=== PATIENT | male | born 1955 | race Caucasian/White ===

== ENCOUNTER 2017-10-28 21:23 | Emergency (ER) | payer MEDICARE ==
[~2017-10-28] VITALS: Ht 175.3 cm; Wt 90.7 kg
--- OUTSIDE RECORDS SUMMARY | ~2017-10-28 | XMS | Clinical Summary ---
Demographics + + + | Address | [address] | | | [place] [address] | + + + | Home Phone | | + + + | Preferred Language | Unknown | + + + | Marital Status | | + + + | Mormonism Affiliation | Unknown | + + + | Race | Unknown | + + + | Ethnic Group | Other Race | + + + Author + + + | Author | [facility] | + + + | Organization | [facility] | + + + | Address | Unknown | + + + | Phone | Unavailable | + + + Care Team Providers + +------+ + | Care Loop Cutter Name | Role | Phone | + +------+ + | No Pcp Per Patient | PP | Unavailable | + +------+ + Source Comments FLYNN is fully live on both Epic[facility] Ambulatory and EpicCare InPatient.[facility] Allergies + + + + + + [...] | + + + +---------+------+------+-------+ | [place] Fruit | Take by mouth. | | [...] | | | | (FLU SHOT) | 7 | | | + + + + + Results Not on filefrom Last 3 Months
[~2017-10-28 21:23] MED LIST: ASPIRIN EC325 MG PO; CARVEDILOL25 MG PO; GEMFIBROZIL600 MG PO; GLIMEPIRIDE4 MG PO; HYDROMORPHONE PO; LANTUS100 UNITS/ SUB-Q; LIPITOR40 MG PO; LISINOPRIL10 MG PO; MELOXICAM15 MG PO; MEN'S ONE DAIL1 EACH PO; METFORMIN HCL500 MG PO; NIACIN500 MG PO; NOVOLOG FL100 UNIT/1 SUB-Q; PANTOPRAZOLE SO40 MG PO; PROAIR HFA8.5 GM INH; QUETIAPINE FUM300 MG PO; RANITIDINE HCL150 MG PO; SAW PALMETTO450 MG PO; SEROQUEL300 MG PO; SYMBICORT 80-10.2 GM INH; TAMSULOSIN HCL0.4 MG PO; TEMAZEPAM30 MG PO; TESSALON PERLE100 MG PO; VANCOMYCIN1 GM/150 M IV; VENLAFAXINE HCL75 MG; VITAMIN D2000 UNIT PO
[2017-10-28] MEDS ORDERED: SPIRIVA18 MCG INH (22:01)
[2017-10-28] MEDS ORDERED: HUMALOG100 UNIT/2 SUB-Q (22:02)
[2017-10-28] MEDS ORDERED: ALDACTONE25 MG PO (22:05)
--- NOTE | 2017-10-31 23:45 | EKG ---
[facility] [address] [facility] [place] [address] Signed Sinus rhythm with occasional premature ventricular complexes Left atrial enlargement Nonspecific ST abnormality Prolonged QT Abnormal ECG When compared with ECG of 16-APR-2017 22:32, premature ventricular complexes are now present T wave amplitude has decreased in Anterior leads Nonspecific T wave abnormality no longer evident in Lateral leads Confirmed by TERRELL GUERRERO MD ([id number]) on 10/31/2017 11:45:29 PM Electronically Signed By: TERRELL GUERRERO MD 10/31/17 2345 PATIENT NAME: JAIR MEANS Electrocardiogram DATE OF : 59 PHYSICIAN: TERRELL GUERRERO MD REPORT #: [id number] REPORT IS CONFIDENTIAL AND NOT TO BE RELEASED WITHOUT AUTHORIZATION
== END 2017-10-29 06:31 | disposition home or self-care (01) ==
LOC: ED 21:23
DX: A41.9 Sepsis, unspecified organism (principal); R65.21 Severe sepsis with septic shock; J11.00 Influenza due to unidentified influenza virus with unspecified type of pneumonia; I50.9 Heart failure, unspecified; J98.11 Atelectasis; J90 Pleural effusion, not elsewhere classified; I51.7 Cardiomegaly; R59.1 Generalized enlarged lymph nodes; E11.9 Type 2 diabetes mellitus without complications; F17.210 Nicotine dependence, cigarettes, uncomplicated; Z88.5 Allergy status to narcotic agent; Z88.8 Allergy status to other drugs, medicaments and biological substances; Z79.4 Long term (current) use of insulin; Z79.82 Long term (current) use of aspirin; Z79.899 Other long term (current) drug therapy
CPT/HCPCS: 71045; 71260; 74177; 80053; 81001; 83605; 83690; 85025; 85610; 87040; 87077; 87186; 87502; 93005; 93010; 94640; 96361; 96365; 96366; 96375; 99291; 99292; J2543; J3370; J7120; Q9967

== ENCOUNTER 2018-02-25 05:36 | Inpatient (IN) | payer MEDICARE ==
[~2018-02-25] VITALS: Ht 175.3 cm; Wt 71.1 kg
--- OUTSIDE RECORDS SUMMARY | ~2018-02-25 | XMS | Clinical Summary ---
Demographics + + + | Address | [address] | | | [place] [address] | + + + | Home Phone | | + + + | Preferred Language | Unknown | + + + | Marital Status | | + + + | Yazidism Affiliation | Unknown | + + + | Race | Unknown | + + + | Ethnic Group | Unknown | + + + Author + + + | Author | [facility] | + + + | Organization | [facility] | + + + | Address | Unknown | + + + | Phone | Unavailable | + + + Support + + +---------+ + | Name | Relationship | Address | Phone | + + +---------+ + | Domenica Means | ECON | Unknown | | + + +---------+ + Care Team Providers + +------+ + | Care Cascade Operator Name | Role | Phone | + +------+ + | Ty Gomes MD | PP | | + +------+ + Allergies + + + + + + | Active Allergy | Reactions | Severity | Noted | Comments | | | | | Date | | + + + + + + | Zolpidem | Itching | Medium | 01/03/20 | | | | | | 14 | | + + + + + + | Hydrocodone | Rash | Medium | 01/03/20 | | | | | | 14 | | + + + + + + | Morphine | Rash | Medium | 03/12/20 | | | | | | 14 | | + + + + + + | Oxycodone | Rash | Medium | 01/03/20 | | | | | | 14 | | + + + + + + Current Medications + + +---------+---------+------+------+-------+ | Prescription | Sig. | Disp. | Refills | Star | End | Statu | | | | | | t | Date | s | | | | | | Date | | | + + +---------+---------+------+------+-------+ | quetiapine | Take 300 mg by mouth | | | | | Activ | | (SEROQUEL) 300 MG | nightly. | | | | | e | | tablet | | | | | | | + + +---------+---------+------+------+-------+ | temazepam | Take 30 mg by mouth | | | | | Activ | | (RESTORIL) 30 MG | nightly. | | | | | e | | capsule | | | | | | | + + +---------+---------+------+------+-------+ | venlafaxine | Take 300 mg by mouth | | | | | Activ | | (EFFEXOR-XR) 150 MG | nightly. | | | | | e | | 24 hr capsule | | | | | | | + + +---------+---------+------+------+-------+ | atorvastatin | Take 40 mg by mouth | | | | | Activ | | (LIPITOR) 40 MG | nightly. | | | | | e | | tablet | | | | | | | + + +---------+---------+------+------+-------+ | Multiple | Take 1 tablet by | | | | | Activ | | Vitamins-Minerals | mouth every morning. | | | | | e | | (MENS 50+ MULTI | | | | | | | | VITAMIN/MIN PO) | | | | | | | + + +---------+---------+------+------+-------+ | Aydin Block, | Take 450 mg by mouth | | | | | Activ | | Serenoa repens, 450 | 2 (two) times | | | | | e | | MG CAPS | daily. | | | | | | + + +---------+---------+------+------+-------+ | aspirin 325 MG | Take 325 mg by mouth | | | | | Activ | | tablet | daily. | | | | | e | + + +---------+---------+------+------+-------+ | ranitidine | Take 150 mg by mouth | | | | | Activ | | (ZANTAC) 150 MG | as needed. | | | | | e | | capsule | | | | | | | + + +---------+---------+------+------+-------+ | Cholecalciferol | Take 1 tablet by | | | | | Activ | | (VITAMIN D3) 2000 | mouth daily. | | | | | e | | UNITS TABS | | | | | | | + + +---------+---------+------+------+-------+ | niacin 500 MG | Take 500 mg by mouth | | | | | Activ | | tablet | every evening. 2po | | | | | e | | | q hs | | | | | | + + +---------+---------+------+------+-------+ | tamsulosin | Take 0.4 mg by mouth | | | | | Activ | | (FLOMAX) 0.4 MG | After dinner. | | | | | e | | capsule | | | | | | | + + +---------+---------+------+------+-------+ | metFORMIN | Take 1 tablet by | | | 06/2 | | Activ | | (GLUCOPHAGE) 500 MG | mouth 2 (two) times | | | 0/20 | | e | | tablet | daily. | | | 15 | | | + + +---------+---------+------+------+-------+ | tiotropium | Inhale 1 capsule | 30 | 12 | 05/24 | | Activ | | (SPIRIVA) 18 MCG | into the lungs | capsule | | 11/12 | | e | | inhalation capsule | daily. | | | 15 | | | + + +---------+---------+------+------+-------+ | | Take 3 mLs by | | | | | Activ | | ipratropium-albutero | nebulization 4 | | | | | e | | l (DUO-NEB) 0.5-2.5 | (four) times daily. | | | | | | | mg/3mL | | | | | | | + + +---------+---------+------+------+-------+ | pantoprazole | Take 40 mg by mouth | | | | | Activ | | (PROTONIX) 40 MG | every morning before | | | | | e | | tablet | breakfast. | | | | | | + + +---------+---------+------+------+-------+ | lisinopril | TAKE ONE TABLET BY | 90 | 3 | 05/3 | 05/3 | Activ | | (ZESTRIL) 2.5 MG | MOUTH ONCE DAILY | tablet | | 11/12 | 11/12 | e | | tablet | | | | 17 | 18 | | + + +---------+---------+------+------+-------+ | furosemide (LASIX) | TAKE ONE TABLET BY | 180 | 3 | 02/23 | 02/23 | Activ | | 40 MG tablet | MOUTH TWICE DAILY | tablet | | 11/12 | 11/12 | e | | | | | | 17 | 18 | | + + +---------+---------+------+------+-------+ | | Inhale 2 puffs into | | | | | Activ | | budesonide-formotero | the lungs 2 (two) | | | | | e | | l (SYMBICORT) | times daily. | | | | | | | 160-4.5 MCG/ACT | | | | | | | | inhaler | | | | | | | + + +---------+---------+------+------+-------+ | spironolactone | Take 25 mg by mouth | | | | | Activ | | (ALDACTONE) 25 MG | daily. | | | | | e | | tablet | | | | | | | + + +---------+---------+------+------+-------+ | albuterol | Inhale 2 puffs into | 1 | 0 | 01/0 | 01/0 | Activ | | (PROVENTIL | the lungs every 4 | Inhaler | | 9/20 | 9/20 | e | | HFA;VENTOLIN HFA) | (four) hours as | | | 18 | 19 | | | 108 (90 Base) | needed for Wheezing. | | | | | | | MCG/ACT inhaler | | | | | | | + + +---------+---------+------+------+-------+ | levofloxacin | Take 1 tablet by | 5 | 0 | 01/1 | | Activ | | (LEVAQUIN) 500 MG | mouth Once a | tablet | | 0/20 | | e | | tabletIndications: | Day-Quinalones. | | | 18 | | | | Community Acquired | | | | | | | | Pneumonia | | | | | | | + + +---------+---------+------+------+-------+ | insulin glargine | 45 units qhs For 5 | 15 mL | 12 | 01/0 | | Activ | | (LANTUS) 100 UNIT/ML | days take 20 units | | | 9/20 | | e | | injection | qam | | | 18 | | | + + +---------+---------+------+------+-------+ | predniSONE | Take one tablet, by | 10 | 0 | 01/0 | | Activ | | (DELTASONE) 20 MG | mouth two times | tablet | | 9/20 | | e | | tablet | daily for 5 days. | | | 18 | | | + + +---------+---------+------+------+-------+ | carvedilol (COREG) | TAKE ONE TABLET BY | 180 | 0 | 01/1 | | Activ | | 6.25 MG tablet | MOUTH TWICE DAILY | tablet | | 9/20 | | e | | | WITH FOOD | | | 18 | | | + + +---------+---------+------+------+-------+ | varenicline | Take 1 mg by mouth 2 | | | | | Activ | | (CHANTIX) 1 MG | (two) times daily. | | | | | e | | tablet | | | | | | | + + +---------+---------+------+------+-------+ | potassium chloride | Take 1 tablet by | 180 | 3 | 01/ | | Activ | | (KLOR-CON M10) 10 | mouth 2 (two) times | tablet | | 02/10 | | e | | MEQ tablet | daily. | | | 18 | | | + + +---------+---------+------+------+-------+ Active Problems + + + | Problem | Noted Date | + + + | Community acquired pneumonia due to influenza A virus | 10/29/2017 | + + + | S/P CABG x 3 | 10/29/2017 | + + + | Bipolar disorder (HCC) | 10/29/2017 | + + + | Chronic systolic congestive heart failure (HCC) | 10/29/2017 | + + + | Hypotension | 10/29/2017 | + + + | Septic shock (HCC) | 10/29/2017 | + + + | Cardiac defibrillator in place | 03/10/2016 | + + + + + | Overview: [facility] | + + + + + | COPD (chronic obstructive pulmonary disease) | 05/16/2015 | + + + | Mitral regurgitation | 05/16/2015 | + + + | Coronary atherosclerosis of [place] coronary artery | 09/10/2014 | + + + Encounters +--------+ + + + + | Date | Type | Specialty | Care Team | Description | +--------+ + + + + | 02/08/ | Office | | Tani Pop, | Cardiomyopathy, | | 2018 | Visit | | MD | unspecified type | | | | | | (HCC) (Primary Dx) | +--------+ + + + + | 01/31/ | Documentati | | | Automatic | | 2018 | on Only | | | Implantable | | | | | | Cardioverter | | | | | | Defibrillator (5 wk) | +--------+ + + + + | 01/31/ | Orders Only | | Marina Sultana ARNP | | | 2018 | | | | | +--------+ + + + + | 12/27/ | Documentati | | Anitha Bunn | Cardiac | | 2018 | on Only | | | Resynchronization | | | | | | Therapy - | | | | | | Defibrillator (5 wk | | | | | | HF) | +--------+ + + + + | 12/27/ | Orders Only | | Marina Sultana ARNP | | | 2017 | | | | | +--------+ + + + + from Last 3 Months Family History + + +------+ + | Medical History | Relation | Name | Comments | + + +------+ + | Emphysema | Father | | | + + +------+ + | Stroke | Maternal | | | | | Grandfath | | | | | er | | | + + +------+ + | Cancer | Mother | | brain, br | + + +------+ + | Diabetes type II | Mother | | | + + +------+ + | Heart disease | Mother | | | + + +------+ + + +------+ + + | Relation | Name | Status | Comments | + +------+ + + | Father | | | | + +------+ + + | Maternal Grandfather | | | | + +------+ + + | Mother | | | | + +------+ + + Social History + +-------+ +--------+ + | Tobacco Use | Types | Packs/Day | Years | Date | | | | | Used | | + +-------+ +--------+ + | Former Smoker | | 0 | 56 | Quit: 06/17/2015 | + +-------+ +--------+ + + +---+---+---+ | Smokeless Tobacco: | | | | | Never Used | | | | + +---+---+---+ + + | Tobacco Cessation: Ready to Quit: No | + + + + +---------+ + | Alcohol Use | Drinks/We | oz/Week | Comments | | | ek | | | + + +---------+ + | No | | | | + + +---------+ + + + + | Sex Assigned at | Date Recorded | | | | + + + | Not on file | | + + + Last Filed Vital Signs + + + + | Vital Sign | Reading | Time Taken | + + + + | Blood Pressure | 86/48 | 02/08/2018 3:50 PM PDT | + + + + | Pulse | 93 | 02/08/2018 3:50 PM PDT | + + + + | Temperature | 36.5 C (97.7 F) | 11/01/2017 12:18 PM PST | + + + + | Respiratory Rate | 20 | 02/08/2018 3:50 PM PDT | + + + + | Oxygen Saturation | 97% | 02/08/2018 3:50 PM PDT | + + + + | Inhaled Oxygen | - | - | | Concentration | | | + + + + | Weight | 72.4 kg (159 lb 9.6 | 02/08/2018 3:50 PM PDT | | | oz) | | + + + + | Height | 185.4 cm (6' 1") | 02/08/2018 3:50 PM PDT | + + + + | Body Mass Index | 21.06 | 02/08/2018 3:50 PM PDT | + + + + Plan of Treatment +--------+ + + + + | Date | Type | Specialty | Care Team | Description | +--------+ + + + + | 03/07/ | Documentati | | | | | 2017 | on Only | | | | +--------+ + + + + | 08/16/ | Office | | Tani Pop, | | | 2017 | Visit | | MD [address] | | | | | | [place] [address] | | | | | | [phone] | | | | | | | | +--------+ + + + + + + + + + | Health Maintenance | Due Date | Last Done | Comments | + + + + + | Vaccine: | | | | | Dtap/Tdap/Td (1 - | 6 | | | | Tdap) | | | | + + + + + | Vaccine: | | | | | Pneumococcal 19-64 | 6 | | | | (PPSV23 only) Medium | | | | | Risk (1 of 1 - | | | | | PPSV23) | | | | + + + + + | Colon Cancer | | | | | Screening | 7 | | | | (Colonoscopy) | | | | + + + + + | Vaccine: Influenza | | | | | (Season Ended) | 8 | | | + + + + + Procedures + +--------+ + + + | Procedure Name | Priori | Date/Time | Associated Diagnosis | Comments | | | ty | | | | + +--------+ + + + | PACEART DEVICE CHECK | Routin | 01/31/2018 | | Results for this | | REMOTE | e | 1:55 PM | | procedure are in the | | | | PDT | | results section. | + +--------+ + + + | PACEART DEVICE CHECK | Routin | 12/27/2017 | | Results for this | | REMOTE | e | 9:42 PM | | procedure are in the | | | | PST | | results section. | + +--------+ + + + from Last 3 Months Results PACEART DEVICE CHECK REMOTE (01/31/2018 1:55 PM) + + + + | Component | Value | Ref Range | + + + + | Date Time | [id number] | | | Interrogation | | | | Session | | | + + + + | Implantable Pulse | MDC_IDC_ENUM_MFG_STJ | | | Generator | | | | Medical Education Manager | | | + + + + | Implantable Pulse | [id number] Fortify VR | | | Generator Model | | | + + + + | Implantable Pulse | [id number] | | | Generator Serial | | | | Number | | | + + + + | Type Interrogation | MDC_IDC_ENUM_SESS_TYPE_Remote | | | Session | | | + + + + | Re-programmed During | MDC_IDC_ENUM_SESS_REPROGRAMMED_NO | | | Session | | | + + + + | Clinic Name | Long | | + + + + | Implantable Pulse | [facility]_IDC_ENUM_DEV_TYPE_ICD | | | Generator Type | | | + + + + | Implantable Pulse | [id number] | | | Generator Implant | | | | Date | | | + + + + | Implantable Lead | Medtronic | | | Medical Education Manager | | | + + + + | Implantable Lead | [id number] | | | Model | | | + + + + | Implantable Lead | [id number] | | | Serial Number | | | + + + + | Implantable Lead | [id number] | | | Implant Date | | | + + + + | Implantable Lead | APEX | | | Location Detail 1 | | | + + + + | Implantable Lead | [facility]_IDC_ENUM_LEAD_LOCATION_CHAMBER_RV | | | Location | | | + + + + | Candido Setting Mode | MDC_IDC_ENUM_BRADY_MODE_VVI | | | (NBG Code) | | | + + + + | Candido Setting Lower | 40 | {beats}/min | | Rate Limit | | | + + + + | Candido Setting | 120Comment: [id number]^STAR CALLEJASG CANDIDO | {beats}/min | | Maximum Sensor Rate | POLARITYCONFIGURATION RV SENSING PATHWAY | | | | SUMMARY^MDT - RV-Tip to RV-Ring | | + + + + | Lead Channel Setting | MDC_IDC_ENUM_POLARITY_BI | | | Sensing Polarity | | | + + + + | Lead Channel Setting | MDC_IDC_ENUM_ELECTRODE_LOCATION_RV | | | Sensing Anode | | | | Location | | | + + + + | Lead Channel Setting | MDC_IDC_ENUM_ELECTRODE_NAME_Ring | | | Sensing Anode | | | | Terminal | | | + + + + | Lead Channel Setting | MDC_IDC_ENUM_ELECTRODE_LOCATION_RV | | | Sensing Cathode | | | | Location | | | + + + + | Lead Channel Setting | MDC_IDC_ENUM_ELECTRODE_NAME_Tip | | | Sensing Cathode | | | | Terminal | | | + + + + | Lead Channel Setting | 0.5 | mV | | Sensing Sensitivity | | | + + + + | Lead Channel Setting | M[facility]_IDC_ENUM_SENSING_ADAPTATION_MODE_Adapti | | | Sensing Adaptation | veSensingComment: [id number]^STAR PROG CANDIDO | | | Mode | POLARITYCONFIGURATION RV PACING PATHWAY | | | | SUMMARY^STAR - RV-Tip to RV-Ring | | + + + + | Lead Channel Setting | MDC_IDC_ENUM_POLARITY_BI | | | Pacing Polarity | | | + + + + | Lead Channel Setting | MDC_IDC_ENUM_ELECTRODE_LOCATION_RV | | | Pacing Anode | | | | Location | | | + + + + | Lead Channel Setting | MDC_IDC_ENUM_ELECTRODE_NAME_Ring | | | Pacing Anode | | | | Terminal | | | + + + + | Lead Channel Setting | MDC_IDC_ENUM_ELECTRODE_LOCATION_RV | | | Sensing Cathode | | | | Location | | | + + + + | Lead Channel Setting | MDC_IDC_ENUM_ELECTRODE_NAME_Tip | | | Sensing Cathode | | | | Terminal | | | + + + + | Lead Channel Setting | 0.5 | ms | | Pacing Pulse Width | | | + + + + | Lead Channel Setting | 1.0 | V | | Pacing Amplitude | | | + + + + | Lead Channel Setting | MDC_IDC_ENUM_PACING_CAPTURE_MODE_AdaptiveCa | | | Pacing Capture Mode | pture | | + + + + | Zone Setting Type | MDC_IDC_ENUM_ZONE_TYPE_Zone_VF | | | Category | | | + + + + | Zone Setting Vendor | MDC_IDC_ENUM_ZONE_VENDOR_TYPE_STJ-Zone_VFCo | | | Type Category | mment: [id number]^MDT PROG TACHY ZONE | | | | DETECTIONS STATUS^MDT - ENABLED | | + + + + | Zone Setting | 300 | ms | | Detection Interval | | | + + + + | Zone Setting Type | MDC_IDC_ENUM_ZONE_TYPE_Zone_VT | | | Category | | | + + + + | Zone Setting Vendor | MDC_IDC_ENUM_ZONE_VENDOR_TYPE_STJ-Zone_VT2C | | | Type Category | omment: [id number]^MDT PROG TACHY ZONE | | | | DETECTIONS STATUS^MDT - DISABLED | | + + + + | Zone Setting Type | MDC_IDC_ENUM_ZONE_TYPE_Zone_VT | | | Category | | | + + + + | Zone Setting Vendor | MDC_IDC_ENUM_ZONE_VENDOR_TYPE_STJ-Zone_VT1C | | | Type Category | omment: 137753^MDT PROG TACHY ZONE | | | | DETECTIONS STATUS^MDT - ENABLED | | + + + + | Zone Setting | 350Comment: 109459^MDT PROG TACHY ZONE | ms | | Detection Interval | THERAPIES 1 SEQUENCEID^MDT - | | | | 1 292328^MDT PROG TACHY ZONE THERAPIES 1 | | | | STATUS^MDT - | | | | 014174^[facility]_ENUM_ZONE_STATUS_Active^[facility] | | | | 199191^MDT PROG TACHY ZONE THERAPIES 1 | | | | SHOCKTHERAPY ENERGY^MDT - | | | | 31.7 896623^MDT PROG TACHY ZONE | | | | THERAPIES 1 SHOCKTHERAPY PATHWAY POLE ANODE | | | | LOCATION 1^MDT - | | | | 312615^[facility]_ENUM_ELECTRODE_LOCATION_RV^M | | | | [place] [address]^MDT PROG TACHY ZONE THERAPIES | | | | 1 SHOCKTHERAPY PATHWAY POLE ANODE ELECTRODE | | | | 1^MDT - | | | | 144923^[facility]_ENUM_ELECTRODE_NAME_Coil^[facility] | | | | 861675^MDT PROG TACHY ZONE THERAPIES 1 | | | | SHOCKTHERAPY PATHWAY POLE CATHODE LOCATION | | | | 1^MDT - Other [id number]^MDT PROG TACHY | | | | ZONE THERAPIES 1 SHOCKTHERAPY PATHWAY POLE | | | | CATHODE ELECTRODE 1^MDT - | | | | 214190^[facility]_ENUM_ELECTRODE_NAME_Can^[facility] | | | | 137517^MDT PROG TACHY ZONE THERAPIES 2 | | | | SEQUENCEID^MDT - 2 728763^MDT PROG TACHY | | | | ZONE THERAPIES 2 STATUS^MDT - | | | | 976918^[facility]_ENUM_ZONE_STATUS_Active^[facility] | | | | 045381^MDT PROG TACHY ZONE THERAPIES 2 | | | | SHOCKTHERAPY ENERGY^MDT - | | | | 35.2 256481^MDT PROG TACHY ZONE | | | | THERAPIES 2 SHOCKTHERAPY PATHWAY POLE ANODE | | | | LOCATION 1^MDT - | | | | 727509^[facility]_ENUM_ELECTRODE_LOCATION_RV^M | | | | DC 577760^MDT PROG TACHY ZONE THERAPIES | | | | 2 SHOCKTHERAPY PATHWAY POLE ANODE ELECTRODE | | | | 1^MDT - | | | | 958345^[facility]_IDC_ENUM_ELECTRODE_NAME_Coil^[facility] | | | | 964489^MDT PROG TACHY ZONE THERAPIES 2 | | | | SHOCKTHERAPY PATHWAY POLE CATHODE LOCATION | | | | 1^MDT - Other [id number]^MDT PROG TACHY | | | | ZONE THERAPIES 2 SHOCKTHERAPY PATHWAY POLE | | | | CATHODE ELECTRODE 1^MDT - | | | | 409427^[facility]_ENUM_ELECTRODE_NAME_Can^[facility] | | | | 587709^MDT PROG TACHY ZONE THERAPIES 3 | | | | SEQUENCEID^MDT - 3 299974^MDT PROG TACHY | | | | ZONE THERAPIES 3 STATUS^MDT - | | | | 639194^[facility]_ENUM_ZONE_STATUS_Active^[facility] | | | | 495082^MDT PROG TACHY ZONE THERAPIES 3 | | | | SHOCKTHERAPY ENERGY^MDT - | | | | 35.2 080667^MDT PROG TACHY ZONE | | | | THERAPIES 3 SHOCKTHERAPY PATHWAY POLE ANODE | | | | LOCATION 1^MDT - | | | | 702043^[facility]_ENUM_ELECTRODE_LOCATION_RV^M | | | | [place] 0[address]^MDT PROG TACHY ZONE THERAPIES | | | | 3 SHOCKTHERAPY PATHWAY POLE ANODE ELECTRODE | | | | 1^MDT - | | | | 256011^[facility]_ENUM_ELECTRODE_NAME_Coil^[facility] | | | | 705325^MDT PROG TACHY ZONE THERAPIES 3 | | | | SHOCKTHERAPY PATHWAY POLE CATHODE LOCATION | | | | 1^MDT - Other [id number]^MDT PROG TACHY | | | | ZONE THERAPIES 3 SHOCKTHERAPY PATHWAY POLE | | | | CATHODE ELECTRODE 1^MDT - | | | | 219545^[facility]_ENUM_ELECTRODE_NAME_Can^[facility] | | | | 769779^MDT PROG TACHY ZONE THERAPIES 4 | | | | SEQUENCEID^MDT - 4 484344^MDT PROG TACHY | | | | ZONE THERAPIES 4 STATUS^MDT - | | | | 890371^[facility]_ENUM_ZONE_STATUS_Active^[facility] | | | | 776109^MDT PROG TACHY ZONE THERAPIES 4 | | | | SHOCKTHERAPY ENERGY^MDT - | | | | 35.2 025733^MDT PROG TACHY ZONE | | | | THERAPIES 4 SHOCKTHERAPY PATHWAY POLE ANODE | | | | LOCATION 1^MDT - | | | | 988358^[facility]_ENUM_ELECTRODE_LOCATION_RV^M | | | | DC 883572^MDT PROG TACHY ZONE THERAPIES | | | | 4 SHOCKTHERAPY PATHWAY POLE ANODE ELECTRODE | | | | 1^MDT - | | | | 240534^[facility]_ENUM_ELECTRODE_NAME_Coil^[facility] | | | | 259069^MDT PROG TACHY ZONE THERAPIES 4 | | | | SHOCKTHERAPY PATHWAY POLE CATHODE LOCATION | | | | 1^MDT - Other [id number]^MDT PROG TACHY | | | | ZONE THERAPIES 4 SHOCKTHERAPY PATHWAY POLE | | | | CATHODE ELECTRODE 1^MDT - | | | | 108212^[facility]_ENUM_ELECTRODE_NAME_Can^[facility] | | | | 770416^MDT PROG TACHY ZONE THERAPIES 5 | | | | SEQUENCEID^MDT - 5 092220^MDT PROG TACHY | | | | ZONE THERAPIES 5 STATUS^MDT - | | | | 234662^[facility]_ENUM_ZONE_STATUS_Active^[facility] | | | | 006137^MDT PROG TACHY ZONE THERAPIES 5 | | | | SHOCKTHERAPY ENERGY^MDT - | | | | 35.2 752083^MDT PROG TACHY ZONE | | | | THERAPIES 5 SHOCKTHERAPY PATHWAY POLE ANODE | | | | LOCATION 1^MDT - | | | | 221231^[facility] [place]_[facility]_ENUM_ELECTRODE_LOCATION_RV^M | | | | [place] 184130^MDT PROG TACHY ZONE THERAPIES | | | | 5 SHOCKTHERAPY PATHWAY POLE ANODE ELECTRODE | | | | 1^MDT - | | | | 077493^[facility] [place]_[facility]_ENUM_ELECTRODE_NAME_Coil^[facility] | | | | 870842^MDT PROG TACHY ZONE THERAPIES 5 | | | | SHOCKTHERAPY PATHWAY POLE CATHODE LOCATION | | | | 1^MDT - Other [id number]^MDT PROG TACHY | | | | ZONE THERAPIES 5 SHOCKTHERAPY PATHWAY POLE | | | | CATHODE ELECTRODE 1^MDT - | | | | 745055^[facility] [place]_[facility]_ENUM_ELECTRODE_NAME_Can^[facility] | | | | 047895^MDT PROG TACHY ZONE THERAPIES 6 | | | | SEQUENCEID^MDT - 6 514251^MDT PROG TACHY | | | | ZONE THERAPIES 6 STATUS^MDT - | | | | 920220^[facility] [place]_[facility]_ENUM_ZONE_STATUS_Active^[facility] [place] | | | | 555170^MDT PROG TACHY ZONE THERAPIES 6 | | | | SHOCKTHERAPY ENERGY^MDT - | | | | 35.2 460341^MDT PROG TACHY ZONE | | | | THERAPIES 6 SHOCKTHERAPY PATHWAY POLE ANODE | | | | LOCATION 1^MDT - | | | | 236520^[facility] [place]_[facility]_ENUM_ELECTRODE_LOCATION_RV^M | | | | [place] 649567^MDT PROG TACHY ZONE THERAPIES | | | | 6 SHOCKTHERAPY PATHWAY POLE ANODE ELECTRODE | | | | 1^MDT - | | | | 077553^[facility] [place]_[facility]_ENUM_ELECTRODE_NAME_Coil^[facility] | | | | 822185^MDT PROG TACHY ZONE THERAPIES 6 | | | | SHOCKTHERAPY PATHWAY POLE CATHODE LOCATION | | | | 1^MDT - Other [id number]^MDT PROG TACHY | | | | ZONE THERAPIES 6 SHOCKTHERAPY PATHWAY POLE | | | | CATHODE ELECTRODE 1^MDT - | | | | 865430^[facility] [place]_[facility]_ENUM_ELECTRODE_NAME_Can^[facility] | | | | 1388484^MDT PROG TACHY ZONE THERAPIES | | | | SUMMARY^MDT - 31.7J, 35.2J X | | | | 5 [id number]^MDT PROG TACHY ZONE THERAPIES | | | | SUMMARY^MDT - Disabled [id number]^MDT PROG | | | | TACHY ZONE THERAPIES SUMMARY^MDT - | | | | Monitored | | + + + + | Lead Channel Status | [facility]_ENUM_CHANNEL_STATUS_Null | | + + + + | Lead Channel | 380Comment: [id number]^MDT STAT LEADS | ohm | | Impedance Value | LOWPOWERCHANNEL RV IMPEDANCE STARTDATE^MDT | | | | - +[phone]^MDT STAT | | | | LEADS LOWPOWERCHANNEL RV IMPEDANCE | | | | ENDDATE^MDT - | | | | +[phone]^MDT STAT | | | | LEADS LOWPOWERCHANNEL RV IMPEDANCE | | | | POLARITY^MDT - | | | | 724847^[facility] [place]_IDC_ENUM_POLARITY_BI^MDC | | + + + + | Lead Channel Sensing | 11.9Comment: [id number]^MDT STAT LEADS | mV | | Intrinsic Amplitude | LOWPOWERCHANNEL RV SENSITIVITIES | | | | STARTDATE^MDT - | | | | +0000 [id number]^MDT STAT | | | | LEADS LOWPOWERCHANNEL RV SENSITIVITIES | | | | ENDDATE^MDT - | | | | +0000 1669414^MDT STAT | | | | LEADS LOWPOWERCHANNEL RV SENSITIVITIES | | | | POLARITY^MDT - | | | | 548622^[facility] [place]_IDC_ENUM_POLARITY_BI^MDC | | + + + + | Lead Channel Pacing | 0.75 | V | | Threshold Amplitude | | | + + + + | Lead Channel Pacing | 0.5Comment: 1556488^MDT STAT LEADS | ms | | Threshold Pulse | LOWPOWERCHANNEL RV CAPTURES STARTDATE^MDT - | | | Width | +0000 9830779^MDT STAT | | | | LEADS LOWPOWERCHANNEL RV CAPTURES | | | | ENDDATE^MDT - | | | | +0000 6111809^MDT STAT | | | | LEADS LOWPOWERCHANNEL RV CAPTURES | | | | METHOD^MDT - | | | | INSTRUMENT_INITIATED 7872923^MDT STAT | | | | LEADS LOWPOWERCHANNEL RV CAPTURES | | | | POLARITY^MDT - | | | | 032805^MDC_IDC_ENUM_POLARITY_BI^MDC 1001 | | | | 264^MDT STAT LEADS HIGHPOWERCHANNEL | | | | IMPEDANCES MEASURED VALUE^MDT - | | | | 57 1353019^MDT STAT LEADS | | | | HIGHPOWERCHANNEL IMPEDANCES STARTDATE^MDT - | | | | +0000 4022611^MDT STAT | | | | LEADS HIGHPOWERCHANNEL IMPEDANCES MEASURED | | | | VALUE^MDT - 57 4926762^MDT STAT LEADS | | | | HIGHPOWERCHANNEL IMPEDANCES STARTDATE^MDT - | | | | +0000 1315872^MDT STAT | | | | LEADS HIGHPOWERCHANNEL IMPEDANCES | | | | STATUS^MDT - | | | | 946525^MDC_IDC_ENUM_CHANNEL_STATUS_Null^MDC | | | | 6447769^MDT STAT LEADS HIGHPOWERCHANNEL | | | | IMPEDANCES STATUS^MDT - | | | | 876298^MDC_IDC_ENUM_CHANNEL_STATUS_Null^MDC | | | | | | + + + + | Battery Date Time of | [id number]+0000 | | | Measurements | | | + + + + | Battery Status | MDC_IDC_ENUM_BATTERY_STATUS_MOS | | + + + + | Battery VENDOR ANALYST Trigger | When current voltage < 2.59 volts | | + + + + | Battery Remaining | 43 | mo | | Longevity | | | + + + + | Battery Remaining | 36.0 | % | | Percentage | | | + + + + | Battery Voltage | 2.89 | V | + + + + | Capacitor Charge | MDC_IDC_ENUM_CHARGE_TYPE_Reformation | | | Type | | | + + + + | Capacitor Last | [id number]+0000 | | | Charge Date Time | | | + + + + | Capacitor Charge | 9.0 | s | | Time | | | + + + + | Capacitor Charge | 40 | J | | Energy | | | + + + + | Statistic Heart Rate | [id number]+0000 | | | Date Time Start | | | + + + + | Statistic Heart Rate | [id number]+0000 | | | Date Time End | | | + + + + | Statistic | 40 | {beats}/min | | Ventricular Heart | | | | Rate Min | | | + + + + | Statistic | 95 | {beats}/min | | Ventricular Heart | | | | Rate Mean | | | + + + + | Statistic | 250 | {beats}/min | | Ventricular Heart | | | | Rate Max | | | + + + + | Candido Statistic Date | [id number]+0000 | | | Time Start | | | + + + + | Candido Statistic Date | [id number]+0000 | | | Time End | | | + + + + | Candido Statistic RV | 1.0 | % | | Percent Paced | | | + + + + | DOWEL SETTING MACHINE OPERATOR Statistic Date | +0000 | | | Time Start | | | + + + + | DOWEL SETTING MACHINE OPERATOR Statistic Date | +0000 | | | Time End | | | + + + + | Atrial Tachy | +0000 | | | Statistic Date Time | | | | Start | | | + + + + | Atrial Tachy | [phone]+0000 | | | Statistic Date Time | | | | End | | | + + + + | Therapy Statistic | 0 | | | Recent Shocks | | | | Delivered | | | + + + + | Therapy Statistic | 0 | | | Recent Shocks | | | | Aborted | | | + + + + | Therapy Statistic | 0 | | | Recent ATP Delivered | | | + + + + | Therapy Statistic | [id number]+0000 | | | Recent Date Time | | | | Start | | | + + + + | Therapy Statistic | [id number]+0000Comment: [id number]^MDT | | | Recent Date Time End | EVALUATION DEPENDENCY^MDT - | | | | NO 7185779^MDT EVALUATION RHYTHM^MDT - | | | | presenting Vs PVCS/somewhat | | | | irregular 1864881^MDT EVALUATION | | | | MISCELLANEOUSCOMMENT^MDT - REMOTE | | | | CHECK: 5 wk HF Battery | | | | Longevity/Status: 3yr 7 mocharge time: | | | | Lead Impedance:Thresholds: last | | | | measuredMeasured P wave: / R Wave:RVp: <1% | | | | Events: no events recorded, Current mode | | | | VVIR - single lead device. Anti-coagulated: | | | | NoASA: 325 mg EF: Overall left ventricular | | | | systolic function is severely impaired | | | | with, an EF between 20 - 25 %. presenting | | | | EGM appears somewhat irregular but | | | | controlled. 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 | | | | N | | | | [place], | | | | MDAtherosclerosis of [place] coronary | | | | artery of [place] heart without angina | | | | pectorisEP Tech: Filemon Rosado | | | | [facility] | | + + + + + + + | Specimen | Performing Laboratory | + + + | | PACEART | + + + PACEART DEVICE CHECK REMOTE (12/27/2017 9:42 PM) + + + + | Component | Value | Ref Range | + + + + | Date Time | [id number]+0000 | | | Interrogation | | | | Session | | | + + + + | Implantable Pulse | MDC_IDC_ENUM_MFG_STJ | | | Generator | | | | Medical Education Manager | | | + + + + | Implantable Pulse | [id number] Fortify VR | | | Generator Model | | | + + + + | Implantable Pulse | [id number] | | | Generator Serial | | | | Number | | | + + + + | Type Interrogation | MDC_IDC_ENUM_SESS_TYPE_Remote | | | Session | | | + + + + | Re-programmed During | MDC_IDC_ENUM_SESS_REPROGRAMMED_NO | | | Session | | | + + + + | Clinic Name | Long | | + + + + | Implantable Pulse | M[facility]_IDC_ENUM_DEV_TYPE_ICD | | | Generator Type | | | + + + + | Implantable Pulse | [id number] | | | Generator Implant | | | | Date | | | + + + + | Implantable Lead | Medtronic | | | Medical Education Manager | | | + + + + | Implantable Lead | [id number] | | | Model | | | + + + + | Implantable Lead | [id number] | | | Serial Number | | | + + + + | Implantable Lead | [id number] | | | Implant Date | | | + + + + | Implantable Lead | APEX | | | Location Detail 1 | | | + + + + | Implantable Lead | MDC_IDC_ENUM_LEAD_LOCATION_CHAMBER_RV | | | Location | | | + + + + | Candido Setting Mode | MDC_IDC_ENUM_BRADY_MODE_VVI | | | (NBG Code) | | | + + + + | Candido Setting Lower | 40 | {beats}/min | | Rate Limit | | | + + + + | Candido Setting | 120Comment: [id number]^STAR CALLEJASG CANDIDO | {beats}/min | | Maximum Sensor Rate | POLARITYCONFIGURATION RV SENSING PATHWAY | | | | SUMMARY^MDT - RV-Tip to RV-Ring | | + + + + | Lead Channel Setting | MDC_IDC_ENUM_POLARITY_BI | | | Sensing Polarity | | | + + + + | Lead Channel Setting | MDC_IDC_ENUM_ELECTRODE_LOCATION_RV | | | Sensing Anode | | | | Location | | | + + + + | Lead Channel Setting | MDC_IDC_ENUM_ELECTRODE_NAME_Ring | | | Sensing Anode | | | | Terminal | | | + + + + | Lead Channel Setting | MDC_IDC_ENUM_ELECTRODE_LOCATION_RV | | | Sensing Cathode | | | | Location | | | + + + + | Lead Channel Setting | M[facility]_IDC_ENUM_ELECTRODE_NAME_Tip | | | Sensing Cathode | | | | Terminal | | | + + + + | Lead Channel Setting | 0.5 | mV | | Sensing Sensitivity | | | + + + + | Lead Channel Setting | M[facility]_IDC_ENUM_SENSING_ADAPTATION_MODE_Adapti | | | Sensing Adaptation | veSensingComment: [id number]^STAR PROG CANDIDO | | | Mode | POLARITYCONFIGURATION RV PACING PATHWAY | | | | SUMMARY^MDT - RV-Tip to RV-Ring | | + + + + | Lead Channel Setting | MDC_IDC_ENUM_POLARITY_BI | | | Pacing Polarity | | | + + + + | Lead Channel Setting | MDC_IDC_ENUM_ELECTRODE_LOCATION_RV | | | Pacing Anode | | | | Location | | | + + + + | Lead Channel Setting | MDC_IDC_ENUM_ELECTRODE_NAME_Ring | | | Pacing Anode | | | | Terminal | | | + + + + | Lead Channel Setting | MDC_IDC_ENUM_ELECTRODE_LOCATION_RV | | | Sensing Cathode | | | | Location | | | + + + + | Lead Channel Setting | MDC_IDC_ENUM_ELECTRODE_NAME_Tip | | | Sensing Cathode | | | | Terminal | | | + + + + | Lead Channel Setting | 0.5 | ms | | Pacing Pulse Width | | | + + + + | Lead Channel Setting | 1.0 | V | | Pacing Amplitude | | | + + + + | Lead Channel Setting | MDC_IDC_ENUM_PACING_CAPTURE_MODE_AdaptiveCa | | | Pacing Capture Mode | pture | | + + + + | Zone Setting Type | MDC_IDC_ENUM_ZONE_TYPE_Zone_VF | | | Category | | | + + + + | Zone Setting Vendor | MDC_IDC_ENUM_ZONE_VENDOR_TYPE_STJ-Zone_VFCo | | | Type Category | mment: 108198^MDT PROG TACHY ZONE | | | | DETECTIONS STATUS^MDT - ENABLED | | + + + + | Zone Setting | 300 | ms | | Detection Interval | | | + + + + | Zone Setting Type | MDC_IDC_ENUM_ZONE_TYPE_Zone_VT | | | Category | | | + + + + | Zone Setting Vendor | MDC_IDC_ENUM_ZONE_VENDOR_TYPE_STJ-Zone_VT2C | | | Type Category | omment: 718390^MDT PROG TACHY ZONE | | | | DETECTIONS STATUS^MDT - DISABLED | | + + + + | Zone Setting Type | MDC_IDC_ENUM_ZONE_TYPE_Zone_VT | | | Category | | | + + + + | Zone Setting Vendor | MDC_IDC_ENUM_ZONE_VENDOR_TYPE_STJ-Zone_VT1C | | | Type Category | omment: 779328^MDT PROG TACHY ZONE | | | | DETECTIONS STATUS^MDT - ENABLED | | + + + + | Zone Setting | 350Comment: 574459^MDT PROG TACHY ZONE | ms | | Detection Interval | THERAPIES 1 SEQUENCEID^MDT - | | | | 1 620919^MDT PROG TACHY ZONE THERAPIES 1 | | | | STATUS^MDT - | | | | 258485^[facility] [place]_IDC_ENUM_ZONE_STATUS_Active^[facility] [place] | | | | 097765^MDT PROG TACHY ZONE THERAPIES 1 | | | | SHOCKTHERAPY ENERGY^MDT - | | | | 31.2 136850^MDT PROG TACHY ZONE | | | | THERAPIES 1 SHOCKTHERAPY PATHWAY POLE ANODE | | | | LOCATION 1^MDT - | | | | 864654^[facility] [place]_IDC_ENUM_ELECTRODE_LOCATION_RV^M | | | | [place] 0[address]^MDT PROG TACHY ZONE THERAPIES | | | | 1 SHOCKTHERAPY PATHWAY POLE ANODE ELECTRODE | | | | 1^MDT - | | | | 573961^[facility] [place]_IDC_ENUM_ELECTRODE_NAME_Coil^[facility] | | | | 102908^MDT PROG TACHY ZONE THERAPIES 1 | | | | SHOCKTHERAPY PATHWAY POLE CATHODE LOCATION | | | | 1^MDT - Other [id number]^MDT PROG TACHY | | | | ZONE THERAPIES 1 SHOCKTHERAPY PATHWAY POLE | | | | CATHODE ELECTRODE 1^MDT - | | | | 347335^[facility] [place]_IDC_ENUM_ELECTRODE_NAME_Can^MDC | | | | 697117^MDT PROG TACHY ZONE THERAPIES 2 | | | | SEQUENCEID^MDT - 2 908810^MDT PROG TACHY | | | | ZONE THERAPIES 2 STATUS^MDT - | | | | 141598^[facility] [place]_IDC_ENUM_ZONE_STATUS_Active^[facility] | | | | 571784^MDT PROG TACHY ZONE THERAPIES 2 | | | | SHOCKTHERAPY ENERGY^MDT - | | | | 34.6 363097^MDT PROG TACHY ZONE | | | | THERAPIES 2 SHOCKTHERAPY PATHWAY POLE ANODE | | | | LOCATION 1^MDT - | | | | 698563^[facility] [place]_ENUM_ELECTRODE_LOCATION_RV^M | | | | DC 842692^MDT PROG TACHY ZONE THERAPIES | | | | 2 SHOCKTHERAPY PATHWAY POLE ANODE ELECTRODE | | | | 1^MDT - | | | | 978186^[facility] [place]_ENUM_ELECTRODE_NAME_Coil^[facility] | | | | 927114^MDT PROG TACHY ZONE THERAPIES 2 | | | | SHOCKTHERAPY PATHWAY POLE CATHODE LOCATION | | | | 1^MDT - Other J864441^MDT PROG TACHY | | | | ZONE THERAPIES 2 SHOCKTHERAPY PATHWAY POLE | | | | CATHODE ELECTRODE 1^MDT - | | | | 235352^[facility] [place]_ENUM_ELECTRODE_NAME_Can^[facility] | | | | 986835^MDT PROG TACHY ZONE THERAPIES 3 | | | | SEQUENCEID^MDT - 3 528211^MDT PROG TACHY | | | | ZONE THERAPIES 3 STATUS^MDT - | | | | 780882^[facility] [place]_ENUM_ZONE_STATUS_Active^[facility] | | | | 754252^MDT PROG TACHY ZONE THERAPIES 3 | | | | SHOCKTHERAPY ENERGY^MDT - | | | | 34.6 253419^MDT PROG TACHY ZONE | | | | THERAPIES 3 SHOCKTHERAPY PATHWAY POLE ANODE | | | | LOCATION 1^MDT - | | | | 005899^[facility] [place]_ENUM_ELECTRODE_LOCATION_RV^M | | | | DC 158620^MDT PROG TACHY ZONE THERAPIES | | | | 3 SHOCKTHERAPY PATHWAY POLE ANODE ELECTRODE | | | | 1^MDT - | | | | 243876^[facility] [place]_ENUM_ELECTRODE_NAME_Coil^[facility] | | | | 763165^MDT PROG TACHY ZONE THERAPIES 3 | | | | SHOCKTHERAPY PATHWAY POLE CATHODE LOCATION | | | | 1^MDT - Other [id number]^MDT PROG TACHY | | | | ZONE THERAPIES 3 SHOCKTHERAPY PATHWAY POLE | | | | CATHODE ELECTRODE 1^MDT - | | | | 473857^[facility] [place]_ENUM_ELECTRODE_NAME_Can^[facility] | | | | 085257^MDT PROG TACHY ZONE THERAPIES 4 | | | | SEQUENCEID^MDT - 4 525729^MDT PROG TACHY | | | | ZONE THERAPIES 4 STATUS^MDT - | | | | 746874^[facility] [place]_ENUM_ZONE_STATUS_Active^[facility] | | | | 189563^MDT PROG TACHY ZONE THERAPIES 4 | | | | SHOCKTHERAPY ENERGY^MDT - | | | | 34.6 660399^MDT PROG TACHY ZONE | | | | THERAPIES 4 SHOCKTHERAPY PATHWAY POLE ANODE | | | | LOCATION 1^MDT - | | | | 195231^[facility] [place]_ENUM_ELECTRODE_LOCATION_RV^M | | | | DC 753096^MDT PROG TACHY ZONE THERAPIES | | | | 4 SHOCKTHERAPY PATHWAY POLE ANODE ELECTRODE | | | | 1^MDT - | | | | 735752^[facility] [place]_ENUM_ELECTRODE_NAME_Coil^[facility] | | | | 479451^MDT PROG TACHY ZONE THERAPIES 4 | | | | SHOCKTHERAPY PATHWAY POLE CATHODE LOCATION | | | | 1^MDT - Other [id number]^MDT PROG TACHY | | | | ZONE THERAPIES 4 SHOCKTHERAPY PATHWAY POLE | | | | CATHODE ELECTRODE 1^MDT - | | | | 056374^[facility] [place]_ENUM_ELECTRODE_NAME_Can^[facility] | | | | 364449^MDT PROG TACHY ZONE THERAPIES 5 | | | | SEQUENCEID^MDT - 5 369059^MDT PROG TACHY | | | | ZONE THERAPIES 5 STATUS^MDT - | | | | 285923^[facility] [place]_ENUM_ZONE_STATUS_Active^[facility] [place] | | | | 540672^MDT PROG TACHY ZONE THERAPIES 5 | | | | SHOCKTHERAPY ENERGY^MDT - | | | | 34.6 697632^MDT PROG TACHY ZONE | | | | THERAPIES 5 SHOCKTHERAPY PATHWAY POLE ANODE | | | | LOCATION 1^MDT - | | | | 610639^[facility] [place]_ENUM_ELECTRODE_LOCATION_RV^M | | | | [place] 713808^MDT PROG TACHY ZONE THERAPIES | | | | 5 SHOCKTHERAPY PATHWAY POLE ANODE ELECTRODE | | | | 1^MDT - | | | | 390932^[facility] [place]_ENUM_ELECTRODE_NAME_Coil^[facility] [place] | | | | 307954^MDT PROG TACHY ZONE THERAPIES 5 | | | | SHOCKTHERAPY PATHWAY POLE CATHODE LOCATION | | | | 1^MDT - Other [id number]^MDT PROG TACHY | | | | ZONE THERAPIES 5 SHOCKTHERAPY PATHWAY POLE | | | | CATHODE ELECTRODE 1^MDT - | | | | 327112^[facility] [place]_ENUM_ELECTRODE_NAME_Can^[facility] | | | | 076631^MDT PROG TACHY ZONE THERAPIES 6 | | | | SEQUENCEID^MDT - 6 668332^MDT PROG TACHY | | | | ZONE THERAPIES 6 STATUS^MDT - | | | | 079047^[facility] [place]_[facility]_ENUM_ZONE_STATUS_Active^[facility] [place] | | | | 130969^MDT PROG TACHY ZONE THERAPIES 6 | | | | SHOCKTHERAPY ENERGY^MDT - | | | | 34.6 740507^MDT PROG TACHY ZONE | | | | THERAPIES 6 SHOCKTHERAPY PATHWAY POLE ANODE | | | | LOCATION 1^MDT - | | | | 299161^[facility] [place]_ENUM_ELECTRODE_LOCATION_RV^M | | | | DC 137279^MDT PROG TACHY ZONE THERAPIES | | | | 6 SHOCKTHERAPY PATHWAY POLE ANODE ELECTRODE | | | | 1^MDT - | | | | 205114^[facility] [place]_ENUM_ELECTRODE_NAME_Coil^[facility] [place] | | | | 384892^MDT PROG TACHY ZONE THERAPIES 6 | | | | SHOCKTHERAPY PATHWAY POLE CATHODE LOCATION | | | | 1^MDT - Other I244749^MDT PROG TACHY | | | | ZONE THERAPIES 6 SHOCKTHERAPY PATHWAY POLE | | | | CATHODE ELECTRODE 1^MDT - | | | | 178488^[facility] [place]_ENUM_ELECTRODE_NAME_Can^[facility] | | | | 6269743^MDT PROG TACHY ZONE THERAPIES | | | | SUMMARY^MDT - 31.2J, 34.6J X | | | | 5 0897317^MDT PROG TACHY ZONE THERAPIES | | | | SUMMARY^MDT - Disabled 2702320^MDT PROG | | | | TACHY ZONE THERAPIES SUMMARY^MDT - | | | | Monitored | | + + + + | Lead Channel Status | MDC_IDC_ENUM_CHANNEL_STATUS_Null | | + + + + | Lead Channel | 400Comment: 5006616^MDT STAT LEADS | ohm | | Impedance Value | LOWPOWERCHANNEL RV IMPEDANCE STARTDATE^MDT | | | | - [id number]+0000 6992560^MDT STAT | | | | LEADS LOWPOWERCHANNEL RV IMPEDANCE | | | | ENDDATE^MDT - | | | | 05597938006789+0000 7089486^MDT STAT | | | | LEADS LOWPOWERCHANNEL RV IMPEDANCE | | | | POLARITY^MDT - | | | | 175112^MDC_IDC_ENUM_POLARITY_BI^MDC | | + + + + | Lead Channel Sensing | 12.0Comment: 9030764^MDT STAT LEADS | mV | | Intrinsic Amplitude | LOWPOWERCHANNEL RV SENSITIVITIES | | | | STARTDATE^MDT - | | | | +0000 4503479^MDT STAT | | | | LEADS LOWPOWERCHANNEL RV SENSITIVITIES | | | | ENDDATE^MDT - | | | | +0000 4114002^MDT STAT | | | | LEADS LOWPOWERCHANNEL RV SENSITIVITIES | | | | POLARITY^MDT - | | | | 046069^MDC_IDC_ENUM_POLARITY_BI^MDC | | + + + + | Lead Channel Pacing | 0.75 | V | | Threshold Amplitude | | | + + + + | Lead Channel Pacing | 0.5Comment: 5281642^MDT STAT LEADS | ms | | Threshold Pulse | LOWPOWERCHANNEL RV CAPTURES STARTDATE^MDT - | | | Width | +0000 5144258^MDT STAT | | | | LEADS LOWPOWERCHANNEL RV CAPTURES | | | | ENDDATE^MDT - | | | | +0000 1338848^MDT STAT | | | | LEADS LOWPOWERCHANNEL RV CAPTURES | | | | METHOD^MDT - | | | | INSTRUMENT_INITIATED 4360595^MDT STAT | | | | LEADS LOWPOWERCHANNEL RV CAPTURES | | | | POLARITY^MDT - | | | | 575621^MDC_IDC_ENUM_POLARITY_BI^MDC 1001 | | | | 264^MDT STAT LEADS HIGHPOWERCHANNEL | | | | IMPEDANCES MEASURED VALUE^MDT - | | | | 61 4445273^MDT STAT LEADS | | | | HIGHPOWERCHANNEL IMPEDANCES STARTDATE^MDT - | | | | +0000 9751390^MDT STAT | | | | LEADS HIGHPOWERCHANNEL IMPEDANCES MEASURED | | | | VALUE^MDT - 61 0765453^MDT STAT LEADS | | | | HIGHPOWERCHANNEL IMPEDANCES STARTDATE^MDT - | | | | +0000 7447677^MDT STAT | | | | LEADS HIGHPOWERCHANNEL IMPEDANCES | | | | STATUS^MDT - | | | | 760758^MDC_IDC_ENUM_CHANNEL_STATUS_Null^MDC | | | | 5773672^MDT STAT LEADS HIGHPOWERCHANNEL | | | | IMPEDANCES STATUS^MDT - | | | | 136473^MDC_IDC_ENUM_CHANNEL_STATUS_Null^MDC | | | | | | + + + + | Battery Date Time of | [id number]+0000 | | | Measurements | | | + + + + | Battery Status | MDC_IDC_ENUM_BATTERY_STATUS_MOS | | + + + + | Battery VENDOR ANALYST Trigger | When current voltage < 2.59 volts | | + + + + | Battery Remaining | 43 | mo | | Longevity | | | + + + + | Battery Remaining | 36.0 | % | | Percentage | | | + + + + | Battery Voltage | 2.89 | V | + + + + | Capacitor Charge | MDC_IDC_ENUM_CHARGE_TYPE_Reformation | | | Type | | | + + + + | Capacitor Last | [id number] | | | Charge Date Time | | | + + + + | Capacitor Charge | 9.0 | s | | Time | | | + + + + | Capacitor Charge | 40 | J | | Energy | | | + + + + | Statistic Heart Rate | [id number] | | | Date Time Start | | | + + + + | Statistic Heart Rate | [id number] | | | Date Time End | | | + + + + | Statistic | 40 | {beats}/min | | Ventricular Heart | | | | Rate Min | | | + + + + | Statistic | 94 | {beats}/min | | Ventricular Heart | | | | Rate Mean | | | + + + + | Statistic | 330 | {beats}/min | | Ventricular Heart | | | | Rate Max | | | + + + + | Candido Statistic Date | [id number] | | | Time Start | | | + + + + | Candido Statistic Date | [id number] | | | Time End | | | + + + + | Candido Statistic RV | 1.0 | % | | Percent Paced | | | + + + + | DOWEL SETTING MACHINE OPERATOR Statistic Date | +0000 | | | Time Start | | | + + + + | DOWEL SETTING MACHINE OPERATOR Statistic Date | +0000 | | | Time End | | | + + + + | Atrial Tachy | +0000 | | | Statistic Date Time | | | | Start | | | + + + + | Atrial Tachy | +0000 | | | Statistic Date Time | | | | End | | | + + + + | Therapy Statistic | 0 | | | Recent Shocks | | | | Delivered | | | + + + + | Therapy Statistic | 0 | | | Recent Shocks | | | | Aborted | | | + + + + | Therapy Statistic | 0 | | | Recent ATP Delivered | | | + + + + | Therapy Statistic | [id number] | | | Recent Date Time | | | | Start | | | + + + + | Therapy Statistic | [id number]+0000Comment: [id number]^MDT | | | Recent Date Time End | EVALUATION RHYTHM^MDT - presenting VS 88 | | | | bpm [id number]^MDT EVALUATION | | | | MISCELLANEOUSCOMMENT^MDT - REMOTE CHECK: | | | | 5wk Battery Longevity/Status: 3yr 7 moLead | | | | Impedance: WNLThresholds: last measured | | | | 11/16/17 WNLMeasured R Wave: >12.0 RVp: | | | | 1.0% Events: No events. Anti-coagulated: | | | | noASA: 325mg EF: Severe cardiomyopathy, | | | | ejection fraction measured at 20% to 25%. | | | | 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 | | | | N | | | | [place], | | | | MDCardiomyopathy ([facility])08/10/2016[facility] | | | | N | | | | [place], | | | | MDAtherosclerosis of [place] coronary | | | | artery of [place] heart without angina | | | | pectorisEP Tech: Filemon Rosado | | | | [facility] | | + + + + + + + | Specimen | Performing Laboratory | + + + | | PACEART | + + + from Last 3 Months Insurance + +--------+ +------+-------+ + | Payer | Benefi | Subscriber | Type | Phone | Address | | | t Plan | ID | | | | | | / | | | | | | | Group | | | | | + +--------+ +------+-------+ + | MEDICARE | MEDICA | xxxxxxxxxx | | | [address] | | | RE | | | | [place] [id number] | | | IP-OP | | | | | + +--------+ +------+-------+ + + +--------+ +--------+ + + | Guarantor Name | Accoun | Relation to | Date | Phone | Billing Address | | | t Type | Patient | of | | | | | | | | | | + +--------+ +--------+ + + | THEE MEANS | Person | Self [birth year] Home: | [address] | | | al/Fam | | [phone] | [place] | | | michael | | | [phone] | [phone] | + +--------+ +--------+ + +
--- OUTSIDE RECORDS SUMMARY | ~2018-02-25 | XMS | Clinical Summary ---
Demographics + + + | Address | [address] | | | [place] [address] | + + + | Home Phone | | + + + | Preferred Language | Unknown | + + + | Marital Status | | + + + | Amish Affiliation | Unknown | + + + | Race | Unknown | + + + | Ethnic Group | Unknown | + + + Author + + + | Author | [facility] | + + + | Organization | [facility] | + + + | Address | Unknown | + + + | Phone | Unavailable | + + + Support + + +---------+ + | Name | Relationship | Address | Phone | + + +---------+ + | Domenica Means | ECON | Unknown | | + + +---------+ + Care Team Providers + +------+ + | Care Curber Name | Role | Phone | + [...] + + + | Overview: [facility] | + + + + + | COPD (chronic obstructive pulmonary disease) | 05/16/2015 | + + + | Mitral regurgitation | 05/16/2015 | + + + | Coronary atherosclerosis of tulalip coronary artery | 09/10/2014 | + + [...] Dr | | | | | | [place] [address] | | | | | | [phone] | | | | | | | [...] + + + | Date Time | [id number]+0000 | | | Interrogation | | | | Session | | | + + + + | Implantable Pulse | MDC_IDC_ENUM_MFG_STJ | | | Generator | | | | It Sales Representative | | | + + + + | Implantable Pulse | 1231-40Q Fortify VR | | | Generator Model | | | + + + + | Implantable Pulse | [id number] | | | Generator Serial | | | | Number | | | + + + + | Type Interrogation | MDC_IDC_ENUM_SESS_TYPE_Remote | | | Session | | | + + + + | Re-programmed During | MDC_IDC_ENUM_SESS_REPROGRAMMED_NO | | | Session | | | + + + + | Clinic Name | [facility] | | + + + + | Implantable Pulse | MDC_IDC_ENUM_DEV_TYPE_ICD | | | Generator Type | | | + + + + | Implantable Pulse | [id number] | | | Generator Implant | | | | Date | | | + + + + | Implantable Lead | Medtronic | | | It Sales Representative | | | + + + + | Implantable Lead | 6935-65 | | | Model | | | + + + + | Implantable Lead | [id number] | | | Serial Number | | | + + + + | Implantable Lead | [id number] | | | Implant Date | | [...] + + | Candido Setting | 120Comment: [id number]^STAR CALLEJASG CANDIDO | {beats}/min | | Maximum [...] | | | Sensing Adaptation | veSensingComment: [id number]^STAR PROG CANDIDO | | | Mode | [...] | | | Type Category | mment: [id number]^MDT PROG TACHY ZONE | | | | [...] | | | Type Category | omment: [id number]^MDT PROG TACHY ZONE | | | | DETECTIONS STATUS^MDT - DISABLED | | + + + + | Zone Setting Type | MDC_IDC_ENUM_ZONE_TYPE_Zone_VT | | | Category | | | + + + + | Zone Setting Vendor | MDC_IDC_ENUM_ZONE_VENDOR_TYPE_STJ-Zone_VT1C | | | Type Category | omment: [id number]^MDT PROG TACHY ZONE | | | | DETECTIONS STATUS^MDT - ENABLED | | + + + + | Zone Setting | 350Comment: 112912^MDT PROG TACHY ZONE | ms | | Detection Interval | THERAPIES 1 SEQUENCEID^MDT - | | | | 1 117843^MDT PROG TACHY ZONE THERAPIES 1 | | | | STATUS^MDT - | | | | 843099^[facility]_ENUM_ZONE_STATUS_Active^[facility] | | | | 126490^MDT PROG TACHY ZONE THERAPIES 1 | | | | SHOCKTHERAPY ENERGY^MDT - | | | | 31.7 064469^MDT PROG TACHY ZONE | | | | THERAPIES 1 SHOCKTHERAPY PATHWAY POLE ANODE | | | | LOCATION 1^MDT - | | | | 325226^[facility]_ENUM_ELECTRODE_LOCATION_RV^M | | | | [place] 056263^MDT PROG TACHY ZONE THERAPIES | | | | 1 SHOCKTHERAPY PATHWAY POLE ANODE ELECTRODE | | | | 1^MDT - | | | | 288151^[facility]_ENUM_ELECTRODE_NAME_Coil^[facility] | | | | 701839^MDT PROG TACHY ZONE THERAPIES 1 | | | | SHOCKTHERAPY PATHWAY POLE CATHODE LOCATION | | | | 1^MDT - Other [id number]^MDT PROG TACHY | | | | ZONE THERAPIES 1 SHOCKTHERAPY PATHWAY POLE | | | | CATHODE ELECTRODE 1^MDT - | | | | 335416^[facility]_ENUM_ELECTRODE_NAME_Can^[facility] | | | | 862740^MDT PROG TACHY ZONE THERAPIES 2 | | | | SEQUENCEID^MDT - 2 126989^MDT PROG TACHY | | | | ZONE THERAPIES 2 STATUS^MDT - | | | | 129680^[facility]_ENUM_ZONE_STATUS_Active^[facility] | | | | 931027^MDT PROG TACHY ZONE THERAPIES 2 | | | | SHOCKTHERAPY ENERGY^MDT - | | | | 35.2 657438^MDT PROG TACHY ZONE | | | | THERAPIES 2 SHOCKTHERAPY PATHWAY POLE ANODE | | | | LOCATION 1^MDT - | | | | 682314^[facility]_ENUM_ELECTRODE_LOCATION_RV^M | | | | [place] 703339^MDT PROG TACHY ZONE THERAPIES | | | | 2 SHOCKTHERAPY PATHWAY POLE ANODE ELECTRODE | | | | 1^MDT - | | | | 954856^[facility]_IDC_ENUM_ELECTRODE_NAME_Coil^[facility] | | | | 812744^MDT PROG TACHY ZONE THERAPIES 2 | | | | SHOCKTHERAPY PATHWAY POLE CATHODE LOCATION | | | | 1^MDT - Other S256272^MDT PROG TACHY | | | | ZONE THERAPIES 2 SHOCKTHERAPY PATHWAY POLE | | | | CATHODE ELECTRODE 1^MDT - | | | | 337438^[facility]_ENUM_ELECTRODE_NAME_Can^[facility] | | | | 769357^MDT PROG TACHY ZONE THERAPIES 3 | | | | SEQUENCEID^MDT - 3 526987^MDT PROG TACHY | | | | ZONE THERAPIES 3 STATUS^MDT - | | | | 038773^[facility]_ENUM_ZONE_STATUS_Active^[facility] | | | | 301187^MDT PROG TACHY ZONE THERAPIES 3 | | | | SHOCKTHERAPY ENERGY^MDT - | | | | 35.2 468619^MDT PROG TACHY ZONE | | | | THERAPIES 3 SHOCKTHERAPY PATHWAY POLE ANODE | | | | LOCATION 1^MDT - | | | | 265818^[facility]_ENUM_ELECTRODE_LOCATION_RV^M | | | | [place] 922512^MDT PROG TACHY ZONE THERAPIES | | | | 3 SHOCKTHERAPY PATHWAY POLE ANODE ELECTRODE | | | | 1^MDT - | | | | 386224^[facility]_ENUM_ELECTRODE_NAME_Coil^[facility] | | | | 212505^MDT PROG TACHY ZONE THERAPIES 3 | | | | SHOCKTHERAPY PATHWAY POLE CATHODE LOCATION | | | | 1^MDT - Other [id number]^MDT PROG TACHY | | | | ZONE THERAPIES 3 SHOCKTHERAPY PATHWAY POLE | | | | CATHODE ELECTRODE 1^MDT - | | | | 916510^[facility]_ENUM_ELECTRODE_NAME_Can^[facility] | | | | 255435^MDT PROG TACHY ZONE THERAPIES 4 | | | | SEQUENCEID^MDT - 4 230720^MDT PROG TACHY | | | | ZONE THERAPIES 4 STATUS^MDT - | | | | 631394^[facility]_ENUM_ZONE_STATUS_Active^[facility] | | | | 170849^MDT PROG TACHY ZONE THERAPIES 4 | | | | SHOCKTHERAPY ENERGY^MDT - | | | | 35.2 361306^MDT PROG TACHY ZONE | | | | THERAPIES 4 SHOCKTHERAPY PATHWAY POLE ANODE | | | | LOCATION 1^MDT - | | | | 613021^[facility]_ENUM_ELECTRODE_LOCATION_RV^M | | | | [place] 27[address]^MDT PROG TACHY ZONE THERAPIES | | | | 4 SHOCKTHERAPY PATHWAY POLE ANODE ELECTRODE | | | | 1^MDT - | | | | 895620^[facility]_ENUM_ELECTRODE_NAME_Coil^[facility] | | | | 581373^MDT PROG TACHY ZONE THERAPIES 4 | | | | SHOCKTHERAPY PATHWAY POLE CATHODE LOCATION | | | | 1^MDT - Other [id number]^MDT PROG TACHY | | | | ZONE THERAPIES 4 SHOCKTHERAPY PATHWAY POLE | | | | CATHODE ELECTRODE 1^MDT - | | | | 300962^[facility]_ENUM_ELECTRODE_NAME_Can^[facility] | | | | 147808^MDT PROG TACHY ZONE THERAPIES 5 | | | | SEQUENCEID^MDT - 5 444138^MDT PROG TACHY | | | | ZONE THERAPIES 5 STATUS^MDT - | | | | 567448^[facility]_ENUM_ZONE_STATUS_Active^[facility] | | | | 057235^MDT PROG TACHY ZONE THERAPIES 5 | | | | SHOCKTHERAPY ENERGY^MDT - | | | | 35.2 616971^MDT PROG TACHY ZONE | | | | THERAPIES 5 SHOCKTHERAPY PATHWAY POLE ANODE | | | | LOCATION 1^MDT - | | | | 622783^[facility]_ENUM_ELECTRODE_LOCATION_RV^M | | | | [place] 574836^MDT PROG TACHY ZONE THERAPIES | | | | 5 SHOCKTHERAPY PATHWAY POLE ANODE ELECTRODE | | | | 1^MDT - | | | | 786869^[facility]_ENUM_ELECTRODE_NAME_Coil^[facility] | | | | 149427^MDT PROG TACHY ZONE THERAPIES 5 | | | | SHOCKTHERAPY PATHWAY POLE CATHODE LOCATION | | | | 1^MDT - Other [id number]^MDT PROG TACHY | | | | ZONE THERAPIES 5 SHOCKTHERAPY PATHWAY POLE | | | | CATHODE ELECTRODE 1^MDT - | | | | 123292^[facility]_ENUM_ELECTRODE_NAME_Can^[facility] | | | | 386579^MDT PROG TACHY ZONE THERAPIES 6 | | | | SEQUENCEID^MDT - 6 860995^MDT PROG TACHY | | | | ZONE THERAPIES 6 STATUS^MDT - | | | | 972214^[facility]_ENUM_ZONE_STATUS_Active^[facility] | | | | 919355^MDT PROG TACHY ZONE THERAPIES 6 | | | | SHOCKTHERAPY ENERGY^MDT - | | | | 35.2 481210^MDT PROG TACHY ZONE | | | | THERAPIES 6 SHOCKTHERAPY PATHWAY POLE ANODE | | | | LOCATION 1^MDT - | | | | 540366^[facility]_ENUM_ELECTRODE_LOCATION_RV^M | | | | [place] 311079^MDT PROG TACHY ZONE THERAPIES | | | | 6 SHOCKTHERAPY PATHWAY POLE ANODE ELECTRODE | | | | 1^MDT - | | | | 808566^[facility]_ENUM_ELECTRODE_NAME_Coil^[facility] | | | | 304493^MDT PROG TACHY ZONE THERAPIES 6 | | | | SHOCKTHERAPY PATHWAY POLE CATHODE LOCATION | | | | 1^MDT - Other [id number]^MDT PROG TACHY | | | | ZONE THERAPIES 6 SHOCKTHERAPY PATHWAY POLE | | | | CATHODE ELECTRODE 1^MDT - | | | | 012590^[facility]_ENUM_ELECTRODE_NAME_Can^[facility] | | | | 7594405^MDT PROG TACHY ZONE THERAPIES | | | | SUMMARY^MDT - 31.7J, 35.2J X | | | | 5 1431330^MDT PROG TACHY ZONE THERAPIES | | | | SUMMARY^MDT - Disabled 9992194^MDT PROG | | | | TACHY ZONE THERAPIES SUMMARY^MDT - | | | | Monitored | | + + + + | Lead Channel Status | MDC_IDC_ENUM_CHANNEL_STATUS_Null | | + + + + | Lead Channel | 380Comment: 2426533^MDT STAT LEADS | ohm | | Impedance Value | LOWPOWERCHANNEL RV IMPEDANCE STARTDATE^MDT | | | | - +0000 3130085^MDT STAT | | | | LEADS LOWPOWERCHANNEL RV IMPEDANCE | | | | ENDDATE^MDT - | | | | +0000 9243830^MDT STAT | | | | LEADS LOWPOWERCHANNEL RV IMPEDANCE | | | | POLARITY^MDT - | | | | 412641^[facility]_IDC_ENUM_POLARITY_BI^MDC | | + + + + | Lead Channel Sensing | 11.9Comment: 1106126^MDT STAT LEADS | mV | | Intrinsic Amplitude | LOWPOWERCHANNEL RV SENSITIVITIES | | | | STARTDATE^MDT - | | | | +0000 4163110^MDT STAT | | | | LEADS LOWPOWERCHANNEL RV SENSITIVITIES | | | | ENDDATE^MDT - | | | | +0000 0570759^MDT STAT | | | | LEADS LOWPOWERCHANNEL RV SENSITIVITIES | | | | POLARITY^MDT - | | | | 829408^[facility]_IDC_ENUM_POLARITY_BI^MDC | | + + + + | Lead Channel Pacing | 0.75 | V | | Threshold Amplitude | | | + + + + | Lead Channel Pacing | 0.5Comment: 7777186^MDT STAT LEADS | ms | | Threshold Pulse | LOWPOWERCHANNEL RV CAPTURES STARTDATE^MDT - | | | Width | +0000 3804313^MDT STAT | | | | LEADS LOWPOWERCHANNEL RV CAPTURES | | | | ENDDATE^MDT - | | | | +0000 8213527^MDT STAT | | | | LEADS LOWPOWERCHANNEL RV CAPTURES | | | | METHOD^MDT - | | | | INSTRUMENT_INITIATED 6975549^MDT STAT | | | | LEADS LOWPOWERCHANNEL RV CAPTURES | | | | POLARITY^MDT - | | | | 502845^MDC_IDC_ENUM_POLARITY_BI^MDC 1001 | | | | 264^MDT STAT LEADS HIGHPOWERCHANNEL | | | | IMPEDANCES MEASURED VALUE^MDT - | | | | 57 6017973^MDT STAT LEADS | | | | HIGHPOWERCHANNEL IMPEDANCES STARTDATE^MDT - | | | | +0000 8927109^MDT STAT | | | | LEADS HIGHPOWERCHANNEL IMPEDANCES MEASURED | | | | VALUE^MDT - 57 5604191^MDT STAT LEADS | | | | HIGHPOWERCHANNEL IMPEDANCES STARTDATE^MDT - | | | | +0000 1708174^MDT STAT | | | | LEADS HIGHPOWERCHANNEL IMPEDANCES | | | | STATUS^MDT - | | | | 744060^[facility]C_IDC_ENUM_CHANNEL_STATUS_Null^MDC | | | | 0335553^MDT STAT LEADS HIGHPOWERCHANNEL | | | | IMPEDANCES STATUS^MDT - | | | | 818627^MDC_IDC_ENUM_CHANNEL_STATUS_Null^MDC | | | | | | + + + + | Battery Date Time of | [id number]+0000 | | | Measurements | | | + + + + | Battery Status | MDC_IDC_ENUM_BATTERY_STATUS_MOS | | + + + + | Battery BUSINESS CONTROL MANAGER Trigger | When current voltage < 2.59 [...] + + + | Capacitor Last | [id number]+0000 | | | Charge Date Time | | | + + + + | Capacitor Charge | 9.0 | s | | Time | | | + + + + | Capacitor Charge | 40 | J | | Energy | | | + + + + | Statistic Heart Rate | [id number]+0000 | | | Date Time Start | | | + + + + | Statistic Heart Rate | 93670833933597+0000 | | | Date Time End | [...] + + | Candido Statistic Date | [id number]+0000 | | | Time Start | | | + + + + | Candido Statistic Date | [id number]+0000 | | | Time End | | | + + + + | Candido Statistic RV | 1.0 | % | | Percent Paced | | | + + + + | OFFICE MACHINE REPAIR SHOP SUPERVISOR Statistic Date | +0000 | | | Time Start | | | + + + + | OFFICE MACHINE REPAIR SHOP SUPERVISOR Statistic Date | +0000 | | | Time End | | | + + + + | Atrial Tachy | +0000 | | | Statistic Date Time | | | | Start | | | + + + + | Atrial Tachy | [phone]+0000 | | | Statistic Date Time | [...] + + + | Therapy Statistic | [phone]+0000 | | | Recent Date Time | | | | Start | | | + + + + | Therapy Statistic | [id number]+0000Comment: [id number]^MDT | | | Recent Date Time End | EVALUATION DEPENDENCY^MDT - | | | | NO 9118973^MDT EVALUATION RHYTHM^MDT - | | | | presenting Vs PVCS/somewhat | | | | irregular 4756060^MDT EVALUATION | | | | MISCELLANEOUSCOMMENT^MDT - [...] in office | | | | with payment rep:11/16/2017[place] | | | | N | | | | [place], | | | | MDCardiomyopathy, unspecified type | | | | ([facility])05/11/2017[facility] | | | | N | | | | [place], | | | | MDCardiomyopathy ([facility] | | | | N | | | | [place], | | | | MDAtherosclerosis of tulalip coronary | | | | artery of tulalip heart without angina | | | | pectorisEP Tech: Filemon Rosado | | | | [facility] | | + + + + + + + | Specimen | Performing Laboratory | + + + | | PACEART | + + + PACEART DEVICE CHECK REMOTE (12/27/2017 9:42 PM) + + + + | Component | Value | Ref Range | + + + + | Date Time | [id number]+0000 | | | Interrogation | | | | Session | | | + + + + | Implantable Pulse | MDC_IDC_ENUM_MFG_STJ | | | Generator | | | | It Sales Representative | | | + + + + | Implantable Pulse | 1231-40Q Fortify VR | | | Generator Model | | | + + + + | Implantable Pulse | [id number] | | | Generator Serial | | | | Number | | | + + + + | Type Interrogation | MDC_IDC_ENUM_SESS_TYPE_Remote | | | Session | | | + + + + | Re-programmed During | MDC_IDC_ENUM_SESS_REPROGRAMMED_NO | | | Session | | | + + + + | Clinic Name | [facility] | | + + + + | Implantable Pulse | MDC_IDC_ENUM_DEV_TYPE_ICD | | | Generator Type | | | + + + + | Implantable Pulse | [id number] | | | Generator Implant | | | | Date | | | + + + + | Implantable Lead | Medtronic | | | It Sales Representative | | | + + + + | Implantable Lead | 6935-65 | | | Model | | | + + + + | Implantable Lead | [id number] | | | Serial Number | | | + + + + | Implantable Lead | [id number] | | | Implant Date | | [...] + + | Candido Setting | 120Comment: 3271074^STAR CALLEJASG CANDIDO | {beats}/min | | Maximum [...] | | | Sensing Adaptation | veSensingComment: 1974467^STAR PROG CANDIDO | | | Mode | [...] | | | Type Category | mment: 846446^MDT PROG TACHY ZONE | | | | [...] | | | Type Category | omment: 476488^MDT PROG TACHY ZONE | | | | DETECTIONS STATUS^MDT - DISABLED | | + + + + | Zone Setting Type | MDC_IDC_ENUM_ZONE_TYPE_Zone_VT | | | Category | | | + + + + | Zone Setting Vendor | MDC_IDC_ENUM_ZONE_VENDOR_TYPE_STJ-Zone_VT1C | | | Type Category | omment: 065211^MDT PROG TACHY ZONE | | | | DETECTIONS STATUS^MDT - ENABLED | | + + + + | Zone Setting | 350Comment: 778056^MDT PROG TACHY ZONE | ms | | Detection Interval | THERAPIES 1 SEQUENCEID^MDT - | | | | 1 978025^MDT PROG TACHY ZONE THERAPIES 1 | | | | STATUS^MDT - | | | | 372003^[facility]_IDC_ENUM_ZONE_STATUS_Active^[facility] | | | | 003573^MDT PROG TACHY ZONE THERAPIES 1 | | | | SHOCKTHERAPY ENERGY^MDT - | | | | 31.2 983667^MDT PROG TACHY ZONE | | | | THERAPIES 1 SHOCKTHERAPY PATHWAY POLE ANODE | | | | LOCATION 1^MDT - | | | | 122960^[facility]_IDC_ENUM_ELECTRODE_LOCATION_RV^M | | | | DC 003162^MDT PROG TACHY ZONE THERAPIES | | | | 1 SHOCKTHERAPY PATHWAY POLE ANODE ELECTRODE | | | | 1^MDT - | | | | 982710^[facility]_IDC_ENUM_ELECTRODE_NAME_Coil^[facility] | | | | 252054^MDT PROG TACHY ZONE THERAPIES 1 | | | | SHOCKTHERAPY PATHWAY POLE CATHODE LOCATION | | | | 1^MDT - Other [id number]^MDT PROG TACHY | | | | ZONE THERAPIES 1 SHOCKTHERAPY PATHWAY POLE | | | | CATHODE ELECTRODE 1^MDT - | | | | 345054^[facility]_IDC_ENUM_ELECTRODE_NAME_Can^MDC | | | | 607987^MDT PROG TACHY ZONE THERAPIES 2 | | | | SEQUENCEID^MDT - 2 279695^MDT PROG TACHY | | | | ZONE THERAPIES 2 STATUS^MDT - | | | | 342702^[facility]_IDC_ENUM_ZONE_STATUS_Active^[facility] | | | | 447818^MDT PROG TACHY ZONE THERAPIES 2 | | | | SHOCKTHERAPY ENERGY^MDT - | | | | 34.6 229149^MDT PROG TACHY ZONE | | | | THERAPIES 2 SHOCKTHERAPY PATHWAY POLE ANODE | | | | LOCATION 1^MDT - | | | | 099346^[facility]_ENUM_ELECTRODE_LOCATION_RV^M | | | | DC 614547^MDT PROG TACHY ZONE THERAPIES | | | | 2 SHOCKTHERAPY PATHWAY POLE ANODE ELECTRODE | | | | 1^MDT - | | | | 528620^[facility]_ENUM_ELECTRODE_NAME_Coil^[facility] | | | | 376756^MDT PROG TACHY ZONE THERAPIES 2 | | | | SHOCKTHERAPY PATHWAY POLE CATHODE LOCATION | | | | 1^MDT - Other [id number]^MDT PROG TACHY | | | | ZONE THERAPIES 2 SHOCKTHERAPY PATHWAY POLE | | | | CATHODE ELECTRODE 1^MDT - | | | | 333047^[facility]_ENUM_ELECTRODE_NAME_Can^[facility] | | | | 708300^MDT PROG TACHY ZONE THERAPIES 3 | | | | SEQUENCEID^MDT - 3 902908^MDT PROG TACHY | | | | ZONE THERAPIES 3 STATUS^MDT - | | | | 638490^[facility]_ENUM_ZONE_STATUS_Active^[facility] | | | | 650966^MDT PROG TACHY ZONE THERAPIES 3 | | | | SHOCKTHERAPY ENERGY^MDT - | | | | 34.6 007458^MDT PROG TACHY ZONE | | | | THERAPIES 3 SHOCKTHERAPY PATHWAY POLE ANODE | | | | LOCATION 1^MDT - | | | | 739600^[facility]_ENUM_ELECTRODE_LOCATION_RV^M | | | | DC 488437^MDT PROG TACHY ZONE THERAPIES | | | | 3 SHOCKTHERAPY PATHWAY POLE ANODE ELECTRODE | | | | 1^MDT - | | | | 757321^[facility]_ENUM_ELECTRODE_NAME_Coil^[facility] | | | | 985971^MDT PROG TACHY ZONE THERAPIES 3 | | | | SHOCKTHERAPY PATHWAY POLE CATHODE LOCATION | | | | 1^MDT - Other [id number]^MDT PROG TACHY | | | | ZONE THERAPIES 3 SHOCKTHERAPY PATHWAY POLE | | | | CATHODE ELECTRODE 1^MDT - | | | | [id number]^[facility] [place]_ENUM_ELECTRODE_NAME_Can^[facility] [place] | | | | 597978^MDT PROG TACHY ZONE THERAPIES 4 | | | | SEQUENCEID^MDT - 4 242405^MDT PROG TACHY | | | | ZONE THERAPIES 4 STATUS^MDT - | | | | 223977^[facility] [place]_ENUM_ZONE_STATUS_Active^[facility] [place] | | | | [id number]^MDT PROG TACHY ZONE THERAPIES 4 | | | | SHOCKTHERAPY ENERGY^MDT - | | | | 34.6 320933^MDT PROG TACHY ZONE | | | | THERAPIES 4 SHOCKTHERAPY PATHWAY POLE ANODE | | | | LOCATION 1^MDT - | | | | [id number]^[facility] [place]_ENUM_ELECTRODE_LOCATION_RV^M | | | | [place] 114089^MDT PROG TACHY ZONE THERAPIES | | | | 4 SHOCKTHERAPY PATHWAY POLE ANODE ELECTRODE | | | | 1^MDT - | | | | 626129^[facility] [place]_ENUM_ELECTRODE_NAME_Coil^[facility] [place] | | | | 540732^MDT PROG TACHY ZONE THERAPIES 4 | | | | SHOCKTHERAPY PATHWAY POLE CATHODE LOCATION | | | | 1^MDT - Other [id number]^MDT PROG TACHY | | | | ZONE THERAPIES 4 SHOCKTHERAPY PATHWAY POLE | | | | CATHODE ELECTRODE 1^MDT - | | | | 227823^[facility] [place]_ENUM_ELECTRODE_NAME_Can^[facility] [place] | | | | 437485^MDT PROG TACHY ZONE THERAPIES 5 | | | | SEQUENCEID^MDT - 5 113766^MDT PROG TACHY | | | | ZONE THERAPIES 5 STATUS^MDT - | | | | 210620^[facility] [place]_ENUM_ZONE_STATUS_Active^[facility] [place] | | | | 876760^MDT PROG TACHY ZONE THERAPIES 5 | | | | SHOCKTHERAPY ENERGY^MDT - | | | | 34.6 080299^MDT PROG TACHY ZONE | | | | THERAPIES 5 SHOCKTHERAPY PATHWAY POLE ANODE | | | | LOCATION 1^MDT - | | | | 534404^[facility] [place]_ENUM_ELECTRODE_LOCATION_RV^M | | | | [place] 368019^MDT PROG TACHY ZONE THERAPIES | | | | 5 SHOCKTHERAPY PATHWAY POLE ANODE ELECTRODE | | | | 1^MDT - | | | | 096976^[facility] [place]_ENUM_ELECTRODE_NAME_Coil^[facility] [place] | | | | 784381^MDT PROG TACHY ZONE THERAPIES 5 | | | | SHOCKTHERAPY PATHWAY POLE CATHODE LOCATION | | | | 1^MDT - Other [id number]^MDT PROG TACHY | | | | ZONE THERAPIES 5 SHOCKTHERAPY PATHWAY POLE | | | | CATHODE ELECTRODE 1^MDT - | | | | 493023^[facility] [place]_ENUM_ELECTRODE_NAME_Can^[facility] [place] | | | | 507399^MDT PROG TACHY ZONE THERAPIES 6 | | | | SEQUENCEID^MDT - 6 132105^MDT PROG TACHY | | | | ZONE THERAPIES 6 STATUS^MDT - | | | | 917269^[facility] [place]_ENUM_ZONE_STATUS_Active^[facility] [place] | | | | 506674^MDT PROG TACHY ZONE THERAPIES 6 | | | | SHOCKTHERAPY ENERGY^MDT - | | | | 34.6 352541^MDT PROG TACHY ZONE | | | | THERAPIES 6 SHOCKTHERAPY PATHWAY POLE ANODE | | | | LOCATION 1^MDT - | | | | 293608^[facility] [place]_ENUM_ELECTRODE_LOCATION_RV^M | | | | [place] 656441^MDT PROG TACHY ZONE THERAPIES | | | | 6 SHOCKTHERAPY PATHWAY POLE ANODE ELECTRODE | | | | 1^MDT - | | | | 027082^[facility] [place]_ENUM_ELECTRODE_NAME_Coil^[facility] [place] | | | | 899150^MDT PROG TACHY ZONE THERAPIES 6 | | | | SHOCKTHERAPY PATHWAY POLE CATHODE LOCATION | | | | 1^MDT - Other [id number]^MDT PROG TACHY | | | | ZONE THERAPIES 6 SHOCKTHERAPY PATHWAY POLE | | | | CATHODE ELECTRODE 1^MDT - | | | | 474194^[facility] [place]_ENUM_ELECTRODE_NAME_Can^[facility] [place] | | | | [phone]^MDT PROG TACHY ZONE THERAPIES | | | | SUMMARY^MDT - 31.2J, 34.6J X | | | | 5 [id number]^MDT PROG TACHY ZONE THERAPIES | | | | SUMMARY^MDT - Disabled [id number]^MDT PROG | | | | TACHY ZONE THERAPIES SUMMARY^MDT - | | | | Monitored | | + + + + | Lead Channel Status | [facility]_ENUM_CHANNEL_STATUS_Null | | + + + + | Lead Channel | 400Comment: [id number]^MDT STAT LEADS | ohm | | Impedance Value | LOWPOWERCHANNEL RV IMPEDANCE STARTDATE^MDT | | | | - [id number] [id number]^MDT STAT | | | | LEADS LOWPOWERCHANNEL RV IMPEDANCE | | | | ENDDATE^MDT - | | | | [id number]+0000 [id number]^MDT STAT | | | | LEADS LOWPOWERCHANNEL RV IMPEDANCE | | | | POLARITY^MDT - | | | | [id number]^MDC_IDC_ENUM_POLARITY_BI^MDC | | + + + + | Lead Channel Sensing | 12.0Comment: [id number]^MDT STAT LEADS | mV | | Intrinsic Amplitude | LOWPOWERCHANNEL RV SENSITIVITIES | | | | STARTDATE^MDT - | | | | +0000 [id number]^MDT STAT | | | | LEADS LOWPOWERCHANNEL RV SENSITIVITIES | | | | ENDDATE^MDT - | | | | +0000 [id number]^MDT STAT | | | | LEADS LOWPOWERCHANNEL RV SENSITIVITIES | | | | POLARITY^MDT - | | | | [id number]^MDC_IDC_ENUM_POLARITY_BI^MDC | | + + + + | Lead Channel Pacing | 0.75 | V | | Threshold Amplitude | | | + + + + | Lead Channel Pacing | 0.5Comment: [id number]^MDT STAT LEADS | ms | | Threshold Pulse | LOWPOWERCHANNEL RV CAPTURES STARTDATE^MDT - | | | Width | +0000 [id number]^MDT STAT | | | | LEADS LOWPOWERCHANNEL RV CAPTURES | | | | ENDDATE^MDT - | | | | +0000 [id number]^MDT STAT | | | | LEADS LOWPOWERCHANNEL RV CAPTURES | | | | METHOD^MDT - | | | | INSTRUMENT_INITIATED [id number]^MDT STAT | | | | LEADS LOWPOWERCHANNEL RV CAPTURES | | | | POLARITY^MDT - | | | | [id number]^MDC_IDC_ENUM_POLARITY_BI^MDC 1001 | | | | 264^MDT STAT LEADS HIGHPOWERCHANNEL | | | | IMPEDANCES MEASURED VALUE^MDT - | | | | 61 [id number]^MDT STAT LEADS | | | | HIGHPOWERCHANNEL IMPEDANCES STARTDATE^MDT - | | | | +0000 [id number]^MDT STAT | | | | LEADS HIGHPOWERCHANNEL IMPEDANCES MEASURED | | | | VALUE^MDT - 61 [id number]^MDT STAT LEADS | | | | HIGHPOWERCHANNEL IMPEDANCES STARTDATE^MDT - | | | | +0000 [id number]^MDT STAT | | | | LEADS HIGHPOWERCHANNEL IMPEDANCES | | | | STATUS^MDT - | | | | [id number]^MDC_IDC_ENUM_CHANNEL_STATUS_Null^MDC | | | | [id number]^MDT STAT LEADS HIGHPOWERCHANNEL | | | | IMPEDANCES STATUS^MDT - | | | | [id number]^MDC_IDC_ENUM_CHANNEL_STATUS_Null^MDC | | | | | | + + + + | Battery Date Time of | [id number] | | | Measurements | | | + + + + | Battery Status | MDC_IDC_ENUM_BATTERY_STATUS_MOS | | + + + + | Battery BUSINESS CONTROL MANAGER Trigger | When current voltage < 2.59 [...] + + + | Capacitor Last | [id number]+0000 | | | Charge Date Time | | | + + + + | Capacitor Charge | 9.0 | s | | Time | | | + + + + | Capacitor Charge | 40 | J | | Energy | | | + + + + | Statistic Heart Rate | [id number]+0000 | | | Date Time Start | | | + + + + | Statistic Heart Rate | [id number]+0000 | | | Date Time End | [...] + + | Candido Statistic Date | [id number] | | | Time Start | | | + + + + | Candido Statistic Date | [id number]+0000 | | | Time End | | | + + + + | Candido Statistic RV | 1.0 | % | | Percent Paced | | | + + + + | OFFICE MACHINE REPAIR SHOP SUPERVISOR Statistic Date | +0000 | | | Time Start | | | + + + + | OFFICE MACHINE REPAIR SHOP SUPERVISOR Statistic Date | +0000 | | | [...] + + + | Therapy Statistic | [id number] | | | Recent Date Time | | | | Start | | | + + + + | Therapy Statistic | [id number]: [id number]^MDT | | | Recent Date Time End | EVALUATION RHYTHM^MDT - presenting VS 88 | | | | bpm [id number]^MDT EVALUATION | | | | MISCELLANEOUSCOMMENT^MDT - [...] in office with | | | | payment rep:11/16/2017Tani | | | | N | | | | [place], | | | | MDCardiomyopathy, unspecified type | | | | ([facility] | | | N | | | | [place], | | | | MDCardiomyopathy ([facility])08/10/2016[facility] | | | | N | | | | [place], | | | | MDAtherosclerosis of [place] coronary | | | | artery of [place] heart without angina | | | | pectorisEP Tech: Filemon Rosado | | | | [facility] | | + + + + [...] | [phone] | | | [address] | | | RE | | | | [place] [address] | | | IP-OP | | | [...] Self | [birth year] | Home: | [address] | | | al/Fam | | [phone] | [place] | | | michael | | | [phone] | [phone] | + +--------+ +--------+ + +
--- OUTSIDE RECORDS SUMMARY | ~2018-02-25 | XMS | Clinical Summary ---
Demographics + + + | Address | [address] | | | [place] [address] | + + + | Home Phone | | + + + | Preferred Language | Unknown | + + + | Marital Status | | + + + | Faith Affiliation | Unknown | + + + | Race | Unknown | + + + | Ethnic Group | Unknown | + + + Author + + + | Author | [facility] | | | and [place] | + + + | Organization | [facility] | | | and [place] | + + + | Address | Unknown | + + + | Phone | Unavailable | + + + Support + + + + + | Name | Relationship | Address | Phone | + + + + + | Domenica Means | ECON | [address] | | | | | [place] [address] | | + + + + + Care Team Providers + +------+ + | Care Sales And Leasing Consultant Name | Role | Phone | + +------+ + | Ty Gomes MD | PP | | + +------+ + Allergies + + + + + + | Active Allergy | Reactions | Severity | Noted | Comments | | | | | Date | | + + + + + + | Zolpidem | Other (See Comments) | Medium | 11/03/19 | | | | | | 16 | | + + + + + + Current Medications + + +---------+---------+------+------+-------+ | Prescription | Sig. | Disp. | Refills | Star | End | Statu | | | | | | t | Date | s | | | | | | Date | | | + + +---------+---------+------+------+-------+ | QUEtiapine | Take 300 mg by mouth | | | | | Activ | | (SEROQUEL) 300 mg | nightly. | | | | | e | | tablet | | | | | | | + + +---------+---------+------+------+-------+ | temazepam | Take 30 mg by mouth | | | | | Activ | | (RESTORIL) 30 MG | nightly as needed | | | | | e | | capsule | for Sleep. | | | | | | + + +---------+---------+------+------+-------+ | venlafaxine | Take 300 mg by mouth | | | | | Activ | | (EFFEXOR XR) 150 mg | nightly. | | | | | e | | 24 hr tablet | | | | | | | + + +---------+---------+------+------+-------+ | potassium chloride | Take 10 mEq by mouth | | | | | Activ | | (KLOR-CON) 10 mEq | Daily. | | | | | e | | CR tablet | | | | | | | + + +---------+---------+------+------+-------+ | metFORMIN | Take 1,000 mg by | | | | | Activ | | (GLUCOPHAGE) 500 mg | mouth 2 times daily | | | | | e | | tablet | (with breakfast & | | | | | | | | dinner). | | | | | | + + +---------+---------+------+------+-------+ | atorvaSTATin | Take 40 mg by mouth | | | | | Activ | | (LIPITOR) 40 mg | nightly. | | | | | e | | tablet | | | | | | | + + +---------+---------+------+------+-------+ | furosemide (LASIX) | Take 40 mg by mouth | | | | | Activ | | 40 mg tablet | Daily. | | | | | e | + + +---------+---------+------+------+-------+ | insulin glargine | Inject under the | | | | | Activ | | (LANTUS) 100 | skin 2 times daily. | | | | | e | | units/mL injection | 30 units in the | | | | | | | (vial) | morning, 70 units in | | | | | | | | the evening | | | | | | + + +---------+---------+------+------+-------+ | tamsulosin | Take 0.4 mg by mouth | | | | | Activ | | (FLOMAX) 0.4 mg CAPS | nightly. | | | | | e | + + +---------+---------+------+------+-------+ | Multiple | Take by mouth | | | | | Activ | | Vitamins-Minerals | Daily. | | | | | e | | (MENS MULTIVITAMIN | | | | | | | | PLUS PO) | | | | | | | + + +---------+---------+------+------+-------+ | Saw [place] 450 | Take 405 mg by mouth | | | | | Activ | | MG CAPS | 2 times daily. | | | | | e | + + +---------+---------+------+------+-------+ | aspirin 325 mg | Take 325 mg by mouth | | | | | Activ | | tablet | Daily. | | | | | e | + + +---------+---------+------+------+-------+ | ranitidine | Take 150 mg by mouth | | | | | Activ | | (ZANTAC) 150 mg | as needed for | | | | | e | | tablet | Heartburn. | | | | | | + + +---------+---------+------+------+-------+ | cholecalciferol | Take 2,000 Units by | | | | | Activ | | (VITAMIN D-3) 2000 | mouth Daily. | | | | | e | | UNITS TABS | | | | | | | + + +---------+---------+------+------+-------+ | niacin | Take 1,000 mg by | | | | | Activ | | (SLO-NIACIN) 500 mg | mouth nightly. | | | | | e | | CR tablet | | | | | | | + + +---------+---------+------+------+-------+ | tiotropium | Inhale 18 mcg into | | | | | Activ | | (SPIRIVA) 18 mcg | the lungs Daily. | | | | | e | | inhalation capsule | | | | | | | + + +---------+---------+------+------+-------+ | insulin aspart | Inject under the | | | | | Activ | | (NOVOLOG) 100 | skin as needed for | | | | | e | | units/mL injection | High Blood Sugar. | | | | | | + + +---------+---------+------+------+-------+ | lisinopril | Take 1 tablet by | 30 | 1 | 01/1 | | Activ | | (PRINIVIL,ZESTRIL) | mouth Daily. | tablet | | 7/20 | | e | | 2.5 MG tablet | | | | 16 | | | + + +---------+---------+------+------+-------+ | | Take 1 tablet by | 75 | 0 | 01/1 | | Activ | | HYDROcodone-acetamin | mouth every 4 hours | tablet | | 7/20 | | e | | ophen (NORCO) 5-325 | as needed for Pain. | | | 16 | | | | mg per tablet | | | | | | | + + +---------+---------+------+------+-------+ | carvedilol (COREG) | Take 1 tablet by | 60 | 0 | 01/1 | | Activ | | 6.25 mg tablet | mouth 2 times daily | tablet | | 7/20 | | e | | | (with breakfast & | | | 16 | | | | | dinner). | | | | | | + + +---------+---------+------+------+-------+ | docusate sodium | Take 100 mg by mouth | 60 | 0 | 10/24 | | Activ | | (COLACE) 100 MG | Twice daily as | capsule | | 05/12 | | e | | capsule | needed for | | | 16 | | | | | Constipation. | | | | | | + + +---------+---------+------+------+-------+ Active Problems + + + | Problem | Noted Date | + + + | Acute on chronic systolic (congestive) heart failure | 11/06/2015 | + + + + + | Overview: The left ventricle is moderately dilated. There is | | no thrombus. Leftventricular systolic function is severely | | reduced. The visually estimatedLV ejection fraction is 20%. There | | is severe global hypokinesis of theleft ventricle. There is | | severe inferolateral wall hypokinesis. Last Assessment & Plan: | | Diuresis per surgery team.Reports improving shortness of breath. | | Ambulating in hallway. | + + + + + | Coronary artery disease involving [place] coronary artery of | 11/05/2015 | | [place] heart | | + + + + + | Overview: 11/04/2104 | | Procedure(s): CABG x 2, RSVG - OM RSVG - RCA | | Mitral valve repair 30 mm Vaughn Band | | IABP placement | | EVH Right greater saphenous vein | | Last Assessment & Plan: CABG x2, RSVG-OM RSVG-RCA. | | Mitral valve repair 30 mm Vaughn Band. | | POD #4. | + + + + + | Cardiomyopathy, ischemic | 11/05/2015 | + + + + + | Overview: CHIN intraop;The left ventricle is moderately | | dilated. There is no thrombus. Leftventricular systolic function | | is severely reduced. The visually estimatedLV ejection fraction | | is 20%. There is severe global hypokinesis of theleft ventricle. | | There is severe inferolateral wall hypokinesis.S/P prior ICD | | Last Assessment & Plan: Diuresis per surgery-lasix 40 mg IVP | | twice daily.Weight up 3 KG from day of surgery.Patient states SOB | | improving. Pre-op EF less than 15%, improved to 20% post-op.S/P | | ICD. | |Pre-op EF less than 15%, improved to 20% post-op. | |S/P ICD. | | | | | + + + + + | Severe mitral regurgitation | 11/05/2015 | + + + + + | Overview: Procedure(s): CABG x 2, RSVG - OM RSVG - RCA | | Mitral valve repair 30 mm Vaughn Band | | | | | | Last Assessment & Plan: POD #3, S/P mitral valve repair. | + + + + + | Insulin dependent type 2 diabetes mellitus, uncontrolled (HCC) | 11/05/2015 | + + + | Overweight (BMI 25.0-29.9) | 11/05/2015 | + + + | Dyslipidemia | | + + + + + | Last Assessment & Plan: Atorvastatin 40 mg. | | Lipid panel ordered for 11/09/15. | + + + +---+ | Diabetes (HCC) | | + +---+ | Tobacco abuse | | + +---+ | COPD (chronic obstructive pulmonary disease) (HCC) | | + +---+ + + | Last Assessment & Plan: Moderate wheezes on physical | | examination.Continue respiratory therapy. | + + Family History + + +------+ + | Medical History | Relation | Name | Comments | + + +------+ + | Emphysema | Father | | | + + +------+ + | Stroke | Maternal | | | | | Grandmoth | | | | | er | | | + + +------+ + | Cancer | Mother | | Brain cancer | + + +------+ + | Diabetes | Mother | | | + + +------+ + | Heart disease | Mother | | | + + +------+ + + +------+--------+ + | Relation | Name | Status | Comments | + +------+--------+ + | Father | | | | + +------+--------+ + | Maternal Grandmother | | | | + +------+--------+ + | Mother | | | | + +------+--------+ + Social History + + + +--------+ + | Tobacco Use | Types | Packs/Day | Years | Date | | | | | Used | | + + + +--------+ + | Current Every Day | Cigarettes | 3 | 51 | Quit: 06/17/2015 | | Smoker | | | | | + + + +--------+ + + + | Comments: Currently smoking 0.5ppd | + + + + + | Sex Assigned at | Date Recorded | | | | + + + | Not on file | | + + + Last Filed Vital Signs + + + + | Vital Sign | Reading | Time Taken | + + + + | Blood Pressure | 134/74 | 11/09/2015725 PST | + + + + | Pulse | 79 | 11/09/2015725 PST | + + + + | Temperature | 36.4 C (97.5 F) | 11/09/2015725 PST | + + + + | Respiratory Rate | 20 | 11/09/2015725 PST | + + + + | Oxygen Saturation | 95% | 11/09/2015 1000 PST | + + + + | Inhaled Oxygen | - | - | | Concentration | | | + + + + | Weight | 95.4 kg (210 lb 5.1 | 11/08/20154 PST | | | oz) | | + + + + | Height | 185.4 cm (6' 1") | 11/04/2015520 PST | + + + + | Body Mass Index | 27.75 | 11/08/20151523 PST | + + + + Plan of Treatment + + + + + | Health Maintenance | Due Date | Last Done | Comments | + + + + + | Hepatitis C | | | | | Screening | 7 | | | + + + + + | Diabetic Eye Exam | | | | | (Bi-Annually) | 5 | | | + + + + + | Diabetic Foot Exam | | | | | | 5 | | | + + + + [...] | + + + + + | COLON CANCER | | | | | SCREENING | 7 | | | | (COLONOSCOPY EVERY | | | | | 10 YEARS 50-75) | | | | + + + + + | Hemoglobin A1c Q3 | | 11/03/2015 | | | Months | 6 | | | + + + + + | Vaccine: Influenza | | | | | (Season Ended) | 8 | | | + + + + + Implants + +------+-------+ +--------+--------+--------+ | Implanted | Type | Area | Manufacture | Device | Expira | Model | | | | | r | | tion | / | | | | | | Identi | Date | Serial | | | | | | fier | | / Lot | + +------+-------+ +--------+--------+--------+ | Membrane Pericardial | | N/A: | WL LISA - | | 02/17/ | [id number] | | [id number] - | | Heart | WLGO | | 2019 | 0 / | | [id number]: Qty: 1 on | | | | | | /[id number] | | 11/04/2015 by Rishi | | | | | | 815 | | MD Toney | | | | | | | + +------+-------+ +--------+--------+--------+ | Annuloplast Band | | N/A: | MENESES | | | 4600/3 | | 30mmImplanted: Qty: 1 on | | Heart | LIFESCIENCE | | | 0MM | | 11/04/2015 by Rishi, | | | [employer] - | | | /[id number] | | MD Toney | | | EDLS | | | 25 / | + +------+-------+ +--------+--------+--------+ Results Not on filefrom Last 3 Months Insurance + +--------+ +--------+ +---------+ | Payer | Benefi | Subscriber | Type | Phone | Address | | | t Plan | ID | | | | | | / | | | | | | | Group | | | | | + +--------+ +--------+ +---------+ | MEDICARE | MEDICA | xxxxxxxxxx | Medica | [phone] | | | | RE | | re | [phone] | | | | PART A | | | | | | | AND B | | | | | + +--------+ +--------+ +---------+ + +--------+ +--------+ + + | Guarantor Name | Accoun | Relation to | Date | Phone | Billing Address | | | t Type | Patient | of | | | | | | | | | | + +--------+ +--------+ + + | THEE MEANS | Person | Self [birth year] Home: | [address] | | [place] | al/Fam | | [phone] [place] [address] | | | michael | | | [phone] | | + +--------+ +--------+ + +
--- OUTSIDE RECORDS SUMMARY | ~2018-02-25 | XMS | Encounter Summary ---
Demographics + + + | Address | [address] | | | [place] [address] | + + + | Home Phone | | + + + | Preferred Language | Unknown | + + + | Marital Status | | + + + | Holiness Affiliation | Unknown | + + + | Race | Unknown | + + + | Ethnic Group | Unknown | + + + Author + + + | Author | [facility] | + + + | Organization | [facility] | + + + | Address | Unknown | + + + | Phone | Unavailable | + + + Support + + +---------+ + | Name | Relationship | Address | Phone | + + +---------+ + | Domenica Morataya | ECON | Unknown | | + + +---------+ + Care Team Providers + +------+ + | Care Family Medicine Resident Name | Role | Phone | + +------+ + | Ty Gomes MD | PCP | | + +------+ + Reason for Visit + + + | Reason | Comments | + + + | Cardiac | 5 wk HF | | Resynchronization | | | Therapy - | | | Defibrillator | | + + + Encounter Details +--------+ + + + + | Date | Type | Department | Care Team | Description | +--------+ + + + + | 03/06/ | Documentati | [facility] | Anitha Bunn | Cardiac | | 2018 | on Only | Cardiology [place] | | Resynchronization | | | | [address] | | Therapy - | | | | [place] | | Defibrillator (5 wk | | | | [phone] | | HF) | | | | [phone] | | | +--------+ + + + + Social History + +-------+ +--------+ [...] | | | + +---+---+---+ + + +---------+ + | Alcohol Use | Drinks/We | oz/Week | Comments | | | ek | | | + + +---------+ + | No | | | | + + +---------+ + + + + | Sex Assigned at | Date Recorded | | | | + + + | Not on file | | + + + as of this encounter Progress Notes Anitha Bunn - 12/27/2017 8:00 AM PSTREMOTE CHECK: 5wk Battery Longevity/Status: 3yr 7 mo Lead Impedance: WNL Thresholds: last measured 11/16/17 WNL Measured R Wave: >12.0 RVp: 1.0% Events: No events. Anti-coagulated: no ASA: 325mg EF: Severe cardiomyopathy, ejection fraction measured at 20% to 25%. [place] HF: [place] Thoracic Impedance - WNL Plan: Continue at home monitoring. 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: Anitha Bunn [facility] Associated attestation - Marina Sultana ARNP - 01/09/2018 3:42 PM PDTAgree with interpretat ion CAROLINE Canchola in this encounter Plan of Treatment +--------+ + + + + | Date | Type | Specialty | Care Team | Description | +--------+ + + + + | 03/07/ | Documentati | Cardiology | | | | 2017 | on Only | | | | +--------+ + + + + | 08/16/ | Office | Cardiology | Tani Pop, | | | 2017 | Visit | | MD [address] | | | | | | [facility] [address] | | | | | | [phone] | | | | | | | | +--------+ + + + + as of this encounter Visit Diagnoses + + | Diagnosis | + + | Cardiomyopathy, unspecified type (HCC) - Primary | + + | SOB (shortness of breath) | + + | Shortness of breath | + +"
--- OUTSIDE RECORDS SUMMARY | ~2018-02-25 | XMS | Clinical Summary ---
Demographics + + + | Address | [address] | | | [place] [address] | + + + | Home Phone | | + + + | Preferred Language | Unknown | + + + | Marital Status | | + + + | Lutheran Affiliation | Unknown | + + + | Race | Unknown | + + + | Ethnic Group | Other Race | + + + Author + + + | Author | [facility] | + + + | Organization | [facility] | + + + | Address | Unknown | + + + | Phone | Unavailable | + + + Care Team Providers + +------+ + | Care Bioinformatics Computer Scientist Name | Role | Phone | + +------+ + | No Pcp Per Patient | PP | Unavailable | + +------+ + Source Comments FLYNN is fully live on both EpicCare Ambulatory and EpicCare InPatient.[facility] Allergies + + + + + + | Active Allergy | Reactions | Severity | Noted | Comments | | | | | Date | | + + + + + + | Zolpidem Tartrate | Unknown | | 08/24/20 | | | | | | 13 | | + + + + + + | Morphine | Unknown | | 08/24/20 | | | | | | 13 | | + + + + + + | Oxycodone | Unknown | | 08/24/20 | | | | | | 13 | | + + + + + + Current Medications + + + +---------+------+------+-------+ | Prescription | Sig. | Disp. | Refills | Star | End | Statu | | | | | | t | Date | s | | | | | | Date | | | + + + +---------+------+------+-------+ | Alginate Dressing | Apply 1 dressing to | 30 each | 3 | 11/0 | | Activ | | 3 X 3 " topical | wound every other | | | 1/20 | | e | | Bandage | day. | | | 13 | | | + + + +---------+------+------+-------+ | QUEtiapine 300 mg | Take 300 mg by | | | | | Activ | | oral tablet | mouth. | | | | | e | + + + +---------+------+------+-------+ | venlafaxine XR 150 | Take 150 mg by mouth | | | | | Activ | | mg oral | once daily. | | | | | e | | capsule,extended | | | | | | | | release 24hr | | | | | | | + + + +---------+------+------+-------+ | gemfibrozil 600 mg | Take 600 mg by mouth | | | | | Activ | | oral tablet | two times daily. | | | | | e | + + + +---------+------+------+-------+ | potassium chloride | Take 10 mEq by mouth | | | | | Activ | | SR (DARÍOOR-JARAD M10) | once daily. | | | | | e | | 10 mEq oral | | | | | | | | tablet,ER | | | | | | | | particles/crystals | | | | | | | + + + +---------+------+------+-------+ | metFORMIN 500 mg | Take 500 mg by mouth | | | | | Activ | | oral tablet | two times daily. | | | | | e | + + + +---------+------+------+-------+ | carvedilol 25 mg | Take 25 mg by mouth | | | | | Activ | | oral tablet | two times daily. | | | | | e | | | Administer with | | | | | | | | food. | | | | | | + + + +---------+------+------+-------+ | atorvastatin 40 mg | Take 40 mg by mouth | | | | | Activ | | oral tablet | once daily. | | | | | e | + + + +---------+------+------+-------+ | lisinopril 10 mg | Take 10 mg by mouth | | | | | Activ | | oral tablet | once daily. | | | | | e | + + + +---------+------+------+-------+ | furosemide 40 mg | Take 40 mg by mouth | | | | | Activ | | oral tablet | once daily. | | | | | e | + + + +---------+------+------+-------+ | | Inhale 2 puffs two | | | | | Activ | | budesonide-formotero | times daily. | | | | | e | | l 160-4.5 | | | | | | | | mcg/actuation | | | | | | | | inhalation HFA | | | | | | | | Aerosol Inhaler | | | | | | | + + + +---------+------+------+-------+ | | Take by mouth. | | | | | Activ | | MULTIVITS-MINERALS/F | | | | | | e | | A/LYCOPENE (MEN'S | | | | | | | | DAILY ORAL) | | | | | | | + + + +---------+------+------+-------+ | Saw [place] Fruit | Take by mouth. | | | | | Activ | | 450 mg oral capsule | | | | | | e | + + + +---------+------+------+-------+ | aspirin 325 mg | Take 325 mg by mouth | | | | | Activ | | oral tablet | once daily. | | | | | e | + + + +---------+------+------+-------+ | ranitidine 150 mg | Take 150 mg by mouth | | | | | Activ | | oral tablet | as needed. | | | | | e | + + + +---------+------+------+-------+ | cholecalciferol, | Take 2,000 Units by | | | | | Activ | | Vitamin D3, 1,000 | mouth once daily. 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 | + + + Social History + +-------+ +--------+------+ | Tobacco Use | Types | Packs/Day | Years | Date | | | | | Used | | + +-------+ +--------+------+ | Current Every Day | | | | | | Smoker | | | | | + +-------+ +--------+------+ + + + | Sex Assigned at | Date Recorded | | | | + + + | Not on file | | + + + Last Filed Vital Signs + +---------+ + | Vital Sign | Reading | Time Taken | + +---------+ + | Blood Pressure | 134/72 | 08/24/2013 12:57 PM PDT | + +---------+ + | Pulse | 86 | 08/24/2013 12:57 PM PDT | + +---------+ + | Temperature | - | - | + +---------+ + | Respiratory Rate | - | - | + +---------+ + | Oxygen Saturation | - | - | + +---------+ + | Inhaled Oxygen | - | - | | Concentration | | | + +---------+ + | Weight | - | - | + +---------+ + | Height | - | - | + +---------+ + | Body Mass Index | - | - | + +---------+ + Plan of Treatment + + + + + | Health Maintenance | Due Date | Last Done | Comments | + + + + + | INFLUENZA VACCINE | | | | | (FLU SHOT) | 8 | | | + + + + + Results Not on filefrom Last 3 Months
--- OUTSIDE RECORDS SUMMARY | ~2018-02-25 | XMS | Clinical Summary ---
Demographics + + + | Address | [address] | | | [place] [address] | + + + | Home Phone | | + + + | Preferred Language | Unknown | + + + | Marital Status | | + + + | Orthodoxy Affiliation | Unknown | + + + | Race | Unknown | + + + | Ethnic Group | Other Race | + + + Author + + + | Author | [facility] | + + + | Organization | [facility] | + + + | Address | Unknown | + + + | Phone | Unavailable | + + + Care Team Providers + +------+ + | Care Engineering Administrator Name | Role | Phone | + +------+ + | No Pcp Per Patient | PP | Unavailable | + +------+ + Source Comments FLYNN is fully live on both EpicCare Ambulatory and EpicCare InPatient.[facility] Allergies + + + + + + [...] | + + + +---------+------+------+-------+ | Saw [place] Fruit | Take by mouth. | | [...]
--- OUTSIDE RECORDS SUMMARY | ~2018-02-25 | XMS | Encounter Summary ---
Demographics + + + | Address | [address] | | | [place] [address] | + + + | Home Phone | | + + + | Preferred Language | Unknown | + + + | Marital Status | | + + + | Jew Affiliation | Unknown | + + + | Race | Unknown | + + + | Ethnic Group | Unknown | + + + Author + + + | Author | [facility] [employer] [facility] | + + + | Organization | [facility] [employer] [facility] | + + + | Address | Unknown | + + + | Phone | Unavailable | + + + Support + + +---------+ + | Name | Relationship | Address | Phone | + + +---------+ + | Domenica Morataya | ECON | Unknown | | + + +---------+ + Care Team Providers + +------+ + | Care Poultry Killer Name | Role | Phone | + +------+ + | Ty Gomes MD | PCP | | + +------+ + Encounter Details +--------+ + + + + | Date | Type | Department | Care Team | Description | +--------+ + + + + | 12/27/ | Orders Only | [facility] [place] | Marina Sultana ARNP | | | 2018 | | Cardiology [facility] | [address] | | | | | [address] | [facility] [place] [place] | | | | | [place] | [address] | | | | | [address] | | | | | | [phone] | | | +--------+ + + + [...] + + + as of this encounter Plan of Treatment +--------+ + + + + | Date | Type | Specialty | Care Team | Description | +--------+ + + + + | 03/07/ | Documentati | Cardiology | | | | 2017 | on Only | | | | +--------+ + + + + | 08/16/ | Office | Cardiology | Tani Pop, | | | 2018 | Visit | | MD [address] | | | | | | [place] [address] | | | | | | [phone] | | | | | | | | +--------+ + + + + as of this encounter Procedures + +--------+ + + + | [...] section. | + +--------+ + + + in this encounter Results PACEART DEVICE CHECK REMOTE (12/27/2017 9:42 PM) + + + + | Component | Value | Ref Range | + + + + | Date Time | [id number] | | | Interrogation | | | | Session | | | + + + + | Implantable Pulse | MDC_IDC_ENUM_MFG_STJ | | | Generator | | | | Log Deckman | | | + + + + | Implantable Pulse | [id number] Fortify VR | | | Generator Model | | | + + + + | Implantable Pulse | [id number] | | | Generator Serial | | | | Number | | | + + + + | Type Interrogation | MDC_IDC_ENUM_SESS_TYPE_Remote | | | Session | | | + + + + | Re-programmed During | MDC_IDC_ENUM_SESS_REPROGRAMMED_NO | | | Session | | | + + + + | Clinic Name | [facility] | | + + + + | Implantable Pulse | MDC_IDC_ENUM_DEV_TYPE_ICD | | | Generator Type | | | + + + + | Implantable Pulse | [id number] | | | Generator Implant | | | | Date | | | + + + + | Implantable Lead | Medtronic | | | Log Deckman | | | + + + + | Implantable Lead | [id number] | | | Model | | | + + + + | Implantable Lead | [id number] | | | Serial Number | | | + + + + | Implantable Lead | [id number] | | | Implant Date | | [...] + + | Candido Setting | 120Comment: [id number]^STAR PROG CANDIDO | {beats}/min | | Maximum Sensor [...] + + | Lead Channel Setting | [facility]_IDC_ENUM_SENSING_ADAPTATION_MODE_Adapti | | | Sensing Adaptation | veSensingComment: [id number]^STAR PROG CANDIDO | | | Mode | [...] | | | Type Category | mment: 766007^MDT PROG TACHY ZONE | | | | [...] | | | Type Category | omment: [id number]^MDT PROG TACHY ZONE | | | | DETECTIONS STATUS^MDT - DISABLED | | + + + + | Zone Setting Type | MDC_IDC_ENUM_ZONE_TYPE_Zone_VT | | | Category | | | + + + + | Zone Setting Vendor | MDC_IDC_ENUM_ZONE_VENDOR_TYPE_STJ-Zone_VT1C | | | Type Category | omment: 776634^MDT PROG TACHY ZONE | | | | DETECTIONS STATUS^MDT - ENABLED | | + + + + | Zone Setting | 350Comment: 115057^MDT PROG TACHY ZONE | ms | | Detection Interval | THERAPIES 1 SEQUENCEID^MDT - | | | | 1 435491^MDT PROG TACHY ZONE THERAPIES 1 | | | | STATUS^MDT - | | | | 483973^[facility]_IDC_ENUM_ZONE_STATUS_Active^[facility] | | | | 840906^MDT PROG TACHY ZONE THERAPIES 1 | | | | SHOCKTHERAPY ENERGY^MDT - | | | | 31.2 449315^MDT PROG TACHY ZONE | | | | THERAPIES 1 SHOCKTHERAPY PATHWAY POLE ANODE | | | | LOCATION 1^MDT - | | | | 130025^[facility]_ENUM_ELECTRODE_LOCATION_RV^M | | | | [place] [address]^MDT PROG TACHY ZONE THERAPIES | | | | 1 SHOCKTHERAPY PATHWAY POLE ANODE ELECTRODE | | | | 1^MDT - | | | | 860051^[facility] 2001_ENUM_ELECTRODE_NAME_Coil^[facility] | | | | 550046^MDT PROG TACHY ZONE THERAPIES 1 | | | | SHOCKTHERAPY PATHWAY POLE CATHODE LOCATION | | | | 1^MDT - Other [id number]^MDT PROG TACHY | | | | ZONE THERAPIES 1 SHOCKTHERAPY PATHWAY POLE | | | | CATHODE ELECTRODE 1^MDT - | | | | 876368^[facility]_IDC_ENUM_ELECTRODE_NAME_Can^[facility] | | | | 963700^MDT PROG TACHY ZONE THERAPIES 2 | | | | SEQUENCEID^MDT - 2 961333^MDT PROG TACHY | | | | ZONE THERAPIES 2 STATUS^MDT - | | | | 882320^[facility]_IDC_ENUM_ZONE_STATUS_Active^MDC | | | | 339897^MDT PROG TACHY ZONE THERAPIES 2 | | | | SHOCKTHERAPY ENERGY^MDT - | | | | 34.6 132743^MDT PROG TACHY ZONE | | | | THERAPIES 2 SHOCKTHERAPY PATHWAY POLE ANODE | | | | LOCATION 1^MDT - | | | | 466025^[facility] 2001_ENUM_ELECTRODE_LOCATION_RV^M | | | | [place] 308440^MDT PROG TACHY ZONE THERAPIES | | | | 2 SHOCKTHERAPY PATHWAY POLE ANODE ELECTRODE | | | | 1^MDT - | | | | 853498^[facility] 2001_ENUM_ELECTRODE_NAME_Coil^[facility] | | | | 066165^MDT PROG TACHY ZONE THERAPIES 2 | | | | SHOCKTHERAPY PATHWAY POLE CATHODE LOCATION | | | | 1^MDT - Other [id number]^MDT PROG TACHY | | | | ZONE THERAPIES 2 SHOCKTHERAPY PATHWAY POLE | | | | CATHODE ELECTRODE 1^MDT - | | | | 207269^[facility] 2001_ENUM_ELECTRODE_NAME_Can^[facility] | | | | 327769^MDT PROG TACHY ZONE THERAPIES 3 | | | | SEQUENCEID^MDT - 3 618768^MDT PROG TACHY | | | | ZONE THERAPIES 3 STATUS^MDT - | | | | 558585^[facility] 2001_ENUM_ZONE_STATUS_Active^[facility] | | | | 679224^MDT PROG TACHY ZONE THERAPIES 3 | | | | SHOCKTHERAPY ENERGY^MDT - | | | | 34.6 852165^MDT PROG TACHY ZONE | | | | THERAPIES 3 SHOCKTHERAPY PATHWAY POLE ANODE | | | | LOCATION 1^MDT - | | | | 670481^[facility] 2001_ENUM_ELECTRODE_LOCATION_RV^M | | | | [place] 880269^MDT PROG TACHY ZONE THERAPIES | | | | 3 SHOCKTHERAPY PATHWAY POLE ANODE ELECTRODE | | | | 1^MDT - | | | | 623264^[facility] 2001_ENUM_ELECTRODE_NAME_Coil^[facility] | | | | 360498^MDT PROG TACHY ZONE THERAPIES 3 | | | | SHOCKTHERAPY PATHWAY POLE CATHODE LOCATION | | | | 1^MDT - Other [id number]^MDT PROG TACHY | | | | ZONE THERAPIES 3 SHOCKTHERAPY PATHWAY POLE | | | | CATHODE ELECTRODE 1^MDT - | | | | 521737^[facility] 2001_ENUM_ELECTRODE_NAME_Can^[facility] | | | | 302636^MDT PROG TACHY ZONE THERAPIES 4 | | | | SEQUENCEID^MDT - 4 380222^MDT PROG TACHY | | | | ZONE THERAPIES 4 STATUS^MDT - | | | | 778408^[facility] 2001_ENUM_ZONE_STATUS_Active^[facility] | | | | 279880^MDT PROG TACHY ZONE THERAPIES 4 | | | | SHOCKTHERAPY ENERGY^MDT - | | | | 34.6 066318^MDT PROG TACHY ZONE | | | | THERAPIES 4 SHOCKTHERAPY PATHWAY POLE ANODE | | | | LOCATION 1^MDT - | | | | 403257^[facility] 2001_ENUM_ELECTRODE_LOCATION_RV^M | | | | [place] [address]^MDT PROG TACHY ZONE THERAPIES | | | | 4 SHOCKTHERAPY PATHWAY POLE ANODE ELECTRODE | | | | 1^MDT - | | | | 079622^[facility] 2001_ENUM_ELECTRODE_NAME_Coil^[facility] | | | | 256197^MDT PROG TACHY ZONE THERAPIES 4 | | | | SHOCKTHERAPY PATHWAY POLE CATHODE LOCATION | | | | 1^MDT - Other [id number]^MDT PROG TACHY | | | | ZONE THERAPIES 4 SHOCKTHERAPY PATHWAY POLE | | | | CATHODE ELECTRODE 1^MDT - | | | | 220177^[facility] 2001_ENUM_ELECTRODE_NAME_Can^[facility] | | | | 143560^MDT PROG TACHY ZONE THERAPIES 5 | | | | SEQUENCEID^MDT - 5 150913^MDT PROG TACHY | | | | ZONE THERAPIES 5 STATUS^MDT - | | | | 783697^[facility]_IDC_ENUM_ZONE_STATUS_Active^[facility] | | | | 083981^MDT PROG TACHY ZONE THERAPIES 5 | | | | SHOCKTHERAPY ENERGY^MDT - | | | | 34.6 095664^MDT PROG TACHY ZONE | | | | THERAPIES 5 SHOCKTHERAPY PATHWAY POLE ANODE | | | | LOCATION 1^MDT - | | | | 226734^[facility] 2001_ENUM_ELECTRODE_LOCATION_RV^M | | | | [place] 314498^MDT PROG TACHY ZONE THERAPIES | | | | 5 SHOCKTHERAPY PATHWAY POLE ANODE ELECTRODE | | | | 1^MDT - | | | | 030922^[facility] 2001_ENUM_ELECTRODE_NAME_Coil^[facility] | | | | 484995^MDT PROG TACHY ZONE THERAPIES 5 | | | | SHOCKTHERAPY PATHWAY POLE CATHODE LOCATION | | | | 1^MDT - Other [id number]^MDT PROG TACHY | | | | ZONE THERAPIES 5 SHOCKTHERAPY PATHWAY POLE | | | | CATHODE ELECTRODE 1^MDT - | | | | 795624^[facility] 2001_ENUM_ELECTRODE_NAME_Can^[facility] | | | | 370867^MDT PROG TACHY ZONE THERAPIES 6 | | | | SEQUENCEID^MDT - 6 297369^MDT PROG TACHY | | | | ZONE THERAPIES 6 STATUS^MDT - | | | | 060482^[facility] 2001_ENUM_ZONE_STATUS_Active^[facility] | | | | 265101^MDT PROG TACHY ZONE THERAPIES 6 | | | | SHOCKTHERAPY ENERGY^MDT - | | | | 34.6 867520^MDT PROG TACHY ZONE | | | | THERAPIES 6 SHOCKTHERAPY PATHWAY POLE ANODE | | | | LOCATION 1^MDT - | | | | 059835^[facility] 2001_ENUM_ELECTRODE_LOCATION_RV^M | | | | [place] 762532^MDT PROG TACHY ZONE THERAPIES | | | | 6 SHOCKTHERAPY PATHWAY POLE ANODE ELECTRODE | | | | 1^MDT - | | | | 774556^[facility] 2001_ENUM_ELECTRODE_NAME_Coil^[facility] | | | | 002603^MDT PROG TACHY ZONE THERAPIES 6 | | | | SHOCKTHERAPY PATHWAY POLE CATHODE LOCATION | | | | 1^MDT - Other [id number]^MDT PROG TACHY | | | | ZONE THERAPIES 6 SHOCKTHERAPY PATHWAY POLE | | | | CATHODE ELECTRODE 1^MDT - | | | | 318572^[facility] 2001_ENUM_ELECTRODE_NAME_Can^[facility] | | | | 4505626^MDT PROG TACHY ZONE THERAPIES | | | | SUMMARY^MDT - 31.2J, 34.6J X | | | | 5 8387423^MDT PROG TACHY ZONE THERAPIES | | | | SUMMARY^MDT - Disabled 1210487^MDT PROG | | | | TACHY ZONE THERAPIES SUMMARY^MDT - | | | | Monitored | | + + + + | Lead Channel Status | MDC_IDC_ENUM_CHANNEL_STATUS_Null | | + + + + | Lead Channel | 400Comment: 5564516^MDT STAT LEADS | ohm | | Impedance Value | LOWPOWERCHANNEL RV IMPEDANCE STARTDATE^MDT | | | | - +0000 4183576^MDT STAT | | | | LEADS LOWPOWERCHANNEL RV IMPEDANCE | | | | ENDDATE^MDT - | | | | [id number]+0000 4741950^MDT STAT | | | | LEADS LOWPOWERCHANNEL RV IMPEDANCE | | | | POLARITY^MDT - | | | | 433537^MDC_IDC_ENUM_POLARITY_BI^MDC | | + + + + | Lead Channel Sensing | 12.0Comment: 8159876^MDT STAT LEADS | mV | | Intrinsic Amplitude | LOWPOWERCHANNEL RV SENSITIVITIES | | | | STARTDATE^MDT - | | | | +0000 7563988^MDT STAT | | | | LEADS LOWPOWERCHANNEL RV SENSITIVITIES | | | | ENDDATE^MDT - | | | | +0000 5758444^MDT STAT | | | | LEADS LOWPOWERCHANNEL RV SENSITIVITIES | | | | POLARITY^MDT - | | | | 857459^MDC_IDC_ENUM_POLARITY_BI^MDC | | + + + + | Lead Channel Pacing | 0.75 | V | | Threshold Amplitude | | | + + + + | Lead Channel Pacing | 0.5Comment: 3805982^MDT STAT LEADS | ms | | Threshold Pulse | LOWPOWERCHANNEL RV CAPTURES STARTDATE^MDT - | | | Width | +0000 5963684^MDT STAT | | | | LEADS LOWPOWERCHANNEL RV CAPTURES | | | | ENDDATE^MDT - | | | | +0000 9129153^MDT STAT | | | | LEADS LOWPOWERCHANNEL RV CAPTURES | | | | METHOD^MDT - | | | | INSTRUMENT_INITIATED 2538087^MDT STAT | | | | LEADS LOWPOWERCHANNEL RV CAPTURES | | | | POLARITY^MDT - | | | | 454812^MDC_IDC_ENUM_POLARITY_BI^MDC 1001 | | | | 264^MDT STAT LEADS HIGHPOWERCHANNEL | | | | IMPEDANCES MEASURED VALUE^MDT - | | | | 61 0416388^MDT STAT LEADS | | | | HIGHPOWERCHANNEL IMPEDANCES STARTDATE^MDT - | | | | +0000 0304507^MDT STAT | | | | LEADS HIGHPOWERCHANNEL IMPEDANCES MEASURED | | | | VALUE^MDT - 61 9713140^MDT STAT LEADS | | | | HIGHPOWERCHANNEL IMPEDANCES STARTDATE^MDT - | | | | +0000 9325313^MDT STAT | | | | LEADS HIGHPOWERCHANNEL IMPEDANCES | | | | STATUS^MDT - | | | | 119188^MDC_IDC_ENUM_CHANNEL_STATUS_Null^MDC | | | | 9500848^MDT STAT LEADS HIGHPOWERCHANNEL | | | | IMPEDANCES STATUS^MDT - | | | | 386506^MDC_IDC_ENUM_CHANNEL_STATUS_Null^MDC | | | | | | + + + + | Battery Date Time of | [id number] | | | Measurements | | | + + + + | Battery Status | MDC_IDC_ENUM_BATTERY_STATUS_MOS | | + + + + | Battery LEARNING AND DEVELOPMENT ASSISTANT Trigger | When current voltage < 2.59 [...] + + + | Capacitor Last | [id number]+0000 | | | Charge Date Time | | | + + + + | Capacitor Charge | 9.0 | s | | Time | | | + + + + | Capacitor Charge | 40 | J | | Energy | | | + + + + | Statistic Heart Rate | [id number]+0000 | | | Date Time Start | | | + + + + | Statistic Heart Rate | [id number]+0000 | | | Date Time End | [...] + + | Candido Statistic Date | [id number]+0000 | | | Time Start | | | + + + + | Candido Statistic Date | [id number]+0000 | | | Time End | | | + + + + | Candido Statistic RV | 1.0 | % | | Percent Paced | | | + + + + | EVENT DECORATOR AND DESIGNER Statistic Date | +0000 | | | Time Start | | | + + + + | EVENT DECORATOR AND DESIGNER Statistic Date | +0000 | | | [...] + + + | Therapy Statistic | [id number]+0000 | | | Recent Date Time | | | | Start | | | + + + + | Therapy Statistic | [id number]+0000Comment: 5160942^MDT | | | Recent Date Time End | EVALUATION RHYTHM^MDT - presenting VS 88 | | | | bpm 0840419^MDT EVALUATION | | | | MISCELLANEOUSCOMMENT^MDT - [...] in office with | | | | [facility] N | | | | [place], | | | | MDCardiomyopathy, unspecified type | | | | ([facility])05/11/2017Stephen | | | | N | | | | Ewer, | | | | MDCardiomyopathy ([facility])08/10/2016Stephen | | | | N | | | | Ewer, | | | | MDAtherosclerosis of [place] coronary | | | | artery of [place] heart without angina | | | | pectorisEP Tech: Filemon Rosado | | | | [facility] | | + + + + + + + | Specimen | Performing Laboratory | + + + | | [facility] | + + + in this encounter Visit Diagnoses Not on filein this encounter"
--- OUTSIDE RECORDS SUMMARY | ~2018-02-25 | XMS | Encounter Summary ---
Demographics + + + | Address | [address] | | | [place] [address] | + + + | Home Phone | | + + + | Preferred Language | Unknown | + + + | Marital Status | | + + + | Jain Affiliation | Unknown | + + + | Race | Unknown | + + + | Ethnic Group | Unknown | + + + Author + + + | Author | [facility] | + + + | Organization | [facility] | + + + | Address | Unknown | + + + | Phone | Unavailable | + + + Support + + +---------+ + | Name | Relationship | Address | Phone | + + +---------+ + | Domenica Morataya | ECON | Unknown | | + + +---------+ + Care Team Providers + +------+ + | Care Geomatics Professor Name | Role | Phone | + +------+ + | Ty Gomes MD | PCP | | + +------+ + Encounter Details +--------+ + + + + | Date | Type | Department | Care Team | Description | +--------+ + + + + | 12/27/ | Orders Only | [facility] [place] | Marina Sultana ARNP | | | 2018 | | Cardiology [place] | [address] | | | | | [address] | [facility] | | | | | [place] | [address] | | | | | [address] | | | | | | [phone] | | | +--------+ + + + [...] | | | | | [place] [address] | | | | | | [phone] | | | | | | | [...] + + + | Date Time | [id number] | | | Interrogation | | | | Session | | | + + + + | Implantable Pulse | MDC_IDC_ENUM_MFG_STJ | | | Generator | | | | Stable Helper | | | + + + + | Implantable Pulse | [id number] Fortify VR | | | Generator Model | | | + + + + | Implantable Pulse | [id number] | | | Generator Serial | | [...] + + + | Implantable Pulse | [id number] | | | Generator Implant | | | | Date | | | + + + + | Implantable Lead | Medtronic | | | Stable Helper | | | + + + + | Implantable Lead | [id number] | | | Model | | | + + + + | Implantable Lead | [id number] | | | Serial Number | | | + + + + | Implantable Lead | [id number] | | | Implant Date | | [...] + + | Candido Setting | 120Comment: [id number]^STAR PROG CANDIDO | {beats}/min | | Maximum [...] + + | Lead Channel Setting | [facility]_IDC_ENUM_SENSING_ADAPTATION_MODE_Adapti | | | Sensing Adaptation | veSensingComment: [id number]^STAR PROG CANDIDO | | | Mode | [...] | | | Type Category | mment: [id number]^MDT PROG TACHY ZONE | | | | [...] | | | Type Category | omment: [id number]^MDT PROG TACHY ZONE | | | | DETECTIONS STATUS^MDT - DISABLED | | + + + + | Zone Setting Type | MDC_IDC_ENUM_ZONE_TYPE_Zone_VT | | | Category | | | + + + + | Zone Setting Vendor | MDC_IDC_ENUM_ZONE_VENDOR_TYPE_STJ-Zone_VT1C | | | Type Category | omment: [id number]^MDT PROG TACHY ZONE | | | | DETECTIONS STATUS^MDT - ENABLED | | + + + + | Zone Setting | 350Comment: 399952^MDT PROG TACHY ZONE | ms | | Detection Interval | THERAPIES 1 SEQUENCEID^MDT - | | | | 1 033461^MDT PROG TACHY ZONE THERAPIES 1 | | | | STATUS^MDT - | | | | 769847^[facility]_IDC_ENUM_ZONE_STATUS_Active^[facility] | | | | 503044^MDT PROG TACHY ZONE THERAPIES 1 | | | | SHOCKTHERAPY ENERGY^MDT - | | | | 31.2 050556^MDT PROG TACHY ZONE | | | | THERAPIES 1 SHOCKTHERAPY PATHWAY POLE ANODE | | | | LOCATION 1^MDT - | | | | 451154^[facility]_ENUM_ELECTRODE_LOCATION_RV^M | | | | [place] 614347^MDT PROG TACHY ZONE THERAPIES | | | | 1 SHOCKTHERAPY PATHWAY POLE ANODE ELECTRODE | | | | 1^MDT - | | | | 025848^[facility]_ENUM_ELECTRODE_NAME_Coil^[facility] | | | | 814315^MDT PROG TACHY ZONE THERAPIES 1 | | | | SHOCKTHERAPY PATHWAY POLE CATHODE LOCATION | | | | 1^MDT - Other [id number]^MDT PROG TACHY | | | | ZONE THERAPIES 1 SHOCKTHERAPY PATHWAY POLE | | | | CATHODE ELECTRODE 1^MDT - | | | | 203231^[facility]_IDC_ENUM_ELECTRODE_NAME_Can^[facility] | | | | 405025^MDT PROG TACHY ZONE THERAPIES 2 | | | | SEQUENCEID^MDT - 2 949370^MDT PROG TACHY | | | | ZONE THERAPIES 2 STATUS^MDT - | | | | 299870^[facility]_IDC_ENUM_ZONE_STATUS_Active^MDC | | | | 812961^MDT PROG TACHY ZONE THERAPIES 2 | | | | SHOCKTHERAPY ENERGY^MDT - | | | | 34.6 243026^MDT PROG TACHY ZONE | | | | THERAPIES 2 SHOCKTHERAPY PATHWAY POLE ANODE | | | | LOCATION 1^MDT - | | | | 213106^[facility]_ENUM_ELECTRODE_LOCATION_RV^M | | | | [place] 163885^MDT PROG TACHY ZONE THERAPIES | | | | 2 SHOCKTHERAPY PATHWAY POLE ANODE ELECTRODE | | | | 1^MDT - | | | | 660854^[facility]_ENUM_ELECTRODE_NAME_Coil^[facility] | | | | 693774^MDT PROG TACHY ZONE THERAPIES 2 | | | | SHOCKTHERAPY PATHWAY POLE CATHODE LOCATION | | | | 1^MDT - Other [id number]^MDT PROG TACHY | | | | ZONE THERAPIES 2 SHOCKTHERAPY PATHWAY POLE | | | | CATHODE ELECTRODE 1^MDT - | | | | 508679^[facility]_ENUM_ELECTRODE_NAME_Can^[facility] | | | | 197564^MDT PROG TACHY ZONE THERAPIES 3 | | | | SEQUENCEID^MDT - 3 650645^MDT PROG TACHY | | | | ZONE THERAPIES 3 STATUS^MDT - | | | | 276994^[facility]_ENUM_ZONE_STATUS_Active^[facility] | | | | 688430^MDT PROG TACHY ZONE THERAPIES 3 | | | | SHOCKTHERAPY ENERGY^MDT - | | | | 34.6 243804^MDT PROG TACHY ZONE | | | | THERAPIES 3 SHOCKTHERAPY PATHWAY POLE ANODE | | | | LOCATION 1^MDT - | | | | 364734^[facility]_ENUM_ELECTRODE_LOCATION_RV^M | | | | [place] 037136^MDT PROG TACHY ZONE THERAPIES | | | | 3 SHOCKTHERAPY PATHWAY POLE ANODE ELECTRODE | | | | 1^MDT - | | | | 767221^[facility]_ENUM_ELECTRODE_NAME_Coil^[facility] | | | | 523578^MDT PROG TACHY ZONE THERAPIES 3 | | | | SHOCKTHERAPY PATHWAY POLE CATHODE LOCATION | | | | 1^MDT - Other [id number]^MDT PROG TACHY | | | | ZONE THERAPIES 3 SHOCKTHERAPY PATHWAY POLE | | | | CATHODE ELECTRODE 1^MDT - | | | | 732306^[facility]_ENUM_ELECTRODE_NAME_Can^[facility] | | | | 534792^MDT PROG TACHY ZONE THERAPIES 4 | | | | SEQUENCEID^MDT - 4 633622^MDT PROG TACHY | | | | ZONE THERAPIES 4 STATUS^MDT - | | | | 171697^[facility]_ENUM_ZONE_STATUS_Active^[facility] | | | | 946295^MDT PROG TACHY ZONE THERAPIES 4 | | | | SHOCKTHERAPY ENERGY^MDT - | | | | 34.6 663133^MDT PROG TACHY ZONE | | | | THERAPIES 4 SHOCKTHERAPY PATHWAY POLE ANODE | | | | LOCATION 1^MDT - | | | | 402477^[facility]_ENUM_ELECTRODE_LOCATION_RV^M | | | | DC 786603^MDT PROG TACHY ZONE THERAPIES | | | | 4 SHOCKTHERAPY PATHWAY POLE ANODE ELECTRODE | | | | 1^MDT - | | | | 437790^[facility]_ENUM_ELECTRODE_NAME_Coil^[facility] | | | | 233336^MDT PROG TACHY ZONE THERAPIES 4 | | | | SHOCKTHERAPY PATHWAY POLE CATHODE LOCATION | | | | 1^MDT - Other [id number]^MDT PROG TACHY | | | | ZONE THERAPIES 4 SHOCKTHERAPY PATHWAY POLE | | | | CATHODE ELECTRODE 1^MDT - | | | | 566808^[facility]_ENUM_ELECTRODE_NAME_Can^[facility] | | | | 271414^MDT PROG TACHY ZONE THERAPIES 5 | | | | SEQUENCEID^MDT - 5 177861^MDT PROG TACHY | | | | ZONE THERAPIES 5 STATUS^MDT - | | | | 082221^[facility]_IDC_ENUM_ZONE_STATUS_Active^[facility] | | | | 462336^MDT PROG TACHY ZONE THERAPIES 5 | | | | SHOCKTHERAPY ENERGY^MDT - | | | | 34.6 396827^MDT PROG TACHY ZONE | | | | THERAPIES 5 SHOCKTHERAPY PATHWAY POLE ANODE | | | | LOCATION 1^MDT - | | | | 611029^[facility]_ENUM_ELECTRODE_LOCATION_RV^M | | | | DC 062487^MDT PROG TACHY ZONE THERAPIES | | | | 5 SHOCKTHERAPY PATHWAY POLE ANODE ELECTRODE | | | | 1^MDT - | | | | 387622^[facility]_ENUM_ELECTRODE_NAME_Coil^[facility] | | | | 339688^MDT PROG TACHY ZONE THERAPIES 5 | | | | SHOCKTHERAPY PATHWAY POLE CATHODE LOCATION | | | | 1^MDT - Other [id number]^MDT PROG TACHY | | | | ZONE THERAPIES 5 SHOCKTHERAPY PATHWAY POLE | | | | CATHODE ELECTRODE 1^MDT - | | | | 409967^[facility]_ENUM_ELECTRODE_NAME_Can^[facility] | | | | 593351^MDT PROG TACHY ZONE THERAPIES 6 | | | | SEQUENCEID^MDT - 6 268874^MDT PROG TACHY | | | | ZONE THERAPIES 6 STATUS^MDT - | | | | 476892^[facility]_ENUM_ZONE_STATUS_Active^[facility] | | | | 155309^MDT PROG TACHY ZONE THERAPIES 6 | | | | SHOCKTHERAPY ENERGY^MDT - | | | | 34.6 894832^MDT PROG TACHY ZONE | | | | THERAPIES 6 SHOCKTHERAPY PATHWAY POLE ANODE | | | | LOCATION 1^MDT - | | | | 392575^[facility]_ENUM_ELECTRODE_LOCATION_RV^M | | | | [place] 360205^MDT PROG TACHY ZONE THERAPIES | | | | 6 SHOCKTHERAPY PATHWAY POLE ANODE ELECTRODE | | | | 1^MDT - | | | | 431248^[facility]_ENUM_ELECTRODE_NAME_Coil^[facility] | | | | 131749^MDT PROG TACHY ZONE THERAPIES 6 | | | | SHOCKTHERAPY PATHWAY POLE CATHODE LOCATION | | | | 1^MDT - Other [id number]^MDT PROG TACHY | | | | ZONE THERAPIES 6 SHOCKTHERAPY PATHWAY POLE | | | | CATHODE ELECTRODE 1^MDT - | | | | 955647^[facility]_ENUM_ELECTRODE_NAME_Can^[facility] | | | | 5556523^MDT PROG TACHY ZONE THERAPIES | | | | SUMMARY^MDT - 31.2J, 34.6J X | | | | 5 0403057^MDT PROG TACHY ZONE THERAPIES | | | | SUMMARY^MDT - Disabled 5354241^MDT PROG | | | | TACHY ZONE THERAPIES SUMMARY^MDT - | | | | Monitored | | + + + + | Lead Channel Status | MDC_IDC_ENUM_CHANNEL_STATUS_Null | | + + + + | Lead Channel | 400Comment: 1150601^MDT STAT LEADS | ohm | | Impedance Value | LOWPOWERCHANNEL RV IMPEDANCE STARTDATE^MDT | | | | - +0000 0765054^MDT STAT | | | | LEADS LOWPOWERCHANNEL RV IMPEDANCE | | | | ENDDATE^MDT - | | | | [id number]+0000 8336737^MDT STAT | | | | LEADS LOWPOWERCHANNEL RV IMPEDANCE | | | | POLARITY^MDT - | | | | 815776^MDC_IDC_ENUM_POLARITY_BI^MDC | | + + + + | Lead Channel Sensing | 12.0Comment: 0837515^MDT STAT LEADS | mV | | Intrinsic Amplitude | LOWPOWERCHANNEL RV SENSITIVITIES | | | | STARTDATE^MDT - | | | | +0000 4455228^MDT STAT | | | | LEADS LOWPOWERCHANNEL RV SENSITIVITIES | | | | ENDDATE^MDT - | | | | +0000 3357987^MDT STAT | | | | LEADS LOWPOWERCHANNEL RV SENSITIVITIES | | | | POLARITY^MDT - | | | | 179844^MDC_IDC_ENUM_POLARITY_BI^MDC | | + + + + | Lead Channel Pacing | 0.75 | V | | Threshold Amplitude | | | + + + + | Lead Channel Pacing | 0.5Comment: 3457810^MDT STAT LEADS | ms | | Threshold Pulse | LOWPOWERCHANNEL RV CAPTURES STARTDATE^MDT - | | | Width | +0000 8731243^MDT STAT | | | | LEADS LOWPOWERCHANNEL RV CAPTURES | | | | ENDDATE^MDT - | | | | +0000 8480536^MDT STAT | | | | LEADS LOWPOWERCHANNEL RV CAPTURES | | | | METHOD^MDT - | | | | INSTRUMENT_INITIATED 7288625^MDT STAT | | | | LEADS LOWPOWERCHANNEL RV CAPTURES | | | | POLARITY^MDT - | | | | 575725^MDC_IDC_ENUM_POLARITY_BI^MDC 1001 | | | | 264^MDT STAT LEADS HIGHPOWERCHANNEL | | | | IMPEDANCES MEASURED VALUE^MDT - | | | | 61 7912867^MDT STAT LEADS | | | | HIGHPOWERCHANNEL IMPEDANCES STARTDATE^MDT - | | | | +0000 1660840^MDT STAT | | | | LEADS HIGHPOWERCHANNEL IMPEDANCES MEASURED | | | | VALUE^MDT - 61 8441605^MDT STAT LEADS | | | | HIGHPOWERCHANNEL IMPEDANCES STARTDATE^MDT - | | | | +0000 8966321^MDT STAT | | | | LEADS HIGHPOWERCHANNEL IMPEDANCES | | | | STATUS^MDT - | | | | 171836^MDC_IDC_ENUM_CHANNEL_STATUS_Null^MDC | | | | 7670471^MDT STAT LEADS HIGHPOWERCHANNEL | | | | IMPEDANCES STATUS^MDT - | | | | 243698^MDC_IDC_ENUM_CHANNEL_STATUS_Null^MDC | | | | | | + + + + | Battery Date Time of | [id number]+0000 | | | Measurements | | | + + + + | Battery Status | MDC_IDC_ENUM_BATTERY_STATUS_MOS | | + + + + | Battery CLOTHING PATTERNMAKER Trigger | When current voltage < 2.59 [...] + + + | Capacitor Last | [id number]+0000 | | | Charge Date Time | | | + + + + | Capacitor Charge | 9.0 | s | | Time | | | + + + + | Capacitor Charge | 40 | J | | Energy | | | + + + + | Statistic Heart Rate | 36209655637212+0000 | | | Date Time Start | | | + + + + | Statistic Heart Rate | [id number]+0000 | | | Date Time End | [...] + + | Candido Statistic Date | [id number]+0000 | | | Time Start | | | + + + + | Candido Statistic Date | [id number]+0000 | | | Time End | | | + + + + | Candido Statistic RV | 1.0 | % | | Percent Paced | | | + + + + | WANT AD RECEIVER Statistic Date | +0000 | | | Time Start | | | + + + + | WANT AD RECEIVER Statistic Date | +0000 | | | [...] + + + | Therapy Statistic | [id number]+0000 | | | Recent Date Time | | | | Start | | | + + + + | Therapy Statistic | [id number]+0000Comment: 5493360^MDT | | | Recent Date Time End | EVALUATION RHYTHM^MDT - presenting VS 88 | | | | bpm 5804166^MDT EVALUATION | | | | MISCELLANEOUSCOMMENT^MDT - [...] in office with | | | | upholstery handler[facility] N | | | | [place], | | | | MDCardiomyopathy, unspecified type | | | | ([facility])05/11/2017Stephen | | | | N | | | | [place], | | | | MDCardiomyopathy ([facility])08/10/2016Stephen | | | | N | | | | [place], | | | | MDAtherosclerosis of po[place] coronary | | | | artery of [place] heart without angina | | | | pectorisEP Tech: Filemon Rosado | | | | [facility] | | + + + + + + + | Specimen | Performing Laboratory | + + + | | [facility] | + + + in this encounter Visit Diagnoses Not on filein this encounter"
--- OUTSIDE RECORDS SUMMARY | ~2018-02-25 | XMS | Encounter Summary ---
Demographics + + + | Address | [address] | | | [place] [address] | + + + | Home Phone | | + + + | Preferred Language | Unknown | + + + | Marital Status | | + + + | [employer] Affiliation | Unknown | + + + | Race | Unknown | + + + | Ethnic Group | Unknown | + + + Author + + + | Author | [facility] | + + + | Organization | [facility] | + + + | Address | Unknown | + + + | Phone | Unavailable | + + + Support + + +---------+ + | Name | Relationship | Address | Phone | + + +---------+ + | Domenica Morataya | ECON | Unknown | | + + +---------+ + Care Team Providers + +------+ + | Care Machine Adjuster Leader Name | Role | Phone | + +------+ + | Ty Gomes MD | PCP | | + +------+ + Reason for Visit + + + | Reason | Comments | + + + | Automatic | 5 wk | | Implantable | | | Cardioverter | | | Defibrillator | | + + + Encounter Details +--------+ + + + + | Date | Type | Department | Care Team | Description | +--------+ + + + + | 01/31/ | Documentati | [facility] [place] | | Automatic | | 2018 | on Only | [facility] | | Implantable | | | | [address] | | Cardioverter | | | | [place] | | Defibrillator (5 wk) | | | | [address] | | | | | | [phone] | | | +--------+ + + + [...] this encounter Progress Notes Anitha Bunn - 01/31/2018 8:00 AM PDTREMOTE CHECK: 5 wk HF Battery Longevity/Status: 3yr 7 mo charge time: Lead Impedance: Thresholds: last measured Measured P wave: / R Wave: RVp: <1% Events: no events recorded, Current mode VVIR - single lead device. Anti-coagulated: No ASA: 325 mg EF: Overall left ventricular systolic function is severely impaired with, an EF between 20 - 25 %. presenting EGM appears somewhat irregular but controlled. [place] HF: [place] Thoracic Impedance Monitoring: WNL today Plan: Continue at home monitoring. Last in office with process design engineer: 11/16/2017 MD [facility] Cardiomyopathy, unspecified type ([facility]) 05/11/2017 MD Jerome Cardiomyopathy ([facility]) 08/10/2016 MD [facility] Atherosclerosis of [place] coronary artery of [place] heart without angina pectoris grader tender[facility] attestation - Marina Sultana ARNP - 02/09/2018 4:40 PM PDTAgree with interpretat ion CAROLINE Canchola [...] Dr | | | | | | [place] [address] | | | | | | [phone] | | | | | | | | +--------+ + + + + as of this encounter Visit Diagnoses + + | Diagnosis | + + | Cardiomyopathy, unspecified type (HCC) - Primary | + + | Other cardiomyopathy (HCC) | + + | Mitral valve disorder | + + | Mitral valve disorders | + + | SOB (shortness of breath) | + + | Shortness of breath | + +"
--- OUTSIDE RECORDS SUMMARY | ~2018-02-25 | XMS | Encounter Summary ---
Demographics + + + | Address | [address] | | | [place] [address] | + + + | Home Phone | | + + + | Preferred Language | Unknown | + + + | Marital Status | | + + + | Oriental Orthodox Affiliation | Unknown | + + + | Race | Unknown | + + + | Ethnic Group | Unknown | + + + Author + + + | Author | [facility] | + + + | Organization | [facility] | + + + | Address | Unknown | + + + | Phone | Unavailable | + + + Support + + +---------+ + | Name | Relationship | Address | Phone | + + +---------+ + | Domenica Morataya | ECON | Unknown | | + + +---------+ + Care Team Providers + +------+ + | Care Costume Design Teacher Name | Role | Phone | + +------+ + | Ty Underwood MD | PCP | | + +------+ + Reason for Visit + + + | Reason | Comments | + + + | Follow-up | 3 month | + + + Encounter Details +--------+---------+ + + + | Date | Type | Department | Care Team | Description | +--------+---------+ + + + | 02/08/ | Office | [facility] | Tani Pop, | Cardiomyopathy, | | 2018 | Visit | Cardiology Dejuan | MD [address] | unspecified type | | | | [address] | [place] [address] | (HCC) (Primary Dx) | | | | [place], [place] | [phone] | | | | | [address] | | | | | | [phone] | | | +--------+---------+ + + + Social History + +-------+ [...] + + + as of this encounter Last Filed Vital Signs + + + + | Vital Sign | Reading | Time Taken | + + + + | Blood Pressure | 86/48 | 02/08/2018 3:50 PM PDT | + + + + | Pulse | 93 | 02/08/2018 3:50 PM PDT | + + + + | Temperature | - | - | + + + + | Respiratory [...] PM PDT | + + + + in this encounter Progress Notes Tani Pop MD - 02/08/2018 3:45 PM PDTFormatting of this note may be different from the original. FOLLOW UP : 1955 DATE OF SERVICE: 02/08/2018 PROVIDER: TANI POP MD PRIMARY CARE: MOISE UNDERWOOD CHIEF COMPLAINT: Chief Complaint Patient presents with Follow-up 3 month HPI: He is here for followup. He has been very slow to recover from his episode of sepsis. He co ntinues to lose some weight. Appetite is poor. He is back to smoking. He sometimes has troub le remembering to take his medicines. He is not getting much in the way of primary care at t he moment. He has chronic shortness of breath and cough. No angina. PMH, SH, FH, and meds were reviewed in the chart. CURRENT MEDICATIONS: Outpatient Encounter Prescriptions as of 02/08/2018 Medication Sig Dispense Refill albuterol (PROVENTIL HFA;VENTOLIN HFA) 108 (90 Base) MCG/ACT inhaler Inhale 2 puffs int o the lungs every 4 (four) hours as needed for Wheezing. 1 Inhaler 0 aspirin 325 MG tablet Take 325 mg by mouth daily. atorvastatin (LIPITOR) 40 MG tablet Take 40 mg by mouth nightly. budesonide-formoterol (SYMBICORT) 160-4.5 MCG/ACT inhaler Inhale 2 puffs into the lungs 2 (two) times daily. carvedilol (COREG) 6.25 MG tablet TAKE ONE TABLET BY MOUTH TWICE DAILY WITH FOOD 180 ta blet 0 Cholecalciferol (VITAMIN D3) 2000 UNITS TABS Take 1 tablet by mouth daily. furosemide (LASIX) 40 MG tablet TAKE ONE TABLET BY MOUTH TWICE DAILY (Patient taking di fferently: 2 tabs daily) 180 tablet 3 insulin glargine (LANTUS) 100 UNIT/ML injection 45 units qhs For 5 days take 20 units q am 15 mL 12 ipratropium-albuterol (DUO-NEB) 0.5-2.5 mg/3mL Take 3 mLs by nebulization 4 (four) time s daily. levofloxacin (LEVAQUIN) 500 MG tablet Take 1 tablet by mouth Once a Day-Quinalones. 5 t ablet 0 lisinopril (ZESTRIL) 2.5 MG tablet TAKE ONE TABLET BY MOUTH ONCE DAILY 90 tablet 3 metFORMIN (GLUCOPHAGE) 500 MG tablet Take 1 tablet by mouth 2 (two) times daily. (Patie nt taking differently: Take 1,000 mg by mouth 2 (two) times daily.) Multiple Vitamins-Minerals (MENS 50+ MULTI VITAMIN/MIN PO) Take 1 tablet by mouth every morning. niacin 500 MG tablet Take 500 mg by mouth every evening. 2po q hs pantoprazole (PROTONIX) 40 MG tablet Take 40 mg by mouth every morning before breakfast . predniSONE (DELTASONE) 20 MG tablet Take one tablet, by mouth two times daily for 5 day s. 10 tablet 0 quetiapine (SEROQUEL) 300 MG tablet Take 300 mg by mouth nightly. ranitidine (ZANTAC) 150 MG capsule Take 150 mg by mouth as needed. Saw Adriana Block repelisbet, 450 MG CAPS Take 450 mg by mouth 2 (two) times daily. spironolactone (ALDACTONE) 25 MG tablet Take 25 mg by mouth daily. tamsulosin (FLOMAX) 0.4 MG capsule Take 0.4 mg by mouth After dinner. temazepam (RESTORIL) 30 MG capsule Take 30 mg by mouth nightly. varenicline (CHANTIX) 1 MG tablet Take 1 mg by mouth 2 (two) times daily. venlafaxine (EFFEXOR-XR) 150 MG 24 hr capsule Take 300 mg by mouth nightly. potassium chloride (KLOR-CON M10) 10 MEQ tablet Take 1 tablet by mouth 2 (two) times da michael. (Patient not taking: Reported on 02/08/2018) 180 tablet 3 tiotropium (SPIRIVA) 18 MCG inhalation capsule Inhale 1 capsule into the lungs daily. 3 0 capsule 12 No facility-administered encounter medications on file as of 02/08/2018. ALLERGIES: Ambien [zolpidem]; Hydrocodone; Morphine; and Oxycodone REVIEW OF SYSTEMS: Review of Systems Constitutional: Positive for fatigue. Negative for chills, fever and unexpected weight brower ge. HENT: Negative for nosebleeds and trouble swallowing. Eyes: Negative for redness and visual disturbance. Respiratory: Positive for cough and shortness of breath. Negative for chest tightness and w heezing. Cardiovascular: Negative for chest pain, palpitations and leg swelling. Gastrointestinal: Negative for blood in stool, nausea and vomiting. Endocrine: Negative for cold intolerance and heat intolerance. Genitourinary: Negative for dysuria, frequency and hematuria. Musculoskeletal: Negative for gait problem and joint swelling. Skin: Negative for rash and wound. Neurological: Positive for weakness. Negative for dizziness, tremors, syncope, facial asymm etry, speech difficulty, light-headedness, numbness and headaches. Hematological: Does not bruise/bleed easily. Psychiatric/Behavioral: Positive for dysphoric mood. The patient is nervous/anxious. All other systems reviewed and negative. PHYSICAL EXAM: VITAL SIGNS: BP (!) 86/48 (BP Location: Left upper arm, Patient Position: Sitting) | Pulse 93 | Resp 20 | Ht 1.854 m (6' 1") | Wt 72.4 kg (159 lb 9.6 oz) | SpO2 97% | BMI 21.06 kg/m GENERAL - Well developed, well-nourished, appears stated age, in no acute distress. HEENT - Normocephalic, atraumatic. No arcus senillis, no scleral icterus. NECK - Supple. No thyromegaly. CARDIOVASCULAR - No JVD, no carotid bruit, Carotid upstroke normal bilaterally. Regular ra te and rhythm. No rub. No murmur. No gallop. Normal S1 and S2. CHEST - Nontender. LUNGS - Clear to auscultation. No wheezing, no crackles, no rales, no rhonchi and normal re spiratory rate and rhythm. EXTREMITIES - Notr edema, clubbing or cyanosis. No deformities, no tenderness, and no disco loration or ulceration. NEURO/PSYCH - Alert and oriented x3, mood and affect appropriate. No obvious focal motor or sensory deficits. Cranial nerves are grossly intact. MUSCULOSKELETAL - No muscle spasms, no muscle atrophy and no joint deformities. SKIN - pallor, no jaundice, no cyanosis. . IMPRESSION 1. Three-vessel coronary artery disease status post recent bypass of obtuse marginal and ri ght coronary. 2. Severe mitral regurgitation status post mitral valve repair, now with mild-mod mitral re gurgitation. 3. Severe cardiomyopathy, ejection fraction measured at 20% to 25%. 4. Automatic implantable cardioverter defibrillator in situ. 5. Ongoing tobacco abuse. 6. Dyslipidemia. 7. Type 2 diabetes. PLAN Have again emphasized the need for good primary care as well as not smoking. He should cont inue with his current regimen of lisinopril and carvedilol even though in low doses. Will se e again in 6 months or sooner if problems. Cardiac Medications: Continue as prescribed. Tani Pop MD FACC, FACP, [facility] in this encounter Plan of Treatment +--------+ + + + + | Date | Type | Specialty | Care Team | Description | +--------+ + + + + | 03/07/ | Documentati | Cardiology | | | | 2018 | on Only | | | | +--------+ + + + + | 08/16/ | Office | Cardiology | Tani Pop, | | | 2017 | Visit | | MD [address] | | | | | | [facility] [place] [address] | | | | | | [phone] | | | | | | | | +--------+ + + + + as of this encounter Visit Diagnoses + + | Diagnosis | + + | Cardiomyopathy, unspecified type (HCC) - Primary | + +
--- OUTSIDE RECORDS SUMMARY | ~2018-02-25 | XMS | Clinical Summary ---
Demographics + + + | Address | [address] | | | [place] [address] | + + + | Home Phone | | + + + | Preferred Language | Unknown | + + + | Marital Status | | + + + | Hoahaoism Affiliation | Unknown | + + + | Race | Unknown | + + + | Ethnic Group | Unknown | + + + Author + + + | Author | [facility] | + + + | Organization | [facility] | + + + | Address | Unknown | + + + | Phone | Unavailable | + + + Support + + +---------+ + | Name | Relationship | Address | Phone | + + +---------+ + | Domenica Means | ECON | Unknown | | + + +---------+ + Care Team Providers + +------+ + | Care Welfare Worker Name | Role | Phone | + [...] + + + | Overview: 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 | 09/10/2014 | + + [...] Dr | | | | | | [place] [address] | | | | | | [phone] | | | | | | | [...] + + + | Date Time | [id number] | | | Interrogation | | | | Session | | | + + + + | Implantable Pulse | MDC_IDC_ENUM_MFG_STJ | | | Generator | | | | Belt Press Operator | | | + + + + | Implantable Pulse | [id number] Fortify VR | | | Generator Model | | | + + + + | Implantable Pulse | [id number] | | | Generator Serial | | | | Number | | | + + + + | Type Interrogation | MDC_IDC_ENUM_SESS_TYPE_Remote | | | Session | | | + + + + | Re-programmed During | MDC_IDC_ENUM_SESS_REPROGRAMMED_NO | | | Session | | | + + + + | Clinic Name | [facility] | | + + + + | Implantable Pulse | MDC_IDC_ENUM_DEV_TYPE_ICD | | | Generator Type | | | + + + + | Implantable Pulse | [id number] | | | Generator Implant | | | | Date | | | + + + + | Implantable Lead | Medtronic | | | Belt Press Operator | | | + + + + | Implantable Lead | [id number] | | | Model | | | + + + + | Implantable Lead | [id number] | | | Serial Number | | | + + + + | Implantable Lead | [id number] | | | Implant Date | | [...] + + | Candido Setting | 120Comment: [id number]^STAR CALLEJASG CANDIDO | {beats}/min | | Maximum [...] | | | Sensing Adaptation | veSensingComment: [id number]^STAR PROG CANDIDO | | | Mode | [...] | | | Type Category | mment: [id number]^MDT PROG TACHY ZONE | | | | [...] | | | Type Category | omment: [id number]^MDT PROG TACHY ZONE | | | | DETECTIONS STATUS^MDT - DISABLED | | + + + + | Zone Setting Type | MDC_IDC_ENUM_ZONE_TYPE_Zone_VT | | | Category | | | + + + + | Zone Setting Vendor | MDC_IDC_ENUM_ZONE_VENDOR_TYPE_STJ-Zone_VT1C | | | Type Category | omment: [id number]^MDT PROG TACHY ZONE | | | | DETECTIONS STATUS^MDT - ENABLED | | + + + + | Zone Setting | 350Comment: 020126^MDT PROG TACHY ZONE | ms | | Detection Interval | THERAPIES 1 SEQUENCEID^MDT - | | | | 1 541542^MDT PROG TACHY ZONE THERAPIES 1 | | | | STATUS^MDT - | | | | 373158^[facility]_ENUM_ZONE_STATUS_Active^[facility] | | | | 362835^MDT PROG TACHY ZONE THERAPIES 1 | | | | SHOCKTHERAPY ENERGY^MDT - | | | | 31.7 365660^MDT PROG TACHY ZONE | | | | THERAPIES 1 SHOCKTHERAPY PATHWAY POLE ANODE | | | | LOCATION 1^MDT - | | | | 317180^[facility]_ENUM_ELECTRODE_LOCATION_RV^M | | | | [place] 584469^MDT PROG TACHY ZONE THERAPIES | | | | 1 SHOCKTHERAPY PATHWAY POLE ANODE ELECTRODE | | | | 1^MDT - | | | | 137340^[facility]_ENUM_ELECTRODE_NAME_Coil^[facility] | | | | 346960^MDT PROG TACHY ZONE THERAPIES 1 | | | | SHOCKTHERAPY PATHWAY POLE CATHODE LOCATION | | | | 1^MDT - Other [id number]^MDT PROG TACHY | | | | ZONE THERAPIES 1 SHOCKTHERAPY PATHWAY POLE | | | | CATHODE ELECTRODE 1^MDT - | | | | 140375^[facility]_ENUM_ELECTRODE_NAME_Can^[facility] | | | | 052414^MDT PROG TACHY ZONE THERAPIES 2 | | | | SEQUENCEID^MDT - 2 988360^MDT PROG TACHY | | | | ZONE THERAPIES 2 STATUS^MDT - | | | | 054508^[facility]_ENUM_ZONE_STATUS_Active^[facility] | | | | 454767^MDT PROG TACHY ZONE THERAPIES 2 | | | | SHOCKTHERAPY ENERGY^MDT - | | | | 35.2 479102^MDT PROG TACHY ZONE | | | | THERAPIES 2 SHOCKTHERAPY PATHWAY POLE ANODE | | | | LOCATION 1^MDT - | | | | 606485^[facility]_ENUM_ELECTRODE_LOCATION_RV^M | | | | [place] 175183^MDT PROG TACHY ZONE THERAPIES | | | | 2 SHOCKTHERAPY PATHWAY POLE ANODE ELECTRODE | | | | 1^MDT - | | | | 749950^[facility]_IDC_ENUM_ELECTRODE_NAME_Coil^[facility] | | | | 645666^MDT PROG TACHY ZONE THERAPIES 2 | | | | SHOCKTHERAPY PATHWAY POLE CATHODE LOCATION | | | | 1^MDT - Other [id number]^MDT PROG TACHY | | | | ZONE THERAPIES 2 SHOCKTHERAPY PATHWAY POLE | | | | CATHODE ELECTRODE 1^MDT - | | | | 487952^[facility]_ENUM_ELECTRODE_NAME_Can^[facility] | | | | 556834^MDT PROG TACHY ZONE THERAPIES 3 | | | | SEQUENCEID^MDT - 3 773083^MDT PROG TACHY | | | | ZONE THERAPIES 3 STATUS^MDT - | | | | 915919^[facility]_ENUM_ZONE_STATUS_Active^[facility] | | | | 729400^MDT PROG TACHY ZONE THERAPIES 3 | | | | SHOCKTHERAPY ENERGY^MDT - | | | | 35.2 227531^MDT PROG TACHY ZONE | | | | THERAPIES 3 SHOCKTHERAPY PATHWAY POLE ANODE | | | | LOCATION 1^MDT - | | | | 538259^[facility]_ENUM_ELECTRODE_LOCATION_RV^M | | | | [place] 524740^MDT PROG TACHY ZONE THERAPIES | | | | 3 SHOCKTHERAPY PATHWAY POLE ANODE ELECTRODE | | | | 1^MDT - | | | | 872149^[facility]_ENUM_ELECTRODE_NAME_Coil^[facility] | | | | 496972^MDT PROG TACHY ZONE THERAPIES 3 | | | | SHOCKTHERAPY PATHWAY POLE CATHODE LOCATION | | | | 1^MDT - Other [id number]^MDT PROG TACHY | | | | ZONE THERAPIES 3 SHOCKTHERAPY PATHWAY POLE | | | | CATHODE ELECTRODE 1^MDT - | | | | 755793^[facility]_ENUM_ELECTRODE_NAME_Can^[facility] | | | | 142480^MDT PROG TACHY ZONE THERAPIES 4 | | | | SEQUENCEID^MDT - 4 975463^MDT PROG TACHY | | | | ZONE THERAPIES 4 STATUS^MDT - | | | | 146881^[facility]_ENUM_ZONE_STATUS_Active^[facility] | | | | 890579^MDT PROG TACHY ZONE THERAPIES 4 | | | | SHOCKTHERAPY ENERGY^MDT - | | | | 35.2 803387^MDT PROG TACHY ZONE | | | | THERAPIES 4 SHOCKTHERAPY PATHWAY POLE ANODE | | | | LOCATION 1^MDT - | | | | 567624^[facility]_ENUM_ELECTRODE_LOCATION_RV^M | | | | [place] 312282^MDT PROG TACHY ZONE THERAPIES | | | | 4 SHOCKTHERAPY PATHWAY POLE ANODE ELECTRODE | | | | 1^MDT - | | | | 237878^[facility]_ENUM_ELECTRODE_NAME_Coil^[facility] | | | | 280668^MDT PROG TACHY ZONE THERAPIES 4 | | | | SHOCKTHERAPY PATHWAY POLE CATHODE LOCATION | | | | 1^MDT - Other [id number]^MDT PROG TACHY | | | | ZONE THERAPIES 4 SHOCKTHERAPY PATHWAY POLE | | | | CATHODE ELECTRODE 1^MDT - | | | | 090357^[facility]_ENUM_ELECTRODE_NAME_Can^[facility] | | | | 136561^MDT PROG TACHY ZONE THERAPIES 5 | | | | SEQUENCEID^MDT - 5 158762^MDT PROG TACHY | | | | ZONE THERAPIES 5 STATUS^MDT - | | | | 079172^[facility]_ENUM_ZONE_STATUS_Active^[facility] | | | | 585867^MDT PROG TACHY ZONE THERAPIES 5 | | | | SHOCKTHERAPY ENERGY^MDT - | | | | 35.2 585131^MDT PROG TACHY ZONE | | | | THERAPIES 5 SHOCKTHERAPY PATHWAY POLE ANODE | | | | LOCATION 1^MDT - | | | | 244624^[facility]_ENUM_ELECTRODE_LOCATION_RV^M | | | | [place] 655429^MDT PROG TACHY ZONE THERAPIES | | | | 5 SHOCKTHERAPY PATHWAY POLE ANODE ELECTRODE | | | | 1^MDT - | | | | 352643^[facility]_ENUM_ELECTRODE_NAME_Coil^[facility] | | | | 589339^MDT PROG TACHY ZONE THERAPIES 5 | | | | SHOCKTHERAPY PATHWAY POLE CATHODE LOCATION | | | | 1^MDT - Other [id number]^MDT PROG TACHY | | | | ZONE THERAPIES 5 SHOCKTHERAPY PATHWAY POLE | | | | CATHODE ELECTRODE 1^MDT - | | | | 554525^[facility]_ENUM_ELECTRODE_NAME_Can^[facility] | | | | 105697^MDT PROG TACHY ZONE THERAPIES 6 | | | | SEQUENCEID^MDT - 6 290030^MDT PROG TACHY | | | | ZONE THERAPIES 6 STATUS^MDT - | | | | 383197^[facility]_ENUM_ZONE_STATUS_Active^[facility] | | | | 870856^MDT PROG TACHY ZONE THERAPIES 6 | | | | SHOCKTHERAPY ENERGY^MDT - | | | | 35.2 310009^MDT PROG TACHY ZONE | | | | THERAPIES 6 SHOCKTHERAPY PATHWAY POLE ANODE | | | | LOCATION 1^MDT - | | | | 718785^[facility]_ENUM_ELECTRODE_LOCATION_RV^M | | | | [place] 228808^MDT PROG TACHY ZONE THERAPIES | | | | 6 SHOCKTHERAPY PATHWAY POLE ANODE ELECTRODE | | | | 1^MDT - | | | | 363599^[facility]_ENUM_ELECTRODE_NAME_Coil^[facility] | | | | 302779^MDT PROG TACHY ZONE THERAPIES 6 | | | | SHOCKTHERAPY PATHWAY POLE CATHODE LOCATION | | | | 1^MDT - Other [id number]^MDT PROG TACHY | | | | ZONE THERAPIES 6 SHOCKTHERAPY PATHWAY POLE | | | | CATHODE ELECTRODE 1^MDT - | | | | 888398^[facility]_ENUM_ELECTRODE_NAME_Can^[facility] | | | | 0931500^MDT PROG TACHY ZONE THERAPIES | | | | SUMMARY^MDT - 31.7J, 35.2J X | | | | 5 2714421^MDT PROG TACHY ZONE THERAPIES | | | | SUMMARY^MDT - Disabled 9942299^MDT PROG | | | | TACHY ZONE THERAPIES SUMMARY^MDT - | | | | Monitored | | + + + + | Lead Channel Status | MDC_IDC_ENUM_CHANNEL_STATUS_Null | | + + + + | Lead Channel | 380Comment: 2582479^MDT STAT LEADS | ohm | | Impedance Value | LOWPOWERCHANNEL RV IMPEDANCE STARTDATE^MDT | | | | - +0000 8968302^MDT STAT | | | | LEADS LOWPOWERCHANNEL RV IMPEDANCE | | | | ENDDATE^MDT - | | | | +0000 1980160^MDT STAT | | | | LEADS LOWPOWERCHANNEL RV IMPEDANCE | | | | POLARITY^MDT - | | | | 656697^[facility]_IDC_ENUM_POLARITY_BI^MDC | | + + + + | Lead Channel Sensing | 11.9Comment: 7200001^MDT STAT LEADS | mV | | Intrinsic Amplitude | LOWPOWERCHANNEL RV SENSITIVITIES | | | | STARTDATE^MDT - | | | | +0000 0512908^MDT STAT | | | | LEADS LOWPOWERCHANNEL RV SENSITIVITIES | | | | ENDDATE^MDT - | | | | +0000 8776945^MDT STAT | | | | LEADS LOWPOWERCHANNEL RV SENSITIVITIES | | | | POLARITY^MDT - | | | | 609405^[facility]_IDC_ENUM_POLARITY_BI^MDC | | + + + + | Lead Channel Pacing | 0.75 | V | | Threshold Amplitude | | | + + + + | Lead Channel Pacing | 0.5Comment: 8770048^MDT STAT LEADS | ms | | Threshold Pulse | LOWPOWERCHANNEL RV CAPTURES STARTDATE^MDT - | | | Width | +0000 0861213^MDT STAT | | | | LEADS LOWPOWERCHANNEL RV CAPTURES | | | | ENDDATE^MDT - | | | | +0000 5050650^MDT STAT | | | | LEADS LOWPOWERCHANNEL RV CAPTURES | | | | METHOD^MDT - | | | | INSTRUMENT_INITIATED 8148652^MDT STAT | | | | LEADS LOWPOWERCHANNEL RV CAPTURES | | | | POLARITY^MDT - | | | | 049309^MDC_IDC_ENUM_POLARITY_BI^MDC 1001 | | | | 264^MDT STAT LEADS HIGHPOWERCHANNEL | | | | IMPEDANCES MEASURED VALUE^MDT - | | | | 57 8196016^MDT STAT LEADS | | | | HIGHPOWERCHANNEL IMPEDANCES STARTDATE^MDT - | | | | +0000 5970876^MDT STAT | | | | LEADS HIGHPOWERCHANNEL IMPEDANCES MEASURED | | | | VALUE^MDT - 57 0180882^MDT STAT LEADS | | | | HIGHPOWERCHANNEL IMPEDANCES STARTDATE^MDT - | | | | +0000 4246647^MDT STAT | | | | LEADS HIGHPOWERCHANNEL IMPEDANCES | | | | STATUS^MDT - | | | | 617859^MDC_IDC_ENUM_CHANNEL_STATUS_Null^MDC | | | | 8693172^MDT STAT LEADS HIGHPOWERCHANNEL | | | | IMPEDANCES STATUS^MDT - | | | | 889224^MDC_IDC_ENUM_CHANNEL_STATUS_Null^MDC | | | | | | + + + + | Battery Date Time of | [id number]+0000 | | | Measurements | | | + + + + | Battery Status | MDC_IDC_ENUM_BATTERY_STATUS_MOS | | + + + + | Battery ATHLETIC SCOUT Trigger | When current voltage < 2.59 [...] + + + | Capacitor Last | [id number]+0000 | | | Charge Date Time | | | + + + + | Capacitor Charge | 9.0 | s | | Time | | | + + + + | Capacitor Charge | 40 | J | | Energy | | | + + + + | Statistic Heart Rate | 45839362489964+0000 | | | Date Time Start | | | + + + + | Statistic Heart Rate | 51955683864423+0000 | | | Date Time End | [...] + + | Candido Statistic Date | [id number]+0000 | | | Time Start | | | + + + + | Candido Statistic Date | [phone]+0000 | | | Time End | | | + + + + | Candido Statistic RV | 1.0 | % | | Percent Paced | | | + + + + | ASSOCIATE SALES MANAGER Statistic Date | +0000 | | | Time Start | | | + + + + | ASSOCIATE SALES MANAGER Statistic Date | +0000 | | | Time End | | | + + + + | Atrial Tachy | +0000 | | | Statistic Date Time | | | | Start | | | + + + + | Atrial Tachy | [id number]+0000 | | | Statistic Date Time | [...] + + + | Therapy Statistic | [id number]+0000 | | | Recent Date Time | | | | Start | | | + + + + | Therapy Statistic | [id number]+0000Comment: 0283543^MDT | | | Recent Date Time End | EVALUATION DEPENDENCY^MDT - | | | | NO 7649785^MDT EVALUATION RHYTHM^MDT - | | | | presenting Vs PVCS/somewhat | | | | irregular 6246500^MDT EVALUATION | | | | MISCELLANEOUSCOMMENT^MDT - [...] in office | | | | with system software developer:11/16/2017[facility] | | | | N | | | | Ewer, | | | | MDCardiomyopathy, unspecified type | | | | ([facility]05/11/2017[facility] | | | | N | | | | Ewer, | | | | MDCardiomyopathy ([facility]2016[facility] | | | | N | | | | Ewer, | | | | MDAtherosclerosis of red cliff coronary | | | | artery of red cliff heart without angina | | | | pectorisEP Tech: Filemon Rosado | | | | [facility] | | + + + + + + + | Specimen | Performing Laboratory | + + + | | PACEART | + + + PACEART DEVICE CHECK REMOTE (12/27/2017 9:42 PM) + + + + | Component | Value | Ref Range | + + + + | Date Time | [id number]+0000 | | | Interrogation | | | | Session | | | + + + + | Implantable Pulse | MDC_IDC_ENUM_MFG_STJ | | | Generator | | | | Belt Press Operator | | | + + + + | Implantable Pulse | 1231-40Q Fortify VR | | | Generator Model | | | + + + + | Implantable Pulse | [id number] | | | Generator Serial | | | | Number | | | + + + + | Type Interrogation | MDC_IDC_ENUM_SESS_TYPE_Remote | | | Session | | | + + + + | Re-programmed During | MDC_IDC_ENUM_SESS_REPROGRAMMED_NO | | | Session | | | + + + + | Clinic Name | [facility] | | + + + + | Implantable Pulse | MDC_IDC_ENUM_DEV_TYPE_ICD | | | Generator Type | | | + + + + | Implantable Pulse | [id number] | | | Generator Implant | | | | Date | | | + + + + | Implantable Lead | Medtronic | | | Belt Press Operator | | | + + + + | Implantable Lead | 6935-65 | | | Model | | | + + + + | Implantable Lead | [id number] | | | Serial Number | | | + + + + | Implantable Lead | [id number] | | | Implant Date | | [...] + + | Candido Setting | 120Comment: [id number]^STAR CALLEJASG CANDIDO | {beats}/min | | Maximum [...] | | | Sensing Adaptation | veSensingComment: 9475041^STAR PROG CANDIDO | | | Mode | [...] | | | Type Category | mment: 252237^MDT PROG TACHY ZONE | | | | [...] | | | Type Category | omment: 031626^MDT PROG TACHY ZONE | | | | DETECTIONS STATUS^MDT - DISABLED | | + + + + | Zone Setting Type | MDC_IDC_ENUM_ZONE_TYPE_Zone_VT | | | Category | | | + + + + | Zone Setting Vendor | MDC_IDC_ENUM_ZONE_VENDOR_TYPE_STJ-Zone_VT1C | | | Type Category | omment: 641062^MDT PROG TACHY ZONE | | | | DETECTIONS STATUS^MDT - ENABLED | | + + + + | Zone Setting | 350Comment: 019851^MDT PROG TACHY ZONE | ms | | Detection Interval | THERAPIES 1 SEQUENCEID^MDT - | | | | 1 215915^MDT PROG TACHY ZONE THERAPIES 1 | | | | STATUS^MDT - | | | | 625974^[facility]_IDC_ENUM_ZONE_STATUS_Active^[facility] | | | | 810060^MDT PROG TACHY ZONE THERAPIES 1 | | | | SHOCKTHERAPY ENERGY^MDT - | | | | 31.2 784760^MDT PROG TACHY ZONE | | | | THERAPIES 1 SHOCKTHERAPY PATHWAY POLE ANODE | | | | LOCATION 1^MDT - | | | | 745504^[facility]_IDC_ENUM_ELECTRODE_LOCATION_RV^M | | | | [place] 573677^MDT PROG TACHY ZONE THERAPIES | | | | 1 SHOCKTHERAPY PATHWAY POLE ANODE ELECTRODE | | | | 1^MDT - | | | | 135767^[facility]_IDC_ENUM_ELECTRODE_NAME_Coil^[facility] | | | | 323553^MDT PROG TACHY ZONE THERAPIES 1 | | | | SHOCKTHERAPY PATHWAY POLE CATHODE LOCATION | | | | 1^MDT - Other [id number]^MDT PROG TACHY | | | | ZONE THERAPIES 1 SHOCKTHERAPY PATHWAY POLE | | | | CATHODE ELECTRODE 1^MDT - | | | | 908553^[facility]_IDC_ENUM_ELECTRODE_NAME_Can^MDC | | | | 070559^MDT PROG TACHY ZONE THERAPIES 2 | | | | SEQUENCEID^MDT - 2 582747^MDT PROG TACHY | | | | ZONE THERAPIES 2 STATUS^MDT - | | | | 073735^[facility]_IDC_ENUM_ZONE_STATUS_Active^[facility] | | | | 097732^MDT PROG TACHY ZONE THERAPIES 2 | | | | SHOCKTHERAPY ENERGY^MDT - | | | | 34.6 089179^MDT PROG TACHY ZONE | | | | THERAPIES 2 SHOCKTHERAPY PATHWAY POLE ANODE | | | | LOCATION 1^MDT - | | | | 391311^[facility]_ENUM_ELECTRODE_LOCATION_RV^M | | | | [place] 257681^MDT PROG TACHY ZONE THERAPIES | | | | 2 SHOCKTHERAPY PATHWAY POLE ANODE ELECTRODE | | | | 1^MDT - | | | | 274217^[facility]_ENUM_ELECTRODE_NAME_Coil^[facility] | | | | 888006^MDT PROG TACHY ZONE THERAPIES 2 | | | | SHOCKTHERAPY PATHWAY POLE CATHODE LOCATION | | | | 1^MDT - Other [id number]^MDT PROG TACHY | | | | ZONE THERAPIES 2 SHOCKTHERAPY PATHWAY POLE | | | | CATHODE ELECTRODE 1^MDT - | | | | 842138^[facility]_ENUM_ELECTRODE_NAME_Can^[facility] | | | | 507185^MDT PROG TACHY ZONE THERAPIES 3 | | | | SEQUENCEID^MDT - 3 950781^MDT PROG TACHY | | | | ZONE THERAPIES 3 STATUS^MDT - | | | | 680165^[facility]_ENUM_ZONE_STATUS_Active^[facility] | | | | 646047^MDT PROG TACHY ZONE THERAPIES 3 | | | | SHOCKTHERAPY ENERGY^MDT - | | | | 34.6 047411^MDT PROG TACHY ZONE | | | | THERAPIES 3 SHOCKTHERAPY PATHWAY POLE ANODE | | | | LOCATION 1^MDT - | | | | 328321^[facility]_ENUM_ELECTRODE_LOCATION_RV^M | | | | [place] 305969^MDT PROG TACHY ZONE THERAPIES | | | | 3 SHOCKTHERAPY PATHWAY POLE ANODE ELECTRODE | | | | 1^MDT - | | | | 962184^[facility]_ENUM_ELECTRODE_NAME_Coil^[facility] | | | | 858332^MDT PROG TACHY ZONE THERAPIES 3 | | | | SHOCKTHERAPY PATHWAY POLE CATHODE LOCATION | | | | 1^MDT - Other [id number]^MDT PROG TACHY | | | | ZONE THERAPIES 3 SHOCKTHERAPY PATHWAY POLE | | | | CATHODE ELECTRODE 1^MDT - | | | | [id number]^[facility]_ENUM_ELECTRODE_NAME_Can^[facility] | | | | [id number]^MDT PROG TACHY ZONE THERAPIES 4 | | | | SEQUENCEID^MDT - 4 [id number]^MDT PROG TACHY | | | | ZONE THERAPIES 4 STATUS^MDT - | | | | 258167^[facility]_ENUM_ZONE_STATUS_Active^[facility] | | | | 257531^MDT PROG TACHY ZONE THERAPIES 4 | | | | SHOCKTHERAPY ENERGY^MDT - | | | | 34.6 [id number]^MDT PROG TACHY ZONE | | | | THERAPIES 4 SHOCKTHERAPY PATHWAY POLE ANODE | | | | LOCATION 1^MDT - | | | | 436300^[facility] [place]_ENUM_ELECTRODE_LOCATION_RV^M | | | | [place] 468086^MDT PROG TACHY ZONE THERAPIES | | | | 4 SHOCKTHERAPY PATHWAY POLE ANODE ELECTRODE | | | | 1^MDT - | | | | 339034^[facility] [place]_ENUM_ELECTRODE_NAME_Coil^[facility] | | | | 784488^MDT PROG TACHY ZONE THERAPIES 4 | | | | SHOCKTHERAPY PATHWAY POLE CATHODE LOCATION | | | | 1^MDT - Other [id number]^MDT PROG TACHY | | | | ZONE THERAPIES 4 SHOCKTHERAPY PATHWAY POLE | | | | CATHODE ELECTRODE 1^MDT - | | | | [id number]^[facility] [place]_ENUM_ELECTRODE_NAME_Can^[facility] | | | | 872094^MDT PROG TACHY ZONE THERAPIES 5 | | | | SEQUENCEID^MDT - 5 [id number]^MDT PROG TACHY | | | | ZONE THERAPIES 5 STATUS^MDT - | | | | 152361^[facility] [place]_ENUM_ZONE_STATUS_Active^[facility] | | | | 297981^MDT PROG TACHY ZONE THERAPIES 5 | | | | SHOCKTHERAPY ENERGY^MDT - | | | | 34.6 425482^MDT PROG TACHY ZONE | | | | THERAPIES 5 SHOCKTHERAPY PATHWAY POLE ANODE | | | | LOCATION 1^MDT - | | | | 198883^[facility] [place] [facility]_ENUM_ELECTRODE_LOCATION_RV^M | | | | [place] 577925^MDT PROG TACHY ZONE THERAPIES | | | | 5 SHOCKTHERAPY PATHWAY POLE ANODE ELECTRODE | | | | 1^MDT - | | | | 904953^[facility] [place] [facility]_ENUM_ELECTRODE_NAME_Coil^[facility] | | | | 322541^MDT PROG TACHY ZONE THERAPIES 5 | | | | SHOCKTHERAPY PATHWAY POLE CATHODE LOCATION | | | | 1^MDT - Other [id number]^MDT PROG TACHY | | | | ZONE THERAPIES 5 SHOCKTHERAPY PATHWAY POLE | | | | CATHODE ELECTRODE 1^MDT - | | | | 053548^[facility] [place]_ENUM_ELECTRODE_NAME_Can^[facility] | | | | 131192^MDT PROG TACHY ZONE THERAPIES 6 | | | | SEQUENCEID^MDT - 6 487298^MDT PROG TACHY | | | | ZONE THERAPIES 6 STATUS^MDT - | | | | 038489^[facility] [place]_[facility]_ENUM_ZONE_STATUS_Active^[facility] | | | | [phone]^MDT PROG TACHY ZONE THERAPIES 6 | | | | SHOCKTHERAPY ENERGY^MDT - | | | | 34.6 015962^MDT PROG TACHY ZONE | | | | THERAPIES 6 SHOCKTHERAPY PATHWAY POLE ANODE | | | | LOCATION 1^MDT - | | | | 548851^[facility] [place]_ENUM_ELECTRODE_LOCATION_RV^M | | | | [place] 168029^MDT PROG TACHY ZONE THERAPIES | | | | 6 SHOCKTHERAPY PATHWAY POLE ANODE ELECTRODE | | | | 1^MDT - | | | | 426167^[facility] [place]_[facility]_ENUM_ELECTRODE_NAME_Coil^[facility] | | | | 132138^MDT PROG TACHY ZONE THERAPIES 6 | | | | SHOCKTHERAPY PATHWAY POLE CATHODE LOCATION | | | | 1^MDT - Other [id number]^MDT PROG TACHY | | | | ZONE THERAPIES 6 SHOCKTHERAPY PATHWAY POLE | | | | CATHODE ELECTRODE 1^MDT - | | | | 084305^[facility] [place] [facility]_ENUM_ELECTRODE_NAME_Can^[facility] | | | | [phone]^MDT PROG TACHY ZONE THERAPIES | | | | SUMMARY^MDT - 31.2J, 34.6J X | | | | 5 [phone]^MDT PROG TACHY ZONE THERAPIES | | | | SUMMARY^MDT - Disabled [id number]^MDT PROG | | | | TACHY ZONE THERAPIES SUMMARY^MDT - | | | | Monitored | | + + + + | Lead Channel Status | MDC_IDC_ENUM_CHANNEL_STATUS_Null | | + + + + | Lead Channel | 400Comment: [id number]^MDT STAT LEADS | ohm | | Impedance Value | LOWPOWERCHANNEL RV IMPEDANCE STARTDATE^MDT | | | | - [id number]+0000 1915612^MDT STAT | | | | LEADS LOWPOWERCHANNEL RV IMPEDANCE | | | | ENDDATE^MDT - | | | | [id number]+0000 5725844^MDT STAT | | | | LEADS LOWPOWERCHANNEL RV IMPEDANCE | | | | POLARITY^MDT - | | | | 153596^MDC_IDC_ENUM_POLARITY_BI^MDC | | + + + + | Lead Channel Sensing | 12.0Comment: 2280753^MDT STAT LEADS | mV | | Intrinsic Amplitude | LOWPOWERCHANNEL RV SENSITIVITIES | | | | STARTDATE^MDT - | | | | +0000 9620162^MDT STAT | | | | LEADS LOWPOWERCHANNEL RV SENSITIVITIES | | | | ENDDATE^MDT - | | | | +0000 3972501^MDT STAT | | | | LEADS LOWPOWERCHANNEL RV SENSITIVITIES | | | | POLARITY^MDT - | | | | 726417^MDC_IDC_ENUM_POLARITY_BI^MDC | | + + + + | Lead Channel Pacing | 0.75 | V | | Threshold Amplitude | | | + + + + | Lead Channel Pacing | 0.5Comment: 1551565^MDT STAT LEADS | ms | | Threshold Pulse | LOWPOWERCHANNEL RV CAPTURES STARTDATE^MDT - | | | Width | +0000 5195996^MDT STAT | | | | LEADS LOWPOWERCHANNEL RV CAPTURES | | | | ENDDATE^MDT - | | | | +0000 5885849^MDT STAT | | | | LEADS LOWPOWERCHANNEL RV CAPTURES | | | | METHOD^MDT - | | | | INSTRUMENT_INITIATED 5720824^MDT STAT | | | | LEADS LOWPOWERCHANNEL RV CAPTURES | | | | POLARITY^MDT - | | | | 155571^MDC_IDC_ENUM_POLARITY_BI^MDC 1001 | | | | 264^MDT STAT LEADS HIGHPOWERCHANNEL | | | | IMPEDANCES MEASURED VALUE^MDT - | | | | 61 0654570^MDT STAT LEADS | | | | HIGHPOWERCHANNEL IMPEDANCES STARTDATE^MDT - | | | | +0000 8669632^MDT STAT | | | | LEADS HIGHPOWERCHANNEL IMPEDANCES MEASURED | | | | VALUE^MDT - 61 1594929^MDT STAT LEADS | | | | HIGHPOWERCHANNEL IMPEDANCES STARTDATE^MDT - | | | | +0000 9341738^MDT STAT | | | | LEADS HIGHPOWERCHANNEL IMPEDANCES | | | | STATUS^MDT - | | | | 984069^MDC_IDC_ENUM_CHANNEL_STATUS_Null^MDC | | | | 5473521^MDT STAT LEADS HIGHPOWERCHANNEL | | | | IMPEDANCES STATUS^MDT - | | | | 108465^MDC_IDC_ENUM_CHANNEL_STATUS_Null^MDC | | | | | | + + + + | Battery Date Time of | [id number]+0000 | | | Measurements | | | + + + + | Battery Status | MDC_IDC_ENUM_BATTERY_STATUS_MOS | | + + + + | Battery ATHLETIC SCOUT Trigger | When current voltage < 2.59 [...] + + + | Capacitor Last | 88469426860335+0000 | | | Charge Date Time | | | + + + + | Capacitor Charge | 9.0 | s | | Time | | | + + + + | Capacitor Charge | 40 | J | | Energy | | | + + + + | Statistic Heart Rate | 96703458823500+0000 | | | Date Time Start | | | + + + + | Statistic Heart Rate | 23488255562536+0000 | | | Date Time End | [...] + + | Candido Statistic Date | [id number] | | | Time Start | | | + + + + | Candido Statistic Date | [id number]+0000 | | | Time End | | | + + + + | Candido Statistic RV | 1.0 | % | | Percent Paced | | | + + + + | ASSOCIATE SALES MANAGER Statistic Date | +0000 | | | Time Start | | | + + + + | ASSOCIATE SALES MANAGER Statistic Date | +0000 | | | [...] + + + | Therapy Statistic | [id number]+0000 | | | Recent Date Time | | | | Start | | | + + + + | Therapy Statistic | [id number]+0000Comment: [id number]^MDT | | | Recent Date Time End | EVALUATION RHYTHM^MDT - presenting VS 88 | | | | bpm 6878799^MDT EVALUATION | | | | MISCELLANEOUSCOMMENT^MDT - [...] in office with | | | | system software developer:11/16/2017Tani | | | | N | | | | Ewer, | | | | MDCardiomyopathy, unspecified type | | | | [facility]05/11/2017[facility] | | | | N | | | | Ewer, | | | | MDCardiomyopathy ([facility])08/10/2016[facility] | | | | N | | | | Ewer, | | | | MDAtherosclerosis of [place] coronary | | | | artery of [place] heart without angina | | | | pectorisEP Tech: Filemon Rosado | | | | [facility] | | + + + + [...] | [phone] | | | [address] | | | RE | | | | [place] [address] | | | IP-OP | | | [...] Self | [birth year] | Home: | [address] | | | al/Fam | | [phone] | [place] | | | michael | | | [phone] | [phone] | + +--------+ +--------+ + +
--- OUTSIDE RECORDS SUMMARY | ~2018-02-25 | XMS | Encounter Summary ---
Demographics + + + | Address | [address] | | | [place] [address] | + + + | Home Phone | | + + + | Preferred Language | Unknown | + + + | Marital Status | | + + + | Uatsdin Affiliation | Unknown | + + + | Race | Unknown | + + + | Ethnic Group | Unknown | + + + Author + + + | Author | [facility] | + + + | Organization | [facility] | + + + | Address | Unknown | + + + | Phone | Unavailable | + + + Support + + +---------+ + | Name | Relationship | Address | Phone | + + +---------+ + | Domenica Morataya | ECON | Unknown | | + + +---------+ + Care Team Providers + +------+ + | Care Railroad Car Letterer Name | Role | Phone | + +------+ + | Ty Gomes MD | PCP | | + +------+ + Encounter Details +--------+ + + + + | Date | Type | Department | Care Team | Description | +--------+ + + + + | 01/31/ | Orders Only | JU[facility] Kat[facility] | Marina Sultana ARNP | | | 2018 | | Cardiology Dejuan | [address] | | | | | [address] | [facility] | | | | | [place] | [address] | | | | | [address] | | | | | | [phone] | | | +--------+ + + + [...] | | | | | [place] [address] | | | | | | [phone] | | | | | | | [...] this encounter Results PACEART DEVICE CHECK REMOTE (01/31/2018 1:55 PM) + + + + | Component | Value | Ref Range | + + + + | Date Time | [id number]+0000 | | | Interrogation | | | | Session | | | + + + + | Implantable Pulse | MDC_IDC_ENUM_MFG_STJ | | | Generator | | | | Software Engineer Web Services | | | + + + + | Implantable Pulse | [id number] Fortify VR | | | Generator Model | | | + + + + | Implantable Pulse | [id number] | | | Generator Serial | | [...] + + + | Implantable Pulse | [id number] | | | Generator Implant | | | | Date | | | + + + + | Implantable Lead | Medtronic | | | Software Engineer Web Services | | | + + + + | Implantable Lead | 6935-65 | | | Model | | | + + + + | Implantable Lead | [id number] | | | Serial Number | | | + + + + | Implantable Lead | [id number] | | | Implant Date | | [...] + + | Candido Setting | 120Comment: [id number]^STAR PROG CANDIDO | {beats}/min | | Maximum [...] + + | Lead Channel Setting | [facility]_ENUM_SENSING_ADAPTATION_MODE_Adapti | | | Sensing Adaptation | veSensingComment: 0948722^STAR PROG CANDIDO | | | Mode | [...] | | | Type Category | mment: 954005^MDT PROG TACHY ZONE | | | | [...] | | | Type Category | omment: 688826^MDT PROG TACHY ZONE | | | | DETECTIONS STATUS^MDT - DISABLED | | + + + + | Zone Setting Type | MDC_IDC_ENUM_ZONE_TYPE_Zone_VT | | | Category | | | + + + + | Zone Setting Vendor | MDC_IDC_ENUM_ZONE_VENDOR_TYPE_STJ-Zone_VT1C | | | Type Category | omment: 889514^MDT PROG TACHY ZONE | | | | DETECTIONS STATUS^MDT - ENABLED | | + + + + | Zone Setting | 350Comment: 711326^MDT PROG TACHY ZONE | ms | | Detection Interval | THERAPIES 1 SEQUENCEID^MDT - | | | | 1 710639^MDT PROG TACHY ZONE THERAPIES 1 | | | | STATUS^MDT - | | | | 664672^[facility]_ENUM_ZONE_STATUS_Active^[facility] | | | | 712433^MDT PROG TACHY ZONE THERAPIES 1 | | | | SHOCKTHERAPY ENERGY^MDT - | | | | 31.7 638481^MDT PROG TACHY ZONE | | | | THERAPIES 1 SHOCKTHERAPY PATHWAY POLE ANODE | | | | LOCATION 1^MDT - | | | | 487826^[facility]UM_[place]LECTRODE_LOCATION_RV^M | | | | [place] 240[address]^MDT PROG TACHY ZONE THERAPIES | | | | 1 SHOCKTHERAPY PATHWAY POLE ANODE ELECTRODE | | | | 1^MDT - | | | | 984265^[facility]ENUM_ELECTRODE_NAME_Coil^[facility] | | | | 268903^MDT PROG TACHY ZONE THERAPIES 1 | | | | SHOCKTHERAPY PATHWAY POLE CATHODE LOCATION | | | | 1^MDT - Other [id number]^MDT PROG TACHY | | | | ZONE THERAPIES 1 SHOCKTHERAPY PATHWAY POLE | | | | CATHODE ELECTRODE 1^MDT - | | | | 446821^[facility]_ID[facility]_ENUM_ELECTRODE_NAME_Can^[facility] | | | | 258752^MDT PROG TACHY ZONE THERAPIES 2 | | | | SEQUENCEID^MDT - 2 986625^MDT PROG TACHY | | | | ZONE THERAPIES 2 STATUS^MDT - | | | | 631962^[facility]ID[facility]_ENUM_ZONE_STATUS_Active^MDC | | | | 573499^MDT PROG TACHY ZONE THERAPIES 2 | | | | SHOCKTHERAPY ENERGY^MDT - | | | | 35.2 847525^MDT PROG TACHY ZONE | | | | THERAPIES 2 SHOCKTHERAPY PATHWAY POLE ANODE | | | | LOCATION 1^MDT - | | | | 340615^[facility] [place]ENUM_ELECTRODE_LOCATION_RV^M | | | | [place] 822748^MDT PROG TACHY ZONE THERAPIES | | | | 2 SHOCKTHERAPY PATHWAY POLE ANODE ELECTRODE | | | | 1^MDT - | | | | 609350^[facility] [place] [facility]ENUM_ELECTRODE_NAME_Coil^[facility] | | | | 520850^MDT PROG TACHY ZONE THERAPIES 2 | | | | SHOCKTHERAPY PATHWAY POLE CATHODE LOCATION | | | | 1^MDT - Other [id number]^MDT PROG TACHY | | | | ZONE THERAPIES 2 SHOCKTHERAPY PATHWAY POLE | | | | CATHODE ELECTRODE 1^MDT - | | | | 183082^[facility] [place] [facility]ENUM_ELECTRODE_NAME_Can^[facility] | | | | 386627^MDT PROG TACHY ZONE THERAPIES 3 | | | | SEQUENCEID^MDT - 3 725273^MDT PROG TACHY | | | | ZONE THERAPIES 3 STATUS^MDT - | | | | 843477^[facility]ENUM_ZONE_STATUS_Active^[facility] | | | | 105923^MDT PROG TACHY ZONE THERAPIES 3 | | | | SHOCKTHERAPY ENERGY^MDT - | | | | 35.2 220087^MDT PROG TACHY ZONE | | | | THERAPIES 3 SHOCKTHERAPY PATHWAY POLE ANODE | | | | LOCATION 1^MDT - | | | | 561087^[facility] [place] [facility]ENUM_ELECTRODE_LOCATION_RV^M | | | | [place] 983643^MDT PROG TACHY ZONE THERAPIES | | | | 3 SHOCKTHERAPY PATHWAY POLE ANODE ELECTRODE | | | | 1^MDT - | | | | 100590^[facility] [place] [facility]ENUM_ELECTRODE_NAME_Coil^[facility] | | | | 887616^MDT PROG TACHY ZONE THERAPIES 3 | | | | SHOCKTHERAPY PATHWAY POLE CATHODE LOCATION | | | | 1^MDT - Other [id number]^MDT PROG TACHY | | | | ZONE THERAPIES 3 SHOCKTHERAPY PATHWAY POLE | | | | CATHODE ELECTRODE 1^MDT - | | | | 000374^[facility] [place] [facility]ENUM_ELECTRODE_NAME_Can^[facility] | | | | 596471^MDT PROG TACHY ZONE THERAPIES 4 | | | | SEQUENCEID^MDT - 4 435810^MDT PROG TACHY | | | | ZONE THERAPIES 4 STATUS^MDT - | | | | 958889^[facility]UM_ZONE_STATUS_Active^[facility] | | | | 813194^MDT PROG TACHY ZONE THERAPIES 4 | | | | SHOCKTHERAPY ENERGY^MDT - | | | | 35.2 244284^MDT PROG TACHY ZONE | | | | THERAPIES 4 SHOCKTHERAPY PATHWAY POLE ANODE | | | | LOCATION 1^MDT - | | | | 455430^[facility] [place] [facility]ENUM_ELECTRODE_LOCATION_RV^M | | | | [place] 903476^MDT PROG TACHY ZONE THERAPIES | | | | 4 SHOCKTHERAPY PATHWAY POLE ANODE ELECTRODE | | | | 1^MDT - | | | | 012573^[facility]ENUM_ELECTRODE_NAME_Coil^[facility] | | | | 353330^MDT PROG TACHY ZONE THERAPIES 4 | | | | SHOCKTHERAPY PATHWAY POLE CATHODE LOCATION | | | | 1^MDT - Other [id number]^MDT PROG TACHY | | | | ZONE THERAPIES 4 SHOCKTHERAPY PATHWAY POLE | | | | CATHODE ELECTRODE 1^MDT - | | | | 028906^[facility] [place] [facility]ENUM_ELECTRODE_NAME_Can^[facility] | | | | 686578^MDT PROG TACHY ZONE THERAPIES 5 | | | | SEQUENCEID^MDT - 5 194301^MDT PROG TACHY | | | | ZONE THERAPIES 5 STATUS^MDT - | | | | 838743^[facility]_IDC_ENUM_ZONE_STATUS_Active^[facility] | | | | 498211^MDT PROG TACHY ZONE THERAPIES 5 | | | | SHOCKTHERAPY ENERGY^MDT - | | | | 35.2 453424^MDT PROG TACHY ZONE | | | | THERAPIES 5 SHOCKTHERAPY PATHWAY POLE ANODE | | | | LOCATION 1^MDT - | | | | 408749^[facility]ENUM_ELECTRODE_LOCATION_RV^M | | | | [place] 336366^MDT PROG TACHY ZONE THERAPIES | | | | 5 SHOCKTHERAPY PATHWAY POLE ANODE ELECTRODE | | | | 1^MDT - | | | | 581230^[facility]ENUM_ELECTRODE_NAME_Coil^[facility] | | | | 314305^MDT PROG TACHY ZONE THERAPIES 5 | | | | SHOCKTHERAPY PATHWAY POLE CATHODE LOCATION | | | | 1^MDT - Other [id number]^MDT PROG TACHY | | | | ZONE THERAPIES 5 SHOCKTHERAPY PATHWAY POLE | | | | CATHODE ELECTRODE 1^MDT - | | | | 158517^[facility]ENUM_ELECTRODE_NAME_Can^[facility] | | | | 794887^MDT PROG TACHY ZONE THERAPIES 6 | | | | SEQUENCEID^MDT - 6 882172^MDT PROG TACHY | | | | ZONE THERAPIES 6 STATUS^MDT - | | | | 357932^[facility]ENUM_ZONE_STATUS_Active^[facility] | | | | 926988^MDT PROG TACHY ZONE THERAPIES 6 | | | | SHOCKTHERAPY ENERGY^MDT - | | | | 35.2 775790^MDT PROG TACHY ZONE | | | | THERAPIES 6 SHOCKTHERAPY PATHWAY POLE ANODE | | | | LOCATION 1^MDT - | | | | 940207^[facility]ENUM_ELECTRODE_LOCATION_RV^M | | | | [place] 162390^MDT PROG TACHY ZONE THERAPIES | | | | 6 SHOCKTHERAPY PATHWAY POLE ANODE ELECTRODE | | | | 1^MDT - | | | | 178728^[facility]ENUM_ELECTRODE_NAME_Coil^[facility] | | | | 606476^MDT PROG TACHY ZONE THERAPIES 6 | | | | SHOCKTHERAPY PATHWAY POLE CATHODE LOCATION | | | | 1^MDT - Other [id number]^MDT PROG TACHY | | | | ZONE THERAPIES 6 SHOCKTHERAPY PATHWAY POLE | | | | CATHODE ELECTRODE 1^MDT - | | | | 878468^[facility]ENUM_ELECTRODE_NAME_Can^[facility] | | | | 4492184^MDT PROG TACHY ZONE THERAPIES | | | | SUMMARY^MDT - 31.7J, 35.2J X | | | | 5 1938012^MDT PROG TACHY ZONE THERAPIES | | | | SUMMARY^MDT - Disabled 9761388^MDT PROG | | | | TACHY ZONE THERAPIES SUMMARY^MDT - | | | | Monitored | | + + + + | Lead Channel Status | MDC_IDC_ENUM_CHANNEL_STATUS_Null | | + + + + | Lead Channel | 380Comment: 0136344^MDT STAT LEADS | ohm | | Impedance Value | LOWPOWERCHANNEL RV IMPEDANCE STARTDATE^MDT | | | | - +0000 8489564^MDT STAT | | | | LEADS LOWPOWERCHANNEL RV IMPEDANCE | | | | ENDDATE^MDT - | | | | 33569152987138+0000 2394770^MDT STAT | | | | LEADS LOWPOWERCHANNEL RV IMPEDANCE | | | | POLARITY^MDT - | | | | 722281^MDC_IDC_ENUM_POLARITY_BI^MDC | | + + + + | Lead Channel Sensing | 11.9Comment: 2354562^MDT STAT LEADS | mV | | Intrinsic Amplitude | LOWPOWERCHANNEL RV SENSITIVITIES | | | | STARTDATE^MDT - | | | | +0000 8246958^MDT STAT | | | | LEADS LOWPOWERCHANNEL RV SENSITIVITIES | | | | ENDDATE^MDT - | | | | +0000 9699948^MDT STAT | | | | LEADS LOWPOWERCHANNEL RV SENSITIVITIES | | | | POLARITY^MDT - | | | | 576774^MDC_IDC_ENUM_POLARITY_BI^MDC | | + + + + | Lead Channel Pacing | 0.75 | V | | Threshold Amplitude | | | + + + + | Lead Channel Pacing | 0.5Comment: 3350926^MDT STAT LEADS | ms | | Threshold Pulse | LOWPOWERCHANNEL RV CAPTURES STARTDATE^MDT - | | | Width | 37545632248064+0000 2491020^MDT STAT | | | | LEADS LOWPOWERCHANNEL RV CAPTURES | | | | ENDDATE^MDT - | | | | 14858670342967+0000 6867471^MDT STAT | | | | LEADS LOWPOWERCHANNEL RV CAPTURES | | | | METHOD^MDT - | | | | INSTRUMENT_INITIATED 5972991^MDT STAT | | | | LEADS LOWPOWERCHANNEL RV CAPTURES | | | | POLARITY^MDT - | | | | 065439^MDC_IDC_ENUM_POLARITY_BI^MDC 1001 | | | | 264^MDT STAT LEADS HIGHPOWERCHANNEL | | | | IMPEDANCES MEASURED VALUE^MDT - | | | | 57 6549091^MDT STAT LEADS | | | | HIGHPOWERCHANNEL IMPEDANCES STARTDATE^MDT - | | | | 47314841184732+0000 6409860^MDT STAT | | | | LEADS HIGHPOWERCHANNEL IMPEDANCES MEASURED | | | | VALUE^MDT - 57 8470283^MDT STAT LEADS | | | | HIGHPOWERCHANNEL IMPEDANCES STARTDATE^MDT - | | | | [id number]+0000 5803973^MDT STAT | | | | LEADS HIGHPOWERCHANNEL IMPEDANCES | | | | STATUS^MDT - | | | | 072167^MDC_IDC_ENUM_CHANNEL_STATUS_Null^MDC | | | | 7710204^MDT STAT LEADS HIGHPOWERCHANNEL | | | | IMPEDANCES STATUS^MDT - | | | | 003234^MDC_IDC_ENUM_CHANNEL_STATUS_Null^MDC | | | | | | + + + + | Battery Date Time of | 37385383359339+0000 | | | Measurements | | | + + + + | Battery Status | MDC_IDC_ENUM_BATTERY_STATUS_MOS | | + + + + | Battery RHIT Trigger | When current voltage < 2.59 [...] + + + | Capacitor Last | 60947538055422+0000 | | | Charge Date Time | | | + + + + | Capacitor Charge | 9.0 | s | | Time | | | + + + + | Capacitor Charge | 40 | J | | Energy | | | + + + + | Statistic Heart Rate | 14957947349468+0000 | | | Date Time Start | | | + + + + | Statistic Heart Rate | 79805032516274+0000 | | | Date Time End | [...] + + | Candido Statistic Date | 48306315147308+0000 | | | Time Start | | | + + + + | Candido Statistic Date | [id number]+0000 | | | Time End | | | + + + + | Candido Statistic RV | 1.0 | % | | Percent Paced | | | + + + + | AUTOMATION TECHNICIAN Statistic Date | +0000 | | | Time Start | | | + + + + | AUTOMATION TECHNICIAN Statistic Date | +0000 | | | [...] + + + | Therapy Statistic | 52378320154159+0000 | | | Recent Date Time | | | | Start | | | + + + + | Therapy Statistic | [id number]+0000Comment: 9040374^MDT | | | Recent Date Time End | EVALUATION DEPENDENCY^MDT - | | | | NO 9327153^MDT EVALUATION RHYTHM^MDT - | | | | presenting Vs PVCS/somewhat | | | | irregular 1463413^MDT EVALUATION | | | | MISCELLANEOUSCOMMENT^MDT - [...] in office | | | | with special assets officer:11/16/2017Stephen | | | | N | | | | Ewer, | | | | MDCardiomyopathy, unspecified type | | | | ([facility])05/11/2017Stephen | | | | N | | | | Ewer, | | | | MDCardiomyopathy ([facility])08/10/2016Stephen | | | | N | | | | Ewer, | | | | MDAtherosclerosis of [place] coronary | | | | artery of [place] heart without angina | | | | pectorisEP Tech: Filemon Rosado | | | | [facility] | | + + + + + + + | Specimen | Performing Laboratory | + + + | | [facility] | + + + in this encounter Visit Diagnoses Not on filein this encounter"
--- OUTSIDE RECORDS SUMMARY | ~2018-02-25 | XMS | Clinical Summary ---
Demographics + + + | Address | [address] | | | [place] [address] | + + + | Home Phone | | + + + | Preferred Language | Unknown | + + + | Marital Status | | + + + | Anglican Affiliation | Unknown | + + + | Race | Unknown | + + + | Ethnic Group | Other Race | + + + Author + + + | Author | [facility] | + + + | Organization | [facility] | + + + | Address | Unknown | + + + | Phone | Unavailable | + + + Care Team Providers + +------+ + | Care Accounts Receivable Bookkeeper Name | Role | Phone | + +------+ + | No Pcp Per Patient | PP | Unavailable | + +------+ + Source Comments FLYNN is fully live on both EpicCare Ambulatory and EpicCare InPatient.[facility] Allergies + + + + + + [...] | + + + +---------+------+------+-------+ | Saw [place] Fruit | Take by mouth. | | [...]
--- OUTSIDE RECORDS SUMMARY | ~2018-02-25 | XMS | Encounter Summary ---
Demographics + + + | Address | [address] | | | [place] [address] | + + + | Home Phone | | + + + | Preferred Language | Unknown | + + + | Marital Status | | + + + | Hinduism Affiliation | Unknown | + + + | Race | Unknown | + + + | Ethnic Group | Unknown | + + + Author + + + | Author | [facility] | + + + | Organization | [facility] | + + + | Address | Unknown | + + + | Phone | Unavailable | + + + Support + + +---------+ + | Name | Relationship | Address | Phone | + + +---------+ + | Domenica Morataya | ECON | Unknown | | + + +---------+ + Care Team Providers + +------+ + | Care Marine Cargo Surveyor Name | Role | Phone | + +------+ + | Ty Gomes MD | PCP | | + +------+ + Encounter Details +--------+ + + + + | Date | Type | Department | Care Team | Description | +--------+ + + + + | 12/27/ | Orders Only | [facility] | Marina Sultana ARNP | | | 2018 | | Cardiology [facility] | [address] | | | | | [address] | [facility] | | | | | [place] | [address] | | | | | [address] | | | | | | [phone] | | | +--------+ + + + [...] | | | | | [place] [address] | | | | | | [phone] | | | | | | | [...] + + + | Date Time | [id number] | | | Interrogation | | | | Session | | | + + + + | Implantable Pulse | MDC_IDC_ENUM_MFG_STJ | | | Generator | | | | Pharmacy Stock Clerk | | | + + + + | Implantable Pulse | [id number] VR | | | Generator Model | | | + + + + | Implantable Pulse | [id number] | | | Generator Serial | | [...] + + + | Implantable Pulse | [id number] | | | Generator Implant | | | | Date | | | + + + + | Implantable Lead | Medtronic | | | Pharmacy Stock Clerk | | | + + + + | Implantable Lead | [id number] | | | Model | | | + + + + | Implantable Lead | [id number] | | | Serial Number | | | + + + + | Implantable Lead | [id number] | | | Implant Date | | [...] + + | Candido Setting | 120Comment: [id number]^STAR PROG CANDIDO | {beats}/min | | Maximum [...] + + | Lead Channel Setting | [facility]_IDC_ENUM_SENSING_ADAPTATION_MODE_Adapti | | | Sensing Adaptation | veSensingComment: [id number]^STAR PROG CANDIDO | | | Mode | [...] | | | Type Category | mment: [id number]^MDT PROG TACHY ZONE | | | | [...] | | | Type Category | omment: [id number]^MDT PROG TACHY ZONE | | | | DETECTIONS STATUS^MDT - DISABLED | | + + + + | Zone Setting Type | MDC_IDC_ENUM_ZONE_TYPE_Zone_VT | | | Category | | | + + + + | Zone Setting Vendor | MDC_IDC_ENUM_ZONE_VENDOR_TYPE_STJ-Zone_VT1C | | | Type Category | omment: [id number]^MDT PROG TACHY ZONE | | | | DETECTIONS STATUS^MDT - ENABLED | | + + + + | Zone Setting | 350Comment: 163022^MDT PROG TACHY ZONE | ms | | Detection Interval | THERAPIES 1 SEQUENCEID^MDT - | | | | 1 274602^MDT PROG TACHY ZONE THERAPIES 1 | | | | STATUS^MDT - | | | | 146716^[facility]_IDC_ENUM_ZONE_STATUS_Active^[facility] | | | | 523483^MDT PROG TACHY ZONE THERAPIES 1 | | | | SHOCKTHERAPY ENERGY^MDT - | | | | 31.2 093533^MDT PROG TACHY ZONE | | | | THERAPIES 1 SHOCKTHERAPY PATHWAY POLE ANODE | | | | LOCATION 1^MDT - | | | | 420736^[facility]_ENUM_ELECTRODE_LOCATION_RV^M | | | | [place] 883885^MDT PROG TACHY ZONE THERAPIES | | | | 1 SHOCKTHERAPY PATHWAY POLE ANODE ELECTRODE | | | | 1^MDT - | | | | 699091^[facility]_ENUM_ELECTRODE_NAME_Coil^[facility] | | | | 801297^MDT PROG TACHY ZONE THERAPIES 1 | | | | SHOCKTHERAPY PATHWAY POLE CATHODE LOCATION | | | | 1^MDT - Other [id number]^MDT PROG TACHY | | | | ZONE THERAPIES 1 SHOCKTHERAPY PATHWAY POLE | | | | CATHODE ELECTRODE 1^MDT - | | | | 627376^[facility]_IDC_ENUM_ELECTRODE_NAME_Can^[facility] | | | | 543421^MDT PROG TACHY ZONE THERAPIES 2 | | | | SEQUENCEID^MDT - 2 757688^MDT PROG TACHY | | | | ZONE THERAPIES 2 STATUS^MDT - | | | | 080417^[facility]_IDC_ENUM_ZONE_STATUS_Active^MDC | | | | 362858^MDT PROG TACHY ZONE THERAPIES 2 | | | | SHOCKTHERAPY ENERGY^MDT - | | | | 34.6 656247^MDT PROG TACHY ZONE | | | | THERAPIES 2 SHOCKTHERAPY PATHWAY POLE ANODE | | | | LOCATION 1^MDT - | | | | 901201^[facility]_ENUM_ELECTRODE_LOCATION_RV^M | | | | [place] 536106^MDT PROG TACHY ZONE THERAPIES | | | | 2 SHOCKTHERAPY PATHWAY POLE ANODE ELECTRODE | | | | 1^MDT - | | | | 848219^[facility]_ENUM_ELECTRODE_NAME_Coil^[facility] | | | | 987094^MDT PROG TACHY ZONE THERAPIES 2 | | | | SHOCKTHERAPY PATHWAY POLE CATHODE LOCATION | | | | 1^MDT - Other [id number]^MDT PROG TACHY | | | | ZONE THERAPIES 2 SHOCKTHERAPY PATHWAY POLE | | | | CATHODE ELECTRODE 1^MDT - | | | | 269892^[facility]_ENUM_ELECTRODE_NAME_Can^[facility] | | | | 724690^MDT PROG TACHY ZONE THERAPIES 3 | | | | SEQUENCEID^MDT - 3 035695^MDT PROG TACHY | | | | ZONE THERAPIES 3 STATUS^MDT - | | | | 346358^[facility]_ENUM_ZONE_STATUS_Active^[facility] | | | | 209566^MDT PROG TACHY ZONE THERAPIES 3 | | | | SHOCKTHERAPY ENERGY^MDT - | | | | 34.6 826957^MDT PROG TACHY ZONE | | | | THERAPIES 3 SHOCKTHERAPY PATHWAY POLE ANODE | | | | LOCATION 1^MDT - | | | | 800120^[facility]_ENUM_ELECTRODE_LOCATION_RV^M | | | | [place] 0[address]^MDT PROG TACHY ZONE THERAPIES | | | | 3 SHOCKTHERAPY PATHWAY POLE ANODE ELECTRODE | | | | 1^MDT - | | | | 760155^[facility]_ENUM_ELECTRODE_NAME_Coil^[facility] | | | | 144916^MDT PROG TACHY ZONE THERAPIES 3 | | | | SHOCKTHERAPY PATHWAY POLE CATHODE LOCATION | | | | 1^MDT - Other [id number]^MDT PROG TACHY | | | | ZONE THERAPIES 3 SHOCKTHERAPY PATHWAY POLE | | | | CATHODE ELECTRODE 1^MDT - | | | | 396759^[facility]_ENUM_ELECTRODE_NAME_Can^[facility] | | | | 895743^MDT PROG TACHY ZONE THERAPIES 4 | | | | SEQUENCEID^MDT - 4 808375^MDT PROG TACHY | | | | ZONE THERAPIES 4 STATUS^MDT - | | | | 239297^[facility]_ENUM_ZONE_STATUS_Active^[facility] | | | | 252939^MDT PROG TACHY ZONE THERAPIES 4 | | | | SHOCKTHERAPY ENERGY^MDT - | | | | 34.6 230246^MDT PROG TACHY ZONE | | | | THERAPIES 4 SHOCKTHERAPY PATHWAY POLE ANODE | | | | LOCATION 1^MDT - | | | | 386424^[facility]_ENUM_ELECTRODE_LOCATION_RV^M | | | | [place] 284214^MDT PROG TACHY ZONE THERAPIES | | | | 4 SHOCKTHERAPY PATHWAY POLE ANODE ELECTRODE | | | | 1^MDT - | | | | 660579^[facility]_ENUM_ELECTRODE_NAME_Coil^[facility] | | | | 981305^MDT PROG TACHY ZONE THERAPIES 4 | | | | SHOCKTHERAPY PATHWAY POLE CATHODE LOCATION | | | | 1^MDT - Other [id number]^MDT PROG TACHY | | | | ZONE THERAPIES 4 SHOCKTHERAPY PATHWAY POLE | | | | CATHODE ELECTRODE 1^MDT - | | | | 202555^[facility]_ENUM_ELECTRODE_NAME_Can^[facility] | | | | 491625^MDT PROG TACHY ZONE THERAPIES 5 | | | | SEQUENCEID^MDT - 5 006002^MDT PROG TACHY | | | | ZONE THERAPIES 5 STATUS^MDT - | | | | 209405^[facility]_IDC_ENUM_ZONE_STATUS_Active^[facility] | | | | 760759^MDT PROG TACHY ZONE THERAPIES 5 | | | | SHOCKTHERAPY ENERGY^MDT - | | | | 34.6 862401^MDT PROG TACHY ZONE | | | | THERAPIES 5 SHOCKTHERAPY PATHWAY POLE ANODE | | | | LOCATION 1^MDT - | | | | 226834^[facility]_ENUM_ELECTRODE_LOCATION_RV^M | | | | [place] 043129^MDT PROG TACHY ZONE THERAPIES | | | | 5 SHOCKTHERAPY PATHWAY POLE ANODE ELECTRODE | | | | 1^MDT - | | | | 412130^[facility]_ENUM_ELECTRODE_NAME_Coil^[facility] | | | | 883803^MDT PROG TACHY ZONE THERAPIES 5 | | | | SHOCKTHERAPY PATHWAY POLE CATHODE LOCATION | | | | 1^MDT - Other [id number]^MDT PROG TACHY | | | | ZONE THERAPIES 5 SHOCKTHERAPY PATHWAY POLE | | | | CATHODE ELECTRODE 1^MDT - | | | | 522709^[facility]_ENUM_ELECTRODE_NAME_Can^[facility] | | | | 882988^MDT PROG TACHY ZONE THERAPIES 6 | | | | SEQUENCEID^MDT - 6 126547^MDT PROG TACHY | | | | ZONE THERAPIES 6 STATUS^MDT - | | | | 958203^[facility]_ENUM_ZONE_STATUS_Active^[facility] | | | | 598955^MDT PROG TACHY ZONE THERAPIES 6 | | | | SHOCKTHERAPY ENERGY^MDT - | | | | 34.6 566134^MDT PROG TACHY ZONE | | | | THERAPIES 6 SHOCKTHERAPY PATHWAY POLE ANODE | | | | LOCATION 1^MDT - | | | | 295470^[facility]_ENUM_ELECTRODE_LOCATION_RV^M | | | | DC 123098^MDT PROG TACHY ZONE THERAPIES | | | | 6 SHOCKTHERAPY PATHWAY POLE ANODE ELECTRODE | | | | 1^MDT - | | | | 603446^[facility]_ENUM_ELECTRODE_NAME_Coil^[facility] | | | | 765347^MDT PROG TACHY ZONE THERAPIES 6 | | | | SHOCKTHERAPY PATHWAY POLE CATHODE LOCATION | | | | 1^MDT - Other [id number]^MDT PROG TACHY | | | | ZONE THERAPIES 6 SHOCKTHERAPY PATHWAY POLE | | | | CATHODE ELECTRODE 1^MDT - | | | | 383028^[facility]_ENUM_ELECTRODE_NAME_Can^[facility] | | | | 4959144^MDT PROG TACHY ZONE THERAPIES | | | | SUMMARY^MDT - 31.2J, 34.6J X | | | | 5 1981729^MDT PROG TACHY ZONE THERAPIES | | | | SUMMARY^MDT - Disabled 9915840^MDT PROG | | | | TACHY ZONE THERAPIES SUMMARY^MDT - | | | | Monitored | | + + + + | Lead Channel Status | MDC_IDC_ENUM_CHANNEL_STATUS_Null | | + + + + | Lead Channel | 400Comment: 3703933^MDT STAT LEADS | ohm | | Impedance Value | LOWPOWERCHANNEL RV IMPEDANCE STARTDATE^MDT | | | | - +0000 7416298^MDT STAT | | | | LEADS LOWPOWERCHANNEL RV IMPEDANCE | | | | ENDDATE^MDT - | | | | [id number]+0000 4039514^MDT STAT | | | | LEADS LOWPOWERCHANNEL RV IMPEDANCE | | | | POLARITY^MDT - | | | | 150019^MDC_IDC_ENUM_POLARITY_BI^MDC | | + + + + | Lead Channel Sensing | 12.0Comment: 6996650^MDT STAT LEADS | mV | | Intrinsic Amplitude | LOWPOWERCHANNEL RV SENSITIVITIES | | | | STARTDATE^MDT - | | | | +0000 8626216^MDT STAT | | | | LEADS LOWPOWERCHANNEL RV SENSITIVITIES | | | | ENDDATE^MDT - | | | | +0000 7986292^MDT STAT | | | | LEADS LOWPOWERCHANNEL RV SENSITIVITIES | | | | POLARITY^MDT - | | | | 620693^MDC_IDC_ENUM_POLARITY_BI^MDC | | + + + + | Lead Channel Pacing | 0.75 | V | | Threshold Amplitude | | | + + + + | Lead Channel Pacing | 0.5Comment: 6385750^MDT STAT LEADS | ms | | Threshold Pulse | LOWPOWERCHANNEL RV CAPTURES STARTDATE^MDT - | | | Width | +0000 6817287^MDT STAT | | | | LEADS LOWPOWERCHANNEL RV CAPTURES | | | | ENDDATE^MDT - | | | | +0000 4757189^MDT STAT | | | | LEADS LOWPOWERCHANNEL RV CAPTURES | | | | METHOD^MDT - | | | | INSTRUMENT_INITIATED 2520508^MDT STAT | | | | LEADS LOWPOWERCHANNEL RV CAPTURES | | | | POLARITY^MDT - | | | | 448289^MDC_IDC_ENUM_POLARITY_BI^MDC 1001 | | | | 264^MDT STAT LEADS HIGHPOWERCHANNEL | | | | IMPEDANCES MEASURED VALUE^MDT - | | | | 61 4421036^MDT STAT LEADS | | | | HIGHPOWERCHANNEL IMPEDANCES STARTDATE^MDT - | | | | +0000 5468505^MDT STAT | | | | LEADS HIGHPOWERCHANNEL IMPEDANCES MEASURED | | | | VALUE^MDT - 61 2104131^MDT STAT LEADS | | | | HIGHPOWERCHANNEL IMPEDANCES STARTDATE^MDT - | | | | +0000 3005190^MDT STAT | | | | LEADS HIGHPOWERCHANNEL IMPEDANCES | | | | STATUS^MDT - | | | | 863892^MDC_IDC_ENUM_CHANNEL_STATUS_Null^MDC | | | | 4560277^MDT STAT LEADS HIGHPOWERCHANNEL | | | | IMPEDANCES STATUS^MDT - | | | | 221063^MDC_IDC_ENUM_CHANNEL_STATUS_Null^MDC | | | | | | + + + + | Battery Date Time of | [id number]+0000 | | | Measurements | | | + + + + | Battery Status | MDC_IDC_ENUM_BATTERY_STATUS_MOS | | + + + + | Battery LIFE SCIENCE RESEARCH ASSISTANT Trigger | When current voltage < [...] + + + | Capacitor Last | [id number]+0000 | | | Charge Date Time | | | + + + + | Capacitor Charge | 9.0 | s | | Time | | | + + + + | Capacitor Charge | 40 | J | | Energy | | | + + + + | Statistic Heart Rate | [id number]+0000 | | | Date Time Start | | | + + + + | Statistic Heart Rate | 40223209129867+0000 | | | Date Time End | [...] + + | Candido Statistic Date | [id number]+0000 | | | Time Start | | | + + + + | Candido Statistic Date | [id number]+0000 | | | Time End | | | + + + + | Candiod Statistic RV | 1.0 | % | | Percent Paced | | | + + + + | PACK WORKER Statistic Date | +0000 | | | Time Start | | | + + + + | PACK WORKER Statistic Date | +0000 | | | [...] + + + | Therapy Statistic | [id number]+0000 | | | Recent Date Time | | | | Start | | | + + + + | Therapy Statistic | [id number]+0000Comment: 8613913^MDT | | | Recent Date Time End | EVALUATION RHYTHM^MDT - presenting VS 88 | | | | bpm 2109723^MDT EVALUATION | | | | MISCELLANEOUSCOMMENT^MDT - [...] in office with | | | | risk modeler:[facility] | | | | N | | | | [place], | | | | MDCardiomyopathy, unspecified type | | | | ([facility])05/11/2017Stephen | | | | N | | | | [place], | | | | MDCardiomyopathy ([facility])08/10/2016Stephen | | | | N | | | | [place], | | | | MDAtherosclerosis of rosebud coronary | | | | artery of rosebud heart without angina | | | | pectorisEP Tech: Filemon Rosado | | | | [facility] | | + + + + + + + | Specimen | Performing Laboratory | + + + | | [facility] | + + + in this encounter Visit Diagnoses Not on filein this encounter"
--- OUTSIDE RECORDS SUMMARY | ~2018-02-25 | XMS | Encounter Summary ---
Demographics + + + | Address | [address] | | | [place] [address] | + + + | Home Phone | | + + + | Preferred Language | Unknown | + + + | Marital Status | | + + + | Adventist Affiliation | Unknown | + + + | Race | Unknown | + + + | Ethnic Group | Unknown | + + + Author + + + | Author | [facility] | + + + | Organization | [facility] | + + + | Address | Unknown | + + + | Phone | Unavailable | + + + Support + + +---------+ + | Name | Relationship | Address | Phone | + + +---------+ + | Domenica Morataya | ECON | Unknown | | + + +---------+ + Care Team Providers + +------+ + | Care Leather Production Worker Name | Role | Phone | [...] + | 01/31/ | Documentati | [facility] | | Automatic | | 2018 | on Only | [facility] | | Implantable | | | | [address] | | Cardioverter | | | | [place] | | Defibrillator (5 wk) | | | | [address] | | | | | | [phone] | | | +--------+ + + + [...] at home monitoring. 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
--- OUTSIDE RECORDS SUMMARY | ~2018-02-25 | XMS | Encounter Summary ---
Demographics + + + | Address | [address] | | | [place] [address] | + + + | Home Phone | | + + + | Preferred Language | Unknown | + + + | Marital Status | | + + + | Druze Affiliation | Unknown | + + + | Race | Unknown | + + + | Ethnic Group | Unknown | + + + Author + + + | Author | [facility] | + + + | Organization | [facility] [facility] | + + + | Address | Unknown | + + + | Phone | Unavailable | + + + Support + + +---------+ + | Name | Relationship | Address | Phone | + + +---------+ + | Domenica Morataya | ECON | Unknown | | + + +---------+ + Care Team Providers + +------+ + | Care Industrial Aerial Installer Name | Role | Phone | + +------+ + | Ty Gomes MD | PCP | | + +------+ + Encounter Details +--------+ + + + + | Date | Type | Department | Care Team | Description | +--------+ + + + + | 01/31/ | Orders Only | [facility] | Marina Sultana ARNP | | | 2018 | | Cardiology [place] | [address] | | | | | [address] | [facility] [place] | | | | | [place] | [address] | | | | | [address] | | | | | | [phone] | | | +--------+ + + + [...] | | | | | [place] [address] | | | | | | [phone] | | | | | | | [...] + + + | Date Time | [id number]+0000 | | | Interrogation | | | | Session | | | + + + + | Implantable Pulse | MDC_IDC_ENUM_MFG_STJ | | | Generator | | | | Handbag Frames Inspector | | | + + + + | Implantable Pulse | [id number] Fortify VR | | | Generator Model | | | + + + + | Implantable Pulse | [id number] | | | Generator Serial | | [...] + + + | Implantable Pulse | [id number] | | | Generator Implant | | | | Date | | | + + + + | Implantable Lead | Medtronic | | | Handbag Frames Inspector | | | + + + + | Implantable Lead | 6935-65 | | | Model | | | + + + + | Implantable Lead | [id number] | | | Serial Number | | | + + + + | Implantable Lead | [id number] | | | Implant Date | | [...] + + | Candido Setting | 120Comment: [id number]^STAR PROG CANDIDO | {beats}/min | | Maximum [...] + + | Lead Channel Setting | [facility]_IDC_ENUM_SENSING_ADAPTATION_MODE_Adapti | | | Sensing Adaptation | veSensingComment: 1618818^STAR PROG CANDIDO | | | Mode | [...] | | | Type Category | mment: 440119^MDT PROG TACHY ZONE | | | | [...] | | | Type Category | omment: 787374^MDT PROG TACHY ZONE | | | | DETECTIONS STATUS^MDT - DISABLED | | + + + + | Zone Setting Type | MDC_IDC_ENUM_ZONE_TYPE_Zone_VT | | | Category | | | + + + + | Zone Setting Vendor | MDC_IDC_ENUM_ZONE_VENDOR_TYPE_STJ-Zone_VT1C | | | Type Category | omment: 904129^MDT PROG TACHY ZONE | | | | DETECTIONS STATUS^MDT - ENABLED | | + + + + | Zone Setting | 350Comment: 132792^MDT PROG TACHY ZONE | ms | | Detection Interval | THERAPIES 1 SEQUENCEID^MDT - | | | | 1 087506^MDT PROG TACHY ZONE THERAPIES 1 | | | | STATUS^MDT - | | | | 857340^[facility]_IDC_ENUM_ZONE_STATUS_Active^[facility] | | | | 762888^MDT PROG TACHY ZONE THERAPIES 1 | | | | SHOCKTHERAPY ENERGY^MDT - | | | | 31.7 391167^MDT PROG TACHY ZONE | | | | THERAPIES 1 SHOCKTHERAPY PATHWAY POLE ANODE | | | | LOCATION 1^MDT - | | | | 791964^[facility]_ENUM_ELECTRODE_LOCATION_RV^M | | | | [place] 6[address]^MDT PROG TACHY ZONE THERAPIES | | | | 1 SHOCKTHERAPY PATHWAY POLE ANODE ELECTRODE | | | | 1^MDT - | | | | 127606^[facility]_ENUM_ELECTRODE_NAME_Coil^[facility] | | | | 228908^MDT PROG TACHY ZONE THERAPIES 1 | | | | SHOCKTHERAPY PATHWAY POLE CATHODE LOCATION | | | | 1^MDT - Other Y844632^MDT PROG TACHY | | | | ZONE THERAPIES 1 SHOCKTHERAPY PATHWAY POLE | | | | CATHODE ELECTRODE 1^MDT - | | | | 879746^[facility]_IDC_ENUM_ELECTRODE_NAME_Can^[facility] | | | | 213298^MDT PROG TACHY ZONE THERAPIES 2 | | | | SEQUENCEID^MDT - 2 881143^MDT PROG TACHY | | | | ZONE THERAPIES 2 STATUS^MDT - | | | | 318608^[facility]_IDC_ENUM_ZONE_STATUS_Active^MDC | | | | 332351^MDT PROG TACHY ZONE THERAPIES 2 | | | | SHOCKTHERAPY ENERGY^MDT - | | | | 35.2 171769^MDT PROG TACHY ZONE | | | | THERAPIES 2 SHOCKTHERAPY PATHWAY POLE ANODE | | | | LOCATION 1^MDT - | | | | 389791^[facility]_ENUM_ELECTRODE_LOCATION_RV^M | | | | [place] 363191^MDT PROG TACHY ZONE THERAPIES | | | | 2 SHOCKTHERAPY PATHWAY POLE ANODE ELECTRODE | | | | 1^MDT - | | | | 724729^[facility]_ENUM_ELECTRODE_NAME_Coil^[facility] | | | | 152299^MDT PROG TACHY ZONE THERAPIES 2 | | | | SHOCKTHERAPY PATHWAY POLE CATHODE LOCATION | | | | 1^MDT - Other Q814218^MDT PROG TACHY | | | | ZONE THERAPIES 2 SHOCKTHERAPY PATHWAY POLE | | | | CATHODE ELECTRODE 1^MDT - | | | | 763447^[facility]_ENUM_ELECTRODE_NAME_Can^[facility] | | | | 498921^MDT PROG TACHY ZONE THERAPIES 3 | | | | SEQUENCEID^MDT - 3 322889^MDT PROG TACHY | | | | ZONE THERAPIES 3 STATUS^MDT - | | | | 524358^[facility]_ENUM_ZONE_STATUS_Active^[facility] | | | | 602692^MDT PROG TACHY ZONE THERAPIES 3 | | | | SHOCKTHERAPY ENERGY^MDT - | | | | 35.2 281432^MDT PROG TACHY ZONE | | | | THERAPIES 3 SHOCKTHERAPY PATHWAY POLE ANODE | | | | LOCATION 1^MDT - | | | | 469808^[facility]_ENUM_ELECTRODE_LOCATION_RV^M | | | | [place] 562370^MDT PROG TACHY ZONE THERAPIES | | | | 3 SHOCKTHERAPY PATHWAY POLE ANODE ELECTRODE | | | | 1^MDT - | | | | 838613^[facility]_ENUM_ELECTRODE_NAME_Coil^[facility] | | | | 325361^MDT PROG TACHY ZONE THERAPIES 3 | | | | SHOCKTHERAPY PATHWAY POLE CATHODE LOCATION | | | | 1^MDT - Other L195890^MDT PROG TACHY | | | | ZONE THERAPIES 3 SHOCKTHERAPY PATHWAY POLE | | | | CATHODE ELECTRODE 1^MDT - | | | | 170428^[facility]_ENUM_ELECTRODE_NAME_Can^[facility] | | | | 533361^MDT PROG TACHY ZONE THERAPIES 4 | | | | SEQUENCEID^MDT - 4 164522^MDT PROG TACHY | | | | ZONE THERAPIES 4 STATUS^MDT - | | | | 204591^[facility]_ENUM_ZONE_STATUS_Active^[facility] | | | | 573396^MDT PROG TACHY ZONE THERAPIES 4 | | | | SHOCKTHERAPY ENERGY^MDT - | | | | 35.2 300254^MDT PROG TACHY ZONE | | | | THERAPIES 4 SHOCKTHERAPY PATHWAY POLE ANODE | | | | LOCATION 1^MDT - | | | | 614691^[facility]_ENUM_ELECTRODE_LOCATION_RV^M | | | | [place] 876414^MDT PROG TACHY ZONE THERAPIES | | | | 4 SHOCKTHERAPY PATHWAY POLE ANODE ELECTRODE | | | | 1^MDT - | | | | 814952^[facility]_ENUM_ELECTRODE_NAME_Coil^[facility] | | | | 153644^MDT PROG TACHY ZONE THERAPIES 4 | | | | SHOCKTHERAPY PATHWAY POLE CATHODE LOCATION | | | | 1^MDT - Other A461515^MDT PROG TACHY | | | | ZONE THERAPIES 4 SHOCKTHERAPY PATHWAY POLE | | | | CATHODE ELECTRODE 1^MDT - | | | | 515315^[facility]_ENUM_ELECTRODE_NAME_Can^[facility] | | | | 205462^MDT PROG TACHY ZONE THERAPIES 5 | | | | SEQUENCEID^MDT - 5 408899^MDT PROG TACHY | | | | ZONE THERAPIES 5 STATUS^MDT - | | | | 369994^[facility]_IDC_ENUM_ZONE_STATUS_Active^[facility] | | | | 039734^MDT PROG TACHY ZONE THERAPIES 5 | | | | SHOCKTHERAPY ENERGY^MDT - | | | | 35.2 352046^MDT PROG TACHY ZONE | | | | THERAPIES 5 SHOCKTHERAPY PATHWAY POLE ANODE | | | | LOCATION 1^MDT - | | | | 548024^[facility]_ENUM_ELECTRODE_LOCATION_RV^M | | | | [place] 753505^MDT PROG TACHY ZONE THERAPIES | | | | 5 SHOCKTHERAPY PATHWAY POLE ANODE ELECTRODE | | | | 1^MDT - | | | | 505238^[facility]_ENUM_ELECTRODE_NAME_Coil^[facility] | | | | 904514^MDT PROG TACHY ZONE THERAPIES 5 | | | | SHOCKTHERAPY PATHWAY POLE CATHODE LOCATION | | | | 1^MDT - Other Y422531^MDT PROG TACHY | | | | ZONE THERAPIES 5 SHOCKTHERAPY PATHWAY POLE | | | | CATHODE ELECTRODE 1^MDT - | | | | 976815^[facility]_ENUM_ELECTRODE_NAME_Can^[facility] | | | | 034936^MDT PROG TACHY ZONE THERAPIES 6 | | | | SEQUENCEID^MDT - 6 418998^MDT PROG TACHY | | | | ZONE THERAPIES 6 STATUS^MDT - | | | | 385752^[facility]_ENUM_ZONE_STATUS_Active^[facility] | | | | 238136^MDT PROG TACHY ZONE THERAPIES 6 | | | | SHOCKTHERAPY ENERGY^MDT - | | | | 35.2 029243^MDT PROG TACHY ZONE | | | | THERAPIES 6 SHOCKTHERAPY PATHWAY POLE ANODE | | | | LOCATION 1^MDT - | | | | 639154^[facility]_ENUM_ELECTRODE_LOCATION_RV^M | | | | [place] 338071^MDT PROG TACHY ZONE THERAPIES | | | | 6 SHOCKTHERAPY PATHWAY POLE ANODE ELECTRODE | | | | 1^MDT - | | | | 261781^[facility]_ENUM_ELECTRODE_NAME_Coil^[facility] | | | | 403429^MDT PROG TACHY ZONE THERAPIES 6 | | | | SHOCKTHERAPY PATHWAY POLE CATHODE LOCATION | | | | 1^MDT - Other K790992^MDT PROG TACHY | | | | ZONE THERAPIES 6 SHOCKTHERAPY PATHWAY POLE | | | | CATHODE ELECTRODE 1^MDT - | | | | 028538^[facility]_ENUM_ELECTRODE_NAME_Can^[facility] | | | | 7112514^MDT PROG TACHY ZONE THERAPIES | | | | SUMMARY^MDT - 31.7J, 35.2J X | | | | 5 7016862^MDT PROG TACHY ZONE THERAPIES | | | | SUMMARY^MDT - Disabled 5805062^MDT PROG | | | | TACHY ZONE THERAPIES SUMMARY^MDT - | | | | Monitored | | + + + + | Lead Channel Status | MDC_IDC_ENUM_CHANNEL_STATUS_Null | | + + + + | Lead Channel | 380Comment: 0251240^MDT STAT LEADS | ohm | | Impedance Value | LOWPOWERCHANNEL RV IMPEDANCE STARTDATE^MDT | | | | - +0000 4544507^MDT STAT | | | | LEADS LOWPOWERCHANNEL RV IMPEDANCE | | | | ENDDATE^MDT - | | | | 06518637033462+0000 7633683^MDT STAT | | | | LEADS LOWPOWERCHANNEL RV IMPEDANCE | | | | POLARITY^MDT - | | | | 192191^MDC_IDC_ENUM_POLARITY_BI^MDC | | + + + + | Lead Channel Sensing | 11.9Comment: 5726276^MDT STAT LEADS | mV | | Intrinsic Amplitude | LOWPOWERCHANNEL RV SENSITIVITIES | | | | STARTDATE^MDT - | | | | +0000 9119357^MDT STAT | | | | LEADS LOWPOWERCHANNEL RV SENSITIVITIES | | | | ENDDATE^MDT - | | | | +0000 8398520^MDT STAT | | | | LEADS LOWPOWERCHANNEL RV SENSITIVITIES | | | | POLARITY^MDT - | | | | 931055^MDC_IDC_ENUM_POLARITY_BI^MDC | | + + + + | Lead Channel Pacing | 0.75 | V | | Threshold Amplitude | | | + + + + | Lead Channel Pacing | 0.5Comment: 9745001^MDT STAT LEADS | ms | | Threshold Pulse | LOWPOWERCHANNEL RV CAPTURES STARTDATE^MDT - | | | Width | [id number]+0000 2835383^MDT STAT | | | | LEADS LOWPOWERCHANNEL RV CAPTURES | | | | ENDDATE^MDT - | | | | 93499856863812+0000 8085934^MDT STAT | | | | LEADS LOWPOWERCHANNEL RV CAPTURES | | | | METHOD^MDT - | | | | INSTRUMENT_INITIATED 8427308^MDT STAT | | | | LEADS LOWPOWERCHANNEL RV CAPTURES | | | | POLARITY^MDT - | | | | 489438^MDC_IDC_ENUM_POLARITY_BI^MDC 1001 | | | | 264^MDT STAT LEADS HIGHPOWERCHANNEL | | | | IMPEDANCES MEASURED VALUE^MDT - | | | | 57 1743788^MDT STAT LEADS | | | | HIGHPOWERCHANNEL IMPEDANCES STARTDATE^MDT - | | | | 88466192157221+0000 9911969^MDT STAT | | | | LEADS HIGHPOWERCHANNEL IMPEDANCES MEASURED | | | | VALUE^MDT - 57 7806712^MDT STAT LEADS | | | | HIGHPOWERCHANNEL IMPEDANCES STARTDATE^MDT - | | | | [id number]+0000 1558949^MDT STAT | | | | LEADS HIGHPOWERCHANNEL IMPEDANCES | | | | STATUS^MDT - | | | | 844622^MDC_IDC_ENUM_CHANNEL_STATUS_Null^MDC | | | | 9400164^MDT STAT LEADS HIGHPOWERCHANNEL | | | | IMPEDANCES STATUS^MDT - | | | | 191418^MDC_IDC_ENUM_CHANNEL_STATUS_Null^MDC | | | | | | + + + + | Battery Date Time of | [id number]+0000 | | | Measurements | | | + + + + | Battery Status | MDC_IDC_ENUM_BATTERY_STATUS_MOS | | + + + + | Battery HEAD SCORER Trigger | When current voltage < 2.59 [...] + + + | Capacitor Last | 98483020094784+0000 | | | Charge Date Time | | | + + + + | Capacitor Charge | 9.0 | s | | Time | | | + + + + | Capacitor Charge | 40 | J | | Energy | | | + + + + | Statistic Heart Rate | 97016015007856+0000 | | | Date Time Start | | | + + + + | Statistic Heart Rate | 55166803312903+0000 | | | Date Time End | [...] + + | Candido Statistic Date | [id number]+0000 | | | Time Start | | | + + + + | Candido Statistic Date | [id number]+0000 | | | Time End | | | + + + + | Candido Statistic RV | 1.0 | % | | Percent Paced | | | + + + + | SAS ANALYST Statistic Date | +0000 | | | Time Start | | | + + + + | SAS ANALYST Statistic Date | +0000 | | | [...] + + + | Therapy Statistic | [id number]+0000 | | | Recent Date Time | | | | Start | | | + + + + | Therapy Statistic | [id number]+0000Comment: 8232022^MDT | | | Recent Date Time End | EVALUATION DEPENDENCY^MDT - | | | | NO 7886469^MDT EVALUATION RHYTHM^MDT - | | | | presenting Vs PVCS/somewhat | | | | irregular 2184332^MDT EVALUATION | | | | MISCELLANEOUSCOMMENT^MDT - [...] in office | | | | with service center supervisor:11/16/2017Stephen | | | | N | | | | Ewer, | | | | MDCardiomyopathy, unspecified type | | | | ([facility]05/11/2017Stephen | | | | N | | | | Ewer, | | | | MDCardiomyopathy ([facility])08/10/2016Stephen | | | | N | | | | Ewer, | | | | MDAtherosclerosis of [place] coronary | | | | artery of [place] heart without angina | | | | pectorisEP Tech: Filemon Rosado | | | | [facility] | | + + + + + + + | Specimen | Performing Laboratory | + + + | | [facility] | + + + in this encounter Visit Diagnoses Not on filein this encounter"
--- OUTSIDE RECORDS SUMMARY | ~2018-02-25 | XMS | Encounter Summary ---
Demographics + + + | Address | [address] | | | [place] [address] | + + + | Home Phone | | + + + | Preferred Language | Unknown | + + + | Marital Status | | + + + | Yazidism Affiliation | Unknown | + + + | Race | Unknown | + + + | Ethnic Group | Unknown | + + + Author + + + | Author | [facility] [employer] | + + + | Organization | [facility] [employer] | + + + | Address | Unknown | + + + | Phone | Unavailable | + + + Support + + +---------+ + | Name | Relationship | Address | Phone | + + +---------+ + | Domenica Morataya | ECON | Unknown | | + + +---------+ + Care Team Providers + +------+ + | Care Genetic Counsellor Name | Role | Phone | + +------+ + | Ty Gomes MD | PCP | | + +------+ + Encounter Details +--------+ + + + + | Date | Type | Department | Care Team | Description | +--------+ + + + + | 01/31/ | Orders Only | [facility] | Marina Sultana ARNP | | | 2018 | | Cardiology Dejuan | [address] | | | | | [address] | [facility] | | | | | [place] | [address] | | | | | [address] | | | | | | [phone] | | | +--------+ + + + [...] | | | | | [place] [address] | | | | | | [phone] | | | | | | | [...] + + + | Date Time | [id number] | | | Interrogation | | | | Session | | | + + + + | Implantable Pulse | MDC_IDC_ENUM_MFG_STJ | | | Generator | | | | Press And Blow Machine Tender | | | + + + + | Implantable Pulse | [id number] Fortify VR | | | Generator Model | | | + + + + | Implantable Pulse | [id number] | | | Generator Serial | | [...] + + + | Implantable Pulse | [id number] | | | Generator Implant | | | | Date | | | + + + + | Implantable Lead | Medtronic | | | Press And Blow Machine Tender | | | + + + + | Implantable Lead | 6935-65 | | | Model | | | + + + + | Implantable Lead | [id number] | | | Serial Number | | | + + + + | Implantable Lead | [id number] | | | Implant Date | | [...] + + | Candido Setting | 120Comment: [id number]^STAR PROG CANDIDO | {beats}/min | | Maximum [...] + + | Lead Channel Setting | [facility]_IDC_ENUM_SENSING_ADAPTATION_MODE_Adapti | | | Sensing Adaptation | veSensingComment: [id number]^STAR PROG CANDIDO | | | Mode | [...] | | | Type Category | mment: 573073^MDT PROG TACHY ZONE | | | | [...] | | | Type Category | omment: [id number]^MDT PROG TACHY ZONE | | | | DETECTIONS STATUS^MDT - DISABLED | | + + + + | Zone Setting Type | MDC_IDC_ENUM_ZONE_TYPE_Zone_VT | | | Category | | | + + + + | Zone Setting Vendor | MDC_IDC_ENUM_ZONE_VENDOR_TYPE_STJ-Zone_VT1C | | | Type Category | omment: 447186^MDT PROG TACHY ZONE | | | | DETECTIONS STATUS^MDT - ENABLED | | + + + + | Zone Setting | 350Comment: 004333^MDT PROG TACHY ZONE | ms | | Detection Interval | THERAPIES 1 SEQUENCEID^MDT - | | | | 1 109290^MDT PROG TACHY ZONE THERAPIES 1 | | | | STATUS^MDT - | | | | 161939^[facility]_IDC_ENUM_ZONE_STATUS_Active^[facility] | | | | 081799^MDT PROG TACHY ZONE THERAPIES 1 | | | | SHOCKTHERAPY ENERGY^MDT - | | | | 31.7 546258^MDT PROG TACHY ZONE | | | | THERAPIES 1 SHOCKTHERAPY PATHWAY POLE ANODE | | | | LOCATION 1^MDT - | | | | 641743^[facility]_ENUM_ELECTRODE_LOCATION_RV^M | | | | [place] [address]^MDT PROG TACHY ZONE THERAPIES | | | | 1 SHOCKTHERAPY PATHWAY POLE ANODE ELECTRODE | | | | 1^MDT - | | | | 826719^[facility]_ENUM_ELECTRODE_NAME_Coil^[facility] | | | | 870335^MDT PROG TACHY ZONE THERAPIES 1 | | | | SHOCKTHERAPY PATHWAY POLE CATHODE LOCATION | | | | 1^MDT - Other [id number]^MDT PROG TACHY | | | | ZONE THERAPIES 1 SHOCKTHERAPY PATHWAY POLE | | | | CATHODE ELECTRODE 1^MDT - | | | | 854317^[facility]_IDC_ENUM_ELECTRODE_NAME_Can^[facility] | | | | 314545^MDT PROG TACHY ZONE THERAPIES 2 | | | | SEQUENCEID^MDT - 2 114347^MDT PROG TACHY | | | | ZONE THERAPIES 2 STATUS^MDT - | | | | 805994^[facility]_IDC_ENUM_ZONE_STATUS_Active^MDC | | | | 884761^MDT PROG TACHY ZONE THERAPIES 2 | | | | SHOCKTHERAPY ENERGY^MDT - | | | | 35.2 038226^MDT PROG TACHY ZONE | | | | THERAPIES 2 SHOCKTHERAPY PATHWAY POLE ANODE | | | | LOCATION 1^MDT - | | | | 707938^[facility]_ENUM_ELECTRODE_LOCATION_RV^M | | | | [place] 548602^MDT PROG TACHY ZONE THERAPIES | | | | 2 SHOCKTHERAPY PATHWAY POLE ANODE ELECTRODE | | | | 1^MDT - | | | | 027944^[facility]_ENUM_ELECTRODE_NAME_Coil^[facility] | | | | 013624^MDT PROG TACHY ZONE THERAPIES 2 | | | | SHOCKTHERAPY PATHWAY POLE CATHODE LOCATION | | | | 1^MDT - Other [id number]^MDT PROG TACHY | | | | ZONE THERAPIES 2 SHOCKTHERAPY PATHWAY POLE | | | | CATHODE ELECTRODE 1^MDT - | | | | 979575^[facility]_ENUM_ELECTRODE_NAME_Can^[facility] | | | | 015845^MDT PROG TACHY ZONE THERAPIES 3 | | | | SEQUENCEID^MDT - 3 326840^MDT PROG TACHY | | | | ZONE THERAPIES 3 STATUS^MDT - | | | | 289975^[facility]_ENUM_ZONE_STATUS_Active^[facility] | | | | 743971^MDT PROG TACHY ZONE THERAPIES 3 | | | | SHOCKTHERAPY ENERGY^MDT - | | | | 35.2 131217^MDT PROG TACHY ZONE | | | | THERAPIES 3 SHOCKTHERAPY PATHWAY POLE ANODE | | | | LOCATION 1^MDT - | | | | 014273^[facility]_ENUM_ELECTRODE_LOCATION_RV^M | | | | DC 213725^MDT PROG TACHY ZONE THERAPIES | | | | 3 SHOCKTHERAPY PATHWAY POLE ANODE ELECTRODE | | | | 1^MDT - | | | | 969686^[facility]_ENUM_ELECTRODE_NAME_Coil^[facility] | | | | 367404^MDT PROG TACHY ZONE THERAPIES 3 | | | | SHOCKTHERAPY PATHWAY POLE CATHODE LOCATION | | | | 1^MDT - Other [id number]^MDT PROG TACHY | | | | ZONE THERAPIES 3 SHOCKTHERAPY PATHWAY POLE | | | | CATHODE ELECTRODE 1^MDT - | | | | 357778^[facility]_ENUM_ELECTRODE_NAME_Can^[facility] | | | | 062425^MDT PROG TACHY ZONE THERAPIES 4 | | | | SEQUENCEID^MDT - 4 983777^MDT PROG TACHY | | | | ZONE THERAPIES 4 STATUS^MDT - | | | | 550340^[facility]_ENUM_ZONE_STATUS_Active^[facility] | | | | 097347^MDT PROG TACHY ZONE THERAPIES 4 | | | | SHOCKTHERAPY ENERGY^MDT - | | | | 35.2 701347^MDT PROG TACHY ZONE | | | | THERAPIES 4 SHOCKTHERAPY PATHWAY POLE ANODE | | | | LOCATION 1^MDT - | | | | 948852^[facility]_ENUM_ELECTRODE_LOCATION_RV^M | | | | DC 180717^MDT PROG TACHY ZONE THERAPIES | | | | 4 SHOCKTHERAPY PATHWAY POLE ANODE ELECTRODE | | | | 1^MDT - | | | | 456653^[facility]_ENUM_ELECTRODE_NAME_Coil^[facility] | | | | 933275^MDT PROG TACHY ZONE THERAPIES 4 | | | | SHOCKTHERAPY PATHWAY POLE CATHODE LOCATION | | | | 1^MDT - Other Q166159^MDT PROG TACHY | | | | ZONE THERAPIES 4 SHOCKTHERAPY PATHWAY POLE | | | | CATHODE ELECTRODE 1^MDT - | | | | 255232^[facility]_ENUM_ELECTRODE_NAME_Can^[facility] | | | | 452178^MDT PROG TACHY ZONE THERAPIES 5 | | | | SEQUENCEID^MDT - 5 694445^MDT PROG TACHY | | | | ZONE THERAPIES 5 STATUS^MDT - | | | | 983781^[facility]_IDC_ENUM_ZONE_STATUS_Active^[facility] | | | | 172453^MDT PROG TACHY ZONE THERAPIES 5 | | | | SHOCKTHERAPY ENERGY^MDT - | | | | 35.2 463343^MDT PROG TACHY ZONE | | | | THERAPIES 5 SHOCKTHERAPY PATHWAY POLE ANODE | | | | LOCATION 1^MDT - | | | | 396230^[facility]_ENUM_ELECTRODE_LOCATION_RV^M | | | | DC 341475^MDT PROG TACHY ZONE THERAPIES | | | | 5 SHOCKTHERAPY PATHWAY POLE ANODE ELECTRODE | | | | 1^MDT - | | | | 206820^[facility]_ENUM_ELECTRODE_NAME_Coil^[facility] | | | | 541592^MDT PROG TACHY ZONE THERAPIES 5 | | | | SHOCKTHERAPY PATHWAY POLE CATHODE LOCATION | | | | 1^MDT - Other [id number]^MDT PROG TACHY | | | | ZONE THERAPIES 5 SHOCKTHERAPY PATHWAY POLE | | | | CATHODE ELECTRODE 1^MDT - | | | | 996460^[facility]_ENUM_ELECTRODE_NAME_Can^[facility] | | | | 440865^MDT PROG TACHY ZONE THERAPIES 6 | | | | SEQUENCEID^MDT - 6 250204^MDT PROG TACHY | | | | ZONE THERAPIES 6 STATUS^MDT - | | | | 722779^[facility]_ENUM_ZONE_STATUS_Active^[facility] | | | | 173297^MDT PROG TACHY ZONE THERAPIES 6 | | | | SHOCKTHERAPY ENERGY^MDT - | | | | 35.2 089993^MDT PROG TACHY ZONE | | | | THERAPIES 6 SHOCKTHERAPY PATHWAY POLE ANODE | | | | LOCATION 1^MDT - | | | | 174396^[facility]_ENUM_ELECTRODE_LOCATION_RV^M | | | | DC 223984^MDT PROG TACHY ZONE THERAPIES | | | | 6 SHOCKTHERAPY PATHWAY POLE ANODE ELECTRODE | | | | 1^MDT - | | | | 432561^[facility]_ENUM_ELECTRODE_NAME_Coil^[facility] | | | | 762245^MDT PROG TACHY ZONE THERAPIES 6 | | | | SHOCKTHERAPY PATHWAY POLE CATHODE LOCATION | | | | 1^MDT - Other [id number]^MDT PROG TACHY | | | | ZONE THERAPIES 6 SHOCKTHERAPY PATHWAY POLE | | | | CATHODE ELECTRODE 1^MDT - | | | | 973166^[facility]_ENUM_ELECTRODE_NAME_Can^[facility] | | | | 2465571^MDT PROG TACHY ZONE THERAPIES | | | | SUMMARY^MDT - 31.7J, 35.2J X | | | | 5 8267476^MDT PROG TACHY ZONE THERAPIES | | | | SUMMARY^MDT - Disabled 5610503^MDT PROG | | | | TACHY ZONE THERAPIES SUMMARY^MDT - | | | | Monitored | | + + + + | Lead Channel Status | MDC_IDC_ENUM_CHANNEL_STATUS_Null | | + + + + | Lead Channel | 380Comment: 2158662^MDT STAT LEADS | ohm | | Impedance Value | LOWPOWERCHANNEL RV IMPEDANCE STARTDATE^MDT | | | | - +0000 2647787^MDT STAT | | | | LEADS LOWPOWERCHANNEL RV IMPEDANCE | | | | ENDDATE^MDT - | | | | [id number]+0000 5646968^MDT STAT | | | | LEADS LOWPOWERCHANNEL RV IMPEDANCE | | | | POLARITY^MDT - | | | | 625094^MDC_IDC_ENUM_POLARITY_BI^MDC | | + + + + | Lead Channel Sensing | 11.9Comment: 0147670^MDT STAT LEADS | mV | | Intrinsic Amplitude | LOWPOWERCHANNEL RV SENSITIVITIES | | | | STARTDATE^MDT - | | | | +0000 8900967^MDT STAT | | | | LEADS LOWPOWERCHANNEL RV SENSITIVITIES | | | | ENDDATE^MDT - | | | | +0000 4467564^MDT STAT | | | | LEADS LOWPOWERCHANNEL RV SENSITIVITIES | | | | POLARITY^MDT - | | | | 410554^MDC_IDC_ENUM_POLARITY_BI^MDC | | + + + + | Lead Channel Pacing | 0.75 | V | | Threshold Amplitude | | | + + + + | Lead Channel Pacing | 0.5Comment: 7834861^MDT STAT LEADS | ms | | Threshold Pulse | LOWPOWERCHANNEL RV CAPTURES STARTDATE^MDT - | | | Width | [id number]+0000 1343327^MDT STAT | | | | LEADS LOWPOWERCHANNEL RV CAPTURES | | | | ENDDATE^MDT - | | | | [id number]+0000 2935533^MDT STAT | | | | LEADS LOWPOWERCHANNEL RV CAPTURES | | | | METHOD^MDT - | | | | INSTRUMENT_INITIATED 2879680^MDT STAT | | | | LEADS LOWPOWERCHANNEL RV CAPTURES | | | | POLARITY^MDT - | | | | 404929^MDC_IDC_ENUM_POLARITY_BI^MDC 1001 | | | | 264^MDT STAT LEADS HIGHPOWERCHANNEL | | | | IMPEDANCES MEASURED VALUE^MDT - | | | | 57 0307181^MDT STAT LEADS | | | | HIGHPOWERCHANNEL IMPEDANCES STARTDATE^MDT - | | | | [id number]+0000 7337632^MDT STAT | | | | LEADS HIGHPOWERCHANNEL IMPEDANCES MEASURED | | | | VALUE^MDT - 57 1056119^MDT STAT LEADS | | | | HIGHPOWERCHANNEL IMPEDANCES STARTDATE^MDT - | | | | [id number]+0000 4691865^MDT STAT | | | | LEADS HIGHPOWERCHANNEL IMPEDANCES | | | | STATUS^MDT - | | | | 414820^MDC_IDC_ENUM_CHANNEL_STATUS_Null^MDC | | | | 5756365^MDT STAT LEADS HIGHPOWERCHANNEL | | | | IMPEDANCES STATUS^MDT - | | | | 033946^MDC_IDC_ENUM_CHANNEL_STATUS_Null^MDC | | | | | | + + + + | Battery Date Time of | 10736760647615+0000 | | | Measurements | | | + + + + | Battery Status | MDC_IDC_ENUM_BATTERY_STATUS_MOS | | + + + + | Battery CONTRACT SPECIALIST Trigger | When current voltage < 2.59 [...] + + + | Capacitor Last | 93036827369230+0000 | | | Charge Date Time | | | + + + + | Capacitor Charge | 9.0 | s | | Time | | | + + + + | Capacitor Charge | 40 | J | | Energy | | | + + + + | Statistic Heart Rate | 44276831092404+0000 | | | Date Time Start | | | + + + + | Statistic Heart Rate | 63616909150168+0000 | | | Date Time End | [...] + + | Candido Statistic Date | [id number]+0000 | | | Time Start | | | + + + + | Candido Statistic Date | [id number]+0000 | | | Time End | | | + + + + | Candido Statistic RV | 1.0 | % | | Percent Paced | | | + + + + | HYDRAULIC CHAIR ASSEMBLER Statistic Date | +0000 | | | Time Start | | | + + + + | HYDRAULIC CHAIR ASSEMBLER Statistic Date | +0000 | | | [...] + + + | Therapy Statistic | 45854468656112+0000 | | | Recent Date Time | | | | Start | | | + + + + | Therapy Statistic | [id number]+0000Comment: 4465836^MDT | | | Recent Date Time End | EVALUATION DEPENDENCY^MDT - | | | | NO 2623784^MDT EVALUATION RHYTHM^MDT - | | | | presenting Vs PVCS/somewhat | | | | irregular 5738335^MDT EVALUATION | | | | MISCELLANEOUSCOMMENT^MDT - [...] in office | | | | with gum dipper:11/16/2017Stephen | | | | N | | | | Ewer, | | | | MDCardiomyopathy, unspecified type | | | | ([facility])05/11/2017Stephen | | | | N | | | | Ewer, | | | | MDCardiomyopathy ([facility])08/10/2016Stephen | | | | N | | | | Ewer, | | | | MDAtherosclerosis of [place] coronary | | | | artery of [place] heart without angina | | | | pectorisEP Tech: Filemon Rosado | | | | [facility] | | + + + + + + + | Specimen | Performing Laboratory | + + + | | [facility] | + + + in this encounter Visit Diagnoses Not on filein this encounter"
--- OUTSIDE RECORDS SUMMARY | ~2018-02-25 | XMS | Encounter Summary ---
Demographics + + + | Address | [address] | | | [place] [address] | + + + | Home Phone | | + + + | Preferred Language | Unknown | + + + | Marital Status | | + + + | Jewish Affiliation | Unknown | + + + | Race | Unknown | + + + | Ethnic Group | Unknown | + + + Author + + + | Author | [facility] | + + + | Organization | [facility] | + + + | Address | Unknown | + + + | Phone | Unavailable | + + + Support + + +---------+ + | Name | Relationship | Address | Phone | + + +---------+ + | Domenica Morataya | ECON | Unknown | | + + +---------+ + Care Team Providers + +------+ + | Care Lead Operator Name | Role | Phone | [...] | | | [address] | [place] [address] | (HCC) (Primary Dx) | | | | [place], [place] | [phone] | | | | | [address] | | | | | | [phone] | | | +--------+---------+ + + + [...] as prescribed. Tani Pop MD FACC, FACP, [facility] in this encounter Plan of Treatment [...] Dr | | | | | | [facility] [place] [address] | | | | | | [phone] | | | | | | | | +--------+ + + + + as of this encounter Visit Diagnoses + + | Diagnosis | + + | Cardiomyopathy, unspecified type (HCC) - Primary | + +
--- OUTSIDE RECORDS SUMMARY | ~2018-02-25 | XMS | Clinical Summary ---
Demographics + + + | Address | [address] | | | [place] [address] | + + + | Home Phone | | + + + | Preferred Language | Unknown | + + + | Marital Status | | + + + | Muslim Affiliation | Unknown | + + + | Race | Unknown | + + + | Ethnic Group | Unknown | + + + Author + + + | Author | [facility] | | | and [place] | + + + | Organization | [facility] | | | and [place] | + + + | Address | Unknown | + + + | Phone | Unavailable | + + + Support + + + + + | Name | Relationship | Address | Phone | + + + + + | Domenica Means | ECON | [address] | | | | | [place] [address] | | + + + + + Care Team Providers + +------+ + | Care Safety Technician Name | Role | Phone | + [...] | | + + +---------+---------+------+------+-------+ | Saw Angie 450 | Take 405 mg by mouth [...] + + | Coronary artery disease involving [place] coronary artery of | 11/05/2015 | | [place] heart | | + + + + [...] | | 02/17/ | 1PCM10 | | [id number] - | | Heart | [facility] | | 2019 | 0 / | | [id number]: Qty: 1 on | | | | | | /26438 | | 11/04/2015 by Rishi | | [...] | [employer] - | | | /[address] | | MD Toney | | | [...] Self | [birth year] | Home: | [address] | | [place]H | al/Fam | | [phone] | [place] [address] | | | michael | | | [phone] | | + +--------+ +--------+ + +
--- OUTSIDE RECORDS SUMMARY | ~2018-02-25 | XMS | Encounter Summary ---
Demographics + + + | Address | [address] | | | [place] [address] | + + + | Home Phone | | + + + | Preferred Language | Unknown | + + + | Marital Status | | + + + | Episcopalian Affiliation | Unknown | + + + | Race | Unknown | + + + | Ethnic Group | Unknown | + + + Author + + + | Author | [facility] | + + + | Organization | [facility] [employer] | + + + | Address | Unknown | + + + | Phone | Unavailable | + + + Support + + +---------+ + | Name | Relationship | Address | Phone | + + +---------+ + | Domenica Morataya | ECON | Unknown | | + + +---------+ + Care Team Providers + +------+ + | Care Meter Maintenance Person Name | Role | Phone | + [...] Therapy - | | | | DEJUAN MD | | Defibrillator (5 wk | | | | [address] | | HF) | | | | [phone] | | | +--------+ + + + [...] at home monitoring. Last in office with stove cleaner: 11/16/2017 MD Jerome Cardiomyopathy, unspecified type (HCC) 05/11/2017 MD Jerome Cardiomyopathy (HCC) 08/10/2016 MD Jerome Atherosclerosis of [place] coronary artery of [place] heart without angina pectoris insulation extruder operator: Anitha Bunn [facility] Associated attestation - Marina Sultana ARNP [...] Dr | | | | | | [facility] [address] | | | | | | [phone] | | | | | | | | +--------+ + + + + as of this encounter Visit Diagnoses + + | Diagnosis | + + | Cardiomyopathy, unspecified type (HCC) - Primary | + + | SOB (shortness of breath) | + + | Shortness of breath | + +"
--- OUTSIDE RECORDS SUMMARY | ~2018-02-25 | XMS | Encounter Summary ---
Demographics + + + | Address | [address] | | | [place] [address] | + + + | Home Phone | | + + + | Preferred Language | Unknown | + + + | Marital Status | | + + + | Uatsdin Affiliation | Unknown | + + + | Race | Unknown | + + + | Ethnic Group | Unknown | + + + Author + + + | Author | [facility] | + + + | Organization | [facility] | + + + | Address | Unknown | + + + | Phone | Unavailable | + + + Support + + +---------+ + | Name | Relationship | Address | Phone | + + +---------+ + | Domenica Morataya | ECON | Unknown | | + + +---------+ + Care Team Providers + +------+ + | Care Protection Specialist Name | Role | Phone | + [...] + | 01/31/ | Documentati | [employer] | | Automatic | | 2018 | on Only | [facility] | | Implantable | | | | [address] | | Cardioverter | | | | [place] | | Defibrillator (5 wk) | | | | [address] | | | | | | [phone] | | | +--------+ + + + [...] at home monitoring. Last in office with information and data architect analyst: 11/16/2017 MD Jerome Cardiomyopathy, unspecified type ([facility]) 05/11/2017 MD Jerome Cardiomyopathy ([facility]) 08/10/2016 MD Jerome Atherosclerosis of [place] coronary artery of [place] heart without angina pectoris prop drawer: [facility] Associated attestation - Marina Sultana [...] Dr | | | | | | [place] [address] | | | | | | [phone] | | | | | | | [...]
--- OUTSIDE RECORDS SUMMARY | ~2018-02-25 | XMS | Encounter Summary ---
Demographics + + + | Address | [address] | | | [place] [address] | + + + | Home Phone | | + + + | Preferred Language | Unknown | + + + | Marital Status | | + + + | Christianity Affiliation | Unknown | + + + | Race | Unknown | + + + | Ethnic Group | Unknown | + + + Author + + + | Author | [facility] | + + + | Organization | [facility] | + + + | Address | Unknown | + + + | Phone | Unavailable | + + + Support + + +---------+ + | Name | Relationship | Address | Phone | + + +---------+ + | Domenica Morataya | ECON | Unknown | | + + +---------+ + Care Team Providers + +------+ + | Care Paper Sealer Name | Role | Phone | + [...] | | | [address] | [place] [address] | (HCC) (Primary Dx) | | | | [place], [place] | [phone] | | | | | [address] | | | | | | [phone] | | | +--------+---------+ + + + [...] as prescribed. Tani Pop MD FACC, FACP, [facility] in this encounter Plan of [...] Dr | | | | | | [facility] [place] [place] [address] | | | | | | [phone] | | | | | | | | +--------+ + + + + as of this encounter Visit Diagnoses + + | Diagnosis | + + | Cardiomyopathy, unspecified type (HCC) - Primary | + +
--- OUTSIDE RECORDS SUMMARY | ~2018-02-25 | XMS | Encounter Summary ---
Demographics + + + | Address | [address] | | | [place] [address] | + + + | Home Phone | | + + + | Preferred Language | Unknown | + + + | Marital Status | | + + + | Druze Affiliation | Unknown | + + + | Race | Unknown | + + + | Ethnic Group | Unknown | + + + Author + + + | Author | [facility] | + + + | Organization | [facility] | + + + | Address | Unknown | + + + | Phone | Unavailable | + + + Support + + +---------+ + | Name | Relationship | Address | Phone | + + +---------+ + | Domenica Morataya | ECON | Unknown | | + + +---------+ + Care Team Providers + +------+ + | Care Senior Drafter Name | Role | Phone | + [...] Therapy - | | | | [place] | | Defibrillator (5 wk | | | | [phone] | | HF) | | | | [phone] | | | +--------+ + + + [...] at home monitoring. Last in office with drill instructor: 11/16/2017 MD Jerome Cardiomyopathy, unspecified type (HCC) 05/11/2017 MD Jerome Cardiomyopathy (HCC) 08/10/2016 MD Jerome Atherosclerosis of [place] coronary artery of [place] heart without angina pectoris computer tester: Anitha Bunn [facility] Card[facility] Associated attestation - Marina Sultana [...] Dr | | | | | | [facility] [address] | | | | | | [phone] | | | | | | | | +--------+ + + + + as of this encounter Visit Diagnoses + + | Diagnosis | + + | Cardiomyopathy, unspecified type (HCC) - Primary | + + | SOB (shortness of breath) | + + | Shortness of breath | + +"
--- OUTSIDE RECORDS SUMMARY | ~2018-02-25 | XMS | Clinical Summary ---
Demographics + + + | Address | [address] | | | [place] [address] | + + + | Home Phone | | + + + | Preferred Language | Unknown | + + + | Marital Status | | + + + | Faith Affiliation | Unknown | + + + | Race | Unknown | + + + | Ethnic Group | Unknown | + + + Author + + + | Author | [facility] | | | and [place] | + + + | Organization | [facility] | | | and [place] | + + + | Address | Unknown | + + + | Phone | Unavailable | + + + Support + + + + + | Name | Relationship | Address | Phone | + + + + + | Domenica Means | ECON | [address] | | | | | [place] [address] | | + + + + + Care Team Providers + +------+ + | Care Endocrinology Teacher Name | Role | Phone | [...] | | + + +---------+---------+------+------+-------+ | Saw Rutledge 450 | Take 405 mg by mouth [...] + + | Coronary artery disease involving [place] coronary artery of | 11/05/2015 | | [place] heart | | + + + + [...] | | 02/17/ | 1PCM10 | | [id number] - | | Heart | [facility] | | 2019 | 0 / | | [id number]: Qty: 1 on | | | | | | /[id number] | | 11/04/2015 by Rishi | | [...] | [employer] - | | | /[id number] | | MD Toney | | | [...] Self | [birth year] | Home: | [address] | | J[place]EM[place]H | al/Fam | | [phone] | [phone] | [place] [address] | | | michael | | | [phone] | | + +--------+ +--------+ + +
[~2018-02-25 05:36] MED LIST changes: +ALDACTONE25 MG PO; +HUMALOG100 UNIT/2 SUB-Q; +SPIRIVA18 MCG INH
--- NOTE | 2018-02-25 08:50 | NUR ---
PT HERE FROM ER. PT IS AWAKE AND ALERT X4 AT THIS TIME, ABLE TO TRANSFER FROM STRETCHER TO BED WITH STANDBY ASSIST. PT DENIES PAIN, NAUSEA, AND SOB AT THIS TIME. IS AT THE BEDSIDE.
--- NOTE | 2018-02-25 09:20 | NUR ---
PT IV SITES INTACT, NO REDNESS OR SWELLING NOTED, PT DENIES PAIN WITH FLUSH. PT UP AND AMBULATED TO BATHROOM WITH STANDBY ASSIST TO VOID. PT THEN BACK TO BED. PT REMAINS ALERT AND ORIENTED X4, LETICIA ACTIVITY. PT REPORTS LOW ENERGY LEVELS OVERALL FOR THE LAST THREE WEEKS.
--- NOTE | 2018-02-25 10:20 | NUR ---
CBG IS 99 AT THIS TIME. PT DENIES NAUSEA, SOB, AND PAIN.
[2018-02-25] MEDS ORDERED: ASPIRIN81 MG PO (10:30)
[2018-02-25] MEDS ORDERED: EFFEXOR XR150 MG PO (10:31)
--- NOTE | 2018-02-25 11:47 | NUR ---
PT HAVING DIFFICULTY SWALLOWING PILL, NEEDS TO SIT UP AT SIDE OF BED. SEVERAL SIPS OF WATER NEEDED, PT ALSO ATE 1/2 CRACKER TO AID PILL TO GO DOWN. PT STRUGGLED FOR ABOUT 5 MIN TO GET PILL DOWN. PT COOPERATIVE AND POLITE, ALERT AND ORIENTED X4, PT STATES "I JUST THINK THAT MY THROAT WAS DRY, AND THE PILL STUCK".
[2018-02-25] MEDS ORDERED: FUROSEMIDE40 MG PO (12:54)
[2018-02-25] MEDS ORDERED: LISINOPRIL2.5 MG PO (12:54)
[2018-02-25] MEDS ORDERED: CARVEDILOL6.25 MG PO (12:54)
[2018-02-25] MEDS ORDERED: KLOR-CON 1010 MEQ PO (12:55)
[2018-02-25] MEDS ORDERED: [UNRECOGNIZED DRUG - OTHER] PO (13:06)
--- NOTE | 2018-02-25 13:30 | NUR ---
PT VITALS WNL. RESTING IN BED QUIETLY. PT ALERT AND ORIENTED, COOPERATIVE. PT DENIES PAIN, NAUSEA, AND SOB AT THIS TIME. DISCUSSED THE POSSIBILITY OF NEEDING ADDITIONAL O2 THERAPY IF O2 SATS DROP BELOW 90%. PT STATES "I REALLY HATE THAT, BUT IF I NEED IT I GUESS I HAVE TO."
--- NOTE | 2018-02-25 14:40 | NUR ---
PT RESTING QUIETLY IN BED, WAKES EASILY. PT DENIES NAUSEA, PAIN, AND SOB AT THIS TIME. CBG IS 158, VITALS WNL. PT DENIES NEED TO GET UP TO VOID. PT STATES "I'M PRETTY COMFORTABLE".
--- NOTE | 2018-02-25 16:32 | NUR ---
PT SITTING AT THE EDGE OF THE BED, DENIES PAIN, NAUSEA, AND SOB. PT HAS MAINTAINED O2 SATS ON ROOM AIR.
--- NOTE | 2018-02-25 17:30 | NUR ---
UPDATED ON PT ELEVATED HR 100'S AND OTHER VITALS WNL. NO NEW ORDERS AT THIS TIME, WILL CONTINUE TO MONITOR.
--- NOTE | 2018-02-25 19:10 | NUR ---
PT UP AMBULATED TO THE BATHROOM, ABLE TO VOID AND HAVE ONE SMALL BM. PT STOOD UP IN BATHROOM AND FELT AIR HUNGER, PT ALSO REPORTED FEELING WEAK. ASSISTED PT BACK TO BED, GAVE PT OXYMASK TURNED UP TO 9L WHICH HE HELD IN FRONT OF HIS FACE. PT VITALS AND O2 SAT WNL. PT QUICKLY RECOVERED WITHIN 3-5 MIN. PT THEN NO LONGER USED OXYMASK.
--- NOTE | 2018-02-25 19:30 | NUR ---
PT SHIFT REPORT RECEIVED FROM DAY SHIFT RN. PT IS RESTING IN BED AT THIS TIME. PT DENIES ANY NEEDS. WILL CONTINUE TO CLOSELY MONITOR. PT HAS CALL LIGHT.
--- NOTE | 2018-02-25 20:00 | NUR ---
PT ASSESSMENT COMPLETED. PT IS RESTING IN BED. BREATH SOUNDS ARE COARSE THROUGHOUT. SPO2 93% ON RA. PT STATES HE FEELS HE CAN PRODUCE A SPUTUM SAMPLE. GAVE SAMPLE CUP FOR SPUTUM. PT STATES HE DOES NOT WANT HIS NIGHT MEDICATIONS UNTIL ABOUT 2200. PT DENIES ANY PAIN. WILL CONTINUE TO CLOSELY MONITOR AT THIS TIME.
--- NOTE | 2018-02-25 21:40 | NUR ---
CALLED MD GUERRERO TO UPDATE REGUARDING PT RESPIRATORY STATUS. PT RR 29-30. SPO2 93%. PER MD KEEP SPO2 90% OR GREATER. PT REQUESTING COUGH SYRUP. PER MD PT CAN HAVE COUGH DROPS TO HELP THROAT AND COUGH. NO COUGH SYRUP AT THIS TIME. ENCOURAGE PT TO COUGH SPUTUM OUT IF POSSIBLE. SENT SPUTUM SAMPLE TO LAB. WILL CONTINUE TO CLOSELY MONITOR. NO OTHER ISSUES AT THIS TIME.
--- NOTE | 2018-02-25 22:15 | NUR ---
PT UP TO BEDSIDE CAMMODE. PT BECAME SOB WITH MOVEMENT. ONCE BACK TO BED RECOVERED WITHIN A FEW MINUTES, PT SPO2 MAINTAINED AT 92%. WILL CONTINUE TO CLOSELY MONITOR.
--- NOTE | 2018-02-25 23:15 | NUR ---
PT CALLED TO GET IN BED. PT STATES HE FEELS HE IS BREATHING BETTER. PER MD KEEP SPO2 90% OR GREATER. WILL CONTINUE TO CLOSELY MONITOR. SPO2 AT 90-92%. RR IS BETTER WITH RATE OF 18-20. WILL CONTINUE TO CLOSELY MONITOR.
--- NOTE | 2018-02-26 01:15 | NUR ---
CALLED MD TO UPDATE REGUARDING PT ELEVATED BS OF 292. PER MD TURN FLUIDS OF D5LR AT 75ML/HR OFF AT THIS TIME. NO NEW ORDERS. WILL CONTINUE TO CLOSELY MONITOR.
--- NOTE | 2018-02-26 03:50 | NUR ---
CHECKED PT BS. PT IS NOW RESTING IN BED. PT GOT UP TO THE BEDSIDE CAMMODE WITH OTHER RN. PT STATES HE TOLERATED BETTER THAN THE PREVIOUS TIME. RECOMMENED TRANSFERING WITH NASAL CANNULA NEXT TIME TO SEE IF THAT IMRPOVES SOB PT EXPERIENCES WITH ACTIVITY. PT DENIES PAIN. ASSESSMENT UNCHANGED FROM PREVIOUS. WILL CONTINUE TO CLOSELY MONITOR. PT CALLS APPROPRIATELY.
--- NOTE | 2018-02-26 05:50 | NUR ---
REHAB MANAGER IN TO DO MORNING LAB DRAWS. NO ISSUES AT THIS TIME. WILL CONTINUE TO CLOSELY MONITOR.
--- NOTE | 2018-02-26 06:15 | NUR ---
MEDICATIONS GIVEN. PT IS RESTING IN BED AT THIS TIME. PT STATES HE FEELS LIKE SPUTUM IS STARTING TO MOVE AND IS TRYING TO COUGH IT OUT. PT DENIES ANY OTHER ISSUES AT THIS TIME. ORDERED BREAKFAST. WILL CONTINUE TO CLOSELY MONITOR.
--- NOTE | 2018-02-26 08:15 | NUR ---
PT SITTING UP ON THE SIDE OF THE BED, VITALS WNL AT THIS TIME. PT LETICIA 2L O2 VIA NASAL CANULA. PT DENIES PAIN, NAUSEA, AND SOB AT THIS TIME. PT ALERT AND ORIENTED X4. NO SOB OBSERVED. PT IV SITES INTACT, NO REDNESS OR SWELLING NOTED, FLUIDS INFUSING EASILY. BREAKFAST TRAY IN FRONT OF PT.
--- NOTE | 2018-02-26 09:23 | NUR ---
PT ABLE TO SWALLOW PILLS EASILY THIS AM. ASSISTED PT TO LAY BACK IN BED FROM SITTING ON THE SIDE OF THE BED, PT IMMEDIATLY HAD INCREASED WOB, AND O2 SATS WENT TO 84% ON ROOM AIR. O2 PLACED BACK ON PT 2L VIA NASAL CANULA O2 SATS CAME BACK UP TO THE 95% WITHIN ONE MINUTE. PT LEANING VERY FAR FORWARD WITH ARMS STRETCHED TOWARDS ANKLES. PT STATES "THIS IS ACTUALLY COMFORTABLE IN THIS POSITION". PT ABLE TO LEAN BACK TO A HIGH FOWLERS POSITION AFTER ABOUT 10 MIN.
--- NOTE | 2018-02-26 10:10 | NUR ---
PT REPORTS NAUSEA, 4 MG IV ZFRAN GIVEN. PT SITTING UP AT SIDE OF THE BED, REPORTS NAUSEA BEGAN AFTER TAKING NEB TREATMENT.
--- NOTE | 2018-02-26 10:42 | NUR ---
PT REPORTS NAUSEA IS 95% RESOLVED. PT SITTING UP AT THE SIDE OF THE BED. VITALS WNL AT TIS TIME, PT 90% O2 SAT ON ROOM AIR. PT DENIES ANY OTHER NEEDS AT THIS TIME.
--- NOTE | 2018-02-26 10:58 | NUR ---
IN THE ROOM TALKING WITH THE PT AT THIS TIME.
--- NOTE | 2018-02-26 12:10 | NUR ---
IV SITES INTACT, NO REDNESS NO SWELLING NOTED, PT DENIES PAIN WITH FLUSH. PT DENIES PAIN, NAUSEA, AND SOB AT THIS TIME. O2 PLACED BACK ON PT HE DESATS TO 85% AT TIMES ON ROOM AIR.
--- NOTE | 2018-02-26 12:28 | NUR ---
PT BROUGHT IN PT OWN MEDS FROM HOME, TAKEN TO PHARMACY TO VERIFY.
--- NOTE | 2018-02-26 13:30 | EKG ---
[facility] [address] [place] [address] Signed Sinus rhythm with marked sinus arrhythmia Nonspecific T wave abnormality Prolonged QT Abnormal ECG When compared with ECG of 28-OCT-2017 21:37, premature ventricular complexes are no longer present T wave inversion now evident in Lateral leads QT has lengthened Confirmed by TERRELL GUERRERO MD ([id number]) on 02/26/2018 1:30:30 PM Electronically Signed By: TERRELL GUERRERO MD 02/26/18 1330 PATIENT NAME: JAIR MEANS Electrocardiogram DATE OF : 59 PHYSICIAN: TERRELL GUERRERO MD REPORT #: [id number] REPORT IS CONFIDENTIAL AND NOT TO BE RELEASED WITHOUT AUTHORIZATION
--- NOTE | 2018-02-26 14:10 | NUR ---
full report called to Kamryn MOONEY on med/surg.
--- NOTE | 2018-02-26 14:20 | NUR ---
PT UP AMBULATED TO BATHROOM WITH STANDBY ASSIST TO VOID. ABLE TO VOID 625 CLEAR YELLOW URINE. AMBULATED BACK TO BED.
--- NOTE | 2018-02-26 14:30 | NUR ---
pt transported to med/surg room 123 along with all personal belongings.
--- NOTE | 2018-02-26 15:05 | NUR ---
PT SLEEPING WITH IS HOB ELEVATED. CURRENTLY SATING 93 PERCENT ON 2 L PER NC. RR EVEN AND UNLABORED.
--- NOTE | 2018-02-26 16:11 | NUR ---
PATIENT ASSISTED TO THE BR. PATIENT TOLERATED TRANSFER. WOB INCREASED WITH ACTIVITY. PATIENT NEEDING TO SIT TO VOID. DOES NOT HAVE THE TOLERANCE TO STAND FOR LONG. ABLE TO AMBULATE FROM BED TO BR AND BACK. DESATED TO 85 ON RA WHILE AMBULATING. PLACED ON 1 L AND WITH SOME TIMES INCREASED HIS OXYGEN LEVEL TO 92 PERCENT.
--- NOTE | 2018-02-26 17:24 | NUR ---
SET UP FOR DINNER. PATIENT STATING NO PAIN AT THIS TIME. NAUSEA HAS IMPROVED. NO INSULIN AT THIS TIME FOR BS 128. EVENING MEDICATION GIVEN
--- NOTE | 2018-02-26 18:14 | NUR ---
patient tolerated dinner well. eating slow, but finishing sandwich. took evening medication. patinet continues to sat low 90's on 1 l per nc. patient lungs are coarse throughout. clear on l upper lobes. some crackles ascultated on lower lobes.
--- NOTE | 2018-02-26 19:44 | NUR ---
RECIEVED BEDSIDE REOPRT FROM LAOMNT MOONEY. PT IN BED. 1L O2 IN PLACE. PT REPORTS FEELINGS OF NAUSEA. REFUSED NAUSEA MEDICATION. NO PAIN AT THIS TIME. CALL LIGHT WTIHN REACH.
--- NOTE | 2018-02-26 20:08 | NUR ---
VITALS AND I&OS DONE AND CHARTED. STOOD BY HE WENT TO THE BATHROOM AND BACK. BEDSIDE TABLE AND CALL LIGHT WITHIN REACH. PT NEEDS NOTHING ELSE AT THIS TIME.
--- NOTE | 2018-02-27 00:30 | NUR ---
PT OOB WITH SBA TO BATHROOM. BACK TO BED. 1L O2 NC IN PLACE. CALL LIGHT WITHIN REACH.
--- NOTE | 2018-02-27 02:22 | NUR ---
VITALS AND I&OS DONE AND CHARTED. BEDSIDE TABLE AND CALL LIGHT WITHIN REACH. HE NEEDS NOTHING ELSE AT THIS TIME.
--- NOTE | 2018-02-27 03:29 | NUR ---
SL PT. ATIBIOTIC DONE INFUSING. HOB ELEVATED. 1L O2 IN PLACE. SATURATION AT 96%. CALL LIGHT WITHIN REACH.
--- NOTE | 2018-02-27 04:48 | NUR ---
PT'S EYES CLOSED, HR 90, O2 92% ON 2L NC. RESPIRAITONS EQUAL AND NONLABORED. BLOOD SUGAR IS 81. CALL LIGHT WITHIN REACH.
--- NOTE | 2018-02-27 06:04 | NUR ---
PT OOB TO BATHROOM ON ROOM AIR. DESATTED TO 75% HR 106. VOIDED 350. BACK TO BED. 3L TO RECOVER THEN BACK TO 1L NC. MAINTAINING SATURATIONS AT 93%. CALL LIGHT WITHIN REACH.
--- NOTE | 2018-02-27 08:06 | NUR ---
PT AWAKE IN BED. STATED HE WAS TIRED AND WANTED TO TAKE NAP.
--- NOTE | 2018-02-27 08:20 | NUR ---
PT AWAKE IN BED, ALERT AND ORIENTED. REPORTS FEELING TIRED TODAY BUT OTHERWISE "FEEL OK". LUNGS COURSE WITH EXPIRATORY WHEEZES, SATTING 94% ON 1L NC. PT DENIES PAIN, NAUSEA, OR ANY KIND OF DIFFICULTY BREATHING. IV ABX INFUSING AT THIS TIME. CALL LIGHT WITHIN REACH.
--- NOTE | 2018-02-27 10:20 | NUR ---
PT MARYSE ANDERSON WITH LETICIA Noriega.
--- NOTE | 2018-02-27 11:09 | NUR ---
Certified Heart Failure Nurse Notes: Diagnosis: Dilated cardiomyopathy with mild fluid overload. Comorbidities of COPD and pneumonia. Pantograph I [facility] Dr Pop PCP: Dr Gomes Date of echocardiogram -last on [facility] record 12/03/15 EF 20% Admit Wt.: 200 lb Today's Wt.: 161lb Admit BNP: 151 Social support system:spouse Weight monitoring: Scale present in home and is suitable for patient's specific condition. He currently weighs on Saturdays. Encouraged QD weights. Identifies how to weigh daily/ identifies when to notify PCP Mireya. Would like to find a PCP closer to home, discussed contacting clinic, Dr Susan Torre. Symptom management: Specific written recommendations to follow-up for ongoing management, and to address changes in weight or symptoms Transportation: not an issue Diet: Patient does own cooking and shopping. Uses limited salt at home. Dines out times per month. Educated on hidden salt and salt alternatives. Medication routine:Uses 7 day pill box. Spouse has method to assist reminding him of AM meds. Encouraged to discuss option of Cardiopulmonary Rehab with PCP Teaching materials given today: Guide to Understanding HF, Low Sodium Shopping list, Daily weight and symptom monitoring log
--- NOTE | 2018-02-27 13:33 | NUR ---
RN BONNIE SHARED WITH ME PT HAS SOME FRUSTRATION WITH BEING HERE BUT HAD BEEN APPROPRIATE. I STOPPED BY FOR JUST A MOMENT, INTRO MYSELF. PT WELCOMED ME AND SAID HE WAS REALLY TIRED OF BEING SICK. HE EXPRESSED HONEST FEELINGS-I ACKNOW- LEDGED HIS FEELINGS AND TOLD HIM I WILL BE PRAYING FOR SOME RELIEF. HE THANKED ME, AND I TOLD HIM I WILL BE AVAILABLE. WILL FOLLOW NEEDED
--- NOTE | 2018-02-27 13:37 | NUR ---
PT RESTING IN BED, EYES CLOSED, RESP EVEN AND UNLABORED.
--- NOTE | 2018-02-27 16:35 | NUR ---
PT WORKING WITH O.T. NO NEEDS OR CONCERNS AT THIS TIME. CALL LIGHT WITHIN REACH, AT BEDSIDE.
--- NOTE | 2018-02-27 18:12 | NUR ---
PT SITTING UP IN BED WATCHING TV, DINNER ORDERED. CALL LIGHT WITHIN REACH.
--- NOTE | 2018-02-27 18:31 | NUR ---
pt sitting up at side of bed, dinner at bedside table. no complaints no requests.
--- NOTE | 2018-02-27 18:43 | NUR ---
PT IN BED AWAKE VITALS. AND I AND O DONE
--- NOTE | 2018-02-27 19:20 | NUR ---
REPORT RECEIVED FROM DAY SHIRT NURSE. PATIENT RESTING IN BED WATCHING TV. PATIENT DENIES ANY NEEDS AT THIS TIME. CALL LIGHT WITHIN REACH.
--- NOTE | 2018-02-27 20:05 | NUR ---
PATIENT UP TO RESTROOM. STEADY GAIT. SBA TO THE RESTROOM. PATIENTS IV SL. PATIENT GIVEN COFFEE PER REQUEST. ASSESSMENT COMPLETED. FRESH WATER GIVEN. PATIENT DENIES ANY NEEDS. PATIENTS OXYGEN SATURATION 97 ON 1L VIA NC. RR 24. CALL LIGHT WITHIN REACH.
--- NOTE | 2018-02-27 22:00 | NUR ---
PATIENT RESTING IN BED WATCHING TV. PM MEDICATIONS GIVEN PER PATIENT REQUEST. NEW IV STARTED IN RIGHT AC. OXYGEN SATURATION 94 ON 1L VIA NC. HEART RATE 110. PATIENT STATES NO DISCOMFORT. PATIENT DENIES ANY OTHER NEEDS. CALL LIGHT WITHIN REACH.
--- NOTE | 2018-02-27 23:58 | NUR ---
PATIENT CALLED ASK FOR ANOTHER PILLOW, GIVEN.
--- NOTE | 2018-02-28 00:45 | NUR ---
PATIENT RESTING IN BED. PATIENT SBA TO THE RESTROOM, ABLE TO VOID. IV MEDICATIONS INFUSING. RR 24. ASSESSMENT COMPLETED. PATIENT OXYGEN SATURATION 96 ON 1L OF OXYGEN VIA NC. PATIENT DENIES ANY OTHER NEEDS. CALL LIGHT WITHIN REACH.
--- NOTE | 2018-02-28 04:10 | NUR ---
PATIENT RESTING IN BED WITH EYES CLOSED. PATIENTS IV SL. PATIENT OXYGEN 97 ON 1L VIA NC. HEART RATE 88. RR 20. PATIENT DENIES PAIN. BLOOD GLUCOSE CHECKED PER ORDER. PATIENT DENIES ANY OTHER NEEDS AT THIS TIME. CALL LIGHT WITHIN REACH.
--- NOTE | 2018-02-28 04:52 | NUR ---
PATIENT RESTED MOST OF THE NIGHT. PATIENT ON 1L OF OXYGEN VIA NC. PATIENT ON A ADA DIET, 1800 CALORIE. PATIENTS IV SL IN RIGHT AC. CONTINUOUS PULSE OX. NO FLUID RESTRICTION ORDERED. PATIENT SBA WHEN AMBULATING. PATIENT DENIED PAIN. PATIEN OUTPUT QS. PATIENT BLOOD GLUCOSE CHECKED PER ORDER. PATIENT WORKING WITH PT/OT. SOB WITH ACTIVITY. BM X1.
--- NOTE | 2018-02-28 06:00 | NUR ---
PATIENT RESTING IN BED WITH EYES CLOSED. ANTIBIOTIC GIVEN PER ORDER. PATIENT OXYGEN 97 ON 1L OF OXYGEN. PATIENT TITRATED DOWN TO .5L OF OXYGEN, WILL CONTINUE TO MONITOR. PATIENT DENIES ANY NEEDS AT THIS TIME. CALL LIGHT WITHIN REACH.
--- NOTE | 2018-02-28 07:33 | NUR ---
PATIENT SITTING UP AT EDGE OF BED. BEDSIDE REPORT RECEIVED FROM OLEG MOONEY/SINGH MONSALVE. WHITE BOARD UPDATED. 0.5L O2 VIA NC IN PLACE. WILL TITRATE OFF TODAY. EXPECT TO DISCHARGE TODAY IF DOING WELL.
--- NOTE | 2018-02-28 08:26 | NUR ---
PATIENT SITTING UP IN BED. GARBAGE EMPTIED. CALL LIGHT WITHIN REACH. NO OTHER NEEDS AT THIS TIME.
--- NOTE | 2018-02-28 09:56 | NUR ---
PTHERAPY IN ROOM. PATIENT SITTING ON SIDE OF BED.
--- NOTE | 2018-02-28 12:03 | NUR ---
CHFN Notes Visit IP #2: Reinforced yesterdays discussion on daily weight and symptom monitoring and low sodium diet. Admit weight 200lb, today's 157 lb. BP 104/59. Patient has very little recall of it. Reinforced weight gain to call PCP for. Counseled to avoid NSAIDs. He reports he only uses Tylenol PRN. Barriers to self-care include: Reported anxiety and depression. PHQ 9 screening today score of 15 with (10) as "somewhat difficult"- Which isin the moderate severe range. Will send screen to PCP Follow-up plans: Confer with RT concerning smoking cessation. Follow up DC call to patient. Recommend:Documented ambulation oxygen saturations prior to discharge and absence of orthostatic hypotension. Continue to reinforce home self management and diet. Education materials given today: Heart failure Zones Magnet
--- NOTE | 2018-02-28 13:46 | NUR ---
PT SITTING IN BED-ALERT AND ORIENTED. HE STATED RIGHT OFF THAT HE IS TIRED OF BEING SICK. HE HAS TOO MANY THINGS HE NEEDS TO BE DOING. EXPLAINED ABOUT HIS YARD, HOW TALL THE GRASS IS GETTING. HE ALSO MENTIONED THAT HE WAS HERE RECENTLY WITH THE FLU, AND IS NOW HERE WITH PNEUMONIA. PT FEELS HE HAS IMPROVED, HOPES TO BE DC'D TODAY. HAD A GOOD VISIT WITH PT, EXTENDED A BLESSING. WILL FOLLOW NEEDED
--- NOTE | 2018-02-28 14:09 | NUR ---
PATIENT SITTING UP IN BED WATCHING TV. GARBAGE EMPTIED. CALL LIGHT WITHIN REACH. NO OTHER NEEDS AT THIS TIME.
[2018-02-28] MEDS ORDERED: DOXYCYCLINE HY100 MG PO (14:55)
[2018-02-28] MEDS ORDERED: AUGMENTIN 875-1 EACH PO (14:58)
[2018-02-28] MEDS ORDERED: XOPENEX1.25 MG/3 INH (15:04)
--- NOTE | 2018-02-28 15:40 | NUR ---
FAXED CHART NOTES TO [facility] AFTER DISCUSSION WITH THE PT THAT HE WOULD WANT O2 EQUIPMENT FROM [facility] WHEN WE TALKED YESTERDAY. TALKED WITH PT AGAIN TODAY AND HE WANTED A SMALL VERY PORTABLE TANK THAT THE INSURANCE DOES NOT COVER YET AND EXPLAINED THEY DON'T COVER AND ITS VERY EXPENSIVE. PT STATES HE JUST WANT THE NORMAL O2 FROM [facility]. FAXED CHART NOTES INCLUDING FACESHEET, ORDER, RE HOME O2 QUALIFIER, ER NOTES, H AND P, PROG NOTES, AND IMAGING NOTES TO [facility]. RECIEVED FAX CONFIRMATION. ALSO TALKED TO XUAN AND SHE STATED THEY WILL DELIVER O2 TO THE PATIENT AT HOME.
--- NOTE | 2018-03-02 14:32 | NUR ---
CHFN Follow Up Call #1- Patient reports he is doing ok. Short of breath, but it has not worsened. Has antibiotics but did not get nebulizer med filled. His has made call to take care of this. No follow up visit scheduled since he is waiting for [facility] to call him after they recieve records from his current PCP. Appetite remains poor, encouraged to eat frequent small anounts. Have referred patient to Pulmonary Rehab.
== END 2018-02-28 16:15 | disposition home or self-care (01) | DRG 177 ==
LOC: ED 05:36 → CCU 08:14 → MS 02-26 14:30
PROVIDERS: ADMIT Internal Medicine
DX: J69.0 Pneumonitis due to inhalation of food and vomit (principal); J96.01 Acute respiratory failure with hypoxia; I42.0 Dilated cardiomyopathy; E87.6 Hypokalemia; E83.42 Hypomagnesemia; M62.81 Muscle weakness (generalized); F51.04 Psychophysiologic insomnia; E78.5 Hyperlipidemia, unspecified; E11.649 Type 2 diabetes mellitus with hypoglycemia without coma; F17.200 Nicotine dependence, unspecified, uncomplicated; E87.70 Fluid overload, unspecified; N40.0 Benign prostatic hyperplasia without lower urinary tract symptoms; J44.9 Chronic obstructive pulmonary disease, unspecified; F41.8 Other specified anxiety disorders; F40.00 Agoraphobia, unspecified; Z95.810 Presence of automatic (implantable) cardiac defibrillator; Z88.5 Allergy status to narcotic agent; Z88.8 Allergy status to other drugs, medicaments and biological substances; Z79.82 Long term (current) use of aspirin; Z79.4 Long term (current) use of insulin; Z79.51 Long term (current) use of inhaled steroids; Z79.899 Other long term (current) drug therapy
CPT/HCPCS: 36415; 71045; 74230; 80048; 80053; 83036; 83605; 83735; 83880; 84484; 85025; 87040; 87070; 87205; 92610; 93005; 93010; 94640; 94667; 94668; 94761; 94762; 97110; 97116; 97162; 97165; J1650; J2405; J2543; J2930; J3475; J7120

== ENCOUNTER 2018-03-19 15:24 | Emergency (ER) | payer MEDICARE ==
[~2018-03-19] VITALS: Ht 175.3 cm; Wt 71.1 kg
[~2018-03-19 15:24] MED LIST changes: +ASPIRIN81 MG PO; +AUGMENTIN 875-1 EACH PO; +CARVEDILOL6.25 MG PO; +DOXYCYCLINE HY100 MG PO; +EFFEXOR XR150 MG PO; +FUROSEMIDE40 MG PO; +KLOR-CON 1010 MEQ PO; +LISINOPRIL2.5 MG PO; +XOPENEX1.25 MG/3 INH; +[UNRECOGNIZED DRUG - OTHER] PO
[2018-03-19] MEDS ORDERED: AUGMENTIN 875-1 EACH PO (20:59)
--- NOTE | 2018-03-20 14:38 | EKG ---
[facility] [address] [place] [address] Signed Sinus tachycardia with frequent premature ventricular complexes Possible Left atrial enlargement Borderline ECG When compared with ECG of 25-FEB-2018 05:47, premature ventricular complexes are now present Vent. rate has increased BY 37 BPM Questionable change in QRS axis ST no longer depressed in Anterior leads T wave inversion no longer evident in Lateral leads Confirmed by TERRELL GUERRERO MD ([id number]) on 03/20/2018 2:38:38 PM Electronically Signed By: TERRELL GUERRERO MD 03/20/18 1438 PATIENT NAME: JAIR MEANS Electrocardiogram DATE OF : 59 PHYSICIAN: TERRELL GUERRERO MD REPORT #: [id number] REPORT IS CONFIDENTIAL AND NOT TO BE RELEASED WITHOUT AUTHORIZATION
== END 2018-03-19 21:10 | disposition home or self-care (01) ==
LOC: ED 15:24
DX: J44.1 Chronic obstructive pulmonary disease with (acute) exacerbation (principal); J44.0 Chronic obstructive pulmonary disease with (acute) lower respiratory infection; J18.9 Pneumonia, unspecified organism; R10.13 Epigastric pain; E11.9 Type 2 diabetes mellitus without complications; I25.2 Old myocardial infarction; F17.200 Nicotine dependence, unspecified, uncomplicated; Z88.8 Allergy status to other drugs, medicaments and biological substances; Z88.5 Allergy status to narcotic agent; Z79.899 Other long term (current) drug therapy; Z79.82 Long term (current) use of aspirin; Z79.84 Long term (current) use of oral hypoglycemic drugs
CPT/HCPCS: 36415; 71045; 74177; 80053; 83735; 83880; 84484; 85025; 93005; 93010; 94640; 96361; 96374; 96375; 99284; J2930; J3010; J7120; Q9967

== ENCOUNTER 2018-03-21 17:44 | Inpatient (IN) | payer MEDICARE ==
[~2018-03-21] VITALS: Ht 175.3 cm; Wt 60.6 kg
[2018-03-21] MEDS ORDERED: PREDNISONE20 MG PO (17:55)
--- NOTE | 2018-03-21 21:50 | NUR ---
PATIENT ARRIVED TO UNIT FROM ER VIA STRETCHER. BREATHING IS TACHYPNEIC AND LABORED. PATIENT TRANSFERED TO BED WITH MINIMAL ASSIST, HAD INCREASED SHORTNESS OF BREATH AND PATIENT REPORTS FATIGUE. AFTER PATIENT REST IN BED WITH HOB ELEVATED, BREATHING NOW LESS LABORED. O2 SATURATION IS 99% ON 3L O2 VIA NC. ASSESSMENT AND VITALS DONE. PATIENT DENIES NEEDS AT THIS TIME. CALL LIGHT WITHIN REACH.
--- NOTE | 2018-03-21 22:30 | NUR ---
MEDICATIONS GIVEN PER EMAR, PATIENT HAS DIFFICULTY WITH SWALLOWING PILLS AND REPORTS THIS HAS BEEN AN ONGOING PROBLEM AT HOME, TAKES ONE PILL AT AT TIME AND STATES "IT TAKES ME 40 MINUTES TO TAKE ALL OF MY NIGHT MEDICATIONS." PATIENT GIVEN REST OF MEDICATIONS WITH APPLE SAUCE, TOLERATED MEDICATION ADMINISTRATION BETTER WITH APPLE SAUCE. PATIENT DENIES NEEDS AT THIS TIME. CALL LIGHT WITHIN REACH.
--- NOTE | 2018-03-22 00:36 | NUR ---
PATIENT RESTING IN BED, BREATHING IS EVEN AND UNLABORED, O2 SATURATION IS 98% ON 3L O2 VIA NC AFTER BREATHING TREATMENT PER EMAR. ASSESSMENT AND VITALS DONE, PATIENT DENIES NEEDS AT THIS TIME. CALL LIGHT WITHIN REACH.
--- NOTE | 2018-03-22 02:06 | NUR ---
PATIENT RESTING IN BED, BREATHING IS EVEN AND UNLABORED. FLACC SCORE OF 0. VITALS STABLE, CALL LIGHT WITHIN REACH.
--- NOTE | 2018-03-22 04:00 | NUR ---
PATIENT RESTING IN BED COMFORTABLY, BREATHING IS EVEN AND UNLABORED. FLACC SCORE OF 0. CALL LIGHT WITHIN REACH.
--- NOTE | 2018-03-22 05:39 | NUR ---
PATIENT TO BEDSIDE FOR STANDING WEIGHT, 1PA, PATIENT HAS IMPROVEMENT IN MOVEMENT, NO INCREASED SHORTNESS OF BREATH WITH ACTIVITY, VITALS REMAIN STABLE WITH MOVEMENT. PATIENT NOW RESTING COMFORTABLY IN BED AGAIN. PATIENT DENIES NEEDS AT THIS TIME. CALL LIGHT WITHIN REACH.
--- NOTE | 2018-03-22 08:01 | NUR ---
ASSESSMENT COMPLTED, C/O SORE COCCYX AREA. PT REPOSITIONED IN BED AND WILL SIT ON SIDE OF BED FOR BREAKFAST. LUNGS SOUND COARSE AND PT HAS GOOD COUGHT. PT WEAK AND STATES "I'V BEEN GOING DOWN [place] THE LAST MONTH".
--- NOTE | 2018-03-22 08:58 | NUR ---
PT SAT ON EDGE OF BED TO TAKE AM PILLS AND EAT BREAKFAST. PT ATE APPROX 10% OF ADA DIET AND WAS ABLE TO SWALLOW PILLS WITH APPLESAUCE AND CREAM OF WHEAT. PT RETURNED TO BED WITH HOB ELEVATED. REFUSED CHAIR AT THIS TIME, STATES "I USUALLY TAKE A NAP AFTER I EAT".
--- NOTE | 2018-03-22 10:25 | NUR ---
NURSE EVGENY REPORTS PATIENT HAS A POOR APPETITE. ONLY TOOK 1-2 BITES OF APPLESAUCE AND CREAM OF WHEAT THIS MORNING. REFUSED AN ICE CREAM MILKSHAKE MADE WITH ENSURE THIS MORNING WELL. PER CHART REVIEW, PATIENT HAS BEEN DECLINING IN HEALTH THE PAST MONTH. HE APPEARS TO HAVE LOST MORE WEIGHT SINCE THE FEBRUARY 25 ADMISSION. CURRENT DIET: 1800 ADA, 1500 ML FLUID RESTRICTION. BMI IS 21.26. LIVES WITH . WILL TRY TO TALK TO HER IF SHE COMES IN TODAY TO FIND OUT WHY HE HAS SUCH A POOR APPETITE.
--- NOTE | 2018-03-22 11:45 | NUR ---
PT UP TO MERRY CHAIR WITH 2 PERSON ASSIST. PT LETICIA WELL. ASSESSMENT COMPLETED. DR. GUERRERO IN TO ASSESS PT.
--- NOTE | 2018-03-22 12:09 | NUR ---
PT WAS ABLE TO TAKE HIS POTASSIUM PILLS WITH APPLE SAUCE. IN ROOM. PT TAKING A FEW SIPS OF ENSURE WITH ICE CREAM.
--- NOTE | 2018-03-22 13:00 | NUR ---
SPOKE WITH SWETA MOONEYADMISSIONS CONSULTANT WHO STATES THIS PATIENT HAS REQUESTED HELP IN FINDING PCP IN [place]. HE WAS UNABLE TO GET TO PCP OUT OF TOWN.
--- NOTE | 2018-03-22 13:12 | NUR ---
AIDS COUNSELOR HERE. PT RETURNED TO BED AND RESTING ON LEFT SIDE FOR 2D ECHO.
--- NOTE | 2018-03-22 13:30 | NUR ---
REPORT GIVEN TO LAMONT MOONEY ON MED/SURG.
--- NOTE | 2018-03-22 14:07 | NUR ---
PATIENT TRANSFERED FROM CCU. REPORT GIVEN FROM EVGENY MOONEY. VITALS TAKEN ASSESSMENT COMPLETE.
--- NOTE | 2018-03-22 14:25 | NUR ---
PATIENT RESTING IN BED, FAMILY IN ROOM. CALL LIGHT IN REACH. NO OTHER NEEDS AT THIS TIME.
--- NOTE | 2018-03-22 14:38 | NUR ---
CHOCOLATE ENSURE GIVEN TO PATIENT. IN ROOM. FAN IN ROOM. NO OTHER NEEDS AT THIS TIME.
--- NOTE | 2018-03-22 15:12 | NUR ---
PHYSICAL THERAPY IN ROOM TO WORK WITH PATIENT.
--- NOTE | 2018-03-22 15:44 | NUR ---
CHF NURSE LINNETTE IN ROOM TO TALK WITH PATIENT.
--- NOTE | 2018-03-22 15:57 | NUR ---
PATIENT RESTING IN BED, CALL LIGHT IN REACH. NO OTHER NEEDS AT THIS TIME.
--- NOTE | 2018-03-22 16:18 | NUR ---
CHFN Notes- Diagnosis of heart failure with comorbidities including diabetes, COPD. PHQ-9 score last month 15. ECHO performed today results pending. Discussed heart failure daily care with patient. Noted increased recall from our last visit. He has decreased smoking to 1-2 per day. He is motivated. He has poor PO intake and recent weight loss. Home diet recently consisted of BOOST drink, bananas, homemade orange muffin, and noodles from cup of noodles. Reports always having a dry mouth. Declines lemon slices and has tried Biotin but found the taste too disagreeable. Has transportation in town for medical visits. Ophthalmic Surgical Assistant RN is working on PCP for patient prior to DC Patient's goals- To return to grocery shopping/ caring for home and lawn. 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 Plan- Once stable patient would be a candidate for Cardiopulmonary rehabilitation. Prior to DC have follow up visit. Phone call post Discharge.
--- NOTE | 2018-03-22 16:27 | NUR ---
SPOKE WITH DR BALTAZAR REGARDING PATIENT NEEDING PCP IN [place] HE HAS NOT BEEN ABLE TO GET TO OUT OF TOWN PCP. FACE SHEET GIVEN. HE STATES HE WILL TAKE PATIENT IF HE DESIRES TO COME TO THIS CLINIC. UPDATED SWETA MOONEY CASE MANGER WHO WILL UPDATE PATIENT.
--- NOTE | 2018-03-22 16:39 | NUR ---
PATIENT HAS HAD ABOUT 50 PERCENT OF ENSURE MILKSHAKE. REFILL ON COFFEE. PATIENT TAKES SIPS THROUGHOUT THE DAY. ORDERED DINNER. NO OTHER NEEDS AT THIS TIME. CONTINUE TO MAKE GOOD UOP.
--- NOTE | 2018-03-22 16:39 | NUR ---
PATIENT CCU TRANSFER THIS AFTERNOON. PATIENT ON 2L VIA NC. 2 PERSON ASSIST TO CHAIR. FUENTES CATH IN PLACE. GOOD UOP. SL. CHF NURSE IN ROOM THIS AFTERNOON TO TALK WITH PATIENT. PATIENT VERY RECEPTIVE OF INFORMATION. POOR APPETITE. ENCOURAGED ENSURES THROUGHOUT THE DAY. EDUCATED ABOUT THE IMPORTANCE OF SMALL MEALS FREQUENTLY. WILL CONT TO WORK WITH PT/OT. PLAN FOR POSSIBLE TRANSITIONAL CARE PROGRAM WITH DISCHARGE. PATEINT LIVES AT HOME WITH .
--- NOTE | 2018-03-22 17:49 | NUR ---
TOMATO SOUP ORDERED FOR DINNER. TOOK PILLS WITH APPLE SAUCE. PATIENT HAS PRODUCTIVE COUGH. GETTING UP MUCUS WITH COUGH. PATIENT STATING IT FEELS LIKE DRY MUCUS IN BACK OF THROAT. ENCOUARGED IS.
--- NOTE | 2018-03-22 18:15 | NUR ---
PATIENT RESTING IN BED, CALL LIGHT IN REACH. PATIENT STATES HE IS NOT HUNGRY YET BUT WOULD LIKE TO KEEP HIS DINNER BY HIM. NO OTHER NEEDS AT THIS TIME.
--- NOTE | 2018-03-22 19:18 | NUR ---
BEDSIDE REPORT RECEIVED FROM JESICA MIGUEL PT AWAKE, SITTING UP IN BED, REQUESTING BREATHING TREATMENT, RT PHONED, RN TO [facility]. PT HAS NO C/O PAIN, STATES STOMACH DISCOMFORT FROM EATING. CALL LIGHT IN REACH. IV SALINE LOCKED. PT ON 2L OXYGEN BY RYAN.
--- NOTE | 2018-03-22 20:45 | NUR ---
ROUNDED CHARGE. PATIENT ADMINISTERED NEBS RT IS CAUGHT UP IN THE ED. PATIENT DENIES ANY COMMENT, QUESTIONS, OR CONCERNS. NO NEEDS NOTED. CALL LIGHT IN REACH.
--- NOTE | 2018-03-22 21:49 | NUR ---
PT ASSESSMENT COMPLETE. LUNGS CLEAR, COARSENESS NOTED RLL. TRACE EDEMA NOTED BLE, CSM INTACT BUE, BLE. PT ON 2L OXYGEN BY NC, DENIES SOB. FUENTES CATHETER DRAINING YELLOW URINE. PT ABLE TO SWALLOW PO MEDICATIONS WITH APPLE SAUCE. GIVEN COFFEE REQUESTED. PT DENIES PAIN, C/O DISCOMFORT WITH BED. CALL LIGHT IN REACH. NO ADDL REQUESTS.
--- NOTE | 2018-03-22 22:10 | NUR ---
PT TRANSFERRED TO NEW BED FOR COMFORT BED NOT STAYING INFLATED. PT WEAK, ABLE TO TRANSFER SELF. CURTAINS CLOSED, LIGHTS OFF PER PT REQUEST. NO ADDL REQUESTS, ON 2L OXYGEN BY NC. CALL LIGHT IN REACH.
--- NOTE | 2018-03-22 23:58 | NUR ---
PT APPEARS TO BE SLEEPING, EYES CLOSED, RR 18. CALL LIGHT IN LAP. WILL CONTINUE TO MONITOR.
--- NOTE | 2018-03-23 02:30 | NUR ---
PT APPEARS TO BE SLEEPING, EYES CLOSED, BREATHING W ACCESSORY MUSCLE USE, NC OUT OF ONE NARE, PT AWAKENS EASILY. NC BACK IN PLACE. PT PROVIDED WITH DRINK REQUESTED. LUNGS COARSE THROUGHOUT, PT REFUSES PRN BREATHING TREATMENT, ENCOURAGED TO COUGH. TRACE EDEMA BLE, STRONG PEDAL PULSES. PT ASSISTED TO REPOSITION TO LEFT SIDE. FUENTES CATHETER EMPTIED, CONCENTRATED URINE. CALL LIGHT IN REACH. NO ADDL REQUESTS.
--- NOTE | 2018-03-23 03:34 | NUR ---
CALL LIGHT ANSWERED, PT REQUESTING COUGH DROP, GIVEN HASMUKH ESPINO AT THIS TIME. PT HAS NO ADDL REQUESTS, CALL LIGHT, PERSONAL SUPPLIES IN REACH.
--- NOTE | 2018-03-23 04:30 | NUR ---
CHECKED ON PT, APPEARS TO BE SLEEPING, EYES CLOSED, 2L OXYGEN BY NC ON. BREATHING VISIBLE, ACCESSORY MUSCLE USE. CALL LIGHT IN LAP.
--- NOTE | 2018-03-23 05:26 | NUR ---
PT ON 2L OXYGEN BY NC THROUGHOUT SHIFT. FUENTES CATHETER DRAINING. LUNGS COARSE. SCHEDULED NEBS. PT IN BED THROUGHOUT SHIFT, PILLOWS UNDER BONY PROMINENCES. USING CALL LIGHT APPROPRIATELY. IV SALINE LOCKED. TRACE EDEMA IN ANKLES BILATERALLY.
--- NOTE | 2018-03-23 06:02 | NUR ---
CALL LIGHT ANSWERED, PT REQUESTING BREATHING TREATMENT, OXYGEN REPOSITIONED ON NOSE OUT OF NARE. RT PHONED, PEPE TO DELIVER TREATMENT.
--- NOTE | 2018-03-23 06:40 | NUR ---
VITALS AND I&OS DONE AND CHARTED. BEDSIDE TABLE AND CALL LIGHT WITHIN REACH. PT NEEDS NOTHING ELSE AT THIS TIME.
--- NOTE | 2018-03-23 06:42 | NUR ---
PHONE CALL TO DR. GUERRERO, NOTIFIED OF URINE OUTPUT LAST SIX HOURS 60 ML, MINIMAL ORAL INTAKE. ORDER TO HOLD POTASSIUM AND LASIX MORNING DOSES, MD TO ROUND ON PT. ORDERS REPEATED BACK.
--- NOTE | 2018-03-23 08:55 | NUR ---
PATIENT'S HERE AT BEDSIDE AND PATIENT IS ANXIUOS TO GO HOME. PATIENT AWAITING TO BE SEEN BY AND PATIENT DC PLANNING.
--- NOTE | 2018-03-23 09:14 | NUR ---
Patient with PT. Will check blood pressure after PT to see if patient is within parameters to administer antihypertensive meds.
--- NOTE | 2018-03-23 10:09 | NUR ---
IN TO EVALUATE PATIENT IN HIS ROOM. PATIENT HAS HAD ONLY 70MLS URINE OUTPUT FROM [id number]. INFORMED.
--- NOTE | 2018-03-23 10:35 | NUR ---
PER RN MD ANJEL ROUNDED ON PT, RECEIVED VERBAL ORDER TO GIVEN POTASSIUM AND LASIX FROM THIS AM. GIVEN. PT WITH DIFFICULTY SWALLOWING POTASSIUM, DISCUSSED WITH DR. GUERRERO TO SWITCH PT TO POTASSIUM POWDER.
--- NOTE | 2018-03-23 10:58 | NUR ---
Offered to get patient up to chair. Patient refused saying he wants to take a nap. Plans on getting up to chair this afternoon.
--- NOTE | 2018-03-23 11:00 | EKG ---
[facility] [address] [place] [address] Signed Sinus tachycardia with occasional premature ventricular complexes Possible Left atrial enlargement Nonspecific T wave abnormality Abnormal ECG When compared with ECG of 19-MAR-2018 16:05, No significant change was found Confirmed by TERRELL GUERRERO MD ([id number]) on 03/23/2018 11:00:21 AM Electronically Signed By: TERRELL GUERRERO MD 03/23/18 1100 PATIENT NAME: JAIR EMANS Electrocardiogram DATE OF : 59 PHYSICIAN: TERRELL GUERRERO MD REPORT #: [id number] REPORT IS CONFIDENTIAL AND NOT TO BE RELEASED WITHOUT AUTHORIZATION
--- NOTE | 2018-03-23 19:05 | NUR ---
RECIEVED BEDSIDE REPORT FROM DAY SHIFT RN. PT A/O IN BED. 3L NC IN PLACE. SL. REPORTS NO PAIN. CALL LIGHT WITHIN REACH. REPORTS NO OTHER NEEDS AT THIS TIME.
--- NOTE | 2018-03-23 21:20 | NUR ---
PATIENT HAS BEEN 92-96% O2 SATS THROUGHOUT THE DAY ON O2 PER NC OF 2-3 LITERS ALL DAY UNTIL SHIFT CHANGE WHEN HE WAS PLACED ON 3L/OXYMASK AT HIS REQUEST HE USES A MASK FOR HIS 3L CHRONIC O2 TO SLEEP AT NIGHT AT HOME AND WANTED TO NOT WEAR A CANNULA TO SLEEP. PATIENT HAS GOTTEN PO POTASSIUM SUPPLIMENTS AND IV LASIX TWICE ON DAY SHIFT. PATIENT URINARY OUTPUT PER FUENTES WAS DEMINISHED IN THE AM AND WAS INFORMED. URINARY OUTPUT PICKED UP UP BEYOND QUANTITY SUFFICIENT AFTER THE FIRT DOSE OF AM LASIX AND REMAINED GREATER THAN QUANTITY SUFFICIENT THE REST OF THE DAY. PATIENT HAD A BED BATH AND WAS ALSO ABLE TO AMBULATE WITH A WALKER TO THE RESTROOM WITH STAFF ASSISTANCE ONCE TODAY. PATIENT REQUESTED SOMETHING FOR CONSTIPATION AFTER BEING UNABLE TO HAVE A BM WHEN HE WALKED TO THE RESTROOM. THIS WAS DISCUSSED WITH AND DULCOLAX SUPPOSITORY WAS GIVEN AT THE END OF THE SHIFT AND BID SENNA TO START TOMORROW. REPORT GIVEN TO ON COMING PERSONNEL TECHNICIAN NURSE.
--- NOTE | 2018-03-23 22:07 | NUR ---
ASSESSMENT COMPLETED. MEDICATIONS GIVEN. PT UNABLE TO TAKE MORE THAN 1 PILL AT TIME. PILLS GIVEN IN APPLE SAUCE. PT HAS EX AND IN WHEEZES THROUGHOUT. DEFIBRILATOR IN PLACE. PULSE +1 X4. LEFT HAND FAMILY COACH IS WEAK. TRACE EDEMA IN BILAT LE. BOWEL TONES HYPERACTIVE. SUPP GIVEN AT SHIFT CHANGE. LAST BM WAS 03/18.
--- NOTE | 2018-03-23 22:55 | NUR ---
PT 2PA W/ FWW TO BSC. BEARING WEIGHT WELL. PT HAD SMALL AMOUNT OF STOOL. BACK TO BED. OXY MASK 3L IN PLACE. PT IS DROWSY AT THIS TIME. RESTING NOW. CALL LIGHT WITHIN REACH.
--- NOTE | 2018-03-24 | NUR ---
PT APPEARED TO BE SLEEPING. PT FOUND WITH OXYMASK ON FOREHEAD. PLACE BACK OVER MOUTH. O2 LEVELS 86% FROM DESATTING. RECOVERED WELL. RT ADMINISTER BREATHING TREATMENT. PT BACK TO SLEEP. CALL LIGHT WITHIN REACH. REPORTS NO OTHER NEEDS AT THIS TIME.
--- NOTE | 2018-03-24 02:47 | NUR ---
PT APPEARS TO BE SLEEPING. 3L OXYMASK. CALL LIGHT WITHIN REACG. RESPIRAITONS AR EQUAL AND NON LABORED. HOB ELEVATED.
--- NOTE | 2018-03-24 04:09 | NUR ---
ASSITED PT 2P FWW TO BSC. TOLERATED WELL. PT USES ACC MUSCLES. BACK TO BED. RT IN FOR BREATHING TREATMENT. CALL LIGHT WITHIN REACH. NO BM.
--- NOTE | 2018-03-24 05:36 | NUR ---
PT PT SLEPT ON AND OFF, 3L MASK FOR BEDTIME, LUNGS COARSE THROUGHOUT WITH IN AND EX WHEEZING. TRACE EDEMA BILAT LE. SCHEDULED AND PRN NEBS. PILLOW UNDER BOTTOM. NO BM THIS SHIFT. FUENTES IN PLACE. U/O QS.
--- NOTE | 2018-03-24 07:36 | NUR ---
RECIEVED BEDSIDE REPORT FROM JESICA AG WITH SN JESSICA. PT AWAKE IN BED WITH BREATHING TREATMENT IN PLACE. RT IN ROOM.
--- NOTE | 2018-03-24 07:40 | NUR ---
PATIENT IN BED, OXYGEN MASK ON. UPDATED BOARD AND NOTIFIED PATIENT THAT STUDENT JESSICA WILL BE DOING MOST OF HIS CARE THIS AM. STUDENT AND INSTRUCTOR IN ROOM. PATIENT HAS NO OTHER NEEDS. CALL LIGHT IN REACH
--- NOTE | 2018-03-24 09:40 | NUR ---
Focused assessment completed. Patient still has inspiratory and expiratory wheezes throughout. Bowel tones are hyperactive. Patient states last bowel movement was on 03/18. Intake is still poor. Patient states that he is not hungy and can't eat due to difficulty swallowing and dentures that don't fit.
--- NOTE | 2018-03-24 09:51 | NUR ---
SPOKE WITH DR GUERRERO RE: WHITE PATCHES IN MOUTH AND NOT WANTING TO EAT. DR GUERRERO ORDERED NYSTATIN SWISH AND SPIT. ADVISED STUDENT NURSE JESSICA OF NEW MEDICATIONS. SHE WILL ADMINISTER.
--- NOTE | 2018-03-24 11:21 | NUR ---
PT STATES HE WOULD LIKE TO BE LEFT ALONE HE "IS GETTING CRANKY". PT STATED THAT HE DID NOT SLEEP WELL AND "BECOMES A BEAR WITHOUT SLEEP" SPEECH THERAPY IN TO EVAL FOR SWALLOWING ISSUES. PT AGREED TO TAKE MEDICATIONS AND PARTCIPATE IN SPEECH THERAPY LONG HE COULD BE LEFT ALONE IN THE AFTERNOON.
--- NOTE | 2018-03-24 12:32 | NUR ---
PT STATED THAT HE IS NOT A MORNING PERSON. HE IS MUCH MORE COOPERATIVE THIS AFTERNOON.
--- NOTE | 2018-03-24 13:46 | NUR ---
PATIENT UP IN BED, PATIENT STATES HIS LUNCH HAD A GOOD FLAVOR BUT JUST "COULDN'T EAT IT." VITALS AND I/OS CHARTED, GARBAGE AND FUENTES EMPTIED. CALL LIGHT IN REACH, SHOULD BE IN AFTER 2PM
--- NOTE | 2018-03-24 14:52 | NUR ---
PT REPORTED COUHGHING HARD ENOUGH TO CAUSE DRY HEAVING. PT REPORTED COUGHING UP LARGE "LOOGIES" OF SPUTUM. IV ZOFRAN GIVEN FOR CONTINUED NAUSEA. PT RESTING IN BED COMFORTABLY. PT REFUSED PHYSICAL THERAPY, SAYING HE WAS TOO TIRED, DIDN'T SLEEP WELL, AND HAD TOO MANY PEOPLE BOTHERING HIM.
--- NOTE | 2018-03-24 16:11 | NUR ---
TALKED AT GREAT LENGTH WITH THE PT AND HIS ABOUT TRANSITIONAL/SWING BED, THEY WANTED TO TALK IT OVER BUT THOUGHT IT WAS A REALLY GOOD OPTION HE DOES NOT WANT TO GO TO A SNF.
--- NOTE | 2018-03-24 17:21 | NUR ---
PT REFUSED TO GET OUT OF BED TO CHAIR THIS SHIFT. PT TOLERATED CREDENTIALING ASSISTANT. REFUSED PHYSICAL THERAPY, DIDN'T EAT THIS SHIFT. STAYED ON O2 @3L VIA NASAL CANULA AND OXYMASK. PT PERKED UP A LITTLE IN THE AFTERNOON, STATED HE WAS NOT A MORNING PERSON AND DID NOT LIKE BEING AWAKE EARLY. IV LASIX, ORAL NYSTATIN SWISH AND SPIT, METFORMIN. NO ACCU-CHECKS.
--- NOTE | 2018-03-24 20:00 | NUR ---
RECIEVED REPORT FROM DAY SHIFT NURSE. PT IN BED AT THIS TIME. 4L NC IN PLACE. RESPIRATIONS EQUAL, ACCESSORY MUSCLES USED. CALL LIGHT WITHIN REACH, GINA IN [place]CE. REPORTS NO NEEDS AT THIS TIME.
--- NOTE | 2018-03-24 21:00 | NUR ---
ASSSITED PT UP TO CHAIR. REPORTED FEELING UNCOMFOERTABLE IN BED. SUGESTED SITTING UP FOR A WHILE. PT TRANFERED WELL WITH 2PA AND FWW. CALL LIGHT WITHIN REACH. REPORTS NO OTHER NEEDS AT THIS TIME.
--- NOTE | 2018-03-24 22:00 | NUR ---
PT SHOWED IMPROVED MUSCLES STRENGTH WITH 2P TRANFER. ASSISTED THIS TIME WITH 1PA W/ FEE TO [facility] TO ATTEMT TO HAVE A BOWEL MOVEMENT. PT UNSUCCESSFUL. PT BACK TO BED. CALL LIGHT WITHIN REACH. ENEMA ORDERED.
--- NOTE | 2018-03-25 02:50 | NUR ---
REPOSITONED PT IN BED. PLACE PILLOW UNDER RIGHT SIDE. HOB ELEVATED. 3L OS NC IN PLACE. CALL LIGHT WITHIN REACH.
--- NOTE | 2018-03-25 05:47 | NUR ---
PT SLEPT THROUGHOUT THE NIGHT. NO BM THIS SHIFT. ENEMA ADMINISTERED WITH NO RESULTS. CONSIDER SOAPSUDS. [address]. PT NEEDS SOFT FOODS., CALORIE COUNT, ENCOURAGE PO INTAKE. DAILY WEIGHT. D/C FUENTES WHEN INCREASING ACTIVITY. FLUID RESTRICTION. NO BS CHECKS. NYSTATIN SEEMS TO BE WORING FOR MOUTH. ENCOURAGE ACTIVITY.
--- NOTE | 2018-03-25 07:21 | NUR ---
UNABLE TO START NEW IV AT THIS TIME. WILL HAVE NEXT NURSE ATTEMT AND DC AC IV.
--- NOTE | 2018-03-25 07:29 | NUR ---
PATIENT REPORT RECEIVED FROM MARIAELENA MOOENY AND KIMBERLI RN. ALL QUESTIONS ANSWERED. WEIGHT TODAY IS 137.5LBS. NO BM SINCE 03/18. NO SUCCESS AFTER SUPPOSITORY AND ENEMA.
--- NOTE | 2018-03-25 10:11 | NUR ---
LINENS CHANGED WHILE PATIENT TAKEN TO GET CHEST CT. NEW IV STARTED BY MADALYN MOONEY DIAMOND GRINDER. PATIENT SITTING UP IN BED NOW. BELONGINGS IN REACH. LUNCH ORDER TAKEN BY PINMAKER.
--- NOTE | 2018-03-25 13:33 | NUR ---
pt is resting in bed safely with call light in reach. pt did not eat his lunch but did have some apple sauce and drank some sprite. pt did not need anything else at the moment
--- NOTE | 2018-03-25 17:19 | NUR ---
PT HAS HAD 2 LARGE LOOSE BM SINCE STARTING LACTULOSE. NOTIFIED DR GUERRERO. VERBAL TELEPHONE ORDER TO HOLD LACTULOSE, BUT CONTINUE ON SENNAKOT.
--- NOTE | 2018-03-25 17:56 | NUR ---
pt is sitting up in bed resting safely with call light in reach. pt has not eaten his dinner yet but says he will work on it. pt did not need anything at the moment
--- NOTE | 2018-03-25 18:32 | NUR ---
PT HAD SEVERAL LARGE LOOSE BM THIS SHIFT. PT PARTCIPATED IN PHYSICAL THERAPY. PT NOT EATING, HAS HAD 2 SODAS AND WILL EAT APPLESAUCE WITH MEDS. PT OFFERED ENSURE SHAKES, SOUP, JUICE, MEALS OFTEN. PT DECLINES, STATING HE JUST DOES NOT FEEL LIKE EATING. FUENTES DRAINING CLEAR YELLOW URINE. PT STATES HE IS FEELING BETTER AND IS "BORED". ENCOURAGED PT TO PARTCIPATE IN THERAPY TO REGAIN STRENGTH. PT REFUSED CPAP.
--- NOTE | 2018-03-25 19:00 | NUR ---
SHIFT REPORT RECEIVED. PATIENT RESTING IN BED. DENIES ANY NEEDS AT THIS TIME.
--- NOTE | 2018-03-25 20:30 | NUR ---
EVENING MEDS GIVEN PER ORDER. PATIENT ABLE TO SWALLOW 1-2 PILS AT A TIME IN APPLE SAUCE WITH MILD AMOUNT OF DIFFICULTY. DINNER TRY IS STILL ON PATIENT'S BESIDE TABLE, OFFERED TO REMOVE IT AND PATIENT CLAIMED HE MIGHT STILL EAT IT. MOVED IT CLOSER AND POSITIONED HIM FOR EASY EATING. PATIENT IS AAOX3, TALKATIVE AND APPEARS TO BE IN GOOD SPIRITS AT THIS TIME. O2 SAT 96% ON 3L NC, PATIENT REFUSING TO WEAR CPAP DUE TO CLAUSTROPHOBIA. MD AWARE. HE STATES THAT EVEN THE NC CAN MAKE HIM ANXIOUS AT TIMES. RT ENCOURAGED PATIENT TO ATTEMPT USING HIS IS FREQUENTLY WHILE AWAKE AND PATIENT HAS THIS IN HAND USING IT EVERY FEW MINS WITH GOOD EFFORT. LUNG SOUNDS ARE CLEAR IN UPPER LOBES WITH INCREASED COARSNESS TOWARDS THE BASES. UPPER AIRWAY CONGESTION NOTED, WITH MODERATE AMOUNT OF PETERSON SPUTUM. PATIENT'S ABD IS MILDLY DISTENDED AND SLIGHTLY TENDER, HE FEELS "BLOATED" BUT BETTER SINCE HE HAD A FEW BM TODAY. CMS IS INTACT BUT ALL EXTREMITIES ARE COLD WITH WEAK PULSES. FUENTES IN PLACE, URINE IS CLEAR YELLOW. ENCOURAGED PATIENT TO REPOSITION HIMSELF AND WILL REPOSITION HIM Q2H OR PRN. IN IS SL, DIFFICULTY FLUSHING. REMOVED DRESSING AND WAS ABLE TO FLUSH 10ML NS. REDRESSED WITH LIGHT DRESSING AND WILL FLUSH FREQUENTLY. PATIENT SITTING UP IN BED DRINKING COFFEE. NO OTHER NEEDS AT THIS TIME.
--- NOTE | 2018-03-25 22:00 | NUR ---
PATIENT RESTING WITH EYES CLOSED. BREATHING EVEN AND NONLABORED. CALL LIGHT IN REACH. PATIENT APPEARS TO BE IN DIFFERENT POSITION THAN WHEN PREVIOSULY SEEN HIM. WILL ALLOW HIM TO REST AND ASSESS REPOSITIONING IN 2 HOURS.
--- NOTE | 2018-03-26 02:30 | NUR ---
PATIENT SLEEPING SOUNDLY. RR 22, EVEN AND NONLABORED. FUENTES HAS MINIMAL OUTPUT, WILL CONTINUE TO MONITOR.
--- NOTE | 2018-03-26 03:30 | NUR ---
REPOSITIONED PATIENT. FUENTES FLUSHES WELL BUT CATHETER WILL NOT REPOSITION EASILY. GIFT WRAPPER OPHELIA ASSISTED IN REPOSITIONING THE CATHERTER TO ENSURE PATENCY. URINE OUTPUT ONLY 30MLS. MD CONTACTED. NO NEW ORDERS. POSITIONED PATIENT ONTO HIGH LEFT SIDE. HE REPORTS BEING COMFORTABLE AND DENIES ANY NEEDS. CALL LIGHT IN REACH.
--- NOTE | 2018-03-26 04:39 | NUR ---
PATIENT SLEPT WELL THROUGHOUT THE SHIFT. POOR ORAL INTAKE DESPITE FREQUENT ENCOURAGEMENT WHILE AWAKE. URINE OUTPUT INADEQUATE, MD AWARE. PATINET HAS NOT BEEN OUTPUT BED THIS SHIFT. REPOSITIONED Q2H AND PRN. 3L NC, REFUSED CPAP. ENCOURAGED IS FREQUENTLY. SCHEUDLED NEBS. LUNGS ARE COARSE THROUGHOUT. PRODUCTIVE COUGH.
--- NOTE | 2018-03-26 06:30 | NUR ---
PATIENT'S O2 SAT IN LOW 80'S ON 3L NC. CHAIRMAN AND CHIEF EXECUTIVE OFFICER ALERTED STAFF. RT CALLED. SWITCHED PATIENT TO OXIMASK 4L. O2 SAT 91%. DISCUSSED WITH RT. AGREED TO HYPEROXYGENATE PATIENT AT 5L OXIMASK FOR TRANSFER AND THEN ATTEMPT TO TITRATED BACK TO 3L. CHAIRMAN AND CHIEF EXECUTIVE OFFICER IN ROOM TO ASSIST WITH TRANSFER TO STANDING SCALE AND THEN RECLINER. 2PA W/FWW. WILL CONTINUE TO MONITOR. PATIENT DOES NOT WANT TO ORDER BREAKFAST. DISCUSSED NEED FOR CALORIC INTAKE WITH PATIENT AND INSIST HE ORDER SOMETHING. HE STATES HE WILL "THINK ABOUT WHAT MIGHT SOUND GOOD".
--- NOTE | 2018-03-26 06:45 | NUR ---
VITALS AND I&OS DONE AND CHARTED. DID DAILY WEIGHT. KIARA HICKS AND I GOT HIM INTO HIS CHAIR. GARBAGES EMPTIED. BEDSIDE TABLE AND CALL LIGHT WITHIN REACH.
--- NOTE | 2018-03-26 06:45 | NUR ---
PATIENT UP IN RECLINER. O2 SAT RETURNED TO LOW 90'S ON 5L OXYMASK AT REST. STILL NOT READY TO ORDER BREAKFAST. COFFEE GIVEN PER REQUEST.
--- NOTE | 2018-03-26 07:20 | NUR ---
RECIEVED BEDSIDE REPORT FROM JESICA NAVARRO. PT UP IN CHAIR, WITH O2 IN PLACE AT 5L. PT DESATS WITH MOVEMENT, NOC RT TITRATED O2 UP, WILL HAVE DAY RT TITRATE DOWN. PT STILL NOT EATING, DID AGREE TO HAVE AN ENSURE SHAKE THIS AM. DECREASED URINE OUTPUT OVERNIGHT, MD AWARE. CONTINUES TO LOSE WEIGHT.
--- NOTE | 2018-03-26 08:17 | NUR ---
PATIENT SITTING UP IN CHAIR. NO OTHER NEEDS AT THIS TIME.
--- NOTE | 2018-03-26 08:18 | NUR ---
PT PREPPED FOR SURGERY. PRE PROCEDURE CHECKLIST COMPLETE, CONSENT SIGNED, PRE-OP MEDS GIVEN. WIPE DOWN COMPLETE, JEWLERY REMOVED. GLASSES WILL BE REMOVED PRIOR TO SURGERY. SCD IN PLACE. IV REMOVED FROM PUMP.
--- NOTE | 2018-03-26 09:31 | NUR ---
PT UPSET HE DID NOT GET SUGAR ON HIS TRAY. THEREFORE, HE WAS NOT EATING/DRINKING. SUGAR WAS GIVEN WELL A SODA. PT STATED HE WOULD "WORK ON" THEM.
--- NOTE | 2018-03-26 09:39 | NUR ---
VITALS AND I&Os DONE. FUENTES EMPTIED. CALL LIGHT WITHIN REACH. NO OTHER NEEDS AT THIS TIME.
== END 2018-03-26 10:25 | disposition swing bed (61) | DRG 291 ==
LOC: ED 17:44 → CCU 20:49 → MS 20:49
PROVIDERS: ADMIT Internal Medicine
DX: I50.82 Biventricular heart failure (principal); E43 Unspecified severe protein-calorie malnutrition; B37.0 Candidal stomatitis; J96.11 Chronic respiratory failure with hypoxia; I50.43 Acute on chronic combined systolic (congestive) and diastolic (congestive) heart failure; M62.81 Muscle weakness (generalized); I25.10 Atherosclerotic heart disease of native coronary artery without angina pectoris; J44.9 Chronic obstructive pulmonary disease, unspecified; F17.210 Nicotine dependence, cigarettes, uncomplicated; E11.9 Type 2 diabetes mellitus without complications; K21.9 Gastro-esophageal reflux disease without esophagitis; E78.5 Hyperlipidemia, unspecified; F51.04 Psychophysiologic insomnia; F41.8 Other specified anxiety disorders; F40.00 Agoraphobia, unspecified; N40.1 Benign prostatic hyperplasia with lower urinary tract symptoms; R39.14 Feeling of incomplete bladder emptying; Z68.22 Body mass index [BMI] 22.0-22.9, adult; Z88.5 Allergy status to narcotic agent; Z88.8 Allergy status to other drugs, medicaments and biological substances; Z79.84 Long term (current) use of oral hypoglycemic drugs; Z95.1 Presence of aortocoronary bypass graft; Z79.82 Long term (current) use of aspirin; Z79.51 Long term (current) use of inhaled steroids; Z79.899 Other long term (current) drug therapy
CPT/HCPCS: 36415; 51798; 71046; 71250; 80048; 80053; 82728; 83540; 83735; 83880; 84466; 84484; 85025; 92610; 93005; 93010; 93306; 94640; 94660; 94668; 97110; 97116; 97162; 97166; 99407; J1650; J2405; J3475

== ENCOUNTER 2018-03-26 10:25 | Inpatient (IN) | payer MEDICARE ==
[~2018-03-26] VITALS: Ht 175.3 cm; Wt 217.2 kg
[~2018-03-26 10:25] MED LIST changes: +PREDNISONE20 MG PO
--- NOTE | 2018-03-26 13:19 | NUR ---
FUENTES REMOVED AT 1100AM. PT TOLERATED WELL. SMALL AMT OF URINE IN BAG. PT ENCOURAGED TO DRINK FLUIDS, HAS VERY POOR ORAL INTAKE. NO OUTPUT BY 1300. WILL ENCOURAGE PT TO DRINK JUICE, SHAKES, AND WATER.
--- NOTE | 2018-03-26 14:51 | NUR ---
PATIENT SITTING UP IN BED. CALL LIGHT WITHIN REACH. NO OTHER NEEDS AT THIS TIME
--- NOTE | 2018-03-26 15:37 | NUR ---
THIS SHANK MAKER ASSISTED PATIENT FROM THE BED TO THE BEDSIDE COMMODE. 1PA STAND AND PIVOT. PATIENT NOW SITTING UP IN BED. PATIENT STATES THAT HE FEELS SHORT OF BREATH. RN NOTIFIED AND INCREASED O2 FROM 3L TO 4L PER RN. RN IN ROOM. CALL LIGHT WITHIN REACH. NO OTHER NEEDS AT THIS TIME.
--- NOTE | 2018-03-26 17:38 | NUR ---
PT CHANGED TO SWING BED THIS SHIFT. CONTINUES TO HAVE MINIMAL PO INTAKE OF FOOD AND LIQUID. DISCUSSED WITH PT, HE IS PICKY ABOUT FOODS HE WILL EAT- ONLY CERTAIN BRANDS OF CERTAIN FOODS. FUENTES D/C'D. URINE OUTPUT QS, BUT ON THE LOW END. FREQUENT SMALL VOIDS. NO BM THIS SHIFT. SBA TO BSC, OTHERWISE 1-2 PERSON ASSIST. O2 AT 3L VIA NC. RT RECOMMENDS CPAP, PT REFUSES. ENCOURAGE IS USE, UP TO 750 AND HOLD 5 SEC.
--- NOTE | 2018-03-26 18:52 | NUR ---
THIS IRRADIATED FUEL HANDLER ASSISTED PATIENT FROM BED TO BEDSIDE COMMODE. 1PA STAND AND PIVOT. CALL LIGHT WITHIN REACH.
--- NOTE | 2018-03-26 19:00 | NUR ---
BEDSIDE REPORT RECEIVED FROM JESICA SOMERS. PT AWAKE, DROWSY, SITTING UP IN BED, DRINKING PROTEIN SHAKE AT THIS TIME. PT DENIES DIZZINESS, CURRENTLY ON 5L OXYGEN BY PR. IV SALINE LOCKED. PT HAS NO REQUESTS AT THIS TIME. CALL LIGHT IN REACH.
--- NOTE | 2018-03-26 20:22 | NUR ---
PT UNABLE TO VOID, BLADDER SCANNED FOR 999 CC, PT C/O PAIN IN LOWER ABD. MD NOTIFIED, TELEPHONE ORDER TO PLACE FUENTES CATHETER, ORDER REPEATED BACK.
--- NOTE | 2018-03-26 21:20 | NUR ---
PT ASSESSMENT AND CHILD CARE SUPERVISOR COMPLETE WITH APPLESAUCE. PT COUGHING, PRODUCTIVE, YELLOW THICK SPUTUM. LUNGS COARSE IN RUL, PT ENCOURAGED TO DRINK WATER, TAKING DRINKS AT THIS TIME. PT ON 3.5 L OXYGEN AT THIS TIME. BOWEL TONES ACTIVE X 4, PT HAD BM AT START OF SHIFT, SENNA HELD. CSM INTACT BUE, BLE, NO EDEMA NOTED, EXTREMTIES COLD TO TOUCH. FUENTES CATHETER DRAINING. PT ASSISTED TO REPOSITION IN BED, COMMUNITY HEALTH COUNSELOR MADISON ASSIST. CALL LIGHT IN REACH. LIGHTS OFF IN ROOM.
--- NOTE | 2018-03-26 21:35 | NUR ---
FUENTES CATHETER INSERTED WNL, PT TOLERATED WELL. FUENTES EMPTIED 900 ML URINE OUTPUT, YELLOW. HANSARD REPORTER JANUARY AND RT ARCELIA IN ROOM AT THIS TIME. WILL CONTINUE TO MONITOR.
--- NOTE | 2018-03-27 00:10 | NUR ---
PT APPEARS TO BE SLEEPING, EYES CLOSED, BREATHING NON-LABORED AT THIS TIME, RR 18. LIGHTS OFF IN ROOM.
--- NOTE | 2018-03-27 02:51 | NUR ---
CHECKED ON PT, APPEARS TO BE SLEEPING, EYES CLOSED, RR 16, BREATHING NON-LABORED.
--- NOTE | 2018-03-27 06:03 | NUR ---
PT AWAKENS TO VOICE, STANDING WEIGHT 131.4. PT WEAK, SOB WITH STANDING. SPO2 85%, INCREASED TO 5L OXYGEN BY NC, RT ARCELIA PHONED, TO DELIVER BREATHING TREATMENT. PT USING IS AT THIS TIME, 500 ML BEST EFFORT. BREATHING LABORED. COMMERCIAL CRABBER JANUARY IN ROOM TO EMPTY FUENTES.
--- NOTE | 2018-03-27 06:08 | NUR ---
I&OS AND DAILY WEIGHT DONE AND CHARTED. EMPTIED GARBAGES AND CLEANED UP ROOM. WITH THE HELP OF JESICA HARRIS WE ADJUSTED HIM IN BED. BEDSIDE TABLE AND CALL LIGHT WITHIN REACH.
--- NOTE | 2018-03-27 06:14 | NUR ---
FUENTES CATHETER INSERTED THIS SHIFT. PT SATURATING WNL ON 3.5 L OXYGEN, INCREASED TO 4L IN MORNING HOURS AFTER EXERTION FOR STANDING WEIGHT. STANDING WEIGHT 131.4. MINIMAL ORAL INTAKE, INTAKE ENCOURAGED THROUGHOUT SHIFT. INCENTIVE SPIROMETER USE TOLERATED. IV SALINE LOCKED. BM THIS SHIFT.
--- NOTE | 2018-03-27 08:28 | NUR ---
MORNING ASESSMENT AND MEDICATIONS DUE. THIS RN TO BEDSIDE. PT AWAKENS TO VOICE. PT REQUESTS A ROOT BEER, DIETARY CALLED. CHOCOLATE ENSURE WITH ICE CREAM PROVIDED. PT ENCOUARGED TO EAT AND DRINK FLUIDS. ASSESSMENT DONE. COURSE LUNG SOUNDS NOTED. PT REMAINS ON 4L O2, NC. ABRASIONS TO LEFT CAR HEALING. PT REPOSITIONED IN BED. MEDICATION GIVEN (SEE MAR). SENNA HELD R/T LOOSE X2 LAST NIGHT. PT EATING BREAKFAST. BED RAILSUP. CALL LIGTH WITHIN REACH.
--- NOTE | 2018-03-27 08:38 | NUR ---
PT AWAKE IN BED. REPOSIONED. TOOK VITALS FOR NURSE VALDEZ. SET UP FOR BRK. WARM WASH CLOTH FOR FACE. PT HAS CALL LIGHT IN REACH
--- NOTE | 2018-03-27 12:31 | NUR ---
THIS RN TO ROOM TO CHECK ON PT. PT UP IN CHAIR AND REFUSING ALL FOOD, STATES "JUST TAKE IT AWAY, I DONT WANT ANYTHING." PT OFFERED ALTERNATIVES, REFUSES ALL EXCEPT REGULAR ROOT BEER. REGULAR ROOT BEER PROVIDED REQUESTED. PT REPORTING NAUSEA AND STATES "THE ROOT BEER IS WHAT HELPS." PT AGREEABLE TO TAKEING ZOFRAN WELL, GIVEN WITH APPLE SAUCE. PT BACK TO BED. BED RAILS UP. CALL LIGHT WITHIN REACH. PT REMAINS ON 2L O2 BY NC. PT STATES HE HAS NO ADDITIONAL REQUESTS OR COMPLAINTS AT THIS TIME AND WANTS "TO REST."
--- NOTE | 2018-03-27 12:43 | NUR ---
PT SITTING IN CHAIR, WITH LUNCH IN FRONT OF HIM. VERY LITTLE RESPONSE, HE DID ACKNOWLEDGE BY PRESENCE. I ASKED HIM IF HE WAS TIRED, HE SHOOK HIS HEAD "YES". HE HAD NOT YET STARTED EATING, AND LOOK IF HE HAD NEITHER THE ENERGY NOR THE DESIRE TO EAT. PT KNEW WHO I WAS FROM PREVIOUS VISITS, AND SAID P.T. WAS COMING BAACK SOON. WILL FOLLOW NEEDED
--- NOTE | 2018-03-27 12:44 | NUR ---
PUT PT BACK IN BED. PT STATED HE IS NOT WANTING ANYTHING TO EAT. PT STATED HE DON'T LIKE IT. ASKED HIM IF THERE IS ANYTHING I CAN GET HIM THAT HE WOULD LIKE. HE SAID REGULAR ROOTBEER.
--- NOTE | 2018-03-27 14:22 | NUR ---
PHYSICAL THERAPIST AT BEDSIDE WITH PT. CALLS THIS RN TO BEDSIDE FOR PAIN MEDICATION. PT REPORTS 9/ "CRAMPING" PAIN IN RIGHT SIDE. O2 SATURATION REMAINS AT 92% ON 4L NC. PT ENCOURAGED TO STRETCH HIS SIDE AND TRY STANDING UP WITH PT. PT REFUSES TO STAND STATING "IT HURTS SO MUCH." NOTIFIED OF NEW PAIN. TYLENOL GIVEN. PT BACK TO BED. BED RAILS UP. CALL LIGHT WITHIN REACH.
--- NOTE | 2018-03-27 14:23 | NUR ---
vitals and i and o done
--- NOTE | 2018-03-27 14:58 | NUR ---
MD AT BEDSIDE FOR EVALUATION. MD STATES TO GIVE ASPERCREME AT THIS TIME. GIVEN ORDRED (SEE MAR). BAR CODE WILL NOT SCAN. PHARAMCY CALLED. PT ENCOURAGED TO DRINK FLUIDS. BED RAILS UP. CALL LIGHT WITHIN REACH.
--- NOTE | 2018-03-27 15:49 | NUR ---
THIS RN TO ROOM TO CHECK ON PT. PT REPRTS / PAIN THAT IS "BETTER." PT CONTINUES TO DRINK ROOT BEER. PT ENCORUAGED TO DRINK FLUIDS. CUP FILLED WITH ICE (TO INCREASE PTS WATER INTAKE) FOR PTS ROOT BEER. PT STATES HE HAS NO ADDITIONAL REQUESTS OR COMPLAINTS AT THIS TIME. CALL LIGHT WITHIN REACH. BED RAILS UP.
--- NOTE | 2018-03-27 15:50 | NUR ---
PT IS DOING WELL GAVE HIM FULL CUP OF ICE AND A ROOTBEER. PT SAID HIS PAIN IS AT A 4 BUT DOING BETTER. LET NURSE JOSÉ MIGUEL KNOW.
--- NOTE | 2018-03-27 17:32 | NUR ---
MEDICATION DUE. THIS RN TO BEDSIDE. PT FINISHING WITH BREATHING TREATMENT. BREATHING TREATMENT REMOVED. 4L O2 NC REPLACED TO PTS FACE. PT REPORTS THAT THE PAIN IS "MUCH BETTER" NOW AT 12/03. FLUIDS ENCORUAGED. MEDICAITONS GIVEN (SEE MAR). PT WATCHING TV. NO REQUESTS OR COMPLAINTS AT THIS TIME. BED RAILS UP. CALL LIGHT WITHIN REACH.
--- NOTE | 2018-03-27 18:03 | NUR ---
PT HERE, SWING BED, FOR DECONDITIONING R/T HF EXACERBATION. PT RECEIVING SCHEDULED NEBS. PT ON 4L O2 NC, CHRONICALLY ON 3LNC O2. ADA DIET, ENCOURAGE INTAKE, ENSURE AT BEDSIDE, VERY MINIMAL INTAKE TODAY. FUENTES PLACED LAST NIGHT FOR INABILITY TO VOID. STRAINED MUSCLE TODAY IN ABDOMEN, ASPERCREME APPLIED, TYLENOL GIVEN. PT HAS DIFFICULTY SWALLOWING, SPEECH THERAPIST AT BEDSIDE TODAY. MEDICATIONS GIVEN WITH APPLE SAUCE. NYSTATIN FOR ORAL CANDIASIS. DAILY WEIGHT. 1500ML FLUID RESTRICTION. CALORIE COUNT. PHYSICAL THERAPY WORKING WITH PT TODAY. PT USING CALL LIGHT APPROPRIATLY.
--- NOTE | 2018-03-27 19:15 | NUR ---
BEDSIDE REPORT RECEIVED FROM JESICA VALDEZ. PT AWAKE, LYING IN BED, HOB ELEVATED. ENSURE DRINKS AT BEDSIDE. PT ABLE TO DRINK 100% ROOTBEER. ENCOURAGED TO DRINK ENSURES, EDUCATION PROVIDED. PT RATES PAIN 1/10 AT THIS TIME. PT ON 4L OXYGEN BY NC. IV SALINE LOCKED. CALL LIGHT IN REACH.
--- NOTE | 2018-03-27 21:46 | NUR ---
PT ASSESSMENT COMPLETE. LUNGS COARSE BILATERALLY UPPER LOBES. PT ON 4L OXYGEN BY NC. IV SALINE LOCKED. BOWEL TONES ACTIVE X 4, ABD SOFT, SOME TENDERNESS NOTED LOWER ABDOMEN. HR IRREGULAR. NO EDEMA NOTED. FUENTES CATHETER CARE COMPLETED BY RN. 1PA WITH FWW TO BSC FOR BM, CALL LIGHT IN REACH.
--- NOTE | 2018-03-27 22:28 | NUR ---
PT IN BED, HOB ELEVATED, APPEARS TO BE SLEEPING, EYES CLOSED, BREATHING NON-LABORED ON 4L OXYGEN BY NC. LIGHTS OFF IN ROOM.
--- NOTE | 2018-03-28 01:28 | NUR ---
CHECKED ON PT, APPEARS TO BE SLEEPING, EYES CLOSED, RR 18, 4L OXYGEN BY NC ON. LIGHTS OFF IN ROOM.
--- NOTE | 2018-03-28 03:30 | NUR ---
CHECKED ON PT, APPEARS TO BE SLEEPING, BREATHING NON-LABORED, EYES CLOSED, 4L OXYGEN BY NC ON.
--- NOTE | 2018-03-28 05:42 | NUR ---
MINIMAL ORAL INTAKE THIS SHIFT, PT ABLE TO DRINK 100% OF ENSURE FROM DINNER. ON 4L OXYGEN BY NC, SATURATIONS WNL. SCHEDULED NEB TREATMENTS. PAIN CONTROLLED THIS SHIFT WITH REPOSITIONING, NO PRN PAIN MEDICATION ADMINISTERED. IV SALINE LOCKED. 1PA WITH FWW. FUENTES CATHETER DRAINING. PO MEDICATION ADMINISTRATION WITH APPLESAUCE.
--- NOTE | 2018-03-28 08:43 | NUR ---
PT IN BED, HOB ELEVATED. PT HAS CONGESTED COUGH. IS ON 4L O2 VIA NC. PT DENIES PAIN. PERSONAL SUPPLIES AND CALL LIGHT IN REACH. PT REFUSED TO ORDER BREAKFAST. DID AGREE TO TRY TO DRINK A CHOCOLATE GLUCERNA. ENCOURAGED PT TO DRINK FLUIDS, UP TO HIS 1500 ML IN 24 HOUR ALLOWED AMOUNT. PT AGREED TO ATTEMPT TO DRINK FLUIDS. HAS WATER AT BEDSIDE.
--- NOTE | 2018-03-28 09:08 | NUR ---
MED REC COMPLETE
--- NOTE | 2018-03-28 09:17 | NUR ---
NOTIFIED DR. GUERRERO THAT PT HAD A LOW BP THIS AM, 90/53, PULSE 90, MANUAL BP. DR. GUERRERO ASKED THAT PT'S BP BE RECHECKED IN APROXIMATELY 1 HOUR, AND TO HOLD COREG AND LISINOPRIL UNTIL THEN, THEN GIVE DEPENDANT ON BP. DR. GUERRERO GAVE ORDER TO CHECK ORTHOSTATIC BLOOD PRESSURES, AND IF PT IS ORTHOSTATIC, THEN TORSEMIDE DOSE MAY NEED ADJUSTED.
--- NOTE | 2018-03-28 09:55 | NUR ---
PT IN PHYSICAL THERAPY ROOM WITH LAKISHA PELLETIER. PARTICIPATING IN THERAPY ACTIVITIES. PER LIYAH, PT'S OXYGEN SATURATION LEVEL ON 4L WITH ACTIVITY WAS 90%, AND ONCE PT RESTED, SATURATION LEVEL 96%.
--- NOTE | 2018-03-28 10:26 | NUR ---
NOTIFIED DR. GUERRERO THAT PT HAS ONLY HAD 70 ML URINE OUT. ALSO NOTIFIED HIM OF ORTHOSTATIC VS. RECIEVED VORB TO HOLD HIS AM TORSEMIDE, LISINOPRIL, AND COREG.
--- NOTE | 2018-03-28 10:38 | NUR ---
DR. GUERRERO JUST CHANGED HIS DIET TO REGULAR. CHOCOLATE GLUCERNA WAS BROUGHT UP TO PATIENT BUT HE DOES NOT LIKE GLUCERNA. HE WANTS CHOCOLATE ENSURE BLENDED WITH ICE CREAM. THIS IS ABOUT ALL THAT PATIENT WILL EAT HERE. CONTINUE TO ENCOURAGE TRYING MORE FOOD ITEMS OR HAVE HIS BRING IN FOOD THAT HE WILL EAT. HE NEEDS APPROXIMATELY 2250 CALORIES EVERDAY.
--- NOTE | 2018-03-28 11:45 | NUR ---
PT DRANK 50% OF A CHOCOLATE ENSURE, WITH NO ICE CREAM ADDED. THIS IS ALL HE CONSUMED ASIDE FROM WATER THIS AM. PT HAS CHOCOLATE ENSURE MIXED WITH ICE CREAM IN 2 CUPS AT BEDSIDE FOR LUNCH, ENCOURAGED PT TO DRINK THESE. PT HAS PERSONAL SUPPLIES AND CALL LIGHT IN REACH, DENIES PAIN.
--- NOTE | 2018-03-28 12:26 | NUR ---
PT WORKING WITH RT, USED ACAPELLA, DID DEEP BREATHING AND COUGHING, AND WAS ABLE TO COUGH UP A MODERATE AMOUNT OF THICK SPUTUM. PT NOW USING INSENTIVE SPIROMETER. SATURATION LEVEL 96%. PT REMAINS ON 4L O2 VIA NC. PT'S PERSONAL SUPPLIES AND CALL LIGHT IN REACH. PT DENIES NEEDS. REPOSITIONED, WITH PILLOW UNDER LEFT HIP.
--- NOTE | 2018-03-28 13:18 | NUR ---
PT SITTING IN BED, RM YAIMA, PT GIVES THE FEELING OF THE FACT THAT HE IS DEALING WITH DEPRESSION-DEEPER THAN JUST THE MEDICAL ISSUE. PT ADMITTED TO BEING UNDER PSYCHIATRIC CARE, AND SAID HE WAS ON MEDS FOR SUCH. HE SAID HE FEELS THAT "EVERYONE NIT-PICS" AT HIM HERE. HE STATED HE WANTS TO GO, PT SEEMS VERY UNHAPPY AND UNSETTLED WITH HIS PRESENT CONDITION. PT DID REQUEST PRAYER, WILL CONTINUE TO FOLLOW NEEDED
--- NOTE | 2018-03-28 14:40 | NUR ---
PT SITTING UP IN BED, REQUESTED ASSISTANCE LAYING DOWN. PT LAY HIMSELF DOWN, TURNED SELF FOR PILLOWS TO BE PLACED UNDER EACH HIP. PERSONAL SUPPLIES AND CALL LIGHT IN REACH. PT DENIED NEEDS. PT DRANK 100% OF CHOCOLATE ENSURE WITH ICE CREAM MIXED IN.
--- NOTE | 2018-03-28 16:36 | NUR ---
PATIENT'S WAS VISITING SO I STOPPED BY AROUND 3:55 PM TO SEE HOW HE WAS DOING AND IF HE ATE ANY FOOD TODAY. HE ONLY DRANK A CHOCOLATE ENSURE SHAKE WITH ICE CREAM. PATIENT NOT INTERESTED IN ANYTHING ON OUR MENU. "IT ALL TASTES LIKE CRAP." BROUGHT IN SALT PACKETS TO HELP FLAVOR FOOD. I ASKED PATIENT IF THERE WAS SOMETHING THAT SOUNDS GOOD THAT IS NOT ON OUR MENU AND HE SAID "NO." MENTIONED HE NEEDS TO EAT SO HE CAN GET STRONGER AND COME HOME. PATIENT WAS ANGRY AND YELLED "THERE IS NOTHING ON THAT F---ING MENU THAT I WANT!" GOT UP AND LEFT WITHOUT FURTHER CONVERSATION.
--- NOTE | 2018-03-28 17:24 | NUR ---
PT WORKED WITH PHYSICAL THERAPY THIS SHIFT. REMAINS ON 4L O2 VIA NC. LUNGS COARSE ON RIGHT UPPER AND LOWER LOBES, DIMINISHED TO COARSE IN LEFT UPPER AND LOWER LOBES. PT HAD MODERATE AMOUNT THICK GREEN SPUTUM EXPECTORATED WHEN ENCOURAGED TO DEEP BREATH AND COUGH. PT USED INSENTIVE SPIROMETER AND ACAPELLA INDEPENDANTLY AND WITH PROMPTING. PT UP WITH FWW WITH 1 PERSON ASSIST. PT AMBULATED IN HALLS WITH PHYSICAL THERAPY, AND WORKED IN THERAPY ROOM WITH THERAPIST. PT REPORTS THAT HE WENT UP AND DOWN STAIRS IN THERAPY ROOM. PT CONTINUES TO HAVE A VERY POOR APETITE, WOULD ONLY DRINK CHOCOLATE ENSURE, HAD 1/2 A CHOCOLATE ENSURE AT BREAKFAST, HAD 100% OF A CHOCOLATE ENSURE WITH ICE CREAM BLENDED IN FOR LUNCH, AND IS DRINKING THE SAME FOR DINNER. ENCOURAGED PT TO DRINK MORE FLUIDS, HIS URINE OUTPUT HAS BEEN POOR, AND HIS BLOOD PRESSURE HAS BEEN LOW, ESPECIALLY THIS AM. DR. GUERRERO AWARE OF LOW URINE OUTPUT AND HYPOTENSION. PT SIPPING ON WATER, BUT HAS NOT DRANK MUCH WATER THUS FAR THIS SHIFT.
--- NOTE | 2018-03-28 18:18 | NUR ---
NOTIFIED DR. GUERRERO THAT PT HAS HAD A TOTAL OF 120 CC URINE OUT THIS SHIFT. DR. GUERRERO VERBALIZED UNDERSTANDING. NO NEW ORDERS AT THIS TIME.
--- NOTE | 2018-03-28 19:15 | NUR ---
BEDSIDE REPORT RECEIVED FROM JESICA SHETTY. PT LYING IN BED, HOB ELEVATED. PT ON 4L OXYGEN BY RYAN. PT GIVEN ICE WATER, DR. CARABALLO, AND LILLIE REYNOLDS REQUESTED. CALL LIGHT IN REACH.
--- NOTE | 2018-03-28 21:40 | NUR ---
IN PT ROOM FOR ASSESSMENT AND MEDICATION ADMINISTRATION. DISCUSSED PT'S DAY, PT VERBALIZED FRUSTRATIONS. EDUCATION PROVIDED REGARDING SWING BED PROGRAM AND MD ROUNDING WEEKLY, PT VERBALIZES UNDERSTANDING, AGREEABLE WITH PLAN OF CARE. PT ON 4L OXYGEN BY RYAN. WHEEZES HEARD IN LEFT UPPER LOBE, DIMINISHED IN BASES BILATERALLY. HR IRREGULAR. BOWEL TONES HYPOACTIVE X 4. DISTRICT MANAGER PRIMARY CARE SALES WITH APPLE SAUCE, SMALL AMT EMESIS AFTER PILL INGESTION, BROWN LIQUID. NO MEDICATION NOTED IN EMESIS. PRN TYLENOL ADMINISTERED FOR 3/10 REPORTED ABD PAIN "SORE". PT HAS CALL LIGHT IN REACH, FLUIDS ALSO IN REACH, EDUCATION PROVIDED. NO ADDL REQUESTS.
--- NOTE | 2018-03-28 23:55 | NUR ---
CHECKED ON PT, PT COUGHING, SMALL AMT BROWN EMESIS IN BAG, GIVEN NEW EMESIS BAG. PT STATES "TRYING TO GET PHLEGM OUT OF MY THROAT". PT GIVEN ICE WATER, ENCOURAGED TO DRINK WATER. CALL LIGHT IN REACH, NO REQUESTS AT THIS TIME.
--- NOTE | 2018-03-29 00:15 | NUR ---
CHECKED ON PT, NO COUGHING AT THIS TIME, DENIES NAUSEA. HOB ELEVATED, BREATHING NON-LABORED. PT RATES PAIN 3/10 IN ABDOMEN "SORE FROM COUGHING". REFUSES PRN PAIN MEDICATION, ASPERCREME. PT REPOSITIONED SELF AT THIS TIME. CALL LIGHT IN REACH.
--- NOTE | 2018-03-29 01:26 | NUR ---
ASSISTED PATIENT TO USE BED SIDE COMMODE AND BACK TO BED. PATIENT HAD A MEDIUM SOFT BOWEL MOVEMENT. CALL LIGHT WITHIN REACH.
--- NOTE | 2018-03-29 01:29 | NUR ---
PATIENT CALLED AND WANT TO BE REPOSITIONED.
--- NOTE | 2018-03-29 01:50 | NUR ---
CHECKED ON PT, APPEARS TO BE SLEEPING, EYES CLOSED, HOB ELEVATED, 4L OXYGEN BY NC ON. BREATHING IS NON-LABORED, EQUAL CHEST RISE BILATERALLY.
--- NOTE | 2018-03-29 04:35 | NUR ---
CHECKED ON PT, APPEARS TO BE SLEEPING, EYES CLOSED, BREATHING NON-LABORED, CALL LIGHT ON LAP. 4L OXYGEN BY NC ON.
--- NOTE | 2018-03-29 06:28 | NUR ---
PT ABLE TO FINISH 100% DINNER ENSURE SHAKE. ORAL FLUIDS ENCOURAGED THROUGHOUT SHIFT, 1500 ML FLUID RESTRICTION, REG DIET. PT ON 4L OXYGEN THROUGHOUT SHIFT, EXP. WHEEZES HEARD BILATERALLY UPPER LOBES, DIMINISHED IN BASES. FUENTES CATHETER DRAINING OLIGURIA. STANDING WEIGHT 132 LBS, INCREASE FROM 131.3 PREVIOUS SHIFT. BM THIS SHIFT.
--- NOTE | 2018-03-29 07:01 | NUR ---
PHONE CALL TO MD, NOTIFIED OF BP AND URINE OUTPUT OVER SHIFT, NO NEW ORDERS.
--- NOTE | 2018-03-29 08:30 | NUR ---
JAMISON SAT ON EDGE OF BED FOR BREAKFAST. PATIENT TOOK ALL OF MEDICATION WITH APPLE SAUCE. ENSURE SHAKE IN ROOM. PATIENT STATING HE WILL WORK ON BREAKFAST.
--- NOTE | 2018-03-29 09:37 | NUR ---
ASSISTED PATIENT BACK TO BED FROM DANGLING AT BEDSIDE. TWO PILLOWS, ONE ON EACH FLANK BEHIND BACK, TWO BEHIND HEAD, AND TWO UNDER KNEES.
--- NOTE | 2018-03-29 10:43 | NUR ---
PATIENT RESTING IN BED. ASSISTED BACK TO BED BY NURSING STAFF.
--- NOTE | 2018-03-29 11:24 | NUR ---
OT IN ROOM. PATIENT DID ADLS. ASSISTED BACK TO BED FROM BSC.
--- NOTE | 2018-03-29 12:45 | NUR ---
patient sitting up in bed. tolerating ensure shakes. patient has tolerated 1 glass of ensure and bites of apple sauce.
--- NOTE | 2018-03-29 13:51 | NUR ---
TALKED WITH THE PT THIS AFTERNOON AFTER TALKING WITH OT. SHE RECOMMENDED A FWW AND BSC FOR THE PT. I IN TURN TALKED WITH THE PT AND INFORMED HIM THAT I BELIEVED MEDICARE WILL COVER THE COST OF A FWW BUT DUE TO HIS ABILITY TO MOVE AROUND THEY MAY NOT PAY FOR A BEDSIDE COMMODE. I FAXED CHART NOTES WITH ORDER TO IN [facility] FOR A FWW. GAVE THE NAME OF [facility] TO PT FOR LOANER COMMODE OR LOWER RENT COMMODE PT IS WORRIED ABOUT MONEY.
--- NOTE | 2018-03-29 14:21 | NUR ---
patient sitting up in bed. given scheduled medication given. patient requesting prn tylenol for abd pain. patient stating he just wanted to rest before he works with pt at 1500.
--- NOTE | 2018-03-29 14:40 | NUR ---
PT SITTING UP IN BED, ALERT AND ORIENTED. HE ALMOST SMILED TODAY, AND SAID TODAY IS A MUCH BETTER DAY. HE FEELS STAFF HAVE NOT BEEN IN WITH HIM SO MUCH TODAY. THANKED ME FOR STOPPING BY. WILL FOLLOW NEEDED
--- NOTE | 2018-03-29 14:55 | NUR ---
PATIENT ASSISTED TO THE BR. PATIENT TOLERATED ACTIVITY WELL WITH A STBY ASSIT AND WALKER. PATEINT STATING ABD PAIN SLIGHTLY BETTER WITH TYLENOL.
--- NOTE | 2018-03-29 15:18 | NUR ---
PATIENT WORKING WITH PT.
--- NOTE | 2018-03-29 16:31 | NUR ---
PATIENTS IN ROOM. CALLED FOR SWETA TO TALK WITH PATEINT AND ABOUT WALKER. PATIENTS BROUGHT IN HAMBURGER PER PATIENTS REQUEST TO EAT. ENCOURAGE SMALL BITES... AND SLOW.
--- NOTE | 2018-03-29 18:00 | NUR ---
VITALS DONE. I AND O COMPLETE. PATEINT STATING MILD PAIN FROM COUGHING IN ABD. ASPERCREAM AND TYLENOL GIVEN. PATEINT TAKING ABOUT FAMILY. TALKED WITH SWETA PLANNING ON DISCHARGING HOME WITH ON TUESDAY.
--- NOTE | 2018-03-29 18:14 | NUR ---
PATIENT DID WELL TODAY. MEETING GOALS FOR OT AND PT. PLAN TO DISCHARGE PATIENT ON TUESDAY TO HOME WITH . OT OUTPATIENT WILL FOLLOW AT DISCHARGE TO ASSIST AT HOME. PATIENT CONTINUES TO BE AT 3 L PER NC. TOLERATING WELL. PATIENT BEING ENCOURAGED TO DRINK AND EAT THROUGHOUT THE DAY. OFFER ENSURE.
--- NOTE | 2018-03-29 18:28 | NUR ---
UPDATED DR. WITT ON LOW URINE OUTPUT PER 4 HRS. NO NEW ORDERS AT THIS TIME.
--- NOTE | 2018-03-29 21:59 | NUR ---
PTS I&OS DONE AND CHARTED. I INFORMED HIS RN ANJEL OF SMALL AMOUNT IN HIS FUENTES. BEDSIDE TABLE AND CALL LIGHT WITHIN REACH.
--- NOTE | 2018-03-29 22:11 | NUR ---
PATIENT'S URINE OUTPUT HAS ONLY BEEN 50MLS OVER THE LAST 4 HOURS. CALLED AND INFORMED HER. ORDERS TO OBSERVE FOR NOW GIVEN AND TO ENCOURAGE PO FLUID INTAKE.
--- NOTE | 2018-03-29 22:30 | NUR ---
PATIENT JUST UP TO THE BEDSIDE COMMODE. PATIENT ONLY HAVING GAS NO BM. PATIENT BACK TO BED FOR THE NIGHT AND PILLOWS POSITIONED TO TAKETHE PRESSURE OF THE TAILBONE. PATIENT IN NO DISCOMFORT AT THIS TIME. CALL LIGHT IN REACH.
--- NOTE | 2018-03-30 00:32 | NUR ---
PATIENT RESTING QUIETLY SITTING POSITIONED UP IN BED. RESPIRATIONS REGULAR, BUT SHALLOW. EYES CLOSED. CALL LIGHT IN REACH.
--- NOTE | 2018-03-30 02:44 | NUR ---
CALLED FOR DECREASED URINE OUTPUT OF 10MLS OVER THE LAST 4.5 HOURS. ORDERS GIVEN FOR 250ML NS BOLUS IV X1.
--- NOTE | 2018-03-30 06:40 | NUR ---
PATIENT CONTINUES TO HAVE POOR PO FLUID INTAKE. URINE OUTPUT HAS PICKED UP TO 150MLS OVER THE LAST 4 HOURS, BUT CONTINUES TO REMAIN DECREASED EVEN WITH THE 250ML NS IV BOLUS ORDERED BY ABOUT 0245 THIS AM. PATIENT'S WEIGHT IS UP 0.5LBS THIS AM FROM YESTERDAY. LUNGS CLEAR WITH DEMINISHED BASES THIS AM. IV REMAINS PATENT AND FLUSHES WELL. PATIENT UP TO THE BEDSIDE COMMODE X2 WITH ATTEMPT TO HAVE A BM WITHOUT RESULTS. NOTHING ELSE TO REPORT AT THIS TIME.
--- NOTE | 2018-03-30 07:57 | NUR ---
patient sitting up in bed. ensures x 2 ordered. patient getting neb treatment. request for more grape juice. encouraged more fluids at this time. updated on plan of care for the day. plan for ot/ pt to work with patient. patient stating no other needs at this time.
--- NOTE | 2018-03-30 09:49 | NUR ---
WHILE PATIENT IS AT PHYSICAL THERAPY I CHANGED THE BED LINENS. NOW HE IS BACK FROM PHYSICAL THERAPY. HE IS NOW SITTING ON THE BSC.
--- NOTE | 2018-03-30 10:14 | NUR ---
NOTIFIED PROVIDER OF LOW URINE OUTPUT AND LOW BP. NO ORDERS WRITTEN, CONTINUE TO ENCOURAGE FLUIDS.
--- NOTE | 2018-03-30 11:17 | NUR ---
PATIENT RESTING IN BED. ENCOURAGED TO DRINK MORE OF FLUIDS THAT ARE AT BEDSIDE. PATIENT AGREED. WORKING ON CHOCOLATE ENSURE.
--- NOTE | 2018-03-30 11:24 | NUR ---
PATIENT WAS UP W/WALKER TO THE BATHROOM. PATIENT SAT ON THE EDGE OF THE BED THE IV WAS TAKEN OUT. PATIENT IS PREPARING FOR DISCHARGE. IS IN THE ROOM AND PATIENT IS AWAITING A MEETING FROM PHARMACY. PATIENT RECIEVED DISCHARGE TEACHING AND IV WAS TAKEN OUT PER PROTOCOL. PATIENT IS SITTING ON THE EDGE OF THE BED WITH THE CALL LIGHT IN REACH. PATIENT IS READY TO GO HOME BUT HAS NO OTHER REQUESTS AT THIS TIME.
--- NOTE | 2018-03-30 12:32 | NUR ---
QUITE A POSITIVE CHANGE IN PT'S ATTUTUDE. BEFORE, PEOPLE WERE PICKING ON HIM, AND NOW HE SEES THE HELP HE HAS RECEIVED. PT ALSO SAID THAT WHAT HE WAS EXPERIENCING IS DUE TO HIS DIAGNOSIS. BEING IN WHAT PT REFERRED TO CONFINED SPACE GIVES HIM PROBLEMS. HIS BREATHING IS IMPROVED, DOWN TO 2 LTRS NC O2, AND RATHER PLEASANT TO VISIT WITH. EXTENDED A BLESSING, WILL FOLLOW NEEDED
--- NOTE | 2018-03-30 14:11 | NUR ---
PT AT BEDSIDE WITH SWING BED CONFERENCE. DISCUSSED ADEQUATE NUTRITION AND FLUID INTAKE, WELL STRATEGIES FOR COCCYX. PT HAS BEEN DRINKING INCREASED FLUIDS AND PT REPORTS HE HAS EATEN ONE BANANA. OUTPUT IMPROVING. PT PARTICIPATED IN CARE CONFERENCE AND DEMONSTRATED UNDERSTANDING.
--- NOTE | 2018-03-30 15:15 | NUR ---
ANSWERED PATIENT CALL LIGHT. HE WAS DONE ON THE BSC WIPED HIM. HELPED HIM BACK TO BED PATIENT WANTED A PILLOW UNDER HIS LEGS. ONE PILLOW UNDER EACH HIP AND THE OTHER TWO ON EACH OF THE SIDE OF HIS SHOULDERS AND ONE UNDER HIS HEAD. PATIENT ALSO REFUSED A BEDBATH HE SAID HE WAS TO TIRED TODAY.
--- NOTE | 2018-03-30 15:24 | NUR ---
FAXED NET REPAIRER REFERRAL TO [facility] NET REPAIRER [facility]. CURRENT INSURANCE IS MCR AND AUTHORIZATION IS NOT REQUIRED.
--- NOTE | 2018-03-30 18:15 | NUR ---
PT HAD A GOOD DAY TODAY. PT NEEDED TO BE ENCOURAGED TO DRINK, OUTPUT WAS INITIALLY VERY LOW AT THE BEGINNING OF THE SHIFT. OUTPUT HAS INCREASED WITH ENSURE SHAKES. PT HAS NOT BEEN INTERESTED IN SOLID FOODS, BUT HAS HAD ONE BANANA. DISCHARGE IS TOMORROW, HOME. PT UP TO BSC SEVERAL TIMES WITH 3 BM'S. PT TOLERATING 3L NC.
--- NOTE | 2018-03-30 19:47 | NUR ---
HELPED PT GET TO THE BED FROM FROM THE COMMODE. BEDSIDE TABLE AND CALL LIGHT WITHIN REACH.
--- NOTE | 2018-03-30 19:47 | NUR ---
RECEIVED REPORT FROM DAY SHIFT NURSE. PT IS ON COOMADE AT THIS TIME. REPORTS 6 BMS TODAY. PT IS LS IN LEFT WRIST. REPORTS NO PAIN OR NEEDS AT THIS TIME. TALKED TO PT ABOUT PLAN HUNG. PT AGREES WITH PLAN. CALL LIGHT WITHIN REACH. PT BACK TO BED.
--- NOTE | 2018-03-30 21:52 | NUR ---
VITALS AND I&OS DONE AND CHARTED. BEDSIDE TABLE AND CALL LIGHT WITHIN REACH.
--- NOTE | 2018-03-30 22:00 | NUR ---
ASSESSEMTN COMPLETED, MEDICATIONS GIVEN. PT ABLE TO SWALLOW PILLS IN APPLE SAUCE MUCH BETTER TONIGHT. LUNGS AND INW AND EXW IN ALL ALLEN. HEART SOUNDS IRREGULAR. NO EDEMA. PULSES +1 BILAT LE. 3L NC IN PLACE. HELD SENNA D/T DIARRHEA. PT REPORTS PAIN 6/10 IN HEAD. PRN TYLENOL GIVEN. LIGHTS OFF PT IN BED. CALL LIGHT WITHIN REACH. U/O 50ML FOR 4 HOURS. AWARE OF LOW U/O.
--- NOTE | 2018-03-30 22:00 | NUR ---
VEHICLE MODIFICATION TECHNICIAN JANUARY REPORTED DECREASED U/O. AWARE OF OUTPUT. ENCOURAGE PO INTAKE.
--- NOTE | 2018-03-31 | NUR ---
pt appears to be sleeping at this time. respirations equal and nonlabored. 3l nc in place. pt place on npo status at this time. call light within reach.
--- NOTE | 2018-03-31 02:10 | NUR ---
PT APPEARS TO BE SLEEPING. 3L NC. HOB ELEVATED. LEGS ELEVATED. FUENTES IN PLACE. RESPIRATIOS EQUAL AND NONLABORED. CALL LIGHT WITHIN REACH.
--- NOTE | 2018-03-31 04:24 | NUR ---
PT APPEARS TO BE SLEEPING. RESPIRATIONS EQUAL AND NONLABORED. HOB ELEVATED. CALL LIGHT WITHIN REACH.
--- NOTE | 2018-03-31 05:03 | NUR ---
PT SLEPT THROUGHOUT THE NIGHT. DIDN'T NEED 0200 OR 0400 NEB TREATMENTS. 3L NC. SBA W/ FWW. LOW U/O. AWARE. ABLE TO SWALLOW PILLS MUCH BETTER WITH APPLE SAUCE THIS SHIFT. REPOSITON Q2. ALYVIN ON COCCYX. NO PAIN. NPO PER DR WITT SINCE MIDNIGHT.
--- NOTE | 2018-03-31 05:45 | NUR ---
GINA VAZ. POST VOIDS. PT DUE TO VOID
--- NOTE | 2018-03-31 08:31 | NUR ---
PT SITTING UP IN BED ON PILLOWS, NO DISTRESS. PT IS NPO, OUTPUT LOW. PT HAD INTERMITTENT COUGHING THIS AM. PT STATES HE FEELS "OK" TODAY. SURGEON TO CONSULT TODAY, SCOPE INTENDED PER PROVIDER EDUAR. PT DENIES SOB.
--- NOTE | 2018-03-31 10:13 | NUR ---
PT AT BEDSIDE, MINIMAL OUTPUT, ENCOURAGING FLUIDS, NPO STATUS CHANGED DUE TO PROVIDER. AM MEDS GIVEN PER PROVIDER. PT RESTING AT BEDSIDE, NO CHANGES IN CONDITION.
[2018-03-31] MEDS ORDERED: COREG3.125 MG PO (11:11)
[2018-03-31] MEDS ORDERED: EFFEXOR XR75 MG PO (11:11)
[2018-03-31] MEDS ORDERED: TORSEMIDE5 MG PO (11:12)
--- NOTE | 2018-03-31 11:44 | NUR ---
WHILE I WAS IN THERE HE WANTED TO USE BSC. PATIENT REFUSED SHOWER TODAY SAID HE WILL DO IT WHEN HE GETS HOME. I ORDERED HIM TWO ENSURE MILKSHAKES AND A CUP OF COFFEE WITH TWO CREAMERS THAT IS ALL HE WANTED FOR LUNCH.
--- NOTE | 2018-03-31 11:51 | NUR ---
PATIENT RETURNED FROM HER WALK WITH PT, SHE TOLERATED IT WELL, RETURNED TO SITTING IN CHAIR, ON CONTINOUS PULSE OXIMETRY. SHE REQUESTED ICE CREAM FOR HER 'HARD WORK', SHE ATE 1 ICE CREAM AND DID WELL WITH SWALLOWING. PATIENT BRUSHED HER HAIR AND TEETH ON HER OWN. APPLIED LOTION TO PATIENT'S LEGS, FEET, ARMS, AND HANDS. LEFT PATIENT SITTING UPRIGHT IN HER CHAIR WITH NO REQUESTS OR COMPLAINT. PATIENT HAS NOT HAD A BOWEL MOVEMENT SINCE 03/29/18, HOWEVER SHE HAS PASSED GAS AND HAS ADEQUATE BOWEL TONES. PATIENT AGREED A STOOL SOFTENER OR LAXATIVE MIGHT HELP, RELAYED THIS INFORMATION TO THE PRIMARY NURSE. NOTE THAT PATIENT ALSO HASN'T BEEN EATING A LOT.
--- NOTE | 2018-03-31 12:14 | NUR ---
PT HAS BEEN RESTING IN BED, PT TOLERATING FLUIDS. NO CHANGES IN CONDITION.
--- NOTE | 2018-03-31 13:39 | NUR ---
UPDATED BY STAFF THAT PATIENT IS BEING DISCHARGED TODAY. SPOKE WITH PATIENT IN ROOM. HE IS AWARE THAT HOME HEALTH IS PROBABLY BEING ORDERED TO CONTINUE PT/OT AT HOME. HE UNDERSTANDS THAT THEY WILL CONTACT HIM EARLY NEXT WEEK. WE DISCUSSED FOLLOW UP WITH PCP. HE IS CURRENTLY TRYING TO CHANGE PCP OFFICES TO [place]. EXPLAINED THAT I CANNOT GET HIM AN APPOINTMENT FOR NEW PATIENT EARLY ENOUGH TO BE FOLLOW UP NEEDED FROM [facility]. HE STATES HE CAN SEE DR UNDERWOOD FOR THIS. HE LAST SAW HIM IN DECEMBER. UPDATED CHARGE NURSE TO MAKE FOLLOW UP WITH CURRENT PCP DR UNDERWOOD. PATIENT STATES HE FEELS HE IS READY TO GO HOME. I DID TELL HIM IF HE HAS ANY PROBLEMS HE CAN CALL THE NURSES STATION AND THEY CAN HELP HIM IF NEEDED. HE STATES UNDERSTANDING.
--- NOTE | 2018-04-03 07:58 | NUR ---
HOME HEALTH ORDER AND CLINICALS DELIVERED TO [facility].
--- NOTE | 2018-04-03 17:36 | NUR ---
HEART FAILURE DISCHARGE FOLLOW UP CALL #1- Spoke to Mrs. Morataya. States that he has all of medications and they don't have any questions concerning changes. She states he will make it to his follow up appointments on and . She is taking off work to go with him. He has been weighing at 0430 am "hes holding his weight". He started Chantex upon returning home but believes it is causing stomach upset so will be stopping it. Offered outpatient Pulmonary Rehab or smoking cessation meeting with RT. She states "he wouldn't be interested." Home health will be following patient.
== END 2018-03-31 15:35 | disposition home health service (06) | DRG 555 ==
LOC: MS 10:25
PROVIDERS: ADMIT Internal Medicine
DX: M62.81 Muscle weakness (generalized) (principal); E43 Unspecified severe protein-calorie malnutrition; I50.22 Chronic systolic (congestive) heart failure; B37.0 Candidal stomatitis; J96.11 Chronic respiratory failure with hypoxia; Z68.1 Body mass index [BMI] 19.9 or less, adult; I50.82 Biventricular heart failure; R26.2 Difficulty in walking, not elsewhere classified; R13.10 Dysphagia, unspecified; I34.0 Nonrheumatic mitral (valve) insufficiency; I25.10 Atherosclerotic heart disease of native coronary artery without angina pectoris; J44.9 Chronic obstructive pulmonary disease, unspecified; N40.1 Benign prostatic hyperplasia with lower urinary tract symptoms; E11.9 Type 2 diabetes mellitus without complications; E78.5 Hyperlipidemia, unspecified; K21.9 Gastro-esophageal reflux disease without esophagitis; F17.200 Nicotine dependence, unspecified, uncomplicated; G47.00 Insomnia, unspecified; F41.8 Other specified anxiety disorders; F40.00 Agoraphobia, unspecified; R07.9 Chest pain, unspecified; R10.84 Generalized abdominal pain; Z88.5 Allergy status to narcotic agent; Z95.1 Presence of aortocoronary bypass graft; Z88.8 Allergy status to other drugs, medicaments and biological substances; Z79.84 Long term (current) use of oral hypoglycemic drugs; Z79.82 Long term (current) use of aspirin; Z79.899 Other long term (current) drug therapy
CPT/HCPCS: 92610; 94640; 94668; 94760; 97110; 97116; 97163; 97165; 97530; 97535; J1650; J7030

== ENCOUNTER 2018-04-04 12:10 | Emergency (ER) | payer MEDICARE ==
[~2018-04-04] VITALS: Ht 175.3 cm; Wt 217.4 kg
[~2018-04-04 12:10] MED LIST changes: +COREG3.125 MG PO; +EFFEXOR XR75 MG PO; +TORSEMIDE5 MG PO
[2018-04-04] MEDS ORDERED: METHYLPREDNISOLO4 M1 PO (13:27)
--- NOTE | 2018-04-04 14:08 | NUR ---
CHW met patient and patient in ED room. Patient was upset and stated he needs help in his home while his works at [employer] Tuesday through Tuesday 6:00am to 3:00pm. CHW discussed possible [employer] assessment to see if patient would qualify for Medicaid benefits, and possible caregiver hours in the home. Patient stated she would like to take sometime tonight to discuss with her some options. She is very overwhelmed, and upset and needs sometime. Patient stated she is going to try and take a medical leave from work during this time. CHW stated to talk with patient current PCP Dr Gomes to see if it is time to have a caregiver for patient and have more present at home since doesnt know if he should be left at home alone anymore. CHW also discussed home health received referral and is going to review it and get ahold of patient for assessment to admit to home health services. CHW also discussed a home assessment and patient stated only when is home and that isnt until after 3pm. CHW stated Stormy from [facility] will be in contact with them to set up a home assessment.
--- NOTE | 2018-04-05 08:49 | EKG ---
[facility] [address] [place] [address] Signed Sinus tachycardia with occasional premature ventricular complexes Possible Left atrial enlargement T wave abnormality, consider lateral ischemia Abnormal ECG When compared with ECG of 21-MAR-2018 18:00, No significant change was found Confirmed by TERRELL GUERRERO MD ([id number]) on 04/05/2018 8:48:56 AM Electronically Signed By: TERRELL GUERRERO MD 04/05/18 0849 PATIENT NAME: JAIR MEANS Electrocardiogram DATE OF : 59 PHYSICIAN: TERRELL GUERRERO MD REPORT #: [id number] REPORT IS CONFIDENTIAL AND NOT TO BE RELEASED WITHOUT AUTHORIZATION
== END 2018-04-04 13:40 | disposition home or self-care (01) ==
LOC: ED 12:10
DX: J44.9 Chronic obstructive pulmonary disease, unspecified (principal); E11.9 Type 2 diabetes mellitus without complications; I25.2 Old myocardial infarction; I50.9 Heart failure, unspecified; F17.200 Nicotine dependence, unspecified, uncomplicated; Z88.8 Allergy status to other drugs, medicaments and biological substances; Z88.5 Allergy status to narcotic agent; Z79.84 Long term (current) use of oral hypoglycemic drugs; Z79.899 Other long term (current) drug therapy; Z99.81 Dependence on supplemental oxygen
CPT/HCPCS: 71045; 80053; 83880; 84484; 85025; 93005; 93010; 94640; 96374; 99284; J2930

== ENCOUNTER 2018-04-10 11:37 | Observation (INO) | payer MEDICARE ==
[~2018-04-10] VITALS: Ht 175.3 cm; Wt 219.1 kg
[~2018-04-10 11:37] MED LIST changes: +METHYLPREDNISOLO4 M1 PO
[2018-04-10] MEDS ORDERED: EFFEXOR XR150 MG PO (12:10)
--- NOTE | 2018-04-10 15:38 | NUR ---
PT ARRIVED VIA STRETCHER, TRANSFERRED TO BED WITH 3 PERSON ASSIST - HOB ELEVATED. PT SOB WITH 02 AT 5L SATS 90%. VITAL SIGNS TAKEN, PT ANXIOUS AND REQUESTING HELP WITH BREATHING. R.T. NOTIFIED AND NEB TX GIVEN. DR. GUERRERO NOTIFIED OF PT ANXIETY, ORDERS RECEIVED. LASIX 20 MG X2 GIVEN AND MORPHINE 1MG IV GIVEN. FUENTES CATH DRAINING PINK COLORED URINE.
--- NOTE | 2018-04-10 18:29 | NUR ---
Medications reconciled using pharmacy records, chart notes and interview with patient's
--- NOTE | 2018-04-10 18:48 | NUR ---
PT SOB AND NOT ABLE TO TALK, PT ANXIOUS, DR. GUERRERO CALLED AND HERE TO SEE PT AND TALK WITH FAMILY MEMBERS. PT RESTING WITH HOB ELEVATED.
--- NOTE | 2018-04-10 19:00 | NUR ---
RECEIVED REPORT FROM RN. NEW PLAN OF CARE IS TO MAKE PATIENT MORE COMFORTABLE AT THIS TIME WITH PRN MORPHINE AND ATIVAN. PATIENT'S CODE STATUS IS DNR/DNI, HAS BEEN REFUSING TO WEAR CPAP/BIPAP AND ADMITTED FOR RESP. FAILURE PER DR. GUERRERO. PATIENT AND FAMILY IS AWARE OF CURRENT CONDITION AND RISK FOR DECOMPENSATION PER CONVERSATION WITH DR. GUERRERO.
--- NOTE | 2018-04-10 20:15 | NUR ---
PATIENT REMAINS ANXIOUS AND HAS INCREASED WORK OF BREATHING. PRN MORPHINE AND ATIVAN GIVEN. PATIENT'S RR IS NOW 19, AND STATES THAT HE FEELS LESS ANXIOUS. DENIES FURTHER NEEDS. ASSESSMENT DONE. CALL LIGHT WITHIN REACH, FAMILY AT BEDSIDE.
--- NOTE | 2018-04-10 21:32 | NUR ---
PATIENT RESTING COMFORTABLY IN BED, BREATHING IS EVEN AND UNLABORED. O2 SATURATION IS 93% ON 5L O2 VIA OXYMASK, RR IS 18. REPOSITIONED FOR COMFORT. PATIENT DENIES FURTHER NEEDS. CALL LIGHT WITHIN REACH, FAMILY AT BEDSIDE.
--- NOTE | 2018-04-10 21:45 | NUR ---
UPDATED DR. GUERRERO ABOUT PATIENT'S DECREASE IN MENTATION. PATIENT OPENS EYES TO HIS NAME, DOES NOT VERBALLY RESPOND. ORDERS TO MAINTAIN O2 SATURATION AT 90% RECEIVED.
--- NOTE | 2018-04-10 21:45 | NUR ---
INFORMED DR. GUERRERO THAT PATIENT IS REFUSING MAJORITY OF PO MEDICATIONS, NO NEW ORDERS AT THIS TIME.
--- NOTE | 2018-04-10 21:53 | NUR ---
PATIENT O2 SATURATION DOWN TO 82% ON 4L O2 VIA OXYMASK. TITRATED O2 TO 9L O2 VIA OXYMASK, O2 SATURATION NOW 90%. PATIENT RESTING COMFORTABLY, RR IS 20. CALL LIGHT WITHIN REACH, FAMILY AT BEDSIDE.
--- NOTE | 2018-04-10 22:39 | NUR ---
PATIENT BREATHING IS LABORED, O2 SATURATION 85% ON 9L 02 VIA OXYMASK AND COUGHING. PATIENT DENIES PAIN AND REPORTS DIFFICULTY BREATHING. FAMILY STATES "HE LOOKS LIKE HE IS WORKING REALLY HARD TO BREATHE." PRN MORPHINE GIVEN. PATIENT AND FAMILY DENIES FURTHER NEEDS. CALL LIGHT WITHIN REACH.
--- NOTE | 2018-04-10 23:30 | NUR ---
PATIENT RESTING IN BED, RR IS 17, O2 SATURATION IS 92% ON 10L 02 VIA OXYMASK. PATIENT APPEARS COMFORTABLE, FLACC SCORE OF 0. FAMILY STATES "HE LOOKS GOOD RIGHT NOW." UPDATED FAMILY ABOUT PLAN OF CARE AND INFORMED THEM ABOUT THE AVAILABLE OPTION OF PLACING PATIENT ON NON-REBEATHER MASK IF THE PATIENT'S O2 REQUIREMENT WERE TO INCREASE. PATIENT'S FAMILY STATES THEY UNDERSTAND AND STATE "WE DO NOT WANT HIM TO GO ON CPAP OR BIPAP. IT MAKES HIM TO ANXIOUS." FAMILY DENIES FURTHER NEEDS OR QUESTIONS AT THIS TIME.
--- NOTE | 2018-04-11 01:15 | NUR ---
PATIENT RESTING COMFORTABLY IN BED, RR IS 19, O2 SATURATION IS 91% ON 8L 02 VIA OXYMASK. PATIENT DENIES PAIN, DENIES FEELING SHORT OF BREATH. FAMILY DENIES NEEDS AT THIS TIME. CALL LIGHT WITHIN REACH.
--- NOTE | 2018-04-11 02:49 | NUR ---
PATIENT'S HOB ELEVATED PER PATIENT REQUEST, PROVIDED SIPS OF WATER, O2 TITRATED DOWN TO 6L O2, O2 SATURATION IS NOW 92%. PATIENT DENIES PAIN, DENIES NEEDS AT THIS TIME. FAMILY AT BEDSIDE.
--- NOTE | 2018-04-11 03:10 | NUR ---
PATIENT REPOSITIONED FOR COMFORT, PRN MORPHINE AND ATIVAN GIVEN FOR ANXIETY AND PAIN IN BUTTOCKS. PATIENT DENIES FURTHER NEEDS. O2 SATURATION IS 91% ON 6L O2, RR IS 16. FAMILY AT BEDSIDE.
--- NOTE | 2018-04-11 05:03 | NUR ---
PATIENT RESTING IN BED, RR IS 16, O2 SATURATION IS 93% ON 6L O2 VIA OXYMASK. FLACC SCORE OF 0. FAMILY AT BEDSIDE. CALL LIGHT WITHIN REACH.
--- NOTE | 2018-04-11 06:41 | NUR ---
CALLED IN WHEN PT PUT ON COMFORT CARE. FAMILY HERE, PRAYED WITH THEM. THEY WERE NOT DOING WELL ACCEPTING SITUATION. I TALKED WITH EACH ONE NEED AND OCCASION AROSE. EACH SEEMED TO DO BETTER TIME PROGRESSED. SON FELT GUILTY FOR NOT SPENDING TIME WITH HIS DAD, I TALKED HIM THROUGH THAT. SEEM TO BE CLOSE FAMILY.
--- NOTE | 2018-04-11 06:45 | NUR ---
PT FAMILY CALLED AND STATED PT RR IS INCREASED AND PT APPEARS UNCOMFORTABLE. PT REQUESTING SOMETHING FOR COMFORT. GAVE PRN MORPHINE. WILL CONTINUE TO CLOSELY MONITOR. FAMILY IS ALL RESTING AT BEDSIDE AT THIS TIME AND DENIES ANY NEEDS.
--- NOTE | 2018-04-11 06:58 | NUR ---
PATIENT GIVEN ATROPINE DROPS. PATIENT RESTING IN BED, RR IS 16, O2 SATURATION IS 92% ON 6L O2 VIA OXYMASK. FAMILY AT BEDSIDE.
--- NOTE | 2018-04-11 08:28 | NUR ---
PROVIDED PATIENT WITH ORAL CARE, PATIENT RESPONSIVE TO VOICE. NODS HEAD TO YES OR NO QUESTIONS. ATTEMPTED TO WORK UP SPUTUM, PATIENT UNABLE. ATTEMPTED TO SUCTION, PATIENT REQUESTED FOR NURSE TO STOP. AT THAT TIME ADMINISTERED ATROPINE DROPS. PATIENT VERBALIZED HE WAS COMFORTABLE IN THE POSITION HE WAS IN, SITTING IN AN UPRIGHT ANGLE. FAMILY AT BEDSIDE, ACKNOWLEDGED CONCERNS AND ANSWERED QUESTIONS. FAMILY REPORTS THE COMFORT TRAY DOES NOT NEED TO BE REFRESHED AT THIS TIME. MOUTH SWABS AT BEDSIDE. NO FURTHER NEEDS AT THIS TIME.
--- NOTE | 2018-04-11 12:10 | NUR ---
RECEIVED SHIFT CHANGE UPDATE FROM NIKI Del Rosario FOLLOWED UP WITH FAMILY, RAFA MENTIONED THAT IT HAS BEEN A LONG NIGHT. LOTS OF FAMILY PRESENT, RAFA MENTIONED THAT PT DIDNOT WANT HER TO LEAVE HIS SIDE. SHE MADE IT PLAIN TO ME, SHE WILL NOT LEAVE HIS SIDE. FAMILY HAS NO ILLUSIONS ABOUT PT'S CONDITION. DISCUSSED WITH ME FINAL ARRANGEMENTS. [employer] WITH [employer]. HAD PRAYER WITH FAMILY, WILL CONTINUE TO FOLLOW CLOSELY
--- NOTE | 2018-04-11 12:29 | NUR ---
ASSESSMENT COMPLETED THIS A.M. FAMILY IN ROOM. PT REFUSED SUCTIONING. PT MEDICATED WITH MORPHINE 4MG IV AND ATIVAN 1MG IV, PT THEN TRANSFERRED TO NEW BED WITH HOB ELEVATED. OXYMASK ON AT 10, SATS 97%. FUENTES CATH WITH MINIMAL URINE OUTPUT, VERY DARK URINE. DR. GUERRERO IN TO ASSESS PT AND TALK WITH FAMILY MEMEBERS. MAGNET PLACED ON PACER/DEFIB PER FAMILY REQUEST. REQUESTED DR. GARCIA OFFICE SEND INFO ON PACER/DEFIB AND LAST PROG NOTE.
--- NOTE | 2018-04-11 14:13 | NUR ---
RECIEVED REPORT VIA TELEPHONE FROM KAILA PEPPER RN.
--- NOTE | 2018-04-11 15:17 | NUR ---
PT MOVED TO M/S125 FROM CCU. 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 THEY SEEMED VERY PLEASED WITH HIS CARE LAST NIGHT. NOTED IN HIS CHART THAT [employer] IS THE FAMILY CHOICE WITH [employer]. HE IS ALSO A , AND INFORMED FAMILY OF OUR DEPT POLICY OF HONORING VETS WITH [employer]. THEY APPROVED. FAMILY REQUESTED PRAYER, WILL BE AVAILABLE NEEDED
--- NOTE | 2018-04-11 15:31 | NUR ---
PER DR. GUERRERO, DECREASED OXYGEN VIA OXYMASK FROM 10 L TO PT'S BASELINE, 3L. PT BECAME RESTLESS, MOVING ARMS AND LEGS RESTLESSLY, AND SAT FORWARD IN BED. PT'S EXPRESSED CONCERN. 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 THEN GAVE ATIVAN 1 MG IV PRN SIGNS OF AIR HUNGER AND RESTLESSNESS.
--- NOTE | 2018-04-11 15:55 | NUR ---
NOTIFIED DR. GUERRERO OF RESULTS OF PT ASSESSMENT, INCLUDING THAT PT'S HR WAS 127, ACCESSORY MUSCLES IN USE, URINE OUTPUT NOT QUANTITY SUFFICIENT, AND THAT PT IS DROWSY/DIFFICULT TO AROUSE. PT IS ON COMFORT MEASURES, AND THESE RESULTS OF ASSESSMENT ARE NOT DIFFERENT FROM PREVIOUS ASSESSMENT. NOTIFIED DR. GUERRERO PER CALL PARAMETER POLICY.
--- NOTE | 2018-04-11 16:47 | NUR ---
JOSÉ MIGUEL RN NOTIFIED THIS RN THAT I WAS NEEDED IN PT'S ROOM. ENTERED ROOM, SWETA Haddad, CASE MANAGEMENT, AND JIMI Frias RN IN ROOM WITH PT AND PT'S FAMILY. NOTED THAT PT DID NOT APEAR TO BE BREATHING, JIMI WAS AUSCULTATING PT'S CHEST. DR. GUERRERO TO PT'S ROOM. NOTED AGONAL BREATHS. PT'S FAMILY AT BEDSIDE.
--- NOTE | 2018-04-11 16:48 | NUR ---
PT CALLED TO SAY PT APPEARED UNCOMFORTABLE AND WAS MOANING WITH HIS BREATHES. ASKED IF WE COULD GIVE HIM SOMETHING. ADMINISTERED LANDSCAPE CREW MEMBER MORPHINE. SAT AND TALKED TO PT FOR A FEW MINUTES AND PT APPEARED TO REST MORE COMFORTABLY. PT STOPPED MOANING AND FACE RELAXED A LITTLE. REST OF FAMILY CAME IN AND THIS RN OFFERED TO CALL DIETARY FOR HOSPICE TRAY. APPROX 10 MINUTES LATER FAMILY CAME OUT TO SAY HE HAD QUIT BREATHING AND WAS UPSET. WENT IN ROOM TO ASSESS AND PT DID NOT HAVE A HEART RATE WITH AGONAL BREATH IRREGULAR AND LARGE TIME INBETWEEN. DR IN ROOM TO ASSESS. PT CONTINUES TO HAVE OCCASIONAL BREATHES.
--- NOTE | 2018-04-11 17:25 | NUR ---
TO PT'S ROOM AT 1710, PT WAS FOUND TO HAVE NO RESPIRATIONS, AND NO HEART BEAT. CALLED JIMI, CHARGE NURSE TO ROOM, WELL DR. GUERRERO. JIMI, CHARGE NURSE NOTIFIED ADEBAYO, NURSING HEAD OF OPERATION AND LOGISTICS. NIKI [facility] CALLED, AND IS ON FLOOR NOW.
--- NOTE | 2018-04-11 18:32 | NUR ---
I WAS CALLED AT THE OF THIS PT. WHEN I ARRIVED FAMILY HAD LEFT HOSPIITAL. I CALLED HOME THEN COVERED BODY WITH [employer] AND ESCORTED TO TRANSPORT VAN. THE , RAFA, CALLED AND I ENCOURAGED HER TO GET SOME REST, SHE SAID SHE HAD NOT SLEPT SINCE COMING TO HOSPITAL YESTERDAY.
--- NOTE | 2018-04-11 20:59 | EKG ---
[facility] [address] [place] [address] Signed Sinus tachycardia with premature supraventricular complexes and with frequent premature ventricular complexes Possible Left atrial enlargement Nonspecific ST and T wave abnormality Abnormal ECG When compared with ECG of 04-APR-2018 12:27, premature supraventricular complexes are now present Confirmed by TERRELL GUERRERO MD ([id number]) on 04/11/2018 8:59:03 PM Electronically Signed By: TERRELL GUERRERO MD 04/11/18 2059 PATIENT NAME: JAIR MEANS Electrocardiogram DATE OF : 59 PHYSICIAN: TERRELL GUERRERO MD REPORT #: [id number] REPORT IS CONFIDENTIAL AND NOT TO BE RELEASED WITHOUT AUTHORIZATION
== END 2018-04-11 17:10 ==
LOC: ED 11:37 → CCU 11:38 → MS 04-11 10:14 → CCU 04-11 10:15 → MS 04-11 14:19
PROVIDERS: ADMIT Internal Medicine
DX: J96.21 Acute and chronic respiratory failure with hypoxia (principal); I50.23 Acute on chronic systolic (congestive) heart failure; J98.11 Atelectasis; E83.42 Hypomagnesemia; E87.6 Hypokalemia; Z51.5 Encounter for palliative care; E11.9 Type 2 diabetes mellitus without complications; I25.2 Old myocardial infarction; J44.9 Chronic obstructive pulmonary disease, unspecified; F17.210 Nicotine dependence, cigarettes, uncomplicated; F51.04 Psychophysiologic insomnia; R64 Cachexia; N40.1 Benign prostatic hyperplasia with lower urinary tract symptoms; R33.8 Other retention of urine; K21.9 Gastro-esophageal reflux disease without esophagitis; E78.5 Hyperlipidemia, unspecified; I25.10 Atherosclerotic heart disease of native coronary artery without angina pectoris; F32.9 Major depressive disorder, single episode, unspecified; F40.00 Agoraphobia, unspecified; Z95.810 Presence of automatic (implantable) cardiac defibrillator; Z88.5 Allergy status to narcotic agent; Z95.1 Presence of aortocoronary bypass graft; Z95.5 Presence of coronary angioplasty implant and graft; Z66 Do not resuscitate; Z88.8 Allergy status to other drugs, medicaments and biological substances; Z79.82 Long term (current) use of aspirin; Z79.51 Long term (current) use of inhaled steroids; Z79.52 Long term (current) use of systemic steroids; Z79.899 Other long term (current) drug therapy
CPT/HCPCS: 36415; 71045; 71260; 80048; 80053; 83735; 83880; 84484; 85025; 85610; 85730; 93005; 93010; 94640; 94644; 94660; 96374; 96375; 96376; 99291; G0378; J2060; J2270; J2405; J3475; Q9967